=== PATIENT | male | born 1970 | race Caucasian/White ===

== ENCOUNTER 2017-01-11 10:04 | Inpatient (IN) | payer SELFPAY ==
[~2017-01-11] VITALS: Ht 170.2 cm; Wt 85.5 kg
[2017-01-11] MEDS ORDERED: ALBUTEROL 0.083% (NEB) 2.5 MG/3 ML AMP HHN STA (10:48)
[2017-01-11] MEDS ORDERED: ONDANSETRON 4 MG INJ IV STA (10:48)
[2017-01-11] MEDS ORDERED: KETOROLAC 15 MG INJ IV STA (10:48)
[2017-01-11] MEDS ORDERED: SOD CHLORIDE 0.9% 1,000 ML IV STA (10:48)
[2017-01-11] MEDS ORDERED: ASPIRIN 81 MG TAB PO ONE (11:00)
--- NOTE | 2017-01-11 11:01 | ERD ---
ER Documentation Chief Complaint Date/Time DATE: 01/11/17 TIME: 10:58 Chief Complaint Complains of chest pain and SOB since this am HPI 46-year-old man here for evaluation of shortness of breath 1 week. He states earlier he had chest discomfort although denies chest pain today or in the ED. He states many years ago in [facility] he was told he may have suffered a heart attack and was told he has hypertension although has not been using any medications and does not regularly take aspirin. He states the shortness of breath is worse when laying flat and on exertion. He denies cough, no calf or leg swelling, no vomiting or diarrhea, no headache or blurry vision. ROS All systems reviewed and are negative except as per history of present illness. Medications Home Meds No Active Prescriptions or Reported Meds Allergies Allergies: Coded Allergies: No Known Allergy (Unverified , 01/11/17) PMhx/Soc Hx Alcohol Use: No Hx Substance Use: No Hx Tobacco Use: No Smoking Status: Former smoker FmHx Family History: No diabetes Physical Exam Vitals Vital Signs Date Time Temp Pulse Resp B/P Pulse Ox O2 Delivery O2 Flow Rate FiO2 01/11/17 11:29 97.3 105 137/106 01/11/17 11:04 93 21 01/11/17 10:39 110 26 138/110 98 Room Air 01/11/17 10:16 97.5 105 20 126/94 99 Physical Exam GENERAL: Well-developed, well-nourished, appears dyspneic HEENT: Moist mucous membranes, pink conjunctiva, no cervical spine tenderness or step-off deformities, no goiter, no jaundice or icterus, extraocular movements intact without pain. No submandibular induration, and no pharyngeal erythema NEURO: Alert and oriented 3, cranial nerves II through XII intact bilaterally, pupils equal round reactive to light, no focal deficits or facial asymmetry, sensation intact distally Strength 5/5 in upper and lower extremities bilaterally CARDIAC: Tachycardic and regular, no murmurs rubs or gallops LUNGS: Poor breath sounds bilaterally, no crackles or stridor ABDOMEN: Soft nontender, no guarding, no rigidity, no rebound, no psoas sign no obturator sign. Normoactive bowel sounds SKIN: Warm and dry to touch, no abrasions, contusions, or hematomas, no lacerations, no ecchymosis, no target lesions, and without ulcers EXTREMITIES: No clubbing cyanosis or edema, calves are bilaterally symmetrical, no Homans sign, no popliteal cord sign. Distal pulses equal and bilateral PSYCH: Normal affect without agitation or irritability Result Diagram: 01/11/17 1030 01/11/17 1030 Results 24 hrs Laboratory Tests Test 01/11/17 10:30 White Blood Count 11.110^3/ul Red Blood Count 4.6910^6/ul Hemoglobin 14.0g/dl Hematocrit 40.5% Mean Corpuscular Volume 86.4fl Mean Corpuscular Hemoglobin 29.9pg Mean Corpuscular Hemoglobin Concent 34.6g/dl Red Cell Distribution Width 13.4% Platelet Count 55747^3/UL Mean Platelet Volume 11.1fl Neutrophils % 65.4% Lymphocytes % 25.8% Monocytes % 5.8% Eosinophils % 2.1% Basophils % 0.4% Nucleated Red Blood Cells % 0.0/100WBC Neutrophils # (Manual) 7.310^3/ul Lymphocytes # 2.910^3/ul Monocytes # 0.610^3/ul Eosinophils # 0.210^3/ul Basophils # 0.010^3/ul Nucleated Red Blood Cells # 0.010^3/ul Sodium Level 140mmol/L Potassium Level 4.6mmol/L Chloride Level 105mmol/L Carbon Dioxide Level 21mmol/L Anion Gap 19 Blood Urea Nitrogen 10mg/dl Creatinine 0.83mg/dl Glucose Level 111mg/dl Calcium Level 9.0mg/dl Total Bilirubin 1.5mg/dl Direct Bilirubin 0.00mg/dl Indirect Bilirubin 1.5mg/dl Aspartate Amino Transf (AST/SGOT) 86IU/L Alanine Aminotransferase (ALT/SGPT) 164IU/L Alkaline Phosphatase 74IU/L Troponin I 0.224ng/ml B-Type Natriuretic Peptide 1710PG/ML Total Protein 7.0g/dl Albumin 3.9g/dl Globulin 3.10g/dl Albumin/Globulin Ratio 1.25 Lipase 42U/L Current Medications Medications (Trade) Dose Ordered Sig/Afshan Route PRN Reason Start Time Stop Time Status Last Admin Dose Admin Sodium Chloride (NS) 1,000 ml @ 1,000 mls/hr Q1H STAT IV 01/11/17 10:48 01/11/17 11:47 DC 01/11/17 11:15 Ondansetron HCl (Zofran Inj) 4 mg ONCE STAT IV 01/11/17 10:48 01/11/17 10:50 DC 01/11/17 11:13 Ketorolac Tromethamine (Toradol) 15 mg ONCE STAT IV 01/11/17 10:48 01/11/17 10:50 DC 01/11/17 11:13 Albuterol (Proventil 0.083% (Neb)) 10 mg ONCE STAT HHN 01/11/17 10:48 01/11/17 10:50 DC 01/11/17 11:03 Aspirin (Aspirin) 324 mg ONCE ONCE PO 01/11/17 11:00 01/11/17 11:01 DC 01/11/17 11:15 Clopidogrel Bisulfate (plaVIX) 300 mg ONCE ONCE PO 01/11/17 13:30 01/11/17 13:31 DC 01/11/17 13:22 Furosemide (Lasix) 60 mg ONCE ONCE IV 01/11/17 13:30 01/11/17 13:31 DC 01/11/17 13:21 Procedures/MDM IV line was established patient was placed on security monitor rhythm strip revealed a sinus rhythm at about 70 bpm. Patient was afebrile. EKG performed, read by me revealed a sinus tachycardia at 116 bpm, normal axis, narrow QRS complex with no concerning ST elevations or depressions noted.. I administered 1 L normal saline intravenously, Toradol 15 mg IV, Zofran 4 mg IV , and albuterol 10 mg via nebulizer for complaints of shortness of breath. Patient was also given aspirin 324 mg p.o. for cardio protective measures. CBC was normal, electrolytes normal, liver function tests unremarkable, troponin positive at 0.2, BNP elevated at 1700 EKG #2 was performed about 2 hours later revealing a normal sinus rhythm at 95 bpm, normal axis, narrow QRS complex with repolarization abnormality in V3 through V5 including T-wave inversions, no elevations or depressions noted. One view chest x-ray performed, read by me he has bilateral interstitial edema consistent with decompensated heart failure, no acute infiltrates, no pneumothorax per It appears the patient has suffered an SD, I suspect a week ago and maximum symptom onset, after speaking to him again he states his symptoms have been ongoing 1 month but started getting worse a week ago. He has no history of CHF , although it is obvious now that he has decompensated heart failure secondary to recent SD. He will be admitted to telemetry setting for continued medical management cardiology consultation. Critical Care: Time: 37 minutes, this was time separate from other billable procedures. Treatments/Evaluations: Close monitoring and treatment of unstable vital signs, cardiorespiratory, and neurologic status, while maintaining tight balance of fluid, respiratory, and cardiac interventions. I also ordered clopidogrel 300 mg p.o. for cardio protective measures. Patient' s blood pressure is within normal limits and at this time is without complaints of chest pain. I am no indication for emergent PCI although this may be performed as an inpatient. Departure Diagnosis: Primary Impression: Non-STEMI (non-ST elevated myocardial infarction) Additional Impression: CHF (congestive heart failure) Congestive heart failure type: systolic Congestive heart failure chronicity: acute Qualified Code: I50.21 - Acute systolic congestive heart failure Condition: SUSHILA Chambers MD Jan 11, 2017 11:01
--- NOTE | 2017-01-11 11:06 | RADRPT ---
PROCEDURE: XR Chest. CLINICAL INDICATION: shortness of breath TECHNIQUE: Single portable view of the chest was obtained COMPARISON: None FINDINGS: The heart is normal in size. There is mild pulmonary vascular congestion. There are bilateral perihilar and lower lobe infiltrat es, right greater than left. There is no pleural effusion. There is no pneumothorax. The bones and soft tissues are unremarkable. RPTAT: AA IMPRESSION: Mild cardiomegaly with pulmonary vascular congestion. .Stefan Bran MD, Date Time Electronically viewed and signed by .Stefan Bran MD, on 01/11/2017 11:05 .S/
[2017-01-11 11:29] VITALS: TEMP 97.3
[2017-01-11 11:51] LABS: BASOPHILS % 0.4 % (0.0-2.0); EOSINOPHILS # 0.2 10^3/ul (0.0-0.5); EOSINOPHILS % 2.1 % (0.0-7.0); HEMATOCRIT 40.5 % (42.0-52.0); LYMPHOCYTES # 2.9 10^3/ul (0.8-2.9); LYMPHOCYTES % 25.8 % (15.0-51.0); MEAN CORPUSCULAR HEMOGLOBIN 29.9 pg (29.0-33.0); MEAN CORPUSCULAR HGB CONC 34.6 g/dl (32.0-37.0); MEAN CORPUSCULAR VOLUME 86.4 fl (82.0-101.0); MEAN PLATELET VOLUME 11.1 fl (7.4-10.4); MONOCYTE # 0.6 10^3/ul (0.3-0.9); MONOCYTES % 5.8 % (0.0-11.0); NEUTROPHILS % 65.4 % (39.0-77.0); PLATELET COUNT 185 10^3/UL (140-415); RED BLOOD COUNT 4.69 10^6/ul (4.70-6.10); RED CELL DISTRIBUTION WIDTH 13.4 % (11.5-14.5); WHITE BLOOD COUNT 11.1 10^3/ul (4.8-10.8)
[2017-01-11 12:47] LABS: ALBUMIN 3.9 g/dl (3.3-4.9); ALBUMIN/GLOBULIN RATIO 1.25; BILIRUBIN,INDIRECT 1.5 mg/dl (0-1.1); BILIRUBIN,TOTAL 1.5 mg/dl (0.2-1.3); CREATININE 0.83 mg/dl (0.61-1.24); POTASSIUM 4.6 mmol/L (3.5-5.1)
[2017-01-11 12:59] LABS: TROPONIN-I 0.224 ng/ml (0.00-0.12)
[2017-01-11] MEDS ORDERED: CLOPIDOGREL 75 MG TAB PO ONE (13:30)
[2017-01-11] MEDS ORDERED: FUROSEMIDE 40 MG INJ IV ONE (13:30)
[2017-01-11] MEDS ORDERED: HEPARIN 1000 UNITS/ML 10 ML INJ IV ONE (14:30)
[2017-01-11] MEDS ORDERED: MAGNESIUM HYDROXIDE 30ML CUP PO PRN (14:30)
[2017-01-11] MEDS ORDERED: ACETAMINOPHEN 650 MG SUPP PR PRN (14:30)
[2017-01-11] MEDS ORDERED: ACETAMINOPHEN 325 MG TAB PO PRN (14:30)
[2017-01-11] MEDS ORDERED: BISACODYL 10 MG SUPP PR PRN (14:30)
[2017-01-11] MEDS ORDERED: ONDANSETRON 4 MG INJ IV PRN ×2 (14:30→22:00)
[2017-01-11] MEDS ORDERED: NACL 0.9% 3 ML SYG IV SCH (14:30)
[2017-01-11] MEDS ORDERED: NITROGLYCERIN (SL) 0.4 MG TAB SL PRN ×2 (14:30→22:00)
[2017-01-11] MEDS ORDERED: HEPARIN 1000 UNITS/ML 10 ML INJ IV PRN (14:30)
[2017-01-11] MEDS ORDERED: HYDROCODONE/APAP (5/325) TAB PO PRN ×2 (14:30)
[2017-01-11] MEDS ORDERED: morphine 2 MG INJ IV PRN (14:30)
[2017-01-11] MEDS ORDERED: HEPARIN 25000 UNITS/250 ML 250 ML IV SCH (14:30)
[2017-01-11] MEDS ORDERED: DOCUSATE SODIUM 100 MG CAP PO PRN (14:30)
[2017-01-11 16:39] LABS: BASOPHIL # 0.1 10^3/ul (0.0-0.1); BASOPHILS % 0.5 % (0.0-2.0); EOSINOPHILS # 0.3 10^3/ul (0.0-0.5); EOSINOPHILS % 2.4 % (0.0-7.0); HEMATOCRIT 39.2 % (42.0-52.0); HEMOGLOBIN 13.7 g/dl (14.0-18.0); LYMPHOCYTES # 2.5 10^3/ul (0.8-2.9); LYMPHOCYTES % 22.9 % (15.0-51.0); MEAN CORPUSCULAR HEMOGLOBIN 30.3 pg (29.0-33.0); MEAN CORPUSCULAR HGB CONC 34.9 g/dl (32.0-37.0); MEAN CORPUSCULAR VOLUME 86.7 fl (82.0-101.0); MEAN PLATELET VOLUME 10.7 fl (7.4-10.4); MONOCYTE # 0.5 10^3/ul (0.3-0.9); MONOCYTES % 4.9 % (0.0-11.0); NEUTROPHILS % 68.9 % (39.0-77.0); PLATELET COUNT 169 10^3/UL (140-415); RED BLOOD COUNT 4.52 10^6/ul (4.70-6.10); RED CELL DISTRIBUTION WIDTH 13.3 % (11.5-14.5); WHITE BLOOD COUNT 10.8 10^3/ul (4.8-10.8)
[2017-01-11 16:56] LABS: PROTIME 13.2 Sec (12.2-14.2)
[2017-01-11 16:57] LABS: PARTIAL THROMBOPLASTIN TIME 45.1 Sec (25.0-35.0)
--- NOTE | 2017-01-11 17:21 | HP ---
Date/Time of Note Date/Time of Note DATE: 01/11/17 TIME: 17:16 Assessment/Plan VTE Prophylaxis VTE Prophylaxis Intervention: heparin Assessment/Plan Chief Complaint/Hosp Course Impression and plan 1. Chest pain. Suspect non-ST elevated myocardial infarction. Continue on heparin drip. Health Concierge consulted. Continue beta-eyal. As well as statin medication and antiplatelet. Of note patient also had elevated BNP. Follow-up on echocardiogram. 2. Essential hypertension. Will resume antihypertensives and adjust needed 3. Transaminitis. Likely secondary to patient's alcohol consumption. Cessation was advised. 4.Possible CHF. Patient was noted with cardiomegaly and pulmonary vascular congestion as well as elevated BNP per lab. Follow-up on echocardiogram. Diuretic as needed. Admission process times greater than 40 minutes Discussed plan of care with Dr. Newman Problems: HPI/ROS Admit Date/Time Admit Date/Time Hx of Present Illness This is a 46-year-old male with only reported past medical history of hypertension came to [facility] due to reports of intermittent chest pain for 30 days duration. Patient did report that his chest pain occurs spontaneously but he does notice at times that occurs after he eats food. He reports his chest pain is on the left side sharp-like in nature with associated shortness of breath. Reports that for the past 15 days he has been having increased shortness of breath with his chest pain not necessarily notable on exertion. He declined bypass pertaining hospital due to the aformentiond issues. He did have initial troponin drawn that did have elevation at 0.224. His BNP was also at 1710. He had some slight transaminitis as well but patient does report that he drinks occasionally alcohol specifically tequila. He was noted to be slightly tachycardic as well with heart rate as high as 110. He denies any history of drug use. He does also report cigarette smoking on occasion. We will evaluate him for the aformentiond issues. ROS 12 point review of systems obtained and entirely negative except that mentioned in the history of present illness PMH/Family/Social Past Medical History Medical/surgical history 1. Hypertension Family History Significant Family History: no pertinent family hx Social History Alcohol Use: occasionally Smoking Status: Light tobacco smoker Drug Use: none Exam/Review of Systems Vital Signs Vitals Vital Signs Date Time Temp Pulse Resp B/P Pulse Ox O2 Delivery O2 Flow Rate FiO2 01/11/17 13:45 106 18 141/104 96 Room Air 01/11/17 11:29 97.3 01/11/17 11:04 21 Exam Constitutional: alert Psych: nl mood/affect Head: normocephalic Eyes: nl conjunctiva Neck: supple Respiratory: normal air movement Cardiovascular: other (Regular rate to tachycardic) Gastrointestinal: non-tender, soft Musculoskeletal: nl extremities to inspection 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 II-XII intact, nl mental status, nl speech Labs Result Diagram: 01/11/17 1615 01/11/17 1030 Medications Medications Current Medications Ondansetron HCl (Zofran Inj) 4 mg Q6H PRN IV NAUSEA AND/OR VOMITING; Start at 14:30 Acetaminophen (Tylenol Tab) 650 mg Q6H PRN PO PAIN LEVEL 1-3 OR FEVER; Start at 14:30 Acetaminophen (Tylenol Supp) 650 mg Q6H PRN [place] PAIN LEVEL 1-3 OR FEVER; Start 01/11/17 at 14:30 Acetaminophen/ Hydrocodone Bitart ([place] (5/325)) 1 tab Q6H PRN PO MODERATE PAIN LEVEL 4-6; Start 01/11/17 at 14:30 Acetaminophen/ Hydrocodone Bitart ([place] (5/325)) 2 tab Q6H PRN PO SEVERE PAIN LEVEL 7-10; Start 01/11/17 at 14:30 Morphine Sulfate (morphine) 2 mg Q4H PRN IV SEVERE PAIN LEVEL 7-10; Start 01/11 at 14:30 Docusate Sodium (Colace) 100 mg Q12H PRN PO CONSTIPATION; Start 01/11/17 at 14: 30 Magnesium Hydroxide (Milk Of Mag) 30 ml DAILY PRN PO CONSTIPATION; Start at 14:30 Bisacodyl (Dulcolax Supp) 10 mg DAILY PRN [place] CONSTIPATION; Start 01/11/17 at 14 :30 Pantoprazole (Protonix Tab) 40 mg DAILY@06 PO ; Start 01/12/17 at 06:00 Aspirin (Aspirin) 81 mg DAILY PO ; Start 01/13/17 at 09:00 Metoprolol Tartrate (Lopressor) 12.5 mg BID PO ; Start 01/11/17 at 21:00 Nitroglycerin (Nitroglycerin (Sl Tab) 0.4 Mg) 1 tab Q5M PRN SL CHEST PAIN; Start 01/11/17 at 14:30 NYASIA BURNS Jan 11, 2017 17:21
[2017-01-11 17:25] LABS: CK-MB 1.88 ng/ml (0.0-2.4); TROPONIN-I 0.387 ng/ml (0.00-0.12)
[2017-01-11 21:00] VITALS: BP_SYST 129; BP_DIAS 74; BP_DIAS 94; PULSE 109; RESP 15; RESP 16; Ht 170.2 cm; Wt 85.5 kg
[2017-01-11] MEDS ORDERED: METOPROLOL 25 MG TAB PO SCH (21:00)
[2017-01-11 21:41] VITALS: PULSE 111
[2017-01-11] MEDS ORDERED: ENOXAPARIN 40 MG/0.4 ML SYG SC ONE (22:00)
[2017-01-11] MEDS ORDERED: morphine 4 MG/ML VIAL IV PRN (22:00)
[2017-01-11 22:14] LABS: CK-MB 1.29 ng/ml (0.0-2.4); TROPONIN-I 0.398 ng/ml (0.00-0.12)
--- NOTE | 2017-01-11 22:32 | RADRPT ---
Echocardiogram Report Patient Name: CHRIST WERNER Gender: Male Date: 1970 Study Date: 11-Jan-2017 Corset Fitter: Heather [facility] Location: [facility] Ref. Physician: NYASIA BURNS Quality: Technically Difficult Study Procedures: Transthoracic echocardiogram with complete 2D, M-Mode, and doppler examination. Indications: Chest Pain. 2D/M Mode Doppler Measurement Value Normal Ranges Measurement Value Normal Ranges LVIDd 2D 6.6 3.5 - 5.6 cm AV Peak Gray 1.1 m/sec LVIDs 2D 5.7 2.1 - 4.1 cm AV Peak PG 4.0 mmHg FS 2D 13.6 % LVOT Peak Gary 0.5 m/sec LVPWd 2D 1.5 0.6 - 1.1 cm LVOT Peak PG 1.0 mmHg IVSd 2D 1.5 0.6 - 1.1 cm MV E Peak Gray 1.0 m/sec IVS/LVPW 2D 1.0 MV A Peak Gray 0.8 m/sec AoR Diam 2D 3.0 2.0 - 3.7 cm MV E/A 1.2 LA/Ao 2D 1 0 - 1 MV Decel Time 120 msec EDV 2D 281.0 cm3 MV E/A 1.2 ESV 2D 181.0 cm3 MR Peak PG 69.0 mmHg LA Dimen 2D 3.1 2.3 - 4.0 cm MR Peak Gray 4.1 m/sec TR Peak Gray 2.8 m/sec TR Peak PG 32.0 mmHg RVSP 35.0 mmHg Findings Left Ventricle: Moderate concentric left ventricular hypertrophy. Moderate enlargement of left ventricle cavity. Severe global left ventricular systolic dysfunction. Ejection fraction is visually estimated at 20 %. Abnormal Diastolic Function. Right Ventricle: Normal right ventricular size. Normal right ventricular systolic function. Left Atrium: The left atrium is normal in size. Right Atrium: The right atrium is normal in size. Mitral Valve: Mild mitral leaflet calcification. Mild mitral annular calcification. Mild mitral valve regurgitation. Aortic Valve: Aortic sclerosis without stenosis. Trace aortic valve regurgitation. Tricuspid Valve: Normal appearance of the tricuspid valve. Estimated peak PA systolic pressure 35 mmHg. There is mild tricuspid regurgitation. Pulmonic Valve: Pulmonic valve not well visualized. There is trace pulmonic regurgitation. Pericardium: Normal pericardium with no significant pericardial effusion. Aorta: Normal aortic root. IVC: Normal size and normal respiratory collapse consistent with normal right atrial pressure. Conclusions 1.Moderate concentric left ventricular hypertrophy. Moderate enlargement of left ventricle cavity. Severe global left ventricular systolic dysfunction. Ejection fraction is visually estimated at 20 %. Abnormal Diastolic Function. 2.Mild mitral leaflet calcification. Mild mitral annular calcification. Mild mitral valve regurgitation. 3.Aortic sclerosis without stenosis. Trace aortic valve regurgitation. 4.Normal appearance of the tricuspid valve. Estimated peak PA systolic pressure 35 mmHg. There is mild tricuspid regurgitation. 5.Pulmonic valve not well visualized. There is trace pulmonic regurgitation. Electronically Signed By: Philip Devine 11-Jan-2017 22:31:58 -0700 Patient Name: CHRIST WERNER Study Date: 11-Jan-2017 [id number]
[2017-01-12] VITALS (11 sets, daily range): BP systolic 113–143; BP diastolic 70–92; PULSE 99–107; RESP 15–20
[2017-01-12 05:45] LABS: ALBUMIN 3.6 g/dl (3.3-4.9); ALBUMIN/GLOBULIN RATIO 1.2; BILIRUBIN,INDIRECT 1.5 mg/dl (0-1.1); BILIRUBIN,TOTAL 1.5 mg/dl (0.2-1.3); CALCIUM 8.3 mg/dl (8.4-10.2); CHOL/HDL RATIO 5.3 RATIO; CREATININE 0.81 mg/dl (0.61-1.24); MAGNESIUM 1.8 mg/dl (1.7-2.5); PHOSPHORUS 3.6 mg/dl (2.5-4.9); POTASSIUM 3.5 mmol/L (3.5-5.1); TOTAL PROTEIN 6.6 g/dl (6.1-8.1)
[2017-01-12] MEDS: PANTOPRAZOLE (EC) 40 MG TAB PO SCH (06:16)
--- NOTE | 2017-01-12 07:16 | CONS ---
DATE OF ADMISSION: 01/11/2017 DATE OF CONSULTATION: 01/11/2017 REASON FOR CONSULTATION: Positive troponin, concerning for non- ST-elevation myocardial infarction. REFERRING PHYSICIAN: Adeel Maxwell MD, hospitalist service, and Hardeep Addison NP from the hospitalist service. HISTORY OF PRESENT ILLNESS: Mr. Sanchez is a 46-year-old male with history of hypertension who presented with complaints of intermittent chest pain ongoing for approximately 3 weeks, worse with eating and on the day of admit he had 3 strong episodes. He has been having increasing shortness of breath and dyspnea on exertion. Upon arrival in the Emergency Department, temperature 97.5, blood pressure 126/94, pulse 105, respiratory rate 20, saturating at 99 percent. The patient's labs, white blood cell count 10.1, hemoglobin 14, platelet count 185; sodium 140, potassium 4.6, creatinine of 0.83, BUN 10, troponin 0.224, BNP of 1710, INR of 1.0. The patient underwent a chest x-ray revealing mild cardiomegaly and pulmonary vascular congestion. The patient's electrocardiogram revealed normal sinus tachycardia at a rate of 116, with normal axis, anteroseptal Qs, and lateral T- wave abnormalities. The patient was subsequently admitted to the floor, initiated on aspirin, heparin, and metoprolol. The patient at this time, states the chest pain has improved. The patient had his troponins trended going from 0.224 to 0.387. PAST MEDICAL HISTORY: As above in the HPI. HOSPITAL MEDICATIONS: 1. Lovenox 40 mg subcu daily. 2. Metoprolol 12.5 mg p.o. b.i.d. 3. Protonix 40 mg daily. 4. Zofran p.r.n. 5. Tylenol p.r.n. 6. Morphine p.r.n. 7. Milk of magnesia p.r.n. 8. Heparin IV drip. ALLERGIES: NO KNOWN DRUG ALLERGIES. SOCIAL HISTORY: Positive tobacco. Social EtOH. No illicit drug use. FAMILY HISTORY: No history of sudden cardiac or early CAD. REVIEW OF SYSTEMS: As above in HPI. CONSTITUTIONAL: No fevers or chills. RESPIRATORY: Shortness of breath. CARDIOVASCULAR: Chest pain. GASTROINTESTINAL: No vomiting. GENITOURINARY: No hematuria. MUSCULOSKELETAL: Degenerative joint disease. PSYCHIATRIC: The patient has depression. NEUROLOGIC: No documented history of CVA. PHYSICAL EXAMINATION: VITAL SIGNS: Temperature 97.3. Blood pressure most recently 126/68. Pulse 105. Saturating at 94 percent with a respiratory rate of 18. GENERAL: The patient is alert, awake, in no acute distress. NECK: JVP approximately 8 cm water. LUNGS: Fair air movement throughout. HEART: Tachycardic. Regular rhythm. Normal S1, S2 and 1/6 systolic murmur. Nondisplaced PMI. ABDOMEN: Positive bowel sounds. Soft. EXTREMITIES: No edema, 1-plus pulses bilaterally,posterior tibial. LABORATORY: As above in HPI. No further labs for review at this time. IMAGING STUDIES: As above in HPI. No further imaging studies for review at this time. ECG as above in HPI. IMPRESSION: 1. Positive troponin. Concerning for [id number] myocardial infarction . 2. Chest pain secondary to number 1. 3. Hypertension. 4. Dyslipidemia. 5. Abnormal electrocardiogram. RECOMMENDATIONS: 1. At this time, we will maintain the patient on heparin tonight and aspirin. We will discontinue the patient's Lovenox, as he is on heparin, discontinue the patient's beta eyal with further up titration to improve overall systolic blood pressure and heart rate control. 2. Check a 2D echo to further assess the patient's ejection fraction, wall motion, and any major abnormalities. 3. Check the Lasix given pulmonary vascular congestion by chest x-ray. Follow an increased BNP. Follow lung status closely. The patient will likely benefit from a cardiac stress test or a direct left heart catheterization to further assess for significance of minimally positive troponin. We will make the patient NPO after midnight, but, unfortunately, the laboratory has been completely booked and, therefore, it would 4. be difficult to find an available time for tomorrow, but we will prepare the patient as possible. Thank you for allowing me to take part in the care of this patient. Dictated By: Philip Devine MD /kamala/wiliam /Document#: [id number] CC: Adeel Maxwell MD; Hardeep Addison NP;*[facility]*
[2017-01-12 07:30] LABS: T3 UPTAKE 39.7 % (23.5-40.5)
[2017-01-12 07:43] LABS: THYROID STIMULATING HORMONE 1.93 MIU/L (0.465-4.680)
[2017-01-12] MEDS: FUROSEMIDE 20 MG INJ IV SCH (08:42)
[2017-01-12] MEDS ORDERED: ASPIRIN (EC) 81 MG TAB PO SCH (09:00)
[2017-01-12] MEDS ORDERED: METOPROLOL 25 MG TAB PO SCH (09:00)
[2017-01-12] MEDS ORDERED: ENOXAPARIN 40 MG/0.4 ML SYG SC SCH (09:00)
[2017-01-12] MEDS ORDERED: REGADENOSON 0.4 MG/5 ML SYG ONE (10:11)
[2017-01-12 11:13] LABS: CK-MB 0.78 ng/ml (0.0-2.4); TROPONIN-I 0.198 ng/ml (0.00-0.12)
--- NOTE | 2017-01-12 11:47 | CONS ---
Date/Time of Note Date/Time of Note DATE: 01/12/17 TIME: 11:41 Assessment/Plan Assessment/Plan Chief Complaint/Hosp Course IMPRESSION: 1. Positive troponin. Concerning for [id number] myocardial infarction- no sig uptrend on serial examination and now downtrending with no chest pain 2. Chest pain secondary to number 1. 3. Hypertension. 4. Dyslipidemia. 5. Abnormal electrocardiogram. 6. Cardiomyopathy with low EF by echo Recc: -Tele -serial ecg's -Continue daily alsix -[id number] BB -start acei afterload reduction -Lexiscan stress test today to assess significance of minimally positive troponin Problems: Consultation Date/Type/Reason Admit Date/Time Jan 11, 2017 at 13:30 Initial Consult Date 01/11/2017 Type of Consultation: cardiology Reason for Consultation positive troponin/cardiomyopathy Referring Provider: TARUN SETHI Exam/Review of Systems Vital Signs Vitals Vital Signs Date Time Temp Pulse Resp B/P Pulse Ox O2 Delivery O2 Flow Rate FiO2 01/12/17 08:08 106 01/12/17 07:36 98.3 20 142/92 98 01/11/17 21:00 Room Air 01/11/17 11:04 21 Intake and Output 01/11/17 01/11/17 01/12/17 15:00 23:00 07:00 Intake Total 1000 ml 425 ml Output Total 750 ml Balance 1000 ml -325 ml Exam Review of Systems: CONSTITUTIONAL: No fevers, chills. PULMONARY: No sob CARDIOVASCULAR: No chest pain/palpitations GASTROINTESTINAL: No nausea/vomiting. GENITOURINARY: No hematuria/dysuria. MUSCULOSKELETAL: No myagias/arthalgias. PSYCHIATRIC: The patient denies depression. NEUROLOGIC: No weakness Constitutional: alert Psych: no complaints ENMT: mucosa pink and moist Neck: jvd Respiratory: diminished breath sounds Cardiovascular: regular rate and rhythm Gastrointestinal: non-tender, soft Musculoskeletal: muscle tone (normal) Extremities: other Neurological: other (No focal deficits) Results Result Diagram: 01/11/17 1615 01/12/17 0439 Results 24 hrs Laboratory Tests Test 01/11/17 16:15 01/11/17 21:11 01/12/17 04:39 01/12/17 09:33 White Blood Count 10.8 Red Blood Count 4.52 L Hemoglobin 13.7 L Hematocrit 39.2 L Mean Corpuscular Volume 86.7 Mean Corpuscular Hemoglobin 30.3 Mean Corpuscular Hemoglobin Concent 34.9 Red Cell Distribution Width 13.3 Platelet Count 169 Mean Platelet Volume 10.7 H Neutrophils % 68.9 Lymphocytes % 22.9 Monocytes % 4.9 Eosinophils % 2.4 Basophils % 0.5 Nucleated Red Blood Cells % 0.0 Neutrophils # (Manual) 7.4 Lymphocytes # 2.5 Monocytes # 0.5 Eosinophils # 0.3 Basophils # 0.1 Nucleated Red Blood Cells # 0.0 Prothrombin Time 13.2 Prothrombin Time Ratio 1.0 INR International Normalized Ratio 1.00 Activated Partial Thromboplast Time 45.1 H 32.2 Creatine Kinase 98 73 58 Creatine Kinase Index 1.9 1.8 1.3 Creatinine Kinase MB (Mass) 1.88 1.29 0.78 Troponin I 0.387 *H 0.398 *H 0.198 *H Sodium Level 138 Potassium Level 3.5 Chloride Level 106 Carbon Dioxide Level 23 Anion Gap 13 Blood Urea Nitrogen 12 Creatinine 0.81 Glucose Level 121 Hemoglobin A1c 5.6 Calcium Level 8.3 L Phosphorus Level 3.6 Magnesium Level 1.8 Total Bilirubin 1.5 H Direct Bilirubin 0.00 Indirect Bilirubin 1.5 H Aspartate Amino Transf (AST/SGOT) 39 # Alanine Aminotransferase (ALT/SGPT) 118 H Alkaline Phosphatase 69 Total Protein 6.6 Albumin 3.6 Globulin 3.00 Albumin/Globulin Ratio 1.20 Triglycerides Level 193 H Cholesterol Level 171 LDL Cholesterol, Calculated 100 HDL Cholesterol 32 Cholesterol/HDL Ratio 5.3 Thyroid Stimulating Hormone (TSH) 1.930 Free Thyroxine Index 2.10 Thyroxine (T4) 5.3 L Triiodothyronine (T3) Uptake 39.7 Medications Medications Current Medications Ondansetron HCl (Zofran Inj) 4 mg Q6H PRN IV NAUSEA AND/OR VOMITING; Start at 14:30 Acetaminophen (Tylenol Tab) 650 mg Q6H PRN PO PAIN LEVEL 1-3 OR FEVER; Start at 14:30 Acetaminophen (Tylenol Supp) 650 mg Q6H PRN [place] PAIN LEVEL 1-3 OR FEVER; Start 01/11/17 at 14:30 Acetaminophen/ Hydrocodone Bitart ([place] (5/325)) 1 tab Q6H PRN PO MODERATE PAIN LEVEL 4-6; Start 01/11/17 at 14:30 Acetaminophen/ Hydrocodone Bitart ([place] (5/325)) 2 tab Q6H PRN PO SEVERE PAIN LEVEL 7-10; Start 01/11/17 at 14:30 Morphine Sulfate (morphine) 2 mg Q4H PRN IV SEVERE PAIN LEVEL 7-10; Start 01/11 at 14:30 Docusate Sodium (Colace) 100 mg Q12H PRN PO CONSTIPATION; Start 01/11/17 at 14: 30 Magnesium Hydroxide (Milk Of Mag) 30 ml DAILY PRN PO CONSTIPATION; Start at 14:30 Bisacodyl (Dulcolax Supp) 10 mg DAILY PRN [place] CONSTIPATION; Start 01/11/17 at 14 :30 Pantoprazole (Protonix Tab) 40 mg DAILY@06 PO Last administered on 01/12/17 06: 16; Admin Dose 40 MG; Start 01/12/17 at 06:00 Aspirin (Aspirin) 81 mg DAILY PO ; Start 01/13/17 at 09:00 Nitroglycerin (Nitroglycerin (Sl Tab) 0.4 Mg) 1 tab Q5M PRN SL CHEST PAIN; Start 01/11/17 at 14:30 Metoprolol Tartrate (Lopressor) 25 mg BID PO Last administered on 01/12/17 08: 42; Admin Dose 25 MG; Start 01/12/17 at 09:00 Furosemide (Lasix) 20 mg DAILY IV Last administered on 01/12/17 08:42; Admin Dose 20 MG; Start 01/12/17 at 09:00 AGUSTIN DONG Jan 12, 2017 11:47
--- NOTE | 2017-01-12 13:22 | CARRPT ---
DATE OF PROCEDURE: 01/12/2017 TYPE OF PROCEDURE: Lexiscan cardiac stress test, electrocardiogram portion. INDICATION: Chest pain, positive troponin, assess for ischemia. Baseline vital signs during EKG: Pulse 89, blood pressure 114/83. Baseline EKG revealed normal sinus rhythm at 89 with normal axis and diffuse T-wave inversions inferior, anterior and lateral. PROCEDURE: The patient underwent standard Lexiscan infusion protocol followed by uptake of radiotracer. Patient's test was stopped due to completion of protocol. Maximal achieved blood pressure during the test of 116/89. Maximal achieved heart rate during the test 101. ELECTROCARDIOGRAM FINDINGS: The patient did not develop any new Lexiscan-induced ST-T wave changes from baseline abnormalities. No documented PVCs. SYMPTOMS: The patient had no complaints of chest pain, mild shortness of breath, which resolved during recovery. IMPRESSION: 1. No Lexiscan-induced ST-T wave change from baseline abnormalities to diagnosis cardiac ischemia. 2. No complaints of chest pain during stress testing, but positive shortness of breath, which resolved during recovery. 3. No documented premature ventricular contractions during the test. 4. Reported nuclear images to follow. Dictated By: Philip Devine MD /[email or web address] /Document#: [id number] ; Dr. Maxwell
--- NOTE | 2017-01-12 14:14 | RADRPT ---
PROCEDURE: Nuclear medicine myocardial stress and rest scan. CLINICAL INDICATION: Chest pain. Elevated cardiac enzymes. TECHNIQUE: The patient was stressed with 0.4 mg IV Lexiscan. 10 mCi technetium 99m Tetrofosmin ( Myoview) was administered rest. 30 mCi technetium 99m Tetrofosmin (Myoview) was administered duri ng stress. Images were obtained and reconstructed in the short axis, horizontal long axis, and vert ical long axis. Gated images were obtained and ejection fraction was calculated. COMPARISON: No prior study is available for comparison. FINDINGS: The stress and rest images demonstrate a large fixed defect in the inferior wall extending from the base to the apex. There is no other fixed abnormality. There is no reversibility. There is no evid ence of transient ischemic dilatation. The left ventricle is dilated and there is diffuse hypokinesis. There is a akinesis of the inferior wall. Ejection fraction at stress is 18%. IMPRESSION: 1. No evidence of stress induced myocardial ischemia. 2. 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 No evidence of via ble myocardium at this site. 3. Dilated ventricle with diffuse hypokinesis. Akinesis of the inferior wall the site of infarct. 4. Ejection fraction at stress is 18%. RPTAT: QQ .Chaz Mcgraw MD, MD Date Time Electronically viewed and signed by .Chaz Mcgraw MD, on 01/12/2017 14:14 .R/
--- NOTE | 2017-01-12 15:36 | RADRPT ---
Vent Rate: 105 bpm RR Interval: 0 msec ME Interval: 158 msec QRS Duration: 100 msec QT Interval: 350 msec QTC Interval: 462 msec P-R-T [place]: 48 - 36 - 0 degrees Sinus tachycardia Possible Left atrial enlargement Nonspecific ST and T wave abnormality Abnormal ECG Electronically Signed By: Abhishek Galeana [id number]
--- NOTE | 2017-01-12 16:00 | DS ---
Date/Time of Note Date/Time of Note DATE: 01/12/17 TIME: 15:42 Discharge Summary Admission/Discharge Info Admit Date/Time Jan 11, 2017 at 13:30 Discharge Date/Time Discharge Diagnosis 1. Chest pain, stress test no ischemic, medical management, follow up with cardiology outpatient 2. Congestive heart failure, systolic, chronic, on coreg/benazepril/lasix, follow up with cardiology 3. Dilated cardiomyopathy, ischemic versus alcoholic, stop ETOH 4. Hypertension, controlled 5. Alcoholism, quit ETOH Patient Condition: Stable Procedures Echocardiogram Report Patient Name: CHRIST WERNER Gender: Male Date: 1970 Study Date: 11-Jan-2017 Core Piler: Heather [facility] Location: - Ref. Physician: NYASIA BURNS Quality: Technically Difficult Study Procedures: Transthoracic echocardiogram with complete 2D, M-Mode, and doppler examination. Indications: Chest Pain. 2D/M Mode Doppler Measurement Value Normal Ranges Measurement Value Normal Ranges LVIDd 2D 6.6 3.5 - 5.6 cm AV Peak Gray 1.1 m/sec LVIDs 2D 5.7 2.1 - 4.1 cm AV Peak PG 4.0 mmHg FS 2D 13.6 % LVOT Peak Gray 0.5 m/sec LVPWd 2D 1.5 0.6 - 1.1 cm LVOT Peak PG 1.0 mmHg IVSd 2D 1.5 0.6 - 1.1 cm MV E Peak Gray 1.0 m/sec IVS/LVPW 2D 1.0 MV A Peak Gray 0.8 m/sec AoR Diam 2D 3.0 2.0 - 3.7 cm MV E/A 1.2 LA/Ao 2D 1 0 - 1 MV Decel Time 120 msec EDV 2D 281.0 cm3 MV E/A 1.2 ESV 2D 181.0 cm3 MR Peak PG 69.0 mmHg LA Dimen 2D 3.1 2.3 - 4.0 cm MR Peak Gray 4.1 m/sec TR Peak Gray 2.8 m/sec TR Peak PG 32.0 mmHg RVSP 35.0 mmHg Findings Left Ventricle: Moderate concentric left ventricular hypertrophy. Moderate enlargement of left ventricle cavity. Severe global left ventricular systolic dysfunction. Ejection fraction is visually estimated at 20 %. Abnormal Diastolic Function. Right Ventricle: Normal right ventricular size. Normal right ventricular systolic function. Left Atrium: The left atrium is normal in size. Right Atrium: The right atrium is normal in size. Mitral Valve: Mild mitral leaflet calcification. Mild mitral annular calcification. Mild mitral valve regurgitation. Aortic Valve: Aortic sclerosis without stenosis. Trace aortic valve regurgitation. Tricuspid Valve: Normal appearance of the tricuspid valve. Estimated peak PA systolic pressure 35 mmHg. There is mild tricuspid regurgitation. Pulmonic Valve: Pulmonic valve not well visualized. There is trace pulmonic regurgitation. Pericardium: Normal pericardium with no significant pericardial effusion. Aorta: Normal aortic root. IVC: Normal size and normal respiratory collapse consistent with normal right atrial pressure. Conclusions 1. Moderate concentric left ventricular hypertrophy. Moderate enlargement of left ventricle cavity. Severe global left ventricular systolic dysfunction. Ejection fraction is visually estimated at 20 %. Abnormal Diastolic Function. 2. Mild mitral leaflet calcification. Mild mitral annular calcification. Mild mitral valve regurgitation. 3. Aortic sclerosis without stenosis. Trace aortic valve regurgitation. 4. Normal appearance of the tricuspid valve. Estimated peak PA systolic pressure 35 mmHg. There is mild tricuspid regurgitation. 5. Pulmonic valve not well visualized. There is trace pulmonic regurgitation. Electronically Signed By: Agustin Devine 11-Jan-2017 22:31:58 -07[address] [place] [id number] Radiology Main Line: [phone] DIAGNOSTIC IMAGING REPORT Patient: CHRIST WERNER : 1970 Age: 46 Sex: M MR #: [id number] DOS: 01/12/17 0000 Ordering MD: AGUSTIN DEVINE MD Location: [facility] PROCEDURE: Nuclear medicine myocardial stress and rest scan. CLINICAL INDICATION: Chest pain. Elevated cardiac enzymes. TECHNIQUE: The patient was stressed with 0.4 mg IV Lexiscan. 10 mCi technetium 99m Tetrofosmin (Myoview) was administered rest. 30 mCi technetium 99m Tetrofosmin (Myoview) was administered during stress. Images were obtained and reconstructed in the short axis, horizontal long axis, and vertical long axis. Gated images were obtained and ejection fraction was calculated. COMPARISON: No prior study is available for comparison. FINDINGS: The stress and rest images demonstrate a large fixed defect in the inferior wall extending from the base to the apex. There is no other fixed abnormality. There is no reversibility. There is no evidence of transient ischemic dilatation. The left ventricle is dilated and there is diffuse hypokinesis. There is a akinesis of the inferior wall. Ejection fraction at stress is 18%. IMPRESSION: 1. No evidence of stress induced myocardial ischemia. 2. 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 No evidence of viable myocardium at this site. 3. Dilated ventricle with diffuse hypokinesis. Akinesis of the inferior wall the site of infarct. 4. Ejection fraction at stress is 18%. RPTAT: QQ .Chaz Mcgraw MD, MD Date Time Electronically viewed and signed by .Chaz Mcgraw MD, on 01/12/2017 14:14 .R/ CC: AGUSTIN DEVINE Hx of Present Illness This is a 46-year-old male with only reported past medical history of hypertension came to [facility] due to reports of intermittent chest pain for 30 days duration. Patient did report that his chest pain occurs spontaneously but he does notice at times that occurs after he eats food. He reports his chest pain is on the left side sharp-like in nature with associated shortness of breath. Reports that for the past 15 days he has been having increased shortness of breath with his chest pain not necessarily notable on exertion. He declined bypass pertaining hospital due to the aformentiond issues. He did have initial troponin drawn that did have elevation at 0.224. His BNP was also at 1710. He had some slight transaminitis as well but patient does report that he drinks occasionally alcohol specifically tequila. He was noted to be slightly tachycardic as well with heart rate as high as 110. He denies any history of drug use. He does also report cigarette smoking on occasion. We will evaluate him for the aformentiond issues. Hospital Course Echocardiography with LVEF 20%. Stress thallium test with no ischemia but a fix defect in inferior wall. The dilated cardiomyopathy is probably ischemic but more likely alcoholic. Patient and his is instructed that he needs to stop ETOH. He is put on coreg, benazepril and lasix. He will follow up with cardiology outpatient. Home Meds No Active Prescriptions or Reported Meds Follow-up Plan PCP in one week cadiology in one week Primary Care Provider Pending Labs Laboratory Tests Test 01/11/17 16:15 01/11/17 21:11 01/12/17 04:39 01/12/17 09:33 White Blood Count 10.810^3/ul (4.8-10.8) Red Blood Count 4.5210^6/ul (4.70-6.10) Hemoglobin 13.7g/dl (14.0-18.0) Hematocrit 39.2% (42.0-52.0) Mean Corpuscular Volume 86.7fl (82.0-101.0) Mean Corpuscular Hemoglobin 30.3pg (29.0-33.0) Mean Corpuscular Hemoglobin Concent 34.9g/dl (32.0-37.0) Red Cell Distribution Width 13.3% (11.5-14.5) Platelet Count 51250^3/UL (140-415) Mean Platelet Volume 10.7fl (7.4-10.4) Neutrophils % 68.9% (39.0-77.0) Lymphocytes % 22.9% (15.0-51.0) Monocytes % 4.9% (0.0-11.0) Eosinophils % 2.4% (0.0-7.0) Basophils % 0.5% (0.0-2.0) Nucleated Red Blood Cells % 0.0/100WBC (0.0-0.0) Neutrophils # (Manual) 7.410^3/ul (1.7-7.5) Lymphocytes # 2.510^3/ul (0.8-2.9) Monocytes # 0.510^3/ul (0.3-0.9) Eosinophils # 0.310^3/ul (0.0-0.5) Basophils # 0.110^3/ul (0.0-0.1) Nucleated Red Blood Cells # 0.010^3/ul (0.0-0.0) Prothrombin Time 13.2Sec (12.2-14.2) Prothrombin Time Ratio 1.0 INR International Normalized Ratio 1.00 Activated Partial Thromboplast Time 45.1Sec (25.0-35.0) 32.2Sec (25.0-35.0) Creatine Kinase 98IU/L (23-200) 73IU/L (23-200) 58IU/L (23-200) Creatine Kinase Index 1.9 1.8 1.3 Creatinine Kinase MB (Mass) 1.88ng/ml (0.0-2.4) 1.29ng/ml (0.0-2.4) 0.78ng/ml (0.0-2.4) Troponin I 0.387ng/ml (0.00-0.12) 0.398ng/ml (0.00-0.12) 0.198ng/ml (0.00-0.12) Sodium Level 138mmol/L (135-144) Potassium Level 3.5mmol/L (3.5-5.1) Chloride Level 106mmol/L (97-110) Carbon Dioxide Level 23mmol/L (21-31) Anion Gap 13 (8-16) Blood Urea Nitrogen 12mg/dl (7-20) Creatinine 0.81mg/dl (0.61-1.24) Glucose Level 121mg/dl (70-220) Hemoglobin A1c 5.6% (0-5.9) Calcium Level 8.3mg/dl (8.4-10.2) Phosphorus Level 3.6mg/dl (2.5-4.9) Magnesium Level 1.8mg/dl (1.7-2.5) Total Bilirubin 1.5mg/dl (0.2-1.3) Direct Bilirubin 0.00mg/dl (0.00-0.20) Indirect Bilirubin 1.5mg/dl (0-1.1) Aspartate Amino Transf (AST/SGOT) 39IU/L (15-46) Alanine Aminotransferase (ALT/SGPT) 118IU/L (13-69) Alkaline Phosphatase 69IU/L (42-121) Total Protein 6.6g/dl (6.1-8.1) Albumin 3.6g/dl (3.3-4.9) Globulin 3.00g/dl (1.3-3.2) Albumin/Globulin Ratio 1.20 Triglycerides Level 193mg/dl (0-149) Cholesterol Level 171mg/dl (100-200) LDL Cholesterol, Calculated 100mg/dl HDL Cholesterol 32mg/dl (27-67) Cholesterol/HDL Ratio 5.3RATIO Thyroid Stimulating Hormone (TSH) 1.930MIU/L (0.465-4.680) Free Thyroxine Index 2.10ug/ml (0.65-3.89) Thyroxine (T4) 5.3ug/dl (5.5-11.0) Triiodothyronine (T3) Uptake 39.7% (23.5-40.5) Test 01/12/17 12:43 Activated Partial Thromboplast Time 29.6Sec (25.0-35.0) COCO COCHRAN MD Jan 12, 2017 15:53
[2017-01-12] MEDS ORDERED: Furosemide IV (16:02)
[2017-01-12] MEDS ORDERED: BENA10TA48 PO (16:02)
[2017-01-12] MEDS ORDERED: ASPI81TA3 PO (16:02)
[2017-01-12] MEDS ORDERED: ATOR10TA65 PO (16:02)
[2017-01-12] MEDS ORDERED: CARV3.1260 PO (16:02)
[2017-01-12] MEDS ORDERED: ATORVASTATIN 20 MG TAB PO SCH (21:00)
[2017-01-13] VITALS (13 sets, daily range): BP systolic 100–139; BP diastolic 71–86; PULSE 34–101; RESP 15–20
[2017-01-13] MEDS: PANTOPRAZOLE (EC) 40 MG TAB PO SCH (06:04)
[2017-01-13] MEDS: FUROSEMIDE 20 MG INJ IV SCH (08:42)
[2017-01-13] MEDS: BENAZEPRIL 10 MG TAB PO SCH (08:43)
[2017-01-13] MEDS: ASPIRIN 81 MG TAB PO SCH (08:43)
[2017-01-13] MEDS ORDERED: FURO20TA3 PO (12:19)
--- NOTE | 2017-01-13 12:23 | PDOCDIS ---
Discharge Instructions DIAGNOSIS Discharge Diagnosis 1. Chest pain, stress test no ischemic, medical management, follow up with cardiology outpatient 2. Congestive heart failure, systolic, chronic, on coreg/benazepril/lasix, follow up with cardiology 3. Dilated cardiomyopathy, ischemic versus alcoholic, stop ETOH 4. Hypertension, controlled 5. Alcoholism, quit ETOH CONDITION Patient Condition: Stable HOME CARE INSTRUCTIONS: Diet Instructions: Low Fat /CholesterolSpecial Diet: Low fat low cholesterol FOLLOW UP/APPOINTMENTS Follow-up Plan 1. Follow up with Dr. Philip Devine in one week NYASIA BURNS Jan 13, 2017 12:23
[2017-01-14] VITALS (11 sets, daily range): BP systolic 110–135; BP diastolic 67–85; PULSE 77–95; RESP 18–20
[2017-01-14] MEDS: PANTOPRAZOLE (EC) 40 MG TAB PO SCH (06:45)
[2017-01-14] MEDS: ASPIRIN 81 MG TAB PO SCH (08:38)
[2017-01-14] MEDS: BENAZEPRIL 10 MG TAB PO SCH (08:38)
[2017-01-14] MEDS: FUROSEMIDE 20 MG INJ IV SCH (08:38)
--- NOTE | 2017-01-14 14:09 | PN ---
Date/Time of Note Date/Time of Note LATE ENTRY DATE: 01/13/17 Assessment/Plan VTE Prophylaxis VTE Prophylaxis Intervention: SCD's Lines/Catheters IV Catheter Type (from Nrs): Saline Lock Urinary Cath still in place: No Assessment/Plan Chief Complaint/Hosp Course Assessment plan 1. Chest pain. Troponins demonstrated. Lexiscan stress test showed no ST induced changes from baseline. No baseline abnormalities to diagnose cardiac ischemia. Continue optimization of cardiovascular medications. The patient does have an EF of 20% seen on echocardiogram. 2. Essential hypertension. Continue antihypertensives and adjust needed 3. Transaminitis. Likely secondary to patient's upper consumption. Cessation was advised. 4. Cardiomyopathy. Continue on KYLIE inhibitor and beta-eyal as well as diuretic. Disposition plan: Appears improved at present. Await cardiology input. d/c when cleared by consultants Discussed plan of care with Dr. Newman Problems: Subjective 24 Hr Interval Summary Free Text/Dictation no chest pain, Comfortable at this time. Exam/Review of Systems Vital Signs Vitals Vital Signs Date Time Temp Pulse Resp B/P Pulse Ox O2 Delivery O2 Flow Rate FiO2 01/14/17 12:04 88 01/14/17 11:21 97.8 20 110/67 96 01/11/17 21:00 Room Air 01/11/17 11:04 21 Intake and Output 01/13/17 01/13/17 01/14/17 15:00 23:00 07:00 Intake Total 740 ml 650 ml Output Total 1200 ml 850 ml Balance -460 ml -200 ml Exam Constitutional: alert, oriented Psych: no complaints Eyes: nl conjunctiva Neck: supple, No jvd Respiratory: clear to auscultation, normal air movement Cardiovascular: regular rate and rhythm Gastrointestinal: non-tender, soft Musculoskeletal: nl extremities to inspection, nl gait and stance Extremities: normal pulses Neurological: RECORD LIBRARIAN II-XII intact, nl mental status, nl speech Results Result Diagram: 01/11/17 1615 01/12/17 0439 Results 24 hrs Laboratory Tests Test 01/14/17 12:00 Troponin I 0.091 Medications Medications Current Medications Ondansetron HCl (Zofran Inj) 4 mg Q6H PRN IV NAUSEA AND/OR VOMITING; Start at 14:30 Acetaminophen (Tylenol Tab) 650 mg Q6H PRN PO PAIN LEVEL 1-3 OR FEVER; Start at 14:30 Acetaminophen (Tylenol Supp) 650 mg Q6H PRN NC PAIN LEVEL 1-3 OR FEVER; Start 01/11/17 at 14:30 Acetaminophen/ Hydrocodone Bitart ([place] (5/325)) 1 tab Q6H PRN PO MODERATE PAIN LEVEL 4-6; Start 01/11/17 at 14:30 Acetaminophen/ Hydrocodone Bitart ([place] (5/325)) 2 tab Q6H PRN PO SEVERE PAIN LEVEL 7-10; Start 01/11/17 at 14:30 Morphine Sulfate (morphine) 2 mg Q4H PRN IV SEVERE PAIN LEVEL 7-10; Start 01/11 at 14:30 Docusate Sodium (Colace) 100 mg Q12H PRN PO CONSTIPATION; Start 01/11/17 at 14: 30 Magnesium Hydroxide (Milk Of Mag) 30 ml DAILY PRN PO CONSTIPATION; Start at 14:30 Bisacodyl (Dulcolax Supp) 10 mg DAILY PRN NC CONSTIPATION; Start 01/11/17 at 14 :30 Pantoprazole (Protonix Tab) 40 mg DAILY@06 PO Last administered on 01/14/17 06: 45; Admin Dose 40 MG; Start 01/12/17 at 06:00 Aspirin (Aspirin) 81 mg DAILY PO Last administered on 01/14/17 08:38; Admin Dose 81 MG; Start 01/13/17 at 09:00 Nitroglycerin (Nitroglycerin (Sl Tab) 0.4 Mg) 1 tab Q5M PRN SL CHEST PAIN; Start 01/11/17 at 14:30 Furosemide (Lasix) 20 mg DAILY IV Last administered on 01/14/17 08:38; Admin Dose 20 MG; Start 01/12/17 at 09:00 Carvedilol (Coreg) 3.125 mg BID PO Last administered on 01/14/17 08:38; Admin Dose 3.125 MG; Start 01/12/17 at 12:00 Benazepril HCl (Lotensin) 10 mg DAILY PO Last administered on 01/14/17 08:38; Admin Dose 10 MG; Start 01/13/17 at 09:00 NYASIA BURNS Jan 14, 2017 14:09
[2017-01-15] VITALS (12 sets, daily range): BP systolic 96–130; BP diastolic 55–84; PULSE 38–108; RESP 18–20
[2017-01-15] MEDS: PANTOPRAZOLE (EC) 40 MG TAB PO SCH (06:19)
[2017-01-15] MEDS: FUROSEMIDE 20 MG INJ IV SCH (09:34)
[2017-01-15] MEDS: BENAZEPRIL 10 MG TAB PO SCH (09:34)
[2017-01-15] MEDS: ASPIRIN 81 MG TAB PO SCH (09:35)
--- NOTE | 2017-01-15 15:55 | PN ---
Date/Time of Note Date/Time of Note DATE: 01/15/17 TIME: 15:53 Assessment/Plan VTE Prophylaxis VTE Prophylaxis Intervention: LMWH Lines/Catheters IV [facility] Saline Lock Urinary Cath still in place: No Assessment/Plan Chief Complaint/Hosp Course 1. Non-ST elevation myocardial infarction. Nuclear medicine cardiac stress test negative for any reversible ischemia. However, it showed old infarcts involving the inferior wall extending to the base to the apex with a dilated ventricle with diffuse hypokinesis and akinesis of the inferior wall of the site of infarct with an ejection fraction of stress of 18%. Continue aspirin. Cardiology following. 2. Ischemic cardiomyopathy. Ejection fraction of 20% as per 2D echocardiogram. Continue KYLIE inhibitors and beta blockers. No evidence of any acute decompensation. 3. Dyslipidemia. Elevated triglycerides and suboptimal LDL. Reinforce low- cholesterol diet. 4. Transaminitis. Improving. Avoid hepatotoxic medications. 5. Fluids, electrolytes, and nutrition. Low-cholesterol diet. 6. DVT prophylaxis. Subcutaneous Lovenox. 7. Gastrointestinal prophylaxis. Proton pump inhibitors. 8. Plan. Continue medical optimization. Await cardiology clearance before discharge. Case discussed with Dr. Paz. Problems: Subjective 24 Hr Interval Summary Free Text/Dictation Denies any chest pain. Denies any dyspnea. Complains of generalized malaise. Exam/Review of Systems Vital Signs Vitals Vital Signs Date Time Temp Pulse Resp B/P Pulse Ox O2 Delivery O2 Flow Rate FiO2 01/15/17 15:13 98.4 90 20 96/55 98 01/11/17 21:00 Room Air 01/11/17 11:04 21 Intake and Output 01/14/17 01/14/17 01/15/17 15:00 23:00 07:00 Intake Total 1200 ml Output Total 1800 ml Balance -600 ml Exam General: Adequately build 46 year-old male lying in bed in no apparent distress. HEENT: Normocephalic, atraumatic. Eyes: Anicteric sclerae, conjunctivae clear. ENT: Nasal septum midline, oral mucosa moist. Neck supple, no JVD noticed. Respiratory: Bilaterally clear breath sounds. No use of accessory muscles of respiration. No adventitious breath sounds. Cardiovascular: S1, S2 heard. No murmurs or gallops. Abdomen: Soft, nontender, and nondistended. Bowel sounds positive in all 4 quadrants. Genitourinary: Deferred. Extremities: No cyanosis, no clubbing, no edema. Peripheral pulses palpable. Neurologic: Cranial nerves II through XII grossly intact. The patient is awake, alert, and oriented. Skin: Normal skin turgor. No skin rashes. Results Result Diagram: 01/11/17 1615 01/12/17 0439 Medications Medications Current Medications Ondansetron HCl (Zofran Inj) 4 mg Q6H PRN IV NAUSEA AND/OR VOMITING; Start at 14:30 Acetaminophen (Tylenol Tab) 650 mg Q6H PRN PO PAIN LEVEL 1-3 OR FEVER; Start at 14:30 Acetaminophen (Tylenol Supp) 650 mg Q6H PRN OR PAIN LEVEL 1-3 OR FEVER; Start 01/11/17 at 14:30 Acetaminophen/ Hydrocodone Bitart ([place] (5/325)) 1 tab Q6H PRN PO MODERATE PAIN LEVEL 4-6; Start 01/11/17 at 14:30 Acetaminophen/ Hydrocodone Bitart ([place] (5/325)) 2 tab Q6H PRN PO SEVERE PAIN LEVEL 7-10; Start 01/11/17 at 14:30 Morphine Sulfate (morphine) 2 mg Q4H PRN IV SEVERE PAIN LEVEL 7-10; Start 01/11 at 14:30 Docusate Sodium (Colace) 100 mg Q12H PRN PO CONSTIPATION; Start 01/11/17 at 14: 30 Magnesium Hydroxide (Milk Of Mag) 30 ml DAILY PRN PO CONSTIPATION; Start at 14:30 Bisacodyl (Dulcolax Supp) 10 mg DAILY PRN OR CONSTIPATION; Start 01/11/17 at 14 :30 Pantoprazole (Protonix Tab) 40 mg DAILY@06 PO Last administered on 01/15/17 06: 19; Admin Dose 40 MG; Start 01/12/17 at 06:00 Aspirin (Aspirin) 81 mg DAILY PO Last administered on 01/15/17 09:35; Admin Dose 81 MG; Start 01/13/17 at 09:00 Nitroglycerin (Nitroglycerin (Sl Tab) 0.4 Mg) 1 tab Q5M PRN SL CHEST PAIN; Start 01/11/17 at 14:30 Furosemide (Lasix) 20 mg DAILY IV Last administered on 01/15/17 09:34; Admin Dose 20 MG; Start 01/12/17 at 09:00 Carvedilol (Coreg) 3.125 mg BID PO Last administered on 01/15/17 09:34; Admin Dose 3.125 MG; Start 01/12/17 at 12:00 Benazepril HCl (Lotensin) 10 mg DAILY PO Last administered on 01/15/17 09:34; Admin Dose 10 MG; Start 01/13/17 at 09:00 DAILY PRABHAKAR NP Jan 15, 2017 15:55
--- NOTE | 2017-01-16 07:28 | DS ---
DATE OF ADMISSION: 01/11/2017 DATE OF DISCHARGE: 01/15/2017 FINAL DIAGNOSES: 1. Non ST-elevation myocardial infarction. Nuclear medicine cardiac stress test negative for any reversible ischemia. 2. Cardiomyopathy with ejection fraction of 20 percent. Ischemic versus other etiology. 3. Essential hypertension. 4. Dyslipidemia. 5. Transaminitis. 6. Alcohol abuse. CONSULTANTS: Dr. Philip Devine, Cardiology. HOSPITAL COURSE: This is a 46-year-old male with past medical history of essential hypertension, who came to [facility] due to reports of intermittent chest pain for 30 days duration. The patient also verbalized shortness of breath. He had an elevated troponin in the emergency room. The patient had a BNP of 1710. He also had underlying transaminitis. Given the patient's history of present illness, his comorbidities, and the diagnostic findings, a clinical decision was made to admit the patient to inpatient setting to have him further evaluated. The patient was admitted to inpatient telemetry floor. The patient was started on aspirin. Cardiology consult was obtained. The patient underwent a 2D echocardiogram that showed ejection fraction of 20 percent. The patient underwent a nuclear medicine cardiac stress test that showed no evidence of stress induced myocardial ischemia. However, it showed old infarcts involving the inferior wall extending from the base to the apex with no evidence of viable myocardium at this site. The study also showed dilated ventricle with diffuse hypokinesis and akinesis of the inferior wall at the site of infarct. The ejection fraction was 18 percent. The etiology of the patient's cardiomyopathy could be from his underlying alcohol abuse versus ischemia. The patient was started on beta blockers and KYLIE inhibitors. The patient was also started on diuretics. The patient was maintained euvolemic. The patient has underlying dyslipidemia. He has underlying elevated triglycerides and suboptimal LDL. He was reinforced on a low cholesterol diet. The patient will be discharged home on low dose statins. The patient had underlying transaminitis that improved throughout the patient's hospital course. The patient had a stable hospital course. The patient was cleared by cardiology to be discharged home. DISCHARGE DISPOSITION AND PLAN: The patient will be discharged home today. The patient was instructed to take medications as per prescription. He was instructed to avoid using alcohol. The patient was instructed to follow up with outpatient cardiology in 2 weeks. 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 He was instructed to go to the nearest emergency room or call 911 if he develops any chest pain. The patient verbalized understanding of his discharge instructions. DISCHARGE CONDITION: Stable. DISCHARGE MEDICATIONS: 1. Aspirin 81 mg p.o. daily. 2. Atorvastatin 75 mg p.o. nightly. 3. Benazepril 10 mg p.o. daily. 4. Coreg 3.125 mg p.o. b.i.d. 5. Lasix 20 mg p.o. daily. PERTINENT LAB AND DIAGNOSTICS: 1. Two dimensional echocardiogram. Moderate concentric left ventricular hypertrophy. Moderate enlargement of the left ventricular cavity. Severe left global left ventricular systolic dysfunction. Ejection fraction is visually estimated at 20 percent. Abnormal diastolic function. Estimated peak PA systolic pressure of 35 mmHg. 2. Nuclear medicine cardiac stress test. No evidence of stress induced myocardial ischemia. Old infarct involving the inferior wall extending from the base to the apex. No evidence of viable myocardium at this site. Ejection fraction at stress is 18 percent. 3. Latest BMP, sodium 138, potassium 3.5, chloride 106, carbon dioxide 23, anion gap 13, BUN 12, creatinine 0.8, glucose 121. 4. Latest CBC, WBC 10.8, hemoglobin 13.7, hematocrit 39.2, platelet count 169. 5. Hemoglobin A1c 5.6. 6. Fasting lipid panel, triglycerides 193, total cholesterol 171, LDL 100, HDL 32. At this time, I would like to thank all the consultants for seeing the patient and providing clinical recommendations. The case and management of this patient was fully discussed with Dr. Paz. Approximately 40 minutes was spent on coordinating the discharge on this patient. Dictated By: Nasir Fox NP /kamala/la nena /Document#: [id number] ELIZABETH
[2017-01-16] MEDS ORDERED: ENOXAPARIN 40 MG/0.4 ML SYG SC SCH (09:00)
--- NOTE | 2017-01-16 16:42 | PN ---
Date/Time of Note Date/Time of Note LATE ENTRY DATE: 01/14/17 Assessment/Plan VTE Prophylaxis VTE Prophylaxis Intervention: LMWH Lines/Catheters IV [facility]from [facility] Saline Lock Urinary Cath still in place: No Assessment/Plan Chief Complaint/Hosp Course Assessment plan 1. Chest pain. Troponins elevated but downward trended. Lexiscan stress test showed no ST induced changes from baseline. No baseline abnormalities to diagnose cardiac ischemia. Continue optimization of cardiovascular medications. The patient does have an EF of 20% seen on echocardiogram. 2. Essential hypertension. Continue antihypertensives and adjust needed. stable 3. Transaminitis. Likely secondary to patient's alcohol consumption. Cessation was advised. 4. Cardiomyopathy. Continue on KYLIE inhibitor and beta-eyal as well as diuretic. Disposition plan: Appears improved at present. Discussed with asbestos coverer. Will await for cardiology evaluation prior to discharge. Discussed plan of care with Dr. Newman Problems: Subjective 24 Hr Interval Summary Free Text/Dictation no reports of chest pain at this time Exam/Review of Systems Vital Signs Vitals Vital Signs Date Time Temp Pulse Resp B/P Pulse Ox O2 Delivery O2 Flow Rate FiO2 01/15/17 16:10 96 01/15/17 15:13 98.4 20 96/55 98 Exam Constitutional: alert, oriented Psych: no complaints Eyes: nl conjunctiva Neck: supple, No jvd Respiratory: clear to auscultation, normal air movement Cardiovascular: regular rate and rhythm Gastrointestinal: non-tender, soft Musculoskeletal: nl extremities to inspection, nl gait and stance Extremities: normal pulses Neurological: SUPERVISOR DRYING AND SOFTENING II-XII intact, nl mental status, nl speech Results Result Diagram: 01/12/17 0439 NYASIA BURNS Jan 16, 2017 16:42
== END 2017-01-15 18:37 | disposition home or self-care (01) | DRG 281 ==
LOC: E/R 10:04 → TEL 13:30
PROVIDERS: ADMIT Internal Medicine; ATTEND Internal Medicine
DX: I21.4 Non-ST elevation (NSTEMI) myocardial infarction (principal); I50.22 Chronic systolic (congestive) heart failure; I11.0 Hypertensive heart disease with heart failure; I42.0 Dilated cardiomyopathy; F17.210 Nicotine dependence, cigarettes, uncomplicated; R74.0 Nonspecific elevation of levels of transaminase and lactic acid dehydrogenase [LDH]; E78.5 Hyperlipidemia, unspecified; Z79.82 Long term (current) use of aspirin
CPT/HCPCS: 36415; 71010; 78452; 80053; 80061; 82550; 82553; 83036; 83690; 83735; 83880; 84100; 84436; 84443; 84479; 84484; 85025; 85610; 85730; 93005; 93017; 93306; 94644; 96374; 96375; J1940; A9500; A9505; J1644; J1885; J2405; J2785; J7030

== ENCOUNTER 2018-03-16 23:35 | Inpatient (IN) | END 2018-03-19 11:55 | disposition home or self-care (01) | DRG 292 ==

== ENCOUNTER → 2018-06-13 | Outpatient (CLI) | payer OTHER ==
[~2018-06-13] MED LIST: ACET325T33 PO; ALDS PO; ASPI-831 PO; ATOR20TA65 PO; BENA10TA4 PO; BUSP10TA2 PO; CARV6.2579 PO; LAS20 PO; THIA100T10 PO
[2018-06-13] MEDS: METOPROLOL 100 MG TAB ONE ×2 (09:00→09:16)
[2018-06-13] MEDS: NITROGLYCERIN AEROSOL (4.9 GM) ONE (10:20)
[2018-06-13] MEDS: SOD CHLORIDE 0.9% 100 ML ONE (10:36)
[2018-06-13] MEDS: IOHEXOL 100 ML ONE (10:37)
--- NOTE | 2018-06-13 10:37 | NUR ---
Procedure Ordered: CT CARDIAC ANGIO Reason for Exam Today:CHEST PAIN Previous Exams: Allergies:NKDA Current Medications Taken: Glucophage ( ) Metformin ( ) Previous reaction to contrast media: Yes ( ) No (X ) : Yes ( ) No (X ) Asthma: Yes ( ) No (X ) Diabetes: Yes ( ) No (X) Myeloma: Yes ( ) No (X ) Heart Disease: Yes ( X) No ( ) Cardiac Disease: Yes ( X) No ( ) Kidney Disease: Yes ( ) No ( X) Vascular Disease: Yes ( ) No (X ) Patient Teaching done: Yes ( ) No ( ) Taxi Driver Used: Yes ( ) No ( ) Name of Taxi Driver: Language Used: As part of the test requested by your doctor, contrast media may be injected into your vein while the x-rays are being taken. Occasionally, reactions from IV contrast may occur. The physician and staff of this hospital are trained to treat these reactions. Select the type of Contrast that will be given to patient: Isovue 300 ( ) Isovue 370 ( ) Visipaque ( ) Cystografin ( ) OMNIPAQUE 350 (X) Gastrographin ( ) Redi-cat ( ) Volumen ( ) Amount of contrast to be given: 100CC IV (X ) PO ( ) Date given:06/13/18 Lab Values: BUN: 17 Creatinine:0.91 Reason why contrast cannot be given: Location of patient pre-procedure:OUTPATIENT WAITING ROOM Location of patient post procedure: HOME PT TOLERATED IV CONTRAST INJECTION WELL
--- NOTE | 2018-06-13 12:29 | NUR ---
CT CARDIAC Received pt with HR 84. Dr. Mcgraw informed of situation and asked for orders to manage hr. Per Dr Mcgraw to give Metoprolol 50mg po x 2 if HR in 30minutes is 70 bpm. Hr was manage as ordered per MD successfully. Test well tolerated no complications. CT Cardiac done pt was d/c home.
== END | disposition home or self-care (01) ==
LOC: C/S 08:08
PROVIDERS: ATTEND Internal Medicine
DX: R07.9 Chest pain, unspecified (principal)
CPT/HCPCS: 75571; 75574; Q9967; Z7610

== ENCOUNTER 2018-08-06 09:27 | Inpatient (IN) | payer OTHER ==
[~2018-08-06] VITALS: Ht 172.7 cm; Wt 72.7 kg
[2018-08-06 09:27] VITALS: Ht 172.7 cm; Wt 72.7 kg
[2018-08-06] MEDS ORDERED: SOD CHLORIDE 0.9% 100 ML ONE (09:46)
[2018-08-06] MEDS ORDERED: IODIXANOL LOCM 100 ML BTL ONE (09:46)
[2018-08-06] MEDS ORDERED: ASPIRIN 325 MG TAB PO ONE (10:00)
--- NOTE | 2018-08-06 10:49 | STROKE ---
Date/Time of Note Date/Time of Note DATE: 08/06/18 TIME: 13:29 Patient Information General Patient location: emergency Arrival Date Onset Date: Aug 05, 2018 Onset Time: 18:00 Onset Type Last known normal 18:00 08/05. Age 48 Gender male Weight 72.73 kg Clinical Presentation Right flaccid hemiplegia and anesthesia. POC Glucose Glucose Result Bedside Glucose - 72 Hours Test 08/06/18 10:06 Bedside Glucose 140 mg/dL (70-220) Vital Signs Vital Signs Vital Signs Date Temp Pulse Resp B/P (MAP) Pulse Ox O2 O2 Flow FiO2 Time Delivery Rate 08/06/18 82 14 168/108 98 Room Air 09:41 (128) 08/06/18 98.3 09:27 Patient History Current Medications Allergies: Coded Allergies: No Known Allergy (Unverified , 01/11/17) Labs Coagulation Labs: Coagulation Test 08/06/18 09:30 Activated Partial Thromboplast Time 34.6 Sec (23.0-35.0) NIH Stroke Scale NIH Stroke Scale [id number] Hemianopia [id number] Leg - Right: Helxl1p : Podgr1s al Score: Pnbsd9r te/Time Recorded DATE: 08/06/18 TIME: 13:29 Submitted By Julian Asencio t-PA Imaging Review Imaging Reviewed: Yes Date/Time Imaging Reviewed DATE: 08/06/18 TIME: 13:29 t-PA Administration Recommendation: No Weight 72.73 kg Recommedation submitted by Julian Asencio Reason t-PA not Recommended LKN > 4.5 hours ago Recommendations Recommendation CTA and CTP to look for LVO. If LVO, transfer to comprehensive center. If no LVO, admit locally for stroke workup. Needs hypercoagulable workup and probably a LINQ on discharge. Consultation with local inpatient neurologist. MRI Brain wo. TTE. Telemetry. Consider LINQ. PT/OT/SLT. Bedside swallow. Aspirin 325 now. Stroke Education. Smoking cessation counseling, if a smoker. JULIAN ASENCIO MD Aug 06, 2018 10:40
[2018-08-06] MEDS ORDERED: CARV6.2579 PO (11:34)
[2018-08-06] MEDS ORDERED: ATOR20TA38 PO (11:34)
[2018-08-06] MEDS ORDERED: SACU1TAB PO (11:34)
[2018-08-06] MEDS ORDERED: FURO20TA3 PO (11:35)
[2018-08-06] MEDS ORDERED: SPIR25TA PO (11:35)
[2018-08-06] MEDS ORDERED: THIA100T56 PO (11:35)
[2018-08-06] MEDS ORDERED: ONDANSETRON 4 MG INJ IV PRN ×2 (12:00→19:00)
[2018-08-06] MEDS ORDERED: ACETAMINOPHEN 325 MG TAB PO PRN (12:00)
--- NOTE | 2018-08-06 12:53 | ERD ---
ER Documentation Chief Complaint Chief Complaint rt sided weakness since 1800 yesterday; hx of stroke HPI Patient is a 48-year-old male with history of previous stroke, hypertension, and high cholesterol who presents with right-sided weakness. The patient was brought in by ambulance. His last known well time was 6 PM last night. He has right-sided arm and leg weakness which started last night per the paramedics. He has had no treatment as of yet. ROS All systems reviewed and are negative except as per history of present illness. Medications Home Meds Reported Medications Thiamine* (Vitamin B-1*) 100 Mg Tablet, 100 MG PO DAILY, TAB 08/06/18 Furosemide* (Furosemide*) 20 Mg Tablet, 20 MG PO BID, #30 TAB 08/06/18 Spironolactone* (Aldactone*) 25 Mg Tablet, 25 MG PO DAILY, #30 TAB 08/06/18 Carvedilol* (Carvedilol*) 6.25 Mg Tablet, 6.25 MG PO BID, #60 TAB 08/06/18 Atorvastatin Calcium* (Atorvastatin Calcium*) 20 Mg Tablet, 20 MG PO QHS, #30 TAB 08/06/18 Sacubitril/Valsartan (Entresto 24 mg-26 mg Tablet) 1 Each Tablet, 1 EACH PO BID, TAB 08/06/18 Discontinued Scripts Buspirone Hcl* (Buspirone Hcl*) 10 Mg Tab, 7.5 MG PO BID for 10 Days, #20 TAB Prov:RICHAR REIS MD 03/19/18 Thiamine* (Thiamine*) 100 Mg Tablet, 100 MG PO DAILY for 30 Days, #30 TAB 2 Refills Prov:RICHAR REIS MD 03/19/18 Furosemide (Lasix) 20 Mg Tab, 20 MG PO BID DIURETICS for 10 Days, #20 TAB Prov:RICHAR REIS MD 03/19/18 Acetaminophen* (Tylenol*) 325 Mg Tablet, 650 MG PO Q6H PRN for PAIN LEVEL 1-3 OR FEVER for 1 Day, TAB Prov:RICHAR REIS MD 03/19/18 Spironolactone* (Aldactone*) 5 Mg/Ml (COMPOUNDED) Susp, 12.5 MG PO DAILY for 14 Days, #14 1 Refill Prov:RICHAR REIS MD 03/19/18 Carvedilol* (Carvedilol*) 6.25 Mg Tablet, 6.25 MG PO BID for 30 Days, #30 TAB 1 Refill Prov:RICHAR REIS MD 03/19/18 Atorvastatin Calcium (Atorvastatin Calcium) 20 Mg Tablet, 20 MG PO QHS for 30 Days, #30 TAB Prov:RICHAR REIS MD 03/19/18 Aspirin (Aspirin) 81 Mg Chew, 81 MG PO DAILY for 30 Days, TAB Prov:COCO COCHRAN MD 01/12/17 Benazepril Hcl* (Benazepril Hcl*) 10 Mg Tablet, 10 MG PO DAILY for 30 Days, TAB Prov:COCO COCHRAN MD 01/12/17 Allergies Allergies: Coded Allergies: No Known Allergy (Unverified , 08/06/18) PMhx/Soc History of Surgery: Yes Anesthesia Reaction: No Hx Neurological Disorder: No Hx Respiratory Disorders: No Hx Cardiac Disorders: Yes (HTN) Hx Psychiatric Problems: No Hx Miscellaneous Medical Probl: No Hx Alcohol Use: Yes Hx Substance Use: No Hx Tobacco Use: Yes Smoking Status: Current some day smoker FmHx Family History: No diabetes Physical Exam Vitals Vital Signs Date Temp Pulse Resp B/P (MAP) Pulse Ox O2 O2 Flow FiO2 Time Delivery Rate 08/06/18 101 15 146/90 100 Room Air 12:13 (108) 08/06/18 82 14 168/108 98 Room Air 09:41 (128) 08/06/18 98.3 94 20 153/105 99 09:27 (121) Physical Exam Const: No acute distress Head: Atraumatic Eyes: Normal Conjunctiva ENT: Normal External Ears, Nose and Mouth. Neck: Full range of motion. No meningismus. Resp: Clear to auscultation bilaterally Cardio: Regular rate and rhythm, no murmurs Abd: Soft, non tender, non distended. Normal bowel sounds Skin: No petechiae or rashes Back: No midline or flank tenderness Ext: No cyanosis, or edema Neur: Awake and alert, no facial droop, right-sided arm weakness, right-sided leg weakness, mis specialist strength decreased on the right Result Diagram: 08/06/1892908/06/18929 Results 24 hrs Laboratory Tests Test 08/06/18 09:30 08/06/18 10:06 White Blood Count 12.3 10^3/ul Red Blood Count 5.51 10^6/ul Hemoglobin 15.8 g/dl Hematocrit 47.9 % Mean Corpuscular Volume 86.9 fl Mean Corpuscular Hemoglobin 28.7 pg Mean Corpuscular Hemoglobin Concent 33.0 g/dl Red Cell Distribution Width 13.9 % Platelet Count 242 10^3/UL Mean Platelet Volume 11.0 fl Immature Granulocytes % 0.400 % Neutrophils % 77.6 % Lymphocytes % 15.0 % Monocytes % 6.4 % Eosinophils % 0.4 % Basophils % 0.2 % Nucleated Red Blood Cells % 0.0 /100WBC Immature Granulocytes # 0.050 10^3/ul Neutrophils # 9.5 10^3/ul Lymphocytes # 1.8 10^3/ul Monocytes # 0.8 10^3/ul Eosinophils # 0.1 10^3/ul Basophils # 0.0 10^3/ul Nucleated Red Blood Cells # 0.0 10^3/ul Prothrombin Time 13.0 Sec Prothrombin Time Ratio 1.0 INR International Normalized Ratio 0.97 Activated Partial Thromboplast Time 34.6 Sec Sodium Level 149 mmol/L Potassium Level 4.3 mmol/L Chloride Level 108 mmol/L Carbon Dioxide Level 24 mmol/L Anion Gap 17 Blood Urea Nitrogen 41 mg/dl Creatinine 1.20 mg/dl Est Glomerular Filtrat Rate mL/min > 60 mL/min Glucose Level 163 mg/dl Hemoglobin A1c 6.5 % Calcium Level 9.9 mg/dl Creatine Kinase 257 IU/L Creatine Kinase Index 1.0 Creatinine Kinase MB (Mass) 2.47 ng/ml Troponin I 0.017 ng/ml Triglycerides Level 204 mg/dl Cholesterol Level 247 mg/dl LDL Cholesterol, Calculated 165 mg/dl HDL Cholesterol 41 mg/dl Cholesterol/HDL Ratio 6.0 RATIO Ethyl Alcohol Level < 10.0 mg/dl Bedside Glucose 140 mg/dL Current Medications Medications Dose Sig/Afshan Start Time Status Last (Trade) Ordered Route PRN Stop Time Admin Dose Reason Admin Aspirin 325 mg ONCE ONCE 08/06/18 DC 08/06/18 (Aspirin) PO 10:00 09:50 08/06/18 10:01 IV Flush 10 ml STK-MED 08/06/18 DC 08/06/18 (NS 10 ml) ONCE .ROUTE 09:46 09:49 08/06/18 09:47 Sodium 100 ml @ ud STK-MED 08/06/18 DC 08/06/18 Chloride ONCE .ROUTE 09:46 09:49 08/06/18 09:47 Iodixanol 100 ml STK-MED 08/06/18 DC 08/06/18 (Visipaque ONCE .ROUTE 09:46 09:49 Locm) 08/06/18 09:47 Ondansetron 4 mg ER BRIDGE 08/06/18 HCl (Zofran PRN IV 12:00 Inj) NAUSEA/VOMITI 08/07/18 11:59 NG 650 mg ER BRIDGE 08/06/18 Acetaminophen PRN PO 12:00 (Tylenol .MILD PAIN 08/07/18 11:59 Tab) 1-3 OR TEMP Procedures/MDM EKG, MONITORS, & DIAGNOSTIC IMAGING: EKG: I reviewed and interpreted a 12-lead EKG. Rhythm: Normal sinus rhythm Ectopy: None Arrhythmia: None Intervals: No abnormalities ST segments: No elevations or depressions T waves: No contiguous inversions Interpretation: No acute cardiac ischemia Chest x-ray read by radiology CT Brain: No bleed per radiology CTA Head and Neck: Clot in the A2 segment per radiology. LAB INTERPRETATION: Hemoglobin A1c was elevated MEDICAL DECISION MAKING: Patient is a 48-year-old male who presents with stroke. The patient was outside the window for IV TPA but was within the window for potential mechanical re trieval. The patient was seen by neurology who said that he would not be a candidate for mechanical retrieval given the occlusion and a 2 which is not a large vessel occlusion. The patient was given aspirin. The patient will be admitted for stroke workup and treatment. Aspirin was given after the patient passed a swallow evaluation. NIH stroke scale was performed by nursing. Stroke assessment and timing: Last Known Well Time (LKWT): 6 PM Arrival to ED: 9:27 AM Stroke code activation: 9:20 AM from the field Patient taken to CT scan: 9:28 AM Initial neurology discussion: 9:39 AM NIHSS: Done by nursing TPA decision-making: Outside the window for IV TPA as the patient's symptoms started last night at 6 PM Interventional decision-making: Patient is not a candidate for mechanical retri eval given the clot in the A2 segment per Dr. Asencio tele-neurologist Stroke neurologist on-call: Dr. Asencio Critical Care Note: Total time: 35 excluding all billable procedures. Indication/Organ System Threat: Acute neurologic deficit and stroke code activation that requires emergent evaluation and assessment to prevent neurologic compromising collapse. I spent the above amount of critical care time with the patient, not including billable procedures. This included chart review, consultations, repeat bedside evaluations, and titration of appropriate medications to prevent cardiopulmonary or respiratory collapse. I kept the patient and/or family informed of laboratory and diagnostic imaging results throughout the emergency room course. DISPOSITION PLAN: Admit to panel team CONSULTATION: Tele-neurology Departure Diagnosis: Primary Impression: Stroke CVA mechanism: unspecified Qualified Codes: I63.9 - Cerebral infarction, unspecified Condition: Serious MARCIA PALOMARES MD Aug 06, 2018 12:53
[2018-08-06] MEDS ORDERED: ACETAMINOPHEN 325 MG TAB PO ONE (13:30)
[2018-08-06] MEDS ORDERED: morphine 2 MG INJ IV PRN (19:00)
[2018-08-06] MEDS ORDERED: LORAZEPAM 2 MG INJ IV PRN (19:00)
[2018-08-06] MEDS ORDERED: ZOLPIDEM 5 MG TAB PO PRN (19:00)
[2018-08-06 19:10] VITALS: PULSE 93
[2018-08-06 19:21] VITALS: BP 137/90; PULSE 90; RESP 18
[2018-08-06] MEDS ORDERED: GLUCAGON 1 MG INJ IM PRN (19:30)
[2018-08-06] MEDS ORDERED: DEXTROSE 50% 50 ML SYRINGE IV PRN ×2 (19:30)
[2018-08-06] MEDS ORDERED: GLUCOSE GEL 15 GRAM TUBE PO PRN ×2 (19:30)
[2018-08-06] MEDS ORDERED: GLUCOSE GEL 15 GRAM TUBE BUCCAL PRN (19:30)
[2018-08-06] MEDS: DEXTROSE 5%-0.45% NACL 1,000 ML IV SCH (19:30)
[2018-08-06 20:00] VITALS: PULSE 96
--- NOTE | 2018-08-06 20:10 | HP ---
DATE OF ADMISSION: 08/06/2018 PRESENTING COMPLAINT: Right-sided hemiparesis and aphasia. HISTORY OF PRESENTING COMPLAINT: A 48-year-old male with a past medical history of severe cardiomyopathy with last known ejection fraction in this facility of 10% to 15% with a history of CHF, history of ST elevation myocardial infarction, hypertension, dyslipidemia and EtOH abuse remotely, who was at home with his and the had noticed that the patient was not moving as much as much as usual. She also noted that he was not speaking much and eventually at about 5:30 p.m. yesterday, she noticed that he has wet himself and was unable to get up to go to the bathroom. She stated that she did not really there was something wrong until later on in the middle of the night, at which time she eventually now called 911 to bring him into the emergency room. The patient is also someday smoker but has not drank alcohol in a while. In the emergency room, a code stroke was called and he was seen by tele-neurology and their assessment was that patient should undergo a CTA and CTP to look for LVO. If no LVO, then the patient is to be admitted to [facility] for stroke workup and possible hypercoagulable workup as well. He did undergo a CT of the brain and CTA of the neck and there was moderate to marked narrowing of the left ICA segments and the branches and per the emergency room doctor, this was reviewed in detail with the tele-neurologist, who determined that the patient did not need further transfer to higher level of care and recommended local admission and workup because it is not a large vessel occlusion. At this time, the patient is being admitted for further workup. PAST MEDICAL HISTORY: Summarized in the HPI. PAST SURGICAL HISTORY: Hernia repair. ALLERGIES: NO KNOWN DRUG ALLERGIES. SOCIAL HISTORY: Someday tobacco user. Previous alcoholic, now sober. Denies illicit drug use. FAMILY HISTORY: Negative for premature coronary artery disease or early stroke. R REVIEW OF SYSTEMS: A 12-point review of systems was done. Pertinent findings as noted. The patient denies fevers. Denies chest pain. Denies abdominal pain. Now with complete right-sided hemiparesis and mild dysesthesia. PHYSICAL EXAMINATION VITAL SIGNS: At the time of my review, temperature was 98.3, his pulse was 103, respirations 15, blood pressure was down to 146/90. Saturations were 100% on room air. GENERAL: The patient was quite anxious. He was distinctly unhappy. HEENT: Head is normocephalic without evidence of trauma. Pupils were equal, round and reactive. Mucous membranes are moist. The patient did have left- sided facial droop. NECK: Supple, nontender. CHEST: Clear to auscultation and mildly diminished in the bases, but without wheezing or crackles. No tenderness on palpation of the chest wall. ABDOMEN: Soft, nontender, nondistended. EXTREMITIES: Lower extremities are negative for edema. NEUROLOGIC: There was complete right-sided hemiparesis with mild dysphasia, but no other significant sensation deficit. SKIN: Devoid of rash or jaundice. LABORATORY VALUES: At this time, sodium is 149, slightly high. BUN is also slightly high. Creatine kinase is also slightly high. CK-MB is minimally high. Triglycerides are 204 and cholesterol is 247. On his hematology, he has a leukocytosis of 12,000, a low MCH and normal platelet count. Urinalysis was unremarkable. Using drug screen was positive for amphetamines. IMAGING STUDIES: CT and CTA findings have been summarized in my HPI. Brain CT: There are ischemic changes in the distribution of left anterior cerebellar artery with areas of hypoattenuation in the inferior left frontal lobe and findings of a subacute stroke and they recommend an MRI for further evaluation. Chest x-ray showed a dilated thoracic aorta and mild right lower lobe linear atelectatic changes. ASSESSMENT: This is a 48-year-old male who presented with right-sided hemiparesis and aphasia with evidence of left anterior cerebral artery subacute cerebrovascular accident being admitted and managed as follows: 1. Subacute left anterior cerebral artery stroke: The patient in the past underwent CTA and no evidence of large vessel occlusion. At this time, he was deemed not to be a candidate for any surgical intervention. Plan is to admit for further workup and rehabilitation. 2. Substance abuse with methamphetamines, which likely contributed to #1. 3. History of severe cardiomyopathy. 4. History of ST-elevation myocardial infarction. 5. Prediabetes with hemoglobin A1c of 6.5. 6. Mild rhabdomyolysis. 7. Rule out acute coronary syndrome. 8. Dyslipidemia with hypertriglyceridemia and hypercholesterolemia. 9. Mild hypernatremia and dehydration. 10. Reactive leukocytosis. PLAN: Admit the patient to telemetry floor. Continue his home medications for cardiomyopathy and CHF. Get neurology as well as cardiology consultation will follow the patient. Speech therapy, occupation therapy and physical therapy evaluation will be obtained. We will repeat echocardiogram at this time with bubble study. MRI of the brain will be ordered. The patient already underwent CTA of the neck. Further intervention will depend on his clinical course. He will be started on Lovenox for DVT prophylaxis. We will continue him on aspirin and high dose statin as well. His plan of care has been discussed with patient and his in detail. Questions have been answered. The patient will need to be counseled on the need to quit substance use. Dictated By: PARVEEN TY MD BA/NTS Conf#: [id number] DID#: [id number] CC: AGUSTIN DONG MD;*EndCC* MTDD
[2018-08-06] MEDS: DOCUSATE SODIUM 100 MG CAP PO SCH (20:55)
[2018-08-06] MEDS: FUROSEMIDE 20 MG TAB PO SCH (20:55)
[2018-08-06] MEDS: ATORVASTATIN 80 MG TAB PO SCH (20:55)
[2018-08-06] MEDS: SACUBITRIL/VALSARTAN (24mg-26mg) TABLET PO SCH (20:56)
[2018-08-06] MEDS: FAMOTIDINE 20 MG TAB PO SCH (20:56)
[2018-08-06] MEDS: INSULIN ASPART [NOVOLOG] 3 ML PEN SC SCH (20:56)
[2018-08-06 23:09] VITALS: BP 107/63; PULSE 91; RESP 18
[2018-08-07] VITALS (11 sets, daily range): BP systolic 105–131; BP diastolic 65–85; PULSE 60–87; RESP 18
[2018-08-07] MEDS: ACCU-CHEK XX SCH (02:00)
[2018-08-07] MEDS: FUROSEMIDE 20 MG TAB PO SCH ×2 (05:52→17:35)
[2018-08-07] MEDS: INSULIN ASPART [NOVOLOG] 3 ML PEN SC SCH ×4 (07:35→21:00)
[2018-08-07] MEDS: FAMOTIDINE 20 MG TAB PO SCH ×2 (08:53→20:52)
[2018-08-07] MEDS: DOCUSATE SODIUM 100 MG CAP PO SCH ×2 (08:53→20:53)
[2018-08-07] MEDS: SPIRONOLACTONE 25 MG TAB PO SCH (08:54)
[2018-08-07] MEDS: THIAMINE 100 MG TAB PO SCH (08:54)
[2018-08-07] MEDS ORDERED: ASPIRIN 81 MG TAB PO SCH (09:00)
[2018-08-07] MEDS ORDERED: ENOXAPARIN 40 MG/0.4 ML SYG SC SCH (09:00)
[2018-08-07] MEDS: DEXTROSE 5%-0.45% NACL 1,000 ML IV SCH ×2 (09:59→22:57)
[2018-08-07] MEDS: SACUBITRIL/VALSARTAN (24mg-26mg) TABLET PO SCH ×2 (10:45→20:52)
--- NOTE | 2018-08-07 11:39 | CONS ---
Assessment/Plan Assessment/Plan Hospital Course 48 M c/ reported Hx of severely depressed LVEF and other cerebrovascular risk factors, who presents for evaluation of progressive R sided weakness x 3 days..for which neurology is consulted.. MRI brain confirms a recent L frontal/cingulate ischemic infarct w/ ?petechial hemorrhage, for which neurology is consulted.. CTA head was notable for L PHILIPPE stenoses to correspond w/ the infarcted territory..but was without other stenoses.. CTA neck was negative for large vessel disease LDL 165 UDS + amphetamines P: Resume asa/lipitor daily for secondary stroke prevention Await echo read Add ESR, RPR Add hypercoagulable panel PT/OT as necessary Other management per primary Will follow clinically Consultation Date/Type/Reason Admit Date/Time Aug 06, 2018 at 11:34 Type of Consult Neurology Reason for Consultation stroke Requesting Provider: PARVEEN TY Date/Time of Note DATE: 08/07/18 TIME: 11:39 Hx of Present Illness 48 yo M with hx of severe cardiomyopathy with EF 10-15%, STEMI, HTN, HLD and other comorbidities who presented to the ED with R hemiparesis and dysphasia x 2 days. History was obtained from pt, , and chart review. The states that sx started on Sunday, which began with R sided weakness and some slurred speech. She said she noticed that yesterday, she went to check on him and noticed that he had urinated on himself. When she went to pick him up, she found that he couldn't move his R side, prompting her to call 911. It is additionally elsewhere noted: PRESENTING COMPLAINT: Right-sided hemiparesis and aphasia. HISTORY OF PRESENTING COMPLAINT: A 48-year-old male with a past medical history of severe cardiomyopathy with last known ejection fraction in this facility of 10% to 15% with a history of CHF, history of ST elevation myocardial infarction, hypertension, dyslipidemia and EtOH abuse remotely, who was at home with his and the had noticed that the patient was not moving as much as much as usual. She also noted that he was not speaking much and eventually at about 5:30 p.m. yesterday, she noticed that he has wet himself and was unable to get up to go to the bathroom. She stated that she did not really there was something wrong until later on in the middle of the night, at which time she altaf ntually now called 911 to bring him into the emergency room. The patient is also someday smoker but has not drank alcohol in a while. In the emergency room, a code stroke was called and he was seen by tele-neurology and their assessment was that patient should undergo a CTA and CTP to look for LVO. If no LVO, then the patient is to be admitted to [facility] for stroke workup and possible hypercoagulable workup as well. He did undergo a CT of the brain and CTA of the neck and there was moderate to marked narrowing of the left ___ segments and the branches and per the emergency room doctor, this was reviewed in detail with the tele-neurologist, who determined that the pat ient did not need further transfer to higher level of care and recommended local admission and workup because it is not a large vessel occlusion. At this time, the patient is being admitted for further workup. negative unless noted otherwise in HPI Exam/Review of Systems Exam Vitals Vital Signs Date Temp Pulse Resp B/P (MAP) Pulse Ox O2 O2 Flow FiO2 Time Delivery Rate 08/07/18 74 08:01 08/07/18 98.7 18 121/68 99 07:18 (85) 08/06/18 Room Air 18:51 Intake and Output 08/06/18 08/06/18 08/07/18 1515:00 23:00 07:00 IntakeIntake Total 700 ml OutputOutput Total 250 ml 600 ml BalanceBalance -250 ml 100 ml Exam PE: Gen Appearance: No Apparent Distress HEENT: Normocephalic Cardiovascular: Regular rate Lungs: Clear bilaterally Abdomen: Soft Extremities: Dry NE: The patient was alert and oriented. Language was slightly dysarthric. Fund of knowledge was normal. Pupils were equal and reactive to light. There was no afferent pupillary defect. Visual borja were normal. Funduscopic examination was limited. Extra-ocular movements were full. Ptosis was absent. There was no nystagmus. Facial sensation was normal. Face was symmetric with normal strength. Hearing was intact. Palate movements were normal. Neck strength was normal. There was normal tongue bulk and speed of movement. Tone was flaccid on the R. Muscle bulk was normal. I did not see fasciculations. Arms and legs were plegic on the R. Vibration sensation was normal. Temperature and pinprick sensation was normal. Rapid alternating movements were normal. There was no dysmetria. There was no intention tremor. Gait was deferred due to bedrest. Arm and leg reflexes were 2+ and symmetric. Mclean's sign was absent. Plantar responses were flexor. Results Result Diagram: 08/07/18 0625 08/07/18 0625 Results 24hrs Laboratory Tests Test 08/06/18 15:40 08/06/18 20:52 08/07/18 06:25 08/07/18 07:34 Urine Color YELLOW Urine Clarity CLEAR Urine pH 5.0 Urine Specific 1.060 H [place] Urine Ketones NEGATIVE Urine Nitrite NEGATIVE Urine Bilirubin NEGATIVE Urine Urobilinogen 2+ H Urine Leukocyte NEGATIVE Esterase Urine Hemoglobin NEGATIVE Urine Glucose NEGATIVE Urine Total Protein NEGATIVE Urine Opiates Screen NEGATIVE Urine Barbiturates NEGATIVE Urine Amphetamines POSITIVE Screen Urine NEGATIVE Benzodiazepines Screen Urine Cocaine Screen NEGATIVE Urine Cannabinoids NEGATIVE Bedside Glucose 119 137 White Blood Count 8.0 # Red Blood Count 5.25 Hemoglobin 15.1 Hematocrit 45.8 Mean Corpuscular 87.2 Volume Mean Corpuscular 28.8 L Hemoglobin Mean Corpuscular 33.0 Hemoglobin Concent Red Cell 14.2 Distribution Width Platelet Count 194 Mean Platelet Volume 11.2 H Immature 0.400 Granulocytes % Neutrophils % 65.7 Lymphocytes % 24.2 Monocytes % 8.0 Eosinophils % 1.3 Basophils % 0.4 Nucleated Red Blood 0.0 Cells % Immature 0.030 Granulocytes # Neutrophils # 5.2 Lymphocytes # 1.9 Monocytes # 0.6 Eosinophils # 0.1 Basophils # 0.0 Nucleated Red Blood 0.0 Cells # Sodium Level 146 H Potassium Level 3.9 Chloride Level 105 Carbon Dioxide Level 25 Anion Gap 16 H Blood Urea Nitrogen 42 H Creatinine 1.20 Est Glomerular > 60 Filtrat Rate mL/min Glucose Level 134 Calcium Level 9.0 Magnesium Level 2.8 H Triglycerides Level 203 H Cholesterol Level 216 H LDL Cholesterol, 141 Calculated HDL Cholesterol 34 Cholesterol/HDL 6.3 Ratio Thyroid Stimulating 0.705 Hormone (TSH) Test 08/07/18 10:59 Bedside Glucose 212 Medications Medication Current Medications Ondansetron HCl (Zofran Inj) 4 mg ER BRIDGE PRN IV NAUSEA/VOMITING; Start 08/06/18 at 12:00; Stop 08/07/18 at 11:59 Acetaminophen (Tylenol Tab) 650 mg ER BRIDGE PRN PO .MILD PAIN 1-3 OR TEMP; St art 08/06/18 at 12:00; Stop 08/07/18 at 11:59 Dextrose/Sodium Chloride 1,000 ml @ 75 mls/hr [id number] IV Last administered on 08/07/18 09:59; Admin Dose 75 MLS/HR; Start 08/06/18 at 19:30 Lorazepam (Ativan) 0.5 mg Q6H PRN IV .ANXIETY; Start 08/06/18 at 19:00 Ondansetron HCl (Zofran Inj) 4 mg Q6H PRN IV NAUSEA/VOMITING; Start 08/06/18 at 19:00 Morphine Sulfate (morphine) 2 mg Q4H PRN IV .PAIN 7-10; Start 08/06/18 at 19:00 Zolpidem Tartrate (Ambien) 5 mg QHS PRN PO .INSOMNIA; Start 08/06/18 at 19:00 Docusate Sodium (Colace) 100 mg Q12 PO Last administered on 08/07/18 08:53; Admin Dose 100 MG; Start 08/06/18 at 21:00 Famotidine (Pepcid) 20 mg Q12 PO Last administered on 08/07/18 08:53; Admin Dose 20 MG; Start 08/06/18 at 21:00 Atorvastatin Calcium (Lipitor) 80 mg HS PO Last administered on 08/06/18 20:55; Admin Dose 80 MG; Start 08/06/18 at 21:00 Carvedilol (Coreg) 6.25 mg BID PO Last administered on 08/07/18 08:54; Admin Dose 6.25 MG; Start 08/06/18 at 21:00 Furosemide (Lasix) 20 mg BID DIURETICS PO Last administered on 08/07/18 05:52; Admin Dose 20 MG; Start 08/06/18 at 21:00 Sacubitril/ Valsartan (Entresto 24 Mg-26 Mg) 1 tab BID PO Last administered on 08/07/18 10:45; Admin Dose 1 TAB; Start 08/06/18 at 21:00 Spironolactone (Aldactone) 25 mg DAILY PO Last administered on 08/07/18 08:54; Admin Dose 25 MG; Start 08/07/18 at 09:00 Thiamine HCl (Vitamin B1) 100 mg DAILY PO Last administered on 08/07/18at 08:54; Admin Dose 100 MG; Start 08/07/18 at 09:00 Diagnostic Test (Pha) (Accu-Chek) 1 ea 02 XX ; Start 08/07/18 at 02:00 Insulin Aspart (Novolog Insulin Pen) NOVOLOG *MILD* ALGORITHM WITH MEALS BEDTIME SC Last administered on 08/07/18at 11:04; Admin Dose 2 UNIT; Start 08/06/18 at 21:00 Miscellaneous Information 1 ea NOTE XX ; Start 08/06/18 at 19:30 Glucose (Glutose) 15 gm Q15M PRN PO DECREASED GLUCOSE; Start 08/06/18 at 19:30 Glucose (Glutose) 22.5 gm Q15M PRN PO DECREASED GLUCOSE; Start 08/06/18 at 19:30 Dextrose (D50w Syringe) 25 ml Q15M PRN IV DECREASED GLUCOSE; Start 08/06/18 at 19:30 Dextrose (D50w Syringe) 50 ml Q15M PRN IV DECREASED GLUCOSE; Start 08/06/18 at 19:30 Glucagon (Glucagen) 1 mg Q15M PRN IM DECREASED GLUCOSE; Start 08/06/18 at 19:30 Glucose (Glutose) 15 gm Q15M PRN BUCCAL DECREASED GLUCOSE; Start 08/06/18 at 19:30 Past Medical History reviewed Home Meds Reported Medications Thiamine* (Vitamin B-1*) 100 Mg Tablet, 100 MG PO DAILY, TAB 08/06/18 Furosemide* (Furosemide*) 20 Mg Tablet, 20 MG PO BID, #30 TAB 08/06/18 Spironolactone* (Aldactone*) 25 Mg Tablet, 25 MG PO DAILY, #30 TAB 08/06/18 Carvedilol* (Carvedilol*) 6.25 Mg Tablet, 6.25 MG PO BID, #60 TAB 08/06/18 Atorvastatin Calcium* (Atorvastatin Calcium*) 20 Mg Tablet, 20 MG PO QHS, #30 TAB 08/06/18 Sacubitril/Valsartan (Entresto 24 mg-26 mg Tablet) 1 Each Tablet, 1 EACH PO BID, TAB 08/06/18 Discontinued Scripts Buspirone Hcl* (Buspirone Hcl*) 10 Mg Tab, 7.5 MG PO BID for 10 Days, #20 TAB Prov:RICHAR REIS MD 03/19/18 Thiamine* (Thiamine*) 100 Mg Tablet, 100 MG PO DAILY for 30 Days, #30 TAB 2 Refills Prov:RICHAR REIS MD 03/19/18 Furosemide (Lasix) 20 Mg Tab, 20 MG PO BID DIURETICS for 10 Days, #20 TAB Prov:RICHAR REIS MD 03/19/18 Acetaminophen* (Tylenol*) 325 Mg Tablet, 650 MG PO Q6H PRN for PAIN LEVEL 1-3 OR FEVER for 1 Day, TAB Prov:RICHAR REIS MD 03/19/18 Spironolactone* (Aldactone*) 5 Mg/Ml (COMPOUNDED) Susp, 12.5 MG PO DAILY for 14 Days, #14 1 Refill Prov:RICHAR REIS MD 03/19/18 Carvedilol* (Carvedilol*) 6.25 Mg Tablet, 6.25 MG PO BID for 30 Days, #30 TAB 1 Refill Prov:RICHAR REIS MD 03/19/18 Atorvastatin Calcium (Atorvastatin Calcium) 20 Mg Tablet, 20 MG PO QHS for 30 Days, #30 TAB Prov:RICHAR REIS MD 03/19/18 Aspirin (Aspirin) 81 Mg Chew, 81 MG PO DAILY for 30 Days, TAB Prov:COCO COCHRAN MD 01/12/17 Benazepril Hcl* (Benazepril Hcl*) 10 Mg Tablet, 10 MG PO DAILY for 30 Days, TAB Prov:COCO COCHRAN MD 01/12/17 Medications Current Medications Ondansetron HCl (Zofran Inj) 4 mg ER BRIDGE PRN IV NAUSEA/VOMITING; Start 08/06/18 at 12:00; Stop 08/07/18 at 11:59 Acetaminophen (Tylenol Tab) 650 mg ER BRIDGE PRN PO .MILD PAIN 1-3 OR TEMP; Start 08/06/18 at 12:00; Stop 08/07/18 at 11:59 Dextrose/Sodium Chloride 1,000 ml @ 75 mls/hr [id number] IV Last administered on 08/07/18at 09:59; Admin Dose 75 MLS/HR; Start 08/06/18 at 19:30 Lorazepam (Ativan) 0.5 mg Q6H PRN IV .ANXIETY; Start 08/06/18 at 19:00 Ondansetron HCl (Zofran Inj) 4 mg Q6H PRN IV NAUSEA/VOMITING; Start 08/06/18 at 19:00 Morphine Sulfate (morphine) 2 mg Q4H PRN IV .PAIN 7-10; Start 08/06/18 at 19:00 Zolpidem Tartrate (Ambien) 5 mg QHS PRN PO .INSOMNIA; Start 08/06/18 at 19:00 Docusate Sodium (Colace) 100 mg Q12 PO Last administered on 08/07/18 08:53; Admin Dose 100 MG; Start 08/06/18 at 21:00 Famotidine (Pepcid) 20 mg Q12 PO Last administered on 08/07/18 08:53; Admin Dose 20 MG; Start 08/06/18 at 21:00 Atorvastatin Calcium (Lipitor) 80 mg HS PO Last administered on 08/06/18at 20:55; Admin Dose 80 MG; Start 08/06/18 at 21:00 Carvedilol (Coreg) 6.25 mg BID PO Last administered on 08/07/18 08:54; Admin D ose 6.25 MG; Start 08/06/18 at 21:00 Furosemide (Lasix) 20 mg BID DIURETICS PO Last administered on 08/07/18 05:52; Admin Dose 20 MG; Start 08/06/18 at 21:00 Sacubitril/ Valsartan (Entresto 24 Mg-26 Mg) 1 tab BID PO Last administered on 08/07/18 10:45; Admin Dose 1 TAB; Start 08/06/18 at 21:00 Spironolactone (Aldactone) 25 mg DAILY PO Last administered on 08/07/18 08:54; Admin Dose 25 MG; Start 08/07/18 at 09:00 Thiamine HCl (Vitamin B1) 100 mg DAILY PO Last administered on 08/07/18 08:54; Admin Dose 100 MG; Start 08/07/18 at 09:00 Diagnostic Test (Pha) (Accu-Chek) 1 ea 02 XX ; Start 08/07/18 at 02:00 Insulin Aspart (Novolog Insulin Pen) NOVOLOG *MILD* ALGORITHM WITH MEALS BEDTIME SC Last administered on 08/07/18at 11:04; Admin Dose 2 UNIT; Start 08/06/18 at 21:00 Miscellaneous Information 1 ea NOTE XX ; Start 08/06/18 at 19:30 Glucose (Glutose) 15 gm Q15M PRN PO DECREASED GLUCOSE; Start 08/06/18 at 19:30 Glucose (Glutose) 22.5 gm Q15M PRN PO DECREASED GLUCOSE; Start 08/06/18 at 19:30 Dextrose (D50w Syringe) 25 ml Q15M PRN IV DECREASED GLUCOSE; Start 08/06/18 at 19:30 Dextrose (D50w Syringe) 50 ml Q15M PRN IV DECREASED GLUCOSE; Start 08/06/18 at 19:30 Glucagon (Glucagen) 1 mg Q15M PRN IM DECREASED GLUCOSE; Start 08/06/18 at 19:30 Glucose (Glutose) 15 gm Q15M PRN BUCCAL DECREASED GLUCOSE; Start 08/06/18 at 19:30 Allergies: Coded Allergies: No Known Allergy (Unverified , 08/06/18) Past Surgical History reviewed Social History reviewed Smoking Status: Never smoker DARRELL GARAY NP Aug 07, 2018 11:39 JOSY MARIN Aug 07, 2018 14:16
--- NOTE | 2018-08-07 19:13 | RADRPT ---
Echocardiogram Report Patient Name: CHRIST WERNERPatient ID: [id number] : 1970 (48y 2m)Study Date: 08/07/2018 9:01:55 AM Gender: MAccession #: [id number] Tech: Rey Dial [facility] Location: 510-A Ref.Physician: PARVEEN TY Height(Cm): BSA: Weight(Kg): Quality: AdequateAccount #: Procedures: Echocardiographic Report: Transthoracic echocardiogram with complete 2D, M-Mode, and doppler examination. Indications: Cerebrovascular Accident. Measurements: 2D/M Mode Doppler Measurement Value Normal Range Measurement Value Normal Range LVIDd 2D 4.9 [ 4.2 - 5.8 ] cm AV Peak Gray 1.3 [ 100.0 - 170.0 ] cm/sec LVIDs 2D 4.3 [ 2.5 - 4.0 ] cm AV Peak PG 7.0 [ 2.0 - 9.0 ] mmHg LVPWd 2D 1.3 [ 0.6 - 1.0 ] cm LVOT Peak Gray 0.6 [ 70.0 - 110.0 ] cm/sec IVSd 2D 1.3 [ 0.6 - 1.0 ] cm LVOT Peak PG 1.0 [ 2.0 - 6.0 ] mmHg AoR Diam 2D 2.9 [ 2.6 - 3.4 ] cm MV E Peak Gray 0.5 [ 60.0 - 130.0 ] cm/sec EDV 2D 111.0 [ 62.0 - 150.0 ] ml MV A Peak Gray 0.7 [ 100.0 - 120.0 ] cm/sec ESV 2D 85.4 [ 21.0 - 61.0 ] ml MV E/A 0.8 [ 0.8 - 1.5 ] ratio EF 2D 23.1 [ 52.0 - 72.0 ] percent MV Decel Time 232 [ 104 - 258 ] msec LA Dimen 2D 3.6 [ 3.0 - 4.0 ] cm Lat E` Gray 0.1 [ 10.0 - 15.0 ] cm/sec Lateral E/E` 5.4 [ 1.0 - 2.0 ] ratio MV E/A 0.8 [ 0.8 - 1.5 ] ratio TR Peak Gray 2.6 [ 100.0 - 280.0 ] cm/sec TR Peak PG 28.0 mmHg RVSP 31.0 [ 10.0 - 36.0 ] mmHg Findings: Left Ventricle: Normal left ventricular cavity size. Mild concentric left ventricular hypertrophy. Severe global left ventricular systolic dysfunction. Ejection fraction is visually estimated at 20-25 %. Tissue Doppler/Mitral Doppler indices are consistent with pseudonormalization with mildly elevated left atrial pressure (Stage II diastolic dysfunction). Right Ventricle: Normal right ventricular size. Normal right ventricular systolic function. Left Atrium: The left atrium is normal in size. Right Atrium: The right atrium is normal in size. Atrial Septum: Bubble study was performed with and with out valsalva indicating no evidence of intra atrial shunt. Mitral Valve: Mild mitral leaflet calcification. Mild mitral annular calcification. Trace mitral regurgitation. Aortic Valve: No hemodynamically significant aortic stenosis by doppler. Aortic cusps appear mildly calcified. Tricuspid Valve: Normal appearance of the tricuspid valve. Estimated peak PA systolic pressure 31 mmHg. There is trace tricuspid regurgitation. Pericardium: Normal pericardium with no significant pericardial effusion. Aorta: Normal aortic root. IVC: Normal size and normal respiratory collapse consistent with normal right atrial pressure. Conclusions: Normal left ventricular cavity size. Mild concentric left ventricular hypertrophy. Severe global left ventricular systolic dysfunction. Ejection fraction is visually estimated at 20-25 %. Tissue Doppler/Mitral Doppler indices are consistent with pseudonormalization with mildly elevated left atrial pressure (Stage II diastolic dysfunction). Mild mitral leaflet calcification. Mild mitral annular calcification. Trace mitral regurgitation. Normal appearance of the tricuspid valve. Estimated peak PA systolic pressure 31 mmHg. There is trace tricuspid regurgitation. Electronically Signed By: Philip Devine 2018-08-07 19:12:57 PDT
[2018-08-07] MEDS: ATORVASTATIN 80 MG TAB PO SCH (20:52)
[2018-08-08] VITALS (12 sets, daily range): BP systolic 105–138; BP diastolic 59–79; PULSE 61–82; RESP 18–20
[2018-08-08] MEDS: ACCU-CHEK XX SCH (02:00)
--- NOTE | 2018-08-08 02:26 | CONS ---
DATE OF ADMISSION: 08/06/2018 DATE OF CONSULTATION: 08/07/2018 REASON FOR CONSULTATION: Cardiomyopathy with severe depressed left ventricular ejection fraction, co ngestive heart failure. REQUESTING PHYSICIAN: Dr. Ty from the hospitalist service. HISTORY OF PRESENT ILLNESS: Mr. Sanchez is a 48-year-old male with history of cardiomyopathy with severely depressed left ventricular ejection fraction, last known to be 25% to 30% by echo in 03/2018 ; congestive heart failure, systolic, recurrent bouts; history of ST segment elevation myocardial inf arction; hypertension; dyslipidemia; ETOH abuse; anemia; leukocytosis, who presented with acute onset right upper and lower extremity weakness, paralysis. Upon arrival in the emergency department, temp erature of 98.3, blood pressure 150/105, pulse 94, respiratory rate 20, sat 99%. The patient's labs revealed white count of 12.3, hemoglobin 15.8, platelet count of 242. Sodium 149, potassium 4.3, cre atinine 1.2, BUN of 41. Troponin negative. LDL 165, HDL 41. TSH of 0.705. Tox screen positive for amphetamines. The patient underwent a head CTA revealing moderate to marked narrowing of the left A 2 segment and its branches. A chest x-ray revealed a dilated thoracic aorta. A head CT that reveale d ischemic changes in addition to left anterior cerebral artery with additional focus of hypoattenuat ion in for a left frontal lobe and an MRI that subsequently revealed acute recent infarct along the p aramedian left frontal lobe as well as left diuresis in the left anterior cerebral artery distr ibution. There is associated hemosiderin or hemato transformation. The patient's electrocardiogram revealed normal sinus rhythm with nonspecific ST abnormalities. The patient has been admitted to [facility], consulted by neurology services. The patient remains flaccid in his right upper and lower extrem ities. The patient at this time denies chest pain, shortness of breath. PAST MEDICAL HISTORY: As above in HPI. MEDICATIONS CURRENTLY IN HOSPITAL: 1. Aspirin 81 mg daily. 2. Aldactone 25 daily. 3. Thiamine. 4. Colace. 5. Pepcid. 6. Lipitor 80 mg at bedtime. 7. Carvedilol 6.25 mg p.o. b.i.d. 8. Entresto 1 mg b.i.d. 9. Lasix 20 mg p.o. b.i.d. 10. P.r.n. Morphine. 11. P.r.n. Zofran. 12. P.r.n. Ambien. ALLERGIES: NO KNOWN DRUG ALLERGIES. SOCIAL HISTORY: No current tobacco. Positive ETOH abuse, positive illicit drug use with amphetamine s on the tox screen on this admit. FAMILY HISTORY: No history of sudden cardiac or early CAD. REVIEW OF SYSTEMS: As above in HPI. CONSTITUTIONAL: No fevers, chills. PULMONARY: No current shortness of breath. CARDIOVASCULAR: Cardiomyopathy with severe depressed left ventricular ejection fraction, congestive heart failure. GASTROINTESTINAL: No vomiting. GENITOURINARY: No hematuria. MUSCULOSKELETAL: Right upper and lower extremity paralysis, weakness. PSYCHIATRIC: No documented psych history. NEUROLOGIC: Acute CVA. PHYSICAL EXAMINATION: VITAL SIGNS: Temperature of 98.3, blood pressure 105/65, pulse 71, respiratory rate 18, sat 99%. GENERAL: The patient is alert, awake, in no acute distress. NECK: JVP approximately 8 to 9 cm of water. CHEST: Fair air movement throughout. HEART: Regular rate and rhythm. Normal S1, S2, I/ systolic murmur, nondisplaced PMI. ABDOMEN: Positive bowel sounds, soft. EXTREMITIES: No significant pitting edema. NEUROLOGIC: Right upper and right lower extremity weakness, paralysis. LABORATORIES: Most recent from today, sodium of 146, potassium of 3.9, creatinine 1.2, BUN of 42, LD L 141, HDL 34. TSH of 0.705. White blood cell count of 8.0, hemoglobin 15.1, platelet count of 194. IMAGING STUDIES: As above in HPI. No further imaging studies for my review at this time. ECG: No electrocardiograms for my review at this time. IMPRESSION: 1. Cardiomyopathy with 3+ left ventricular ejection fraction last known to be approximately 25% to 3 0% by echo 03/2018. 2. Congestive heart failure, systolic, acute on chronic. 3. Hypertension, under reasonable control. 4. Dyslipidemia. 5. History of myocardial infarction. 6. Acute cerebrovascular accident with right upper and lower extremity weakness, paralysis. RECOMMENDATIONS: 1. At this time, we would maintain the patient on telemetry monitoring to follow rhythm and rate con trol closely. 2. Complete the patient's rule out myocardial infarction to ensure the patient did not have any conc urrent acute myocardial infarction. 3. Continue the patient's current carvedilol and Entresto as well as Aldactone and Lasix for treatme nt of cardiomyopathy and its associated symptoms. Otherwise, continue the patient's statin at high d ose now in the setting of elevated LDL, acute stroke. 5. Continue the patient's aspirin for prophylaxis of further cardiovascular or cerebrovascular event s. 6. We will consider decrease the patient's IV fluid, so as not to cause volume overload, congestive heart failure but will continue given need for a dextrose. 7. Follow up the patient's 2D echo done to reassess ejection fraction, assess for any possible intra cardiac source of embolus. Thank you for allowing me to take part in the care of this patient. I will continue to follow him ve ry closely with you with further recommendations to be made as the [facility] Dictated By: AGUSTIN SMITH/NTS Conf#: [id number] DID#: [id number] CC: PARVEEN TY MD;*EndCC*
[2018-08-08] MEDS: FUROSEMIDE 20 MG TAB PO SCH ×2 (05:23→18:13)
[2018-08-08] MEDS: INSULIN ASPART [NOVOLOG] 3 ML PEN SC SCH ×4 (07:55→20:28)
[2018-08-08] MEDS: ASPIRIN 81 MG TAB PO SCH (09:00)
[2018-08-08] MEDS: SPIRONOLACTONE 25 MG TAB PO SCH (09:41)
[2018-08-08] MEDS: FAMOTIDINE 20 MG TAB PO SCH ×2 (09:41→20:27)
[2018-08-08] MEDS: THIAMINE 100 MG TAB PO SCH (09:42)
[2018-08-08] MEDS: DOCUSATE SODIUM 100 MG CAP PO SCH ×2 (09:42→21:00)
[2018-08-08] MEDS: SACUBITRIL/VALSARTAN (24mg-26mg) TABLET PO SCH ×2 (09:42→20:27)
[2018-08-08] MEDS: DEXTROSE 5%-0.45% NACL 1,000 ML IV SCH (15:37)
--- NOTE | 2018-08-08 16:57 | CONS ---
Assessment/Plan Assessment/Plan Hospital Course 48 M c/ reported Hx of severely depressed LVEF and other cerebrovascular risk factors, who presents for evaluation of progressive R sided weakness x 3 days..for which neurology is consulted.. MRI brain confirms a recent L frontal/cingulate ischemic infarct w/ ?petechial hemorrhage, for which neurology is consulted.. CTA head was notable for L PHILIPPE stenoses to correspond w/ the infarcted territory..but was without other stenoses.. CTA neck was negative for large vessel disease LDL 165, ESR 21 UDS + amphetamines Echo is notable for EF 20-25% P: Resume asa/lipitor daily for secondary stroke prevention Await RPR, hypercoagulable panel PT/OT as necessary Other management per primary Will follow clinically Consultation Date/Type/Reason Admit Date/Time Aug 06, 2018 at 11:34 Type of Consult Neurology Requesting Provider: PARVEEN TY Date/Time of Note DATE: 08/08/18 TIME: 16:54 24 HR Interval Summary Free Text/Dictation Continues acute care. Exam Vital Signs Vitals Vital Signs Date Temp Pulse Resp B/P (MAP) Pulse Ox O2 O2 Flow FiO2 Time Delivery Rate 08/08/18 78 16:12 08/08/18 98.9 20 105/59 96 Room Air 15:04 (74) Exam PE: Gen Appearance: No Apparent Distress HEENT: Normocephalic Cardiovascular: Regular rate Lungs: Clear bilaterally Abdomen: Soft Extremities: Dry NE: The patient was alert and oriented. Language was normal. Fund of knowledge was normal. Pupils were equal and reactive to light. There was no afferent pupillary defect. Visual borja were normal. Funduscopic examination was limited. Extra-ocular movements were full. Ptosis was absent. There was no nystagmus. Facial sensation was normal. Face was symmetric with normal strength. Hearing was intact. Palate movements were normal. Neck strength was normal. There was normal tongue bulk and speed of movement. Tone was normal. Muscle bulk was normal. I did not see fasciculations. L arm/leg was strong; The pt was able to move his R hand; was severely weak in the R leg. Vibration sensation was normal. Temperature and pinprick sensation was normal. Rapid alternating movements were normal. There was no dysmetria. There was no intention tremor. Gait was deferred due to bedrest. Arm and leg reflexes were 2+ and symmetric. Mclean's sign was absent. Plantar responses were flexor. DARRELL GARAY NP Aug 08, 2018 16:57
--- NOTE | 2018-08-08 18:57 | RADRPT ---
Vent Rate: 65 bpm RR Interval: 0 msec SD Interval: 172 msec QRS Duration: 130 msec QT Interval: 482 msec QTC Interval: 501 msec P-R-T Blain: 36 - 10 - 0 degrees Normal sinus rhythm Nonspecific intraventricular block Marked T wave abnormality, consider inferior ischemia Marked T wave abnormality, consider anterolateral ischemia Abnormal ECG Electronically Signed By: Devan Gonzales
[2018-08-08] MEDS: ATORVASTATIN 80 MG TAB PO SCH (20:28)
[2018-08-09] VITALS (13 sets, daily range): BP systolic 95–184; BP diastolic 57–76; PULSE 60–81; RESP 18–20
[2018-08-09] MEDS: ACCU-CHEK XX SCH (02:00)
[2018-08-09] MEDS: FUROSEMIDE 20 MG TAB PO SCH ×2 (06:59→17:58)
[2018-08-09] MEDS: DEXTROSE 5%-0.45% NACL 1,000 ML IV SCH (08:17)
[2018-08-09] MEDS: INSULIN ASPART [NOVOLOG] 3 ML PEN SC SCH ×4 (08:27→21:22)
[2018-08-09] MEDS: ASPIRIN 81 MG TAB PO SCH (09:08)
[2018-08-09] MEDS: DOCUSATE SODIUM 100 MG CAP PO SCH ×2 (09:08→21:00)
[2018-08-09] MEDS: THIAMINE 100 MG TAB PO SCH (09:08)
[2018-08-09] MEDS: FAMOTIDINE 20 MG TAB PO SCH ×2 (09:08→21:05)
[2018-08-09] MEDS: SPIRONOLACTONE 25 MG TAB PO SCH (09:08)
[2018-08-09] MEDS: SACUBITRIL/VALSARTAN (24mg-26mg) TABLET PO SCH ×2 (09:09→21:05)
--- NOTE | 2018-08-09 11:22 | PN ---
DATE: 08/08/2018 SUBJECTIVE: The patient is not able to move his right upper extremity as well as his left lower extremity much from [id number]. 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 He has been working with physical therapy. He was able to stand limited. The patient's is contesting the positive methamphetamine in his urine toxicology screen and I had requested a repeat, which had come back negative for amphetamines. She is stating that the patient's urine was most likely mixed up with that of another patient in the emergency room. We will be looking into this. PHYSICAL EXAMINATION: VITAL SIGNS: Temperature 98.9, pulse 70, respirations 20, blood pressure 105/59, saturations 96% on room air. GENERAL: The patient seems more communicative and alert today. HEENT: Head is normocephalic. Pupils equal and reactive. Continues to have a facial droop on the left. NECK: Supple. CHEST: Clear. CARDIOVASCULAR: S1 and S2, no murmurs. ABDOMEN: Soft: EXTREMITIES: No lower extremity edema. Right hemiplegia, now improved with hemiparesis. DIAGNOSTIC DATA: Echocardiogram did show ejection fraction has improved to 20% to 25% with stage II diastolic dysfunction, trace tricuspid regurgitation. It is unclear if bubble study was done on this test at this time. IMPRESSION: A 48-year-old male who had presented with right-sided hemiparesis, who is being managed as follows: 1. 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 2. History of severe cardiomyopathy, improved to 20% to 25%. 3. Stage II diastolic dysfunction. 4. History of ST elevation myocardial infarction. 5. Prediabetes with A1c of 6.5. 6. Dyslipidemia with hypertriglyceridemia and hypercholesterolemia. 7. Concern for possible methamphetamine use which patient adamantly denies and which could have been an error. DISPOSITION: Continue in-house rehabilitation. Again, the patient is a prime candidate for acute rehabilitation unit. We have been trying to reach the insurance for authorization. At this time, physical therapy and occupational therapy would agree that patient will benefit from inpatient rehabilitation. Again, will try to reach the vice president medical affairs of the health plan to see about authorizing this. Either way, patient is going to require some kind of rehabilitation and so we will see what they say. In the interim, continue blood pressure control. Continue blood sugar control. Diabetic education will be obtained. Consider starting a low dose metformin. In view of this patient with high risk factors for repeat stroke, continue daily aspirin, continue high dose statin. Cardiology also following the patient, appreciate input. Continue all other supportive care. Plan of care discussed extensively with the . I will also discuss with the lab regarding methamphetamine in the urine. Dictated By: PARVEEN TY MD BA/NTS Conf#: [id number] DID#: [id number] MTDD
--- NOTE | 2018-08-09 12:02 | CONS ---
Assessment/Plan Assessment/Plan Hospital Course 48 M c/ reported Hx of severely depressed LVEF and other cerebrovascular risk factors, who presents for evaluation of progressive R sided weakness x 3 days..for which neurology is consulted.. MRI brain confirms a recent L frontal/cingulate ischemic infarct w/ ?petechial hemorrhage, for which neurology is consulted.. CTA head was notable for L PHILIPPE stenoses to correspond w/ the infarcted territory..but was without other stenoses.. CTA neck was negative for large vessel disease LDL 165, ESR 21, RPR neg UDS + amphetamines Echo is notable for EF 20-25% P: Resume asa/lipitor daily for secondary stroke prevention Await hypercoagulable panel PT/OT as necessary Other management per primary Will follow clinically Consultation Date/Type/Reason Admit Date/Time Aug 06, 2018 at 11:34 Type of Consult Neurology Requesting Provider: PARVEEN TY Date/Time of Note DATE: 08/09/18 TIME: 12:02 24 HR Interval Summary Free Text/Dictation Continues acute care. Working with physical therapy. Exam Vital Signs Vitals Vital Signs Date Temp Pulse Resp B/P (MAP) Pulse Ox O2 O2 Flow FiO2 Time Delivery Rate 08/09/18 98.5 78 20 106/64 94 Room Air 11:08 (78) Intake and Output 08/08/18 08/08/18 08/09/18 1515:00 23:00 07:00 IntakeIntake Total 800 ml 600 ml OutputOutput Total 750 ml 700 ml BalanceBalance 50 ml -100 ml Exam PE: Gen Appearance: No Apparent Distress HEENT: Normocephalic Cardiovascular: Regular rate Lungs: Clear bilaterally Abdomen: Soft Extremities: Dry NE: The patient was alert and oriented. Language was normal. Fund of knowledge was normal. Pupils were equal and reactive to light. There was no afferent pupillary defect. Visual borja were normal. Funduscopic examination was limited. Extra-ocular movements were full. Ptosis was absent. There was no nystagmus. Facial sensation was normal. Face was symmetric with normal strength. Hearing was intact. Palate movements were normal. Neck strength was normal. There was normal tongue bulk a nd speed of movement. Tone was normal. Muscle bulk was normal. I did not see fasciculations. L arm/leg was strong; The pt was able to move his R hand; was severely weak in the R leg. Vibration sensation was normal. Temperature and pinprick sensation was normal. Rapid alternating movements were normal. There was no dysmetria. There was no intention tremor. Gait was deferred due to bedrest. Arm and leg reflexes were 2+ and symmetric. Mclean's sign was absent. Plantar responses were flexor. DARRELL GARAY NP Aug 09, 2018 12:02
--- NOTE | 2018-08-09 13:28 | PN ---
DATE: 08/07/2018 SUBJECTIVE: The patient is feeling overall better. He is still completely paretic on the right side. PHYSICAL EXAMINATION VITAL SIGNS: Temperature 98.7, pulse 74, respirations 18, blood pressure 121/60, saturations 99% on room air. GENERAL: The patient remains alert, oriented, able to communicate with some aphasia. HEENT: Head is normocephalic with no evidence of trauma. Pupils are equal and reactive. NECK: Supple. CHEST: Clear. CARDIOVASCULAR: S1 and S2. No murmurs. ABDOMEN: Soft, nontender. EXTREMITIES: No lower extremity edema. NEUROLOGIC: Complete right-sided hemiparesis with mild dysphagia. SKIN: No rash or jaundice. IMAGING STUDIES: MRI of the brain showed acute recent infarct along the paramedian/medial left frontal lobe as well as left cingulate gyrus in the left anterior cerebral artery distribution with hemorrhagic transformation and local mass effect and effacement and sulcal effacement. ASSESSMENT: A 48-year-old male who presented with right-sided hemiparesis and aphasia with the followin. Subacute left anterior cerebral artery stroke. 2. Substance abuse with methamphetamines. 3. History of severe cardiomyopathy with last known ejection fraction of 50%. 4. History of ST elevation myocardial infarction. 5. Prediabetes with hemoglobin A1c of 6.5. 6. Mild rhabdomyolysis. 7. Dyslipidemia with hypertriglyceridemia and hypercholesterolemia DISPOSITION: Neurology recs noted, I appreciate input. The patient continues on aspirin and Lipitor. Follow up echo with bubble study. Neurology also recommended hypercoagulable panel. Await PT evaluation. Acute rehabilitation as well. The patient is a prime acute rehabilitation candidate. Hopefully, this will be approved by insurance. Plan of care has been discussed with patient. Continue with all other supportive care. Dictated By: PARVEEN TY MD BA/NTS Conf#: [id number] DID#: [id number] CC: AGUSTIN DONG MD;*EndCC* MTDD
[2018-08-09] MEDS: ATORVASTATIN 80 MG TAB PO SCH (21:06)
[2018-08-10] VITALS (12 sets, daily range): BP systolic 115–127; BP diastolic 61–78; PULSE 58–76; RESP 16–20
[2018-08-10] MEDS: ACCU-CHEK XX SCH (02:00)
[2018-08-10] MEDS: FUROSEMIDE 20 MG TAB PO SCH ×2 (05:30→17:06)
--- NOTE | 2018-08-10 07:02 | EN ---
Date/Time of Note Date/Time of Note DATE: 08/10/18 TIME: 06:53 Event Note Medicine Medicine Event Note Progress note: Date of evaluation: 08/09/18 s: continues to work with PT, no new issues o: Vital Signs Date Temp Pulse Resp B/P (MAP) Pulse Ox O2 O2 Flow FiO2 Time Delivery Rate 08/09/18 98.5 78 20 106/64 94 Room Air 11:08 (78) Intake and Output 08/08/18 08/08/18 08/09/18 1515:00 23:00 07:00 IntakeIntake Total 800 ml 600 ml OutputOutput Total 750 ml 700 ml BalanceBalance 50 ml -100 ml GENERAL: No distress HEENT: Head is normocephalic. Pupils equal and reactive. Continues to have a facial droop on the left. NECK: Supple. CHEST: Clear. CARDIOVASCULAR: S1 and S2, no murmurs. ABDOMEN: Soft, NT, +BS EXTREMITIES: No lower extremity edema. Right hemiplegia, now improved with able to summer nanny and move r ue, still can't do much with lower extremity .A 48-year-old male who presented with right-sided hemiparesis and aphasia with the followin. Subacute left anterior cerebral artery stroke. 2. Substance abuse with methamphetamines. - is questioning this 3. History of severe cardiomyopathy with last known ejection fraction of 50%. 4. History of ST elevation myocardial infarction. 5. Prediabetes with hemoglobin A1c of 6.5. 6. Mild rhabdomyolysis. 7. Dyslipidemia with hypertriglyceridemia and hypercholesterolemia DISPOSITION: this patient is highly appropriate for acute rehab and is pending peer to peer with the medical scheduler of his health plan. I have called him at least 5 times since [phone]. I have left at least 3 messages. patient has been accepted at [facility], only awaiting insurance apporoval. may downgrade to tele if ok with cards while we wait on decision. PARVEEN TY Aug 10, 2018 07:02
[2018-08-10] MEDS: INSULIN ASPART [NOVOLOG] 3 ML PEN SC SCH ×4 (07:55→20:28)
[2018-08-10] MEDS: ASPIRIN 81 MG TAB PO SCH (08:12)
[2018-08-10] MEDS: SPIRONOLACTONE 25 MG TAB PO SCH (08:12)
[2018-08-10] MEDS: FAMOTIDINE 20 MG TAB PO SCH ×2 (08:12→20:24)
[2018-08-10] MEDS: SACUBITRIL/VALSARTAN (24mg-26mg) TABLET PO SCH ×2 (08:12→20:24)
[2018-08-10] MEDS: THIAMINE 100 MG TAB PO SCH (08:12)
[2018-08-10] MEDS: DOCUSATE SODIUM 100 MG CAP PO SCH ×2 (08:12→20:24)
--- NOTE | 2018-08-10 08:38 | CONS ---
Assessment/Plan Assessment/Plan Hospital Course 48 M c/ reported Hx of severely depressed LVEF and other cerebrovascular risk factors, who presents for evaluation of progressive R sided weakness x 3 days..for which neurology is consulted.. MRI brain confirms a recent L frontal/cingulate ischemic infarct w/ ?petechial hemorrhage, for which neurology is consulted.. CTA head was notable for L PHILIPPE stenoses to correspond w/ the infarcted territory..but was without other stenoses.. CTA neck was negative for large vessel disease LDL 165, ESR 21, RPR neg UDS + amphetamines Echo is notable for EF 20-25% P: Resume asa/lipitor daily for secondary stroke prevention Await hypercoagulable panel PT/OT as necessary Other management per primary Will follow clinically Consultation Date/Type/Reason Admit Date/Time Aug 06, 2018 at 11:34 Type of Consult Neurology Requesting Provider: PARVEEN TY Date/Time of Note DATE: 08/10/18 TIME: 08:38 24 HR Interval Summary Free Text/Dictation Continues acute care. Pt reportedly has more spontaneous movement on his R. Exam Vital Signs Vitals Vital Signs Date Temp Pulse Resp B/P (MAP) Pulse Ox O2 O2 Flow FiO2 Time Delivery Rate 08/10/18 95.0 70 18 116/78 99 Room Air 07:34 (91) Intake and Output 08/09/18 08/09/18 08/10/18 1515:00 23:00 07:00 IntakeIntake Total 960 ml 700 ml OutputOutput Total 1800 ml 1200 ml BalanceBalance -840 ml -500 ml Exam PE: Gen Appearance: No Apparent Distress HEENT: Normocephalic Cardiovascular: Regular rate Lungs: Clear bilaterally Abdomen: Soft Extremities: Dry NE: The patient was alert and oriented. Language was normal. Fund of knowledge was normal. Pupils were equal and reactive to light. There was no afferent pupillary defect. Visual borja were normal. Funduscopic examination was limited. Extra-ocular movements were full. Ptosis was absent. There was no nystagmus. Facial sensation was normal. Face was symmetric with normal strength. Hearing was intact. Palate movements were normal. Neck strength was normal. There was normal tongue bulk and speed of movement. Tone was normal. Muscle bulk was normal. I did not see fasciculations. L arm/ leg was strong; The pt was able to move his R hand/forearm; was severely weak in the R leg. Vibration sensation was normal. Temperature and pinprick sensation was normal. Rapid alternating movements were normal. There was no dysmetria. There was no intention tremor. Gait was deferred due to bedrest. Arm and leg reflexes were 2+ and symmetric. Mclean's sign was absent. Plantar r esponses were flexor. DARRELL GARAY NP Aug 10, 2018 08:38
--- NOTE | 2018-08-10 10:52 | PN ---
Date/Time of Note Date/Time of Note DATE: 08/10/18 TIME: 10:45 Assessment/Plan VTE Prophylaxis Risk score (from [facility])>0 risk: 4 SCD applied (from [facility]): Yes Pharmacological prophylaxis: NA/contraindicated Pharm contraindication: hemorrhagic infarct (Cerebral) Lines/Catheters IV Catheter Type (from [place]): Saline [facility] Urinary Cath still in place: No Assessment/Plan Problems: (1) Cerebrovascular accident (CVA) due to stenosis of left anterior cerebral artery Onset Date: ~ 08/05/2018 Status: Acute Comment: At this time he is stable and there is been no evidence of new or advancing stroke symptoms. In addition there is been no evidence of intracranial hemorrhage or bleeding or midline shift. He is ready to go to rehabilitation. Felicitymagnolia krishna is at the medical records specialist for his insurance company has not made themselves available for [id number] discussion. Today being the weekend if they are also unavailable despite my attempting to call. Continue trying to find appropriate placement for this gentleman (2) Systolic CHF with reduced left ventricular function, NYHA class 3 Status: Chronic Comment: Continue with medications including furosemide, Spironolactone, Entresto, beta-blockade (3) Grade II diastolic dysfunction Status: Chronic Comment: Controlled with control blood pressure (4) Essential hypertension Status: Chronic Comment: Adequate control at this time (5) Hyperlipidemia Status: Chronic Comment: Aggressive risk factor modification Qualifiers: Hyperlipidemia type: pure hypercholesterolemia Qualified Codes: E78.00 - Pure hypercholesterolemia, unspecified (6) Alcohol abuse, in remission Status: Chronic Comment: Noted. Denies recent usage, on thiamine (7) Methamphetamine abuse Status: Chronic Comment: Tox screen is positive for this with the patient denies any involvement with this (8) Tobacco abuse Status: Chronic Comment: Stringently counseled and his Result Diagram: 08/07/18 0625 08/07/18 0625 Results 24hrs Laboratory Tests Test 08/09/18 12:12 08/09/18 17:37 08/09/18 21:11 08/10/18 02:28 Bedside Glucose 138 115 188 131 Test 08/10/18 08:04 Bedside Glucose 138 Subjective 24 Hr Interval Summary Free Text/Dictation Patient reports that he is doing the same without any changes. Constitutional: no complaints (No fevers chills or sweats) Respiratory: no complaints Cardiovascular: no complaints Gastrointestinal: no complaints Genitourinary: no complaints Neurologic: other (Right-sided hemiparesis) Exam/Review of Systems Exam Vitals Vital Signs Date Temp Pulse Resp B/P (MAP) Pulse Ox O2 O2 Flow FiO2 Time Delivery Rate 08/10/18 58 09:05 08/10/18 95.0 18 116/78 99 Room Air 07:34 (91) Intake and Output 08/09/18 08/09/18 08/10/18 1515:00 23:00 07:00 IntakeIntake Total 960 ml 700 ml OutputOutput Total 1800 ml 1200 ml BalanceBalance -840 ml -500 ml Constitutional: alert, oriented Neck: supple, non-tender Respiratory: clear to auscultation, normal air movement Cardiovascular: regular rate and rhythm, nl pulses, other (No S3) Gastrointestinal: soft, nl liver, spleen, non-tender Neurological: other (Right-sided hemiparesis) Results Results 24hrs Laboratory Tests Test 08/09/18 12:12 08/09/18 17:37 08/09/18 21:11 08/10/18 02:28 Bedside Glucose 138 115 188 131 Test 08/10/18 08:04 Bedside Glucose 138 Medications Medication Current Medications Lorazepam (Ativan) 0.5 mg Q6H PRN IV .ANXIETY; Start 08/06/18 at 19:00 Ondansetron HCl (Zofran Inj) 4 mg Q6H PRN IV NAUSEA/VOMITING; Start 08/06/18 at 19:00 Morphine Sulfate (morphine) 2 mg Q4H PRN IV .PAIN 7-10; Start 08/06/18 at 19:00 Zolpidem Tartrate (Ambien) 5 mg QHS PRN PO .INSOMNIA; Start 08/06/18 at 19:00 Docusate Sodium (Colace) 100 mg Q12 PO Last administered on 08/10/18at 08:12; Admin Dose 100 MG; Start 08/06/18 at 21:00 Famotidine (Pepcid) 20 mg Q12 PO Last administered on 08/10/18at 08:12; Admin Dose 20 MG; Start 08/06/18 at 21:00 Atorvastatin Calcium (Lipitor) 80 mg HS PO Last administered on 08/09/18at 21:06; Admin Dose 80 MG; Start 08/06/18 at 21:00 Carvedilol (Coreg) 6.25 mg BID PO Last administered on 08/10/18 08:12; Admin Dose 6.25 MG; Start 08/06/18 at 21:00 Furosemide (Lasix) 20 mg BID DIURETICS PO Last administered on 08/10/18 05:30; Admin Dose 20 MG; Start 08/06/18 at 21:00 Sacubitril/ Valsartan (Entresto 24 Mg-26 Mg) 1 tab BID PO Last administered on 08/10/18 08:12; Admin Dose 1 TAB; Start 08/06/18 at 21:00 Spironolactone (Aldactone) 25 mg DAILY PO Last administered on 08/10/18 08:12; Admin Dose 25 MG; Start 08/07/18 at 09:00 Thiamine HCl (Vitamin B1) 100 mg DAILY PO Last administered on 08/10/18 08:12; Admin Dose 100 MG; Start 08/07/18 at 09:00 Diagnostic Test (Pha) (Accu-Chek) 1 ea 02 XX ; Start 08/07/18 at 02:00 Insulin Aspart (Novolog Insulin Pen) NOVOLOG *MILD* ALGORITHM WITH MEALS BEDTIME SC Last administered on 08/09/18 21:22; Admin Dose 1 UNIT; Start 08/06/18 at 21:00 Miscellaneous Information 1 ea NOTE XX ; Start 08/06/18 at 19:30 Glucose (Glutose) 15 gm Q15M PRN PO DECREASED GLUCOSE; Start 08/06/18 at 19:30 Glucose (Glutose) 22.5 gm Q15M PRN PO DECREASED GLUCOSE; Start 08/06/18 at 19:30 Dextrose (D50w Syringe) 25 ml Q15M PRN IV DECREASED GLUCOSE; Start 08/06/18 at 19:30 Dextrose (D50w Syringe) 50 ml Q15M PRN IV DECREASED GLUCOSE; Start 08/06/18 at 19:30 Glucagon (Glucagen) 1 mg Q15M PRN IM DECREASED GLUCOSE; Start 08/06/18 at 19:30 Glucose (Glutose) 15 gm Q15M PRN BUCCAL DECREASED GLUCOSE; Start 08/06/18 at 19:30 Aspirin (Aspirin) 81 mg DAILY PO Last administered on 08/10/18 08:12; Admin Dose 81 MG; Start 3/28/19 at 09:00 SHANITA COLON MD Aug 10, 2018 10:52
[2018-08-10] MEDS: ATORVASTATIN 80 MG TAB PO SCH (20:24)
[2018-08-11] VITALS (11 sets, daily range): BP systolic 98–129; BP diastolic 57–76; PULSE 54–78; RESP 17–20
[2018-08-11] MEDS: ACCU-CHEK XX SCH (02:50)
[2018-08-11] MEDS: FUROSEMIDE 20 MG TAB PO SCH ×2 (05:22→17:07)
[2018-08-11] MEDS: INSULIN ASPART [NOVOLOG] 3 ML PEN SC SCH ×4 (07:53→21:00)
[2018-08-11] MEDS: SACUBITRIL/VALSARTAN (24mg-26mg) TABLET PO SCH ×2 (09:06→20:26)
[2018-08-11] MEDS: FAMOTIDINE 20 MG TAB PO SCH ×2 (09:06→20:26)
[2018-08-11] MEDS: SPIRONOLACTONE 25 MG TAB PO SCH (09:06)
[2018-08-11] MEDS: THIAMINE 100 MG TAB PO SCH (09:06)
[2018-08-11] MEDS: ASPIRIN 81 MG TAB PO SCH (09:06)
[2018-08-11] MEDS: DOCUSATE SODIUM 100 MG CAP PO SCH ×2 (09:06→20:26)
--- NOTE | 2018-08-11 09:46 | CONS ---
Assessment/Plan Assessment/Plan Hospital Course 48 M c/ reported Hx of severely depressed LVEF and other cerebrovascular risk factors, who presents for evaluation of progressive R sided weakness x 3 days..for which neurology is consulted.. MRI brain confirms a recent L frontal/cingulate ischemic infarct w/ ?petechial hemorrhage, for which neurology is consulted.. CTA head was notable for L PHILIPPE stenoses to correspond w/ the infarcted territory..but was without other stenoses.. CTA neck was negative for large vessel disease LDL 165, ESR 21, RPR neg; B2GP Ab wnl; cardiolipid Ab wnl; HCY wnl UDS + amphetamines Echo is notable for EF 20-25% P: Resume asa/lipitor daily for secondary stroke prevention Await other studies from hypercoagulable panel PT/OT as necessary Other management per primary Will follow clinically Consultation Date/Type/Reason Admit Date/Time Aug 06, 2018 at 11:34 Type of Consult Neurology Requesting Provider: PARVEEN TY Date/Time of Note DATE: 08/11/18 TIME: 09:44 24 HR Interval Summary Free Text/Dictation Continues acute care. Exam Vital Signs Vitals Vital Signs Date Temp Pulse Resp B/P (MAP) Pulse Ox O2 O2 Flow FiO2 Time Delivery Rate 08/11/18 67 08:00 08/11/18 98.3 20 117/76 96 Room Air 07:49 (90) Intake and Output 08/10/18 08/10/18 08/11/18 1515:00 23:00 07:00 IntakeIntake Total 2280 ml 120 ml OutputOutput Total 1800 ml 1350 ml BalanceBalance 480 ml -1230 ml Exam PE: Gen Appearance: No Apparent Distress HEENT: Normocephalic Cardiovascular: Regular rate Lungs: Clear bilaterally Abdomen: Soft Extremities: Dry NE: The patient was alert and oriented. Language was normal. Fund of knowledge was normal. Pupils were equal and reactive to light. There was no afferent pupillary defect. Visual borja were normal. Funduscopic examination was limited. Extra-ocular movements were full. Ptosis was absent. There was no nystagmus. Facial sensation was normal. Face was symmetric with normal strength. Hearing was intact. Palate movements were normal. Neck strength was normal. There was normal tongue bulk and speed of movement. Tone was normal. Muscle bulk was normal. I did not see fasciculations. L arm/leg was strong; The pt was able to move his R hand/forearm; was able to wiggle his toes on the R Vibration sensation was normal. Temperature and pinprick sensation was normal. Rapid alternating movements were normal. There was no dysmetria. There was no intention tremor. Gait was deferred due to bedrest. Arm and leg reflexes were 2+ and symmetric. Mclean's sign was absent. Plantar responses were flexor. DARRELL GARAY NP Aug 11, 2018 09:46
--- NOTE | 2018-08-11 11:38 | PN ---
Date/Time of Note Date/Time of Note DATE: 08/11/18 TIME: 11:36 Assessment/Plan VTE Prophylaxis Risk score (from Ns)>0 risk: 2 [place] [facility] [place] Pharmacological prophylaxis: heparin Lines/Catheters IV [facility] Saline Lock Urinary Cath still in place: No Assessment/Plan Problems: (1) Cerebrovascular accident (CVA) due to stenosis of left anterior cerebral artery Onset Date: ~ 08/05/2018 Status: Acute Comment: No further extension of stroke. Into rehabilitation center which is been dependent upon his insurance making available for discussion (2) Systolic CHF with reduced left ventricular function, NYHA class 3 Status: Chronic Comment: Stable on medications to compensate (3) Grade II diastolic dysfunction Status: Chronic Comment: Able on medications to compensate (4) Essential hypertension Status: Chronic Comment: Well-controlled (5) Hyperlipidemia Status: Chronic Comment: On full dose statin therapy Qualifiers: Hyperlipidemia type: pure hypercholesterolemia Qualified Codes: E78.00 - Pure hypercholesterolemia, unspecified Result Diagram: 08/07/1825 08/07/1825 Results 24hrs Laboratory Tests Test 08/10/18 11:55 08/10/18 16:55 08/10/18 20:20 08/11/18 02:45 Bedside Glucose 169 188 198 135 Test 08/11/18 07:48 Bedside Glucose 159 Subjective 24 Hr Interval Summary Free Text/Dictation Patient reports he is doing relatively his family is trying very hard. He is looking forward to having PT and OT and trying to get to a rehabilitation center Constitutional: no complaints Respiratory: no complaints Cardiovascular: no complaints Gastrointestinal: no complaints Genitourinary: no complaints Neurologic: other (Right leg much more affected than right upper extremity) Exam/Review of Systems Exam Vitals Vital Signs Date Temp Pulse Resp B/P (MAP) Pulse Ox O2 O2 Flow FiO2 Time Delivery Rate 08/11/18 67 08:00 08/11/18 98.3 20 117/76 96 Room Air 07:49 (90) Intake and Output 08/10/18 08/10/18 08/11/18 1515:00 23:00 07:00 IntakeIntake Total 2280 ml 120 ml OutputOutput Total 1800 ml 1350 ml BalanceBalance 480 ml -1230 ml Constitutional: alert, oriented Head: normocephalic, atraumatic Respiratory: clear to auscultation, normal air movement Cardiovascular: regular rate and rhythm, nl pulses Neurological: other (Right lower extremity with very minimal movement. 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 but is not moving through the shoulder girdle) Results Results 24hrs Laboratory Tests Test 08/10/18 11:55 08/10/18 16:55 08/10/18 20:20 08/11/18 02:45 Bedside Glucose 169 188 198 135 Test 08/11/18 07:48 Bedside Glucose 159 Medications Medication Current Medications Lorazepam (Ativan) 0.5 mg Q6H PRN IV .ANXIETY; Start 08/06/18 at 19:00 Ondansetron HCl (Zofran Inj) 4 mg Q6H PRN IV NAUSEA/VOMITING; Start 08/06/18 at 19:00 Morphine Sulfate (morphine) 2 mg Q4H PRN IV .PAIN 7-10; Start 08/06/18 at 19:00 Zolpidem Tartrate (Ambien) 5 mg QHS PRN PO .INSOMNIA; Start 08/06/18 at 19:00 Docusate Sodium (Colace) 100 mg Q12 PO Last administered on 08/11/18 09:06; Admin Dose 100 MG; Start 08/06/18 at 21:00 Famotidine (Pepcid) 20 mg Q12 PO Last administered on 08/11/18 09:06; Admin Dose 20 MG; Start 08/06/18 at 21:00 Atorvastatin Calcium (Lipitor) 80 mg HS PO Last administered on 08/10/18at 20:24; Admin Dose 80 MG; Start 08/06/18 at 21:00 Carvedilol (Coreg) 6.25 mg BID PO Last administered on 08/11/18 09:07; Admin Dose 6.25 MG; Start 08/06/18 at 21:00 Furosemide (Lasix) 20 mg BID DIURETICS PO Last administered on 08/11/18 05:22; Admin Dose 20 MG; Start 08/06/18 at 21:00 Sacubitril/ Valsartan (Entresto 24 Mg-26 Mg) 1 tab BID PO Last administered on 08/11/18 09:06; Admin Dose 1 TAB; Start 08/06/18 at 21:00 Spironolactone (Aldactone) 25 mg DAILY PO Last administered on 08/11/18 09:06; Admin Dose 25 MG; Start 08/07/18 at 09:00 Thiamine HCl (Vitamin B1) 100 mg DAILY PO Last administered on 08/11/18at 09:06; Admin Dose 100 MG; Start 08/07/18 at 09:00 Diagnostic Test (Pha) (Accu-Chek) 1 ea 02 XX Last administered on 08/11/18at 02:50; Admin Dose 1 EA; Start 08/07/18 at 02:00 Insulin Aspart (Novolog Insulin Pen) NOVOLOG *MILD* ALGORITHM WITH MEALS BEDTIME SC Last administered on 08/11/18at 07:53; Admin Dose 1 UNIT; Start 08/06/18 at 21:00 Miscellaneous Information 1 ea NOTE XX ; Start 08/06/18 at 19:30 Glucose (Glutose) 15 gm Q15M PRN PO DECREASED GLUCOSE; Start 08/06/18 at 19:30 Glucose (Glutose) 22.5 gm Q15M PRN PO DECREASED GLUCOSE; Start 08/06/18 at 19:30 Dextrose (D50w Syringe) 25 ml Q15M PRN IV DECREASED GLUCOSE; Start 08/06/18 at 19:30 Dextrose (D50w Syringe) 50 ml Q15M PRN IV DECREASED GLUCOSE; Start 08/06/18 at 19:30 Glucagon (Glucagen) 1 mg Q15M PRN IM DECREASED GLUCOSE; Start 08/06/18 at 19:30 Glucose (Glutose) 15 gm Q15M PRN BUCCAL DECREASED GLUCOSE; Start 08/06/18 at 19:30 Aspirin (Aspirin) 81 mg DAILY PO Last administered on 08/11/18at 09:06; Admin Dose 81 MG; Start 08/08/18 at 09:00 Metformin HCl (Glucophage) 500 mg WITH DINNER PO ; Start 08/11/18 at 17:55; Status SHANITA WATTS MD Aug 11, 2018 11:38
[2018-08-11] MEDS: metFORMIN 500 MG TAB PO SCH (17:07)
[2018-08-11] MEDS: ATORVASTATIN 80 MG TAB PO SCH (20:26)
[2018-08-12] VITALS (11 sets, daily range): BP systolic 105–121; BP diastolic 57–73; PULSE 62–82; RESP 18
[2018-08-12] MEDS: ACCU-CHEK XX SCH (02:00)
[2018-08-12] MEDS: FUROSEMIDE 20 MG TAB PO SCH ×2 (06:20→18:35)
[2018-08-12] MEDS: INSULIN ASPART [NOVOLOG] 3 ML PEN SC SCH ×4 (07:55→20:20)
[2018-08-12] MEDS: DOCUSATE SODIUM 100 MG CAP PO SCH ×2 (09:54→20:17)
[2018-08-12] MEDS: SACUBITRIL/VALSARTAN (24mg-26mg) TABLET PO SCH ×2 (09:54→20:17)
[2018-08-12] MEDS: SPIRONOLACTONE 25 MG TAB PO SCH (09:54)
[2018-08-12] MEDS: THIAMINE 100 MG TAB PO SCH (09:54)
[2018-08-12] MEDS: FAMOTIDINE 20 MG TAB PO SCH ×2 (09:55→20:17)
[2018-08-12] MEDS: ASPIRIN 81 MG TAB PO SCH (09:55)
--- NOTE | 2018-08-12 14:21 | PN ---
Date/Time of Note Date/Time of Note DATE: 08/12/18 TIME: 14:09 Assessment/Plan VTE Prophylaxis Risk score (from Ns)>0 risk: 4 SCD applied (from Ns): Yes Pharmacological prophylaxis: LMWH Lines/Catheters IV [facility] Type (from [facility] Saline Lock Urinary Cath still in place: No Assessment/Plan Assessment/Plan 1. Acute paramedian/medial left frontal lobe as well as left cingulate gyrus infarcts, on aspirin, lipitor and PT/OT 2. CHF, systolicwith LVEF 20-25%, chronic, on coreg, aldactone, lasix, add lisinopril, follow up with cardiology outpatient 3. HTN, controlled 4. Dyslipidemia, on lipitor 5. DM, on metformin and ISS 6. DVT prophylaxis: lovenox Result Diagram: 08/12/18 0700 08/12/18 0700 Results 24hrs Laboratory Tests Test 08/11/18 17:05 08/11/18 20:53 08/12/18 07:00 08/12/18 08:18 Bedside Glucose 131 126 125 White Blood Count 8.7 Red Blood Count 4.85 Hemoglobin 14.0 Hematocrit 41.3 L Mean Corpuscular 85.2 Volume Mean Corpuscular 28.9 L Hemoglobin Mean Corpuscular 33.9 Hemoglobin Concen t Red Cell 13.1 Distribution Width Platelet Count 197 Mean Platelet 11.2 H Volume Immature 0.600 H Granulocytes % Neutrophils % 58.2 Lymphocytes % 29.8 Monocytes % 7.7 Eosinophils % 3.2 Basophils % 0.5 Nucleated Red 0.0 Blood Cells % Immature 0.050 H Granulocytes # Neutrophils # 5.1 Lymphocytes # 2.6 Monocytes # 0.7 Eosinophils # 0.3 Basophils # 0.0 Nucleated Red 0.0 Blood Cells # Sodium Level 136 Potassium Level 4.1 Chloride Level 99 Carbon Dioxide 26 Level Anion Gap 11 Blood Urea 21 H Nitrogen Creatinine 0.91 Est Glomerular > 60 Filtrat Rate mL/min Glucose Level 126 Calcium Level 9.3 Total Bilirubin 1.1 Direct Bilirubin 0.00 Indirect 1.1 Bilirubin Aspartate Amino 32 Transf (AST/SGOT) Alanine 41 Aminotransferase (ALT/SGPT) Alkaline 66 Phosphatase Total Protein 7.6 Albumin 4.2 Globulin 3.40 H Albumin/Globulin 1.23 Ratio Test 08/12/18 11:09 08/12/18 11:43 08/12/18 11:46 Lab Scanned REFERENCE LAB REFERENCE LAB Report Bedside Glucose 135 Subjective 24 Hr Interval Summary Free Text/Dictation right side weakness Exam/Review of Systems Exam Vitals Vital Signs Date Temp Pulse Resp B/P (MAP) Pulse Ox O2 O2 Flow FiO2 Time Delivery Rate 08/12/18 98.6 82 18 112/65 95 12:04 (81) 08/11/18 Room Air 20:00 Intake and Output 08/11/18 08/11/18 08/12/18 1515:00 23:00 07:00 IntakeIntake Total 800 ml 800 ml OutputOutput Total 800 ml 550 ml BalanceBalance 0 ml 250 ml Constitutional: alert, oriented, well developed Head: normocephalic, atraumatic Eyes: nl conjunctiva, EOMI, PERRL ENMT: nl external ears & nose, nl lips & teeth, nl nasal mucosa & septum Neck: supple, non-tender Respiratory: clear to auscultation, normal air movement; No congested cough, No crackles/rales, No diminished breath sounds, No interc ostal retraction, No labored breathing, No respirations, No tactile fremitus, No wheezing, No other Cardiovascular: regular rate and rhythm, nl pulses Gastrointestinal: soft, nl liver, spleen Musculoskeletal: nl extremities to inspection Extremities: normal pulses; No calf tenderness, No cyanosis, No clubbing, No edema, No pitting pedal edema, No palpable cord, No tenderness, No other Neurological: other (right facial dropping, RUE 3/5, RLE 2/5) Results Results 24hrs Laboratory Tests Test 08/11/18 17:05 08/11/18 20:53 08/12/18 07:00 08/12/18 08:18 Bedside Glucose 131 126 125 White Blood Count 8.7 Red Blood Count 4.85 Hemoglobin 14.0 Hematocrit 41.3 L Mean Corpuscular 85.2 Volume Mean Corpuscular 28.9 L Hemoglobin Mean Corpuscular 33.9 Hemoglobin Concen t Red Cell 13.1 Distribution Width Platelet Count 197 Mean Platelet 11.2 H Volume Immature 0.600 H Granulocytes % Neutrophils % 58.2 Lymphocytes % 29.8 Monocytes % 7.7 Eosinophils % 3.2 Basophils % 0.5 Nucleated Red 0.0 Blood Cells % Immature 0.050 H Granulocytes # Neutrophils # 5.1 Lymphocytes # 2.6 Monocytes # 0.7 Eosinophils # 0.3 Basophils # 0.0 Nucleated Red 0.0 Blood Cells # Sodium Level 136 Potassium Level 4.1 Chloride Level 99 Carbon Dioxide 26 Level Anion Gap 11 Blood Urea 21 H Nitrogen Creatinine 0.91 Est Glomerular > 60 Filtrat Rate mL/min Glucose Level 126 Calcium Level 9.3 Total Bilirubin 1.1 Direct Bilirubin 0.00 Indirect 1.1 Bilirubin Aspartate Amino 32 Transf (AST/SGOT) Alanine 41 Aminotransferase (ALT/SGPT) Alkaline 66 Phosphatase Total Protein 7.6 Albumin 4.2 Globulin 3.40 H Albumin/Globulin 1.23 Ratio Test 08/12/18 11:09 08/12/18 11:43 08/12/18 11:46 Lab Scanned REFERENCE LAB REFERENCE LAB Report Bedside Glucose 135 Medications Medication Current Medications Lorazepam (Ativan) 0.5 mg Q6H PRN IV .ANXIETY; Start 08/06/18 at 19:00 Ondansetron HCl (Zofran Inj) 4 mg Q6H PRN IV NAUSEA/VOMITING; Start 08/06/18 at 19:00 Morphine Sulfate (morphine) 2 mg Q4H PRN IV .PAIN 7-10; Start 08/06/18 at 19:00 Zolpidem Tartrate (Ambien) 5 mg QHS PRN PO .INSOMNIA; Start 08/06/18 at 19:00 Docusate Sodium (Colace) 100 mg Q12 PO Last administered on 08/12/18at 09:54; Admin Dose 100 MG; Start 08/06/18 at 21:00 Famotidine (Pepcid) 20 mg Q12 PO Last administered on 08/12/18 09:55; Admin Dose 20 MG; Start 08/06/18 at 21:00 Atorvastatin Calcium (Lipitor) 80 mg HS PO Last administered on 08/11/18 20:26; Admin Dose 80 MG; Start 08/06/18 at 21:00 Carvedilol (Coreg) 6.25 mg BID PO Last administered on 08/12/18 09:55; Admin Dose 6.25 MG; Start 08/06/18 at 21:00 Furosemide (Lasix) 20 mg BID DIURETICS PO Last administered on 08/12/18 06:20; Admin Dose 20 MG; Start 08/06/18 at 21:00 Sacubitril/ Valsartan (Entresto 24 Mg-26 Mg) 1 tab BID PO Last administered on 08/12/18 09:54; Admin Dose 1 TAB; Start 08/06/18 at 21:00 Spironolactone (Aldactone) 25 mg DAILY PO Last administered on 08/12/18 09:54; Admin Dose 25 MG; Start 08/07/18 at 09:00 Thiamine HCl (Vitamin B1) 100 mg DAILY PO Last administered on 08/12/18 09:54; Admin Dose 100 MG; Start 08/07/18 at 09:00 Diagnostic Test (Pha) (Accu-Chek) 1 ea 02 XX Last administered on 08/11/18 02:50; Admin Dose 1 EA; Start 08/07/18 at 02:00 Insulin Aspart (Novolog Insulin Pen) NOVOLOG *MILD* ALGORITHM WITH MEALS BEDTIME SC Last administered on 08/11/18 12:21; Admin Dose 1 UNIT; Start 08/06/18 at 21:00 Miscellaneous Information 1 ea NOTE XX ; Start 08/06/18 at 19:30 Glucose (Glutose) 15 gm Q15M PRN PO DECREASED GLUCOSE; Start 08/06/18 at 19:30 Glucose (Glutose) 22.5 gm Q15M PRN PO DECREASED GLUCOSE; Start 08/06/18 at 19:30 Dextrose (D50w Syringe) 25 ml Q15M PRN IV DECREASED GLUCOSE; Start 08/06/18 at 19:30 Dextrose (D50w Syringe) 50 ml Q15M PRN IV DECREASED GLUCOSE; Start 08/06/18 at 19:30 Glucagon (Glucagen) 1 mg Q15M PRN IM DECREASED GLUCOSE; Start 08/06/18 at 19:30 Glucose (Glutose) 15 gm Q15M PRN BUCCAL DECREASED GLUCOSE; Start 08/06/18 at 19:30 Aspirin (Aspirin) 81 mg DAILY PO Last administered on 08/12/18 09:55; Admin Dose 81 MG; Start 08/08/18 at 09:00 Metformin HCl (Glucophage) 500 mg WITH DINNER PO Last administered on 08/11/18 17:07; Admin Dose 500 MG; Start 08/11/18 at 17:55 COCO COCHRAN MD Aug 12, 2018 14:21
--- NOTE | 2018-08-12 16:05 | CONS ---
Assessment/Plan Assessment/Plan Hospital Course 48 M c/ reported Hx of severely depressed LVEF and other cerebrovascular risk factors, who presents for evaluation of progressive R sided weakness x 3 days..for which neurology is consulted.. MRI brain confirms a recent L frontal/cingulate ischemic infarct w/ ?petechial hemorrhage, for which neurology is consulted.. CTA head was notable for L PHILIPPE stenoses to correspond w/ the infarcted territory..but was without other stenoses.. CTA neck was negative for large vessel disease LDL 165, ESR 21, RPR neg UDS + amphetamines..though confirmatory testing is negative. Echo is notable for EF 20-25% Hypercoag panel is negative P: Continue asa/lipitor daily for secondary stroke prevention PT/OT as necessary Other management per primary Will follow clinically Consultation Date/Type/Reason Admit Date/Time Aug 06, 2018 at 11:34 Type of Consult Neurology Reason for Consultation stroke Requesting Provider: PARVEEN TY Date/Time of Note DATE: 08/12/18 TIME: 16:05 24 HR Interval Summary Free Text/Dictation Continues acute care. Awaiting placement into an acute rehab unit Exam Vital Signs Vitals Vital Signs Date Temp Pulse Resp B/P (MAP) Pulse Ox O2 O2 Flow FiO2 Time Delivery Rate 08/12/18 98.6 82 18 112/65 95 12:04 (81) 08/11/18 Room Air 20:00 Intake and Output 08/11/18 08/11/18 08/12/18 1515:00 23:00 07:00 IntakeIntake Total 800 ml 800 ml OutputOutput Total 800 ml 550 ml BalanceBalance 0 ml 250 ml Exam PE: Gen Appearance: No Apparent Distress HEENT: Normocephalic Cardiovascular: Regular rate Lungs: Clear bilaterally Abdomen: Soft Extremities: Dry NE: The patient was alert and oriented. Language was normal. Fund of knowledge was normal. Pupils were equal and reactive to light. There was no afferent pupillary defect. Visual borja were normal. Funduscopic examination was limited. Extra-ocular movements were full. Ptosis was absent. There was no nystagmus. Facial sensation was normal. Face was symmetric with normal strength. Hearing was intact. Palate movements were normal. Neck strength was normal. There was normal tongue bulk a nd speed of movement. Tone was normal. Muscle bulk was normal. I did not see fasciculations. L arm/leg was strong; The pt was able to move his R hand/forearm; was able to wiggle his toes on the R Vibration sensation was normal. Temperature and pinprick sensation was normal. Rapid alternating movements were normal. There was no dysmetria. There was no intention tremor. Gait was deferred due to bedrest. Arm and leg reflexes were 2+ and symmetric. Mclean's sign was absent. Plantar responses were flexor. DARRELL GARAY NP Aug 12, 2018 16:05 JOSY MARIN Aug 12, 2018 16:19
[2018-08-12] MEDS: metFORMIN 500 MG TAB PO SCH (17:05)
[2018-08-12] MEDS: LISINOPRIL 5 MG TAB GTB SCH (17:08)
[2018-08-12] MEDS: ENOXAPARIN 40 MG/0.4 ML SYG SC SCH (17:12)
[2018-08-12] MEDS: ATORVASTATIN 80 MG TAB PO SCH (20:17)
[2018-08-13] VITALS (10 sets, daily range): BP systolic 96–114; BP diastolic 63–70; PULSE 67–86; RESP 18–20
[2018-08-13] MEDS: ACCU-CHEK XX SCH (01:49)
[2018-08-13] MEDS: FUROSEMIDE 20 MG TAB PO SCH ×2 (05:13→17:25)
[2018-08-13] MEDS: INSULIN ASPART [NOVOLOG] 3 ML PEN SC SCH ×3 (07:55→17:35)
[2018-08-13] MEDS: FAMOTIDINE 20 MG TAB PO SCH (08:37)
[2018-08-13] MEDS: ASPIRIN 81 MG TAB PO SCH (08:37)
[2018-08-13] MEDS: LISINOPRIL 5 MG TAB GTB SCH (08:37)
[2018-08-13] MEDS: SPIRONOLACTONE 25 MG TAB PO SCH (08:37)
[2018-08-13] MEDS: SACUBITRIL/VALSARTAN (24mg-26mg) TABLET PO SCH (08:37)
[2018-08-13] MEDS: DOCUSATE SODIUM 100 MG CAP PO SCH (08:37)
[2018-08-13] MEDS: THIAMINE 100 MG TAB PO SCH (08:39)
[2018-08-13] MEDS: ENOXAPARIN 40 MG/0.4 ML SYG SC SCH (08:42)
[2018-08-13] MEDS ORDERED: NOVO3I SC (14:57)
[2018-08-13] MEDS ORDERED: ASPI-831 PO (14:57)
[2018-08-13] MEDS ORDERED: ENOX40DI2 SC (14:57)
[2018-08-13] MEDS ORDERED: METF-849 PO (14:57)
--- NOTE | 2018-08-13 15:09 | DS ---
Date/Time of Note Date/Time of Note DATE: 08/13/18 TIME: 15:01 Discharge Summary Admission/Discharge Info Admit Date/Time Aug 06, 2018 at 11:34 Discharge Date/Time Discharge Diagnosis 1. Acute paramedian/medial left frontal lobe as well as left cingulate gyrus i nfarcts, on aspirin, lipitor and PT/OT 2. CHF, systolic with LVEF 20-25%, chronic, on coreg, aldactone, lasix, and entresto, follow up with cardiology outpatient 3. HTN, controlled 4. Dyslipidemia, on lipitor 5. DM, on metformin and ISS 6. DVT prophylaxis: lovenox Patient Condition: Stable Hospital Course A 48-year-old male with a past medical history of severe cardiomyopathy with last known ejection fraction in this facility of 10% to 15% with a history of CHF, history of ST elevation myocardial infarction, hypertension, dyslipidemia and EtOH abuse remotely, who was at home with his and the had noticed that the patient was not moving as much as much as usual. She also noted that he was not speaking much and eventually at about 5:30 p.m. yesterday, she noticed that he has wet himself and was unable to get up to go to the bathroom. She stated that she did not really there was something wrong until later on in the middle of the night, at which time she eventually now called 911 to bring him into the emergency room. The patient is also someday smoker but has not drank alcohol in a while. In the emergency room, a code stroke was called and he was seen by tele-neurology and their assessment was that patient should undergo a CTA and CTP to look for LVO. If no LVO, then the patient is to be admitted to [facility] for stroke workup and possible hypercoagulable workup as well. He did undergo a CT of the brain and CTA of the neck and there was moderate to marked narrowing of the left ICA segments and the branches and per the emergency room doctor, this was reviewed in detail with the tele-neurologist, who determined that the patient did not need further transfer to higher level of care and recommended local admission and workup because it is not a large vessel occlusion. MRI revealed Acute/recent infarct along the paramedian/medial left frontal lobe as well as left cingulate gyrus in the left anterior cerebral artery distribution. There is associated hemosiderin/hemorrhagic transformation with local mass effect with sulcal effacement. Patient is treated with aspirin, lipitor, PT and OT, clinically stable. Patient is transferred to SNF for rehab. Home Meds Active Scripts Insulin Aspart* (Novolog Insulin Pen*) 100 Unit/Ml Soln, 0 UNIT SC WITH MEALS BEDTIME for 30 Days Prov:COCO COCHRAN MD 08/13/18 Metformin* (Glucophage*) 500 Mg Tab, 500 MG PO WITH DINNER for 30 Days, TAB Prov:COCO COCHRAN MD 08/13/18 Aspirin (Aspirin) 81 Mg Chew, 81 MG PO DAILY for 30 Days, TAB Prov:COCO COCHRAN MD 08/13/18 Enoxaparin Sodium* (Enoxaparin Sodium*) 40 Mg/0.4 Ml Syringe, 40 MG SC DAILY for 10 Days Prov:COCO COCHRAN MD 08/13/18 Reported Medications Thiamine* (Vitamin B-1*) 100 Mg Tablet, 100 MG PO DAILY, TAB 08/06/18 Furosemide* (Furosemide*) 20 Mg Tablet, 20 MG PO BID, #30 TAB 08/06/18 Spironolactone* (Aldactone*) 25 Mg Tablet, 25 MG PO DAILY, #30 TAB 08/06/18 Carvedilol* (Carvedilol*) 6.25 Mg Tablet, 6.25 MG PO BID, #60 TAB 08/06/18 Atorvastatin Calcium* (Atorvastatin Calcium*) 20 Mg Tablet, 20 MG PO QHS, #30 TAB 08/06/18 Sacubitril/Valsartan (Entresto 24 mg-26 mg Tablet) 1 Each Tablet, 1 EACH PO BID, TAB 08/06/18 Discontinued Scripts Buspirone Hcl* (Buspirone Hcl*) 10 Mg Tab, 7.5 MG PO BID for 10 Days, #20 TAB Prov:RICHAR REIS MD 03/19/18 Thiamine* (Thiamine*) 100 Mg Tablet, 100 MG PO DAILY for 30 Days, #30 TAB 2 Refills Prov:RICHAR REIS MD 03/19/18 Furosemide (Lasix) 20 Mg Tab, 20 MG PO BID DIURETICS for 10 Days, #20 TAB Prov:RICHAR REIS MD 03/19/18 Acetaminophen* (Tylenol*) 325 Mg Tablet, 650 MG PO Q6H PRN for PAIN LEVEL 1-3 OR FEVER for 1 Day, TAB Prov:RICHAR REIS MD 03/19/18 Spironolactone* (Aldactone*) 5 Mg/Ml (COMPOUNDED) Susp, 12.5 MG PO DAILY for 14 Days, #14 1 Refill Prov:RICHAR REIS MD 03/19/18 Carvedilol* (Carvedilol*) 6.25 Mg Tablet, 6.25 MG PO BID for 30 Days, #30 TAB 1 Refill Prov:RICHAR REIS MD 03/19/18 Atorvastatin Calcium (Atorvastatin Calcium) 20 Mg Tablet, 20 MG PO QHS for 30 Days, #30 TAB Prov:RICHAR REIS MD 03/19/18 Aspirin (Aspirin) 81 Mg Chew, 81 MG PO DAILY for 30 Days, TAB Prov:COCO COCHRAN MD 01/12/17 Benazepril Hcl* (Benazepril Hcl*) 10 Mg Tablet, 10 MG PO DAILY for 30 Days, TAB Prov:COCO COCHRAN MD 01/12/17 Follow-up Plan PCP, cardiology and neurology in one week Primary Care Provider Yovany Medina MD Pending Labs Laboratory Tests Test 08/12/18 16:43 08/12/18 20:20 08/13/18 08:04 08/13/18 12:15 Bedside 152 109 144 136 Glucose mg/dL (70-220) mg/dL (70-220) mg/dL (70-220) mg/dL (70-220) COCO COCHRAN MD Aug 13, 2018 15:09
--- NOTE | 2018-08-13 15:50 | CONS ---
Assessment/Plan Assessment/Plan Hospital Course 48 M c/ reported Hx of severely depressed LVEF and other cerebrovascular risk factors, who presents for evaluation of progressive R sided weakness x 3 days..for which neurology is consulted.. MRI brain confirms a recent L frontal/cingulate ischemic infarct w/ ?petechial hemorrhage.. CTA head was notable for L PHILIPPE stenoses to correspond w/ the infarcted territory..but was without other stenoses.. CTA neck was negative for large vessel disease LDL 165, ESR 21, RPR neg UDS + amphetamines..though confirmatory testing is negative. Echo is notable for EF 20-25% Hypercoag panel is negative P: Continue asa/lipitor daily for secondary stroke prevention PT/OT as necessary Other management per primary Will follow clinically Consultation Date/Type/Reason Admit Date/Time Aug 06, 2018 at 11:34 Type of Consult Neurology Reason for Consultation stroke Requesting Provider: PARVEEN TY Date/Time of Note DATE: 08/13/18 TIME: 15:49 24 HR Interval Summary Free Text/Dictation Continues acute care. Awaiting transfer to SNF today. Exam Vital Signs Vitals Vital Signs Date Temp Pulse Resp B/P (MAP) Pulse Ox O2 O2 Flow FiO2 Time Delivery Rate 08/13/18 98.4 79 18 100/63 96 Room Air 15:24 (75) Intake and Output 08/12/18 08/12/18 08/13/18 1515:00 23:00 07:00 IntakeIntake Total 800 ml 500 ml OutputOutput Total 450 ml BalanceBalance 800 ml 50 ml Exam PE: Gen Appearance: No Apparent Distress HEENT: Normocephalic Cardiovascular: Regular rate Lungs: Clear bilaterally Abdomen: Soft Extremities: Dry NE: The patient was alert and oriented. Language was normal. Fund of knowledge was normal. Pupils were equal and reactive to light. There was no afferent pupillary defect. Visual borja were normal. Funduscopic examination was limited. Extra-ocular movements were full. Ptosis was absent. There was no nystagmus. Facial sensation was normal. Face was symmetric with normal strength. Hearing was intact. Palate movements were normal. Neck strength was normal. There was normal tongue bulk and speed of movement. Tone was normal. Muscle bulk was normal. I did not see fasciculations. L arm/leg was strong; The pt was able to move his R hand/forearm and R foot. Vibration sensation was normal. Temperature and pinprick sensation was normal. Rapid alternating movements were normal. There was no dysmetria. There was no i ntention tremor. Gait was deferred due to bedrest. Arm and leg reflexes were 2+ and symmetric. Mclean's sign was absent. Plantar responses were flexor. DARRELL GARAY NP Aug 13, 2018 15:50 JOSY MARIN Aug 13, 2018 21:04
[2018-08-13] MEDS: metFORMIN 500 MG TAB PO SCH (17:25)
== END 2018-08-13 18:30 | DRG 64 ==
LOC: E/R 09:27 → TEL 11:34
PROVIDERS: ADMIT Family Medicine; ATTEND Internal Medicine
DX: I63.522 Cerebral infarction due to unspecified occlusion or stenosis of left anterior cerebral artery (principal); I50.23 Acute on chronic systolic (congestive) heart failure; I42.9 Cardiomyopathy, unspecified; M62.82 Rhabdomyolysis; E87.0 Hyperosmolality and hypernatremia; G81.01 Flaccid hemiplegia affecting right dominant side; F15.10 Other stimulant abuse, uncomplicated; I25.2 Old myocardial infarction; R73.03 Prediabetes; E78.5 Hyperlipidemia, unspecified; E86.0 Dehydration; I11.0 Hypertensive heart disease with heart failure; Z86.73 Personal history of transient ischemic attack (TIA), and cerebral infarction without residual deficits; Z72.0 Tobacco use; D72.829 Elevated white blood cell count, unspecified; R13.10 Dysphagia, unspecified; F15.99 Other stimulant use, unspecified with unspecified stimulant-induced disorder
CPT/HCPCS: 36415; 70450; 70496; 70498; 70551; 71045; 80048; 80053; 80061; 80307; 81003; 81240; 82550; 82553; 82962; 83036; 83090; 83735; 83890; 84443; 84484; 85025; 85300; 85302; 85305; 85610; 85613; 85651; 85730; 86146; 86147; 86592; 92610; 93005; 93306; 97110; 97116; 97163; 97167; 97530; 97535; J1650; J1815; J2270; J7042; Q9967

== ENCOUNTER 2018-08-13 18:49 | Inpatient (IN) | payer OTHER ==
[~2018-08-13] VITALS: Ht 147.3 cm; Wt 84.0 kg
[~2018-08-13 18:49] MED LIST changes: -ACET325T33 PO; -ALDS PO; +ATOR20TA38 PO; -ATOR20TA65 PO; -BENA10TA4 PO; -BUSP10TA2 PO; +ENOX40DI2 SC; +FURO20TA3 PO; -LAS20 PO; +METF-849 PO; +NOVO3I SC; +SACU1TAB PO; +SPIR25TA PO; -THIA100T10 PO; +THIA100T56 PO
[2018-08-13 20:00] VITALS: BP 108/65; PULSE 78; RESP 18
[2018-08-13] MEDS ORDERED: ATORVASTATIN 80 MG TAB PO SCH (21:47)
[2018-08-13] MEDS ORDERED: SACUBITRIL/VALSARTAN (24mg-26mg) TABLET PO SCH (21:47)
[2018-08-13 22:00] VITALS: Ht 147.3 cm; Wt 84.0 kg
[2018-08-13] MEDS: ATORVASTATIN 80 MG TAB PO SCH (22:35)
[2018-08-13] MEDS: SACUBITRIL/VALSARTAN (24mg-26mg) TABLET PO SCH (22:35)
[2018-08-13] MEDS ORDERED: DEXTROSE 50% 50 ML SYRINGE IV PRN ×2 (23:00)
[2018-08-13] MEDS ORDERED: GLUCOSE GEL 15 GRAM TUBE PO PRN ×2 (23:00)
[2018-08-13] MEDS ORDERED: GLUCAGON 1 MG INJ IM PRN (23:00)
[2018-08-13] MEDS ORDERED: GLUCOSE GEL 15 GRAM TUBE BUCCAL PRN (23:00)
[2018-08-14] VITALS (10 sets, daily range): BP systolic 99–141; BP diastolic 54–77; PULSE 69–92; RESP 18–20
[2018-08-14] MEDS ORDERED: BISACODYL 10 MG SUPP PR PRN (01:00)
[2018-08-14] MEDS ORDERED: MAGNESIUM HYDROXIDE 30ML CUP PO PRN (01:00)
[2018-08-14] MEDS ORDERED: ACETAMINOPHEN 325 MG TAB PO PRN (01:00)
[2018-08-14] MEDS ORDERED: LACTULOSE 30ML CUP PO PRN ×2 (01:00→02:00)
[2018-08-14] MEDS: ACCU-CHEK XX SCH (02:00)
[2018-08-14] MEDS: FUROSEMIDE 20 MG TAB PO SCH ×2 (06:49→18:49)
[2018-08-14] MEDS: INSULIN ASPART [NOVOLOG] 3 ML PEN SC SCH ×4 (07:35→21:00)
[2018-08-14] MEDS: DOCUSATE SODIUM 100 MG CAP PO SCH ×2 (09:03→21:37)
[2018-08-14] MEDS: ASPIRIN 81 MG TAB PO SCH (09:04)
[2018-08-14] MEDS: SACUBITRIL/VALSARTAN (24mg-26mg) TABLET PO SCH ×2 (09:04→21:38)
[2018-08-14] MEDS: THIAMINE 100 MG TAB PO SCH (09:04)
[2018-08-14] MEDS: SPIRONOLACTONE 25 MG TAB PO SCH (09:04)
[2018-08-14] MEDS: ENOXAPARIN 40 MG/0.4 ML SYG SC SCH (09:05)
[2018-08-14] MEDS ORDERED: NITROGLYCERIN (SL) 0.4 MG TAB SL PRN (14:30)
--- NOTE | 2018-08-14 14:37 | HP ---
Date/Time of Note Date/Time of Note DATE: 08/14/18 TIME: 14:36 Assessment/Plan VTE Prophylaxis Risk score (from Nsg)>0 risk: 2 SCD applied (from Nsg): Yes Pharmacological prophylaxis: LMWH Lines/Catheters IV Catheter Type (from Nrsg): Saline Lock Urinary Cath still in place: No Assessment/Plan Hospital Course SUBJECTIVE: Doing in bed, having left-sided chest pain ,sob and feeling weak. OBJECTIVE: Vital signs-see below PHYSICAL EXAM: Constitutional: Well-developed, adequately built, lying in bed comfortably. Psych: nl mood/affect, no complaints Head: atraumatic, normocephalic Eyes: nl conjunctiva, nl sclera ENMT: mucosa pink and moist, nl external ears & nose Neck: non-tender, supple Respiratory: clear to auscultation, normal air movement Cardiovascular: nl pulses, regular rate and rhythm Gastrointestinal: non-tender, soft, bowel sounds active in all 4 quadrants. Musculoskeletal/extremities: nl extremities to inspection, motor strength equal bilaterally, no focal deficit. Normal pulses,no cyanosis, no edema. Neurological: Alert oriented 3,nl speech, nl strength Skin: nl turgor ASSESSMENT/PLAN: 1. Chest pain, rule out ACS. -Serial troponin, twelve-lead EKG stat. -PRN nitroglycerin, morphine, oxygen as needed -Aspirin prophylaxis. -Cardiology consult 2.Acute CVA -Continue aspirin/statin. -Keep normotensive blood pressure goals. 3. CHF, systolic with LVEF 20-25% -on coreg, aldactone, lasix, and entresto 4. Cardiomyopathy -Treatment as outlined in #3. 5. HTN, controlled -Continue antihypertensive 4. Dyslipidemia - on lipitor 5. DMII - on metformin and ISS 6. Alcohol use/possible substance abuse. -SW AASISTANCE 7. DVT prophylaxis: lovenox Approximately 60 minutes was spent on this history and physical. Patient was seen in collaboration with . Result Diagram: 08/14/18 0608/14/18 0603 Results 24hrs Laboratory Tests Test 08/13/18 21:55 08/13/18 22:33 08/14/18 06:03 08/14/18 08:19 Urine Color YELLOW Urine Clarity CLEAR Urine pH 5.0 Urine Specific [place] 1.012 Urine Ketones NEGATIVE Urine Nitrite NEGATIVE Urine Bilirubin NEGATIVE Urine Urobilinogen NEGATIVE Urine Leukocyte Esterase NEGATIVE Urine Hemoglobin NEGATIVE Urine Glucose NEGATIVE Urine Total Protein NEGATIVE Bedside Glucose 89 120 White Blood Count 7.9 Red Blood Count 4.70 Hemoglobin 13.7 L Hematocrit 40.5 L Mean Corpuscular Volume 86.2 Mean Corpuscular 29.1 Hemoglobin Mean Corpuscular 33.8 Hemoglobin Concent Red Cell Distribution 12.8 Width Platelet Count 199 Mean Platelet Volume 11.1 H Immature Granulocytes % 0.500 H Neutrophils % 61.1 Lymphocytes % 26.3 Monocytes % 8.1 Eosinophils % 3.4 Basophils % 0.6 Nucleated Red Blood 0.0 Cells % Immature Granulocytes # 0.040 H Neutrophils # 4.8 Lymphocytes # 2.1 Monocytes # 0.6 Eosinophils # 0.3 Basophils # 0.1 Nucleated Red Blood 0.0 Cells # Sodium Level 140 Potassium Level 4.2 Chloride Level 101 Carbon Dioxide Level 29 Anion Gap 10 Blood Urea Nitrogen 24 H Creatinine 0.92 Est Glomerular Filtrat > 60 Rate mL/min Glucose Level 123 Calcium Level 9.5 Total Bilirubin 1.0 Direct Bilirubin 0.00 Indirect Bilirubin 1.0 Aspartate Amino 40 Transf (AST/SGOT) Alanine 44 Aminotransferase (ALT/SG PT) Alkaline Phosphatase 68 Total Protein 7.7 Albumin 4.3 Globulin 3.40 H Albumin/Globulin Ratio 1.26 HPI/ROS Admit Date/Time Admit Date/Time Aug 13, 2018 at 18:49 Hx of Present Illness 48-year-old male with a history of meth abuse, cardiomyopathy with last known ejection fraction 20-25%,Congestive heart failure, STEMI,Hypertension, dyslipidemia, EtOH abuse, [facility] weakness/ slurred speech , found to have acute CVA.Patient was also noted for moderate to marked narrowing of the left ICA segment and branches.There was no large vessel occlusion, as such he did not require any transferring to higher level of care. Patient was managed medically with antiplatelets, cardiac medication for underlying heart failure. Patient was also treated for diabetes with insulin and metformin regimen. He was then evaluated by physical therapy and was transferred to acute rehabilitation for further rehabilitation. At my encounter with the patient, he is complaining of chest pain, feeling cold/clammy. He is also having mild shortness of breath.Patient denied palpitation, nausea, vomiting, abdominal pain, loss of consciousness, dizziness, numbness, tingling, speech difficulties, vision changes or others. ROS 12 point review of system was assessed and is negative other than what is mentioned in the HPI. PMH/Family/Social Past Medical History See HPI Medications Current Medications Furosemide (Lasix) 20 mg BID DIURETICS PO Last administered on 08/14/18 06:49; Admin Dose 20 MG; Start 08/13/18 at 21:47 Spironolactone (Aldactone) 25 mg DAILY PO Last administered on 08/14/18 09:04; Admin Dose 25 MG; Start 08/13/18 at 21:47 Thiamine HCl (Vitamin B1) 100 mg DAILY PO Last administered on 08/14/18 09:04; Admin Dose 100 MG; Start 08/13/18 at 21:47 Diagnostic Test (Pha) (Accu-Chek) 1 ea 02 XX ; Start 08/13/18 at 21:47 Insulin Aspart (Novolog Insulin Pen) NOVOLOG *MILD* ALGORITHM WITH MEALS BEDTIME SC Last administered on 08/14/18 12:14; Admin Dose 2 UNIT; Start 08/13/18 at 21:47 Miscellaneous Information 1 ea NOTE XX ; Start 08/13/18 at 21:47 Aspirin (Aspirin) 81 mg DAILY PO Last administered on 08/14/18 09:04; Admin D ose 81 MG; Start 08/13/18 at 21:47 Metformin HCl (Glucophage) 500 mg WITH DINNER PO ; Start 08/13/18 at 21:47 Enoxaparin Sodium (Lovenox) 40 mg DAILY SC Last administered on 08/14/18 09:05; Admin Dose 40 MG; Start 08/13/18 at 21:47 Atorvastatin Calcium (Lipitor) 80 mg HS PO Last administered on 08/13/18 22:35; Admin Dose 80 MG; Start 08/13/18 at 22:02 Carvedilol (Coreg) 6.25 mg BID PO Last administered on 08/14/18 09:04; Admin Dose 6.25 MG; Start 08/13/18 at 22:11 Sacubitril/ Valsartan (Entresto 24 Mg-26 Mg) 1 tab BID PO Last administered on 08/14/18 09:04; Admin Dose 1 TAB; Start 08/13/18 at 22:11 Miscellaneous Information 1 ea NOTE XX ; Start 08/13/18 at 23:00 Glucose (Glutose) 15 gm Q15M PRN PO DECREASED GLUCOSE; Start 08/13/18 at 23:00 Glucose (Glutose) 22.5 gm Q15M PRN PO DECREASED GLUCOSE; Start 08/13/18 at 23:00 Dextrose (D50w Syringe) 25 ml Q15M PRN IV DECREASED GLUCOSE; Start 08/13/18 at 23:00 Dextrose (D50w Syringe) 50 ml Q15M PRN IV DECREASED GLUCOSE; Start 08/13/18 at 23:00 Glucagon (Glucagen) 1 mg Q15M PRN IM DECREASED GLUCOSE; Start 08/13/18 at 23:00 Glucose (Glutose) 15 gm Q15M PRN BUCCAL DECREASED GLUCOSE; Start 08/13/18 at 23:00 Docusate Sodium (Colace) 100 mg BID PO Last administered on 08/14/18at 09:03; Admin Dose 100 MG; Start 08/14/18 at 09:00 Senna (Senokot) 1 tab HS PO ; Start 08/14/18 at 21:00 Acetaminophen (Tylenol Tab) 650 mg Q4H PRN PO MILD PAIN(1-3)OR ELEVATED TEMP; Start 08/14/18 at 01:00 Bisacodyl (Dulcolax Supp) 10 mg DAILY PRN [place] CONSTIPATION; Start 08/14/18 at 01:00 Magnesium Hydroxide (Milk Of Mag) 30 ml BID PRN PO CONSTIPATION; Start 08/14/18 at 01:00 Lactulose (Enulose) 20 gm DAILY PRN PO CONSTIPATION; Start 08/14/18 at 02:00 Coded Allergies: No Known Allergy (Unverified , 08/06/18) Past Surgical History Noncontributory Family History Significant Family History: no pertinent family hx Social History Alcohol use. Smoking Status: Never smoker Exam/Review of Systems Vital Signs Vitals Vital Signs Date Temp Pulse Resp B/P (MAP) Pulse Ox O2 O2 Flow FiO2 Time Delivery Rate 08/14/18 98.7 78 18 131/77 100 Room Air 14:10 (95) Intake and Output 08/13/18 08/13/18 08/14/18 1515:00 23:00 07:00 OutputOutput Total 400 ml BalanceBalance -400 ml AMANDA MENDEZ V. WAGE ANALYST Aug 14, 2018 14:37
--- NOTE | 2018-08-14 15:15 | RADRPT ---
Vent Rate: 89 bpm RR Interval: 0 msec MA Interval: 170 msec QRS Duration: 112 msec QT Interval: 394 msec QTC Interval: 479 msec P-R-T [place]: 35 - -11 - 0 degrees Normal sinus rhythm Incomplete right bundle branch block ST & T wave abnormality, consider inferior ischemia ST & T wave abnormality, consider anterolateral ischemia Prolonged QT Abnormal ECG Electronically Signed By: Adam Roca
--- NOTE | 2018-08-14 16:33 | CONS ---
DATE OF ADMISSION: 08/13/2018 DATE OF CONSULTATION: 08/14/2018 TYPE OF CONSULTATION: Rehabilitation post-admission physician evaluation. DATE OF ADMISSION TO THE REHABILITATION UNIT: 08/13/2018 DATE OF CONSULTATION: 08/14/2018 REHABILITATION IMPAIRMENT CATEGORY: Left PHILIPPE infarct CVA with right-sided weakness and aphasia. ACTIVE COMORBIDITIES: 1. Cardiomyopathy. 2. Hyperlipidemia. 3. Hypertension. 4. Prediabetes. 5. Impairments in self-care, mobility and cognition. HISTORY OF PRESENT ILLNESS: The patient is a pleasant 48-year-old gentleman who was in his usual state of health until he was noted to have right-sided weakness. An MRI did demonstrate left frontal lobe as well as left cingulate gyrus and left anterior cerebral artery distribution infarct. The patient noted to have significant impairments in self-care, mobility, and communication as compared to baseline, and has been cleared to transfer to the rehabilitation unit for comprehensive interdisciplinary rehab care. FUNCTIONAL HISTORY: Prior to recent events, he was independent in self-care tasks and mobility. Currently, requires moderate assist for self-care and mobility tasks. I have reviewed the preadmission screen, and the patient's current functional status is consistent with the preadmission screen. FAMILY AND SOCIAL HISTORY: The patient lives at home and reportedly with good support and hopes to return home upon discharge. PAST MEDICAL HISTORY: 1. Hypertension. 2. Hyperlipidemia. 3. Prediabetes. 4. Cardiomyopathy. CURRENT MEDICATIONS: 1. Aspirin 81 mg p.o. daily. 2. Lipitor 80 mg p.o. at bedtime. 3. Coreg 6.25 mg p.o. b.i.d. 4. Insulin sliding scale. 5. Lovenox 40 mg subQ daily. 6. Lasix 20 mg p.o. b.i.d. 7. Glucophage 1000 mg at bedtime. 8. Entresto 1 tab p.o. b.i.d. 9. Vitamin B 100 mg p.o. daily. 10. Aldactone 25 mg p.o. daily. ALLERGIES: THE PATIENT WITH NO KNOWN DRUG ALLERGIES. PHYSICAL EXAMINATION: VITAL SIGNS: He is currently afebrile with stable vital signs. HEENT: Extraocular motion intact. Oropharynx clear. Decreased nasolabial fold. LUNGS: Clear anteriorly. CARDIAC: S1, S2. ABDOMEN: Soft, nontender, positive bowel sounds. NEUROLOGIC: He is awake and alert. He will follow simple 1-step commands. He demonstrates good strength in the left upper and lower extremity. He has 2+ strength in the right upper extremity. He has got 1/5 strength in the right lower extremity. PLAN: The patient has been admitted for comprehensive interdisciplinary acute rehab and is anticipated to tolerate 3 hours of daily therapy in divided doses for at least 5/7 days a week. The treatment plan will include: 1. Physical therapy to focus on bed mobility, transfers, wheelchair mobility and pre-gait activities as tolerated, with the goal of having the patient reach standby assist level at the wheelchair level. 2. Occupational therapy to focus on hygiene, grooming, dressing, bathing, and toileting activities, with the goal of having the patient reach standby assist at the wheelchair level. 3. Speech therapy for full cognitive assessment and retraining in addition to communication retraining, with the goal of having the patient return to baseline cognition and be able to express basic needs. 4. Rehabilitation nursing for carryover of therapeutic interventions, with the goal of continent of bowel and bladder, and the goal of patient and family education with regards to the aforementioned issues. ESTIMATED LENGTH OF STAY: 14 days. DISPOSITION GOAL: Home with family. REHABILITATION BARRIER: Aphasia Intervention for Barrier: Speech Therapy I acknowledge that I performed a full physical examination on this patient within 24 hours of admission to the rehabilitation unit, and I believe the patient is a good candidate for comprehensive interdisciplinary rehab care and is anticipated to make reasonable goals in a reasonable period of time as outlined above. Dictated By: NICOLE BILLINGS MD LY/NTS Conf#: [id number] DID#: [id number] CC: NICOLE BILLINGS MD;*EndCC* MTDD
--- NOTE | 2018-08-14 17:14 | CONS ---
Assessment/Plan Assessment/Plan Hospital Course (Demo Recall) IMPRESSION: 1. Cardiomyopathy with 3+ left ventricular ejection fraction last known to be approximately 25% to 30% by echo 03/2018. 2. Congestive heart failure, systolic, acute on chronic. 3. Hypertension, under reasonable control. 4. Dyslipidemia. 5. History of myocardial infarction. 6. Acute cerebrovascular accident with right upper and lower extremity weakness, paralysis. 7. Chest pain-acute onset today with inprovement after nitro 8. Abnl ECG-with deep TWI across precordium in setting of acute CVA likely cerebral T waves. Had cardiac CTA 06/13/18 with no sig epicardial CAD and calcium score of 0. A strong independent marker of low liklihood of CV events over next 1-2 years. ? vasospasm Recc; -Continue coreg/entresto -Continue lasix and aldactone and follow volume status closely -Continue statin -Complete qi and check serial ecg's -start low dose oral nitrates as tolerated -PT/OT Consultation Date/Type/Reason Admit Date/Time Aug 13, 2018 at 18:49 Initial Consult Date 08/13/18 Type of Consult Cardiology Reason for Consultation cardiomyopathy/chest pain Requesting Provider: AMANDA MENDEZ NP Date/Time of Note DATE: 08/14/18 TIME: 17:08 Exam/Review of Systems Vital Signs Vitals Vital Signs Date Temp Pulse Resp B/P (MAP) Pulse Ox O2 O2 Flow FiO2 Time Delivery Rate 08/14/18 111/71 15:30 (84) 08/14/18 78 15:00 08/14/18 18 99 1.0 14:38 08/14/18 98.7 Room Air 14:10 Intake and Output 08/13/18 08/13/18 08/14/18 1515:00 23:00 07:00 OutputOutput Total 400 ml BalanceBalance -400 ml Exam Exam Review of Systems: CONSTITUTIONAL: No fevers, chills. PULMONARY: No sob CARDIOVASCULAR: No chest pain/palpitations GASTROINTESTINAL: No nausea/vomiting. GENITOURINARY: No hematuria/dysuria. MUSCULOSKELETAL: No myagias/arthalgias. PSYCHIATRIC: The patient denies depression. NEUROLOGIC: No weakness Constitutional: alert Psych: no complaints Head: normocephalic ENMT: mucosa pink and moist Neck: supple, jvd (9 cm water) Respiratory: diminished breath sounds Cardiovascular: regular rate and rhythm Gastrointestinal: soft, non-tender Musculoskeletal: muscle weakness (focal L sided) Extremities: edema (none) Neurological: focal weakness (L sided) Labs Result Diagram: 08/14/18 0603 08/14/18 0603 Results 24hrs Laboratory Tests Test 08/13/18 21:55 08/13/18 22:33 08/14/18 06:03 08/14/18 08:19 Urine Color YELLOW Urine Clarity CLEAR Urine pH 5.0 Urine Specific [place] 1.012 Urine Ketones NEGATIVE Urine Nitrite NEGATIVE Urine Bilirubin NEGATIVE Urine Urobilinogen NEGATIVE Urine Leukocyte Esterase NEGATIVE Urine Hemoglobin NEGATIVE Urine Glucose NEGATIVE Urine Total Protein NEGATIVE Bedside Glucose 89 120 White Blood Count 7.9 Red Blood Count 4.70 Hemoglobin 13.7 L Hematocrit 40.5 L Mean Corpuscular Volume 86.2 Mean Corpuscular 29.1 Hemoglobin Mean Corpuscular 33.8 Hemoglobin Concent Red Cell Distribution 12.8 Width Platelet Count 199 Mean Platelet Volume 11.1 H Immature Granulocytes % 0.500 H Neutrophils % 61.1 Lymphocytes % 26.3 Monocytes % 8.1 Eosinophils % 3.4 Basophils % 0.6 Nucleated Red Blood 0.0 Cells % Immature Granulocytes # 0.040 H Neutrophils # 4.8 Lymphocytes # 2.1 Monocytes # 0.6 Eosinophils # 0.3 Basophils # 0.1 Nucleated Red Blood 0.0 Cells # Sodium Level 140 Potassium Level 4.2 Chloride Level 101 Carbon Dioxide Level 29 Anion Gap 10 Blood Urea Nitrogen 24 H Creatinine 0.92 Est Glomerular Filtrat > 60 Rate mL/min Glucose Level 123 Calcium Level 9.5 Total Bilirubin 1.0 Direct Bilirubin 0.00 Indirect Bilirubin 1.0 Aspartate Amino 40 Transf (AST/SGOT) Alanine 44 Aminotransferase (ALT/SG PT) Alkaline Phosphatase 68 Total Protein 7.7 Albumin 4.3 Globulin 3.40 H Albumin/Globulin Ratio 1.26 Test 08/14/18 12:12 08/14/18 15:10 Bedside Glucose 184 Creatine Kinase 414 H Creatine Kinase Index 0.4 Creatinine Kinase MB 1.52 (Mass) Troponin I < 0.012 B-Type Natriuretic 31 Peptide Medications Medications Current Medications Furosemide (Lasix) 20 mg BID DIURETICS PO Last administered on 08/14/18at 06:49; Admin Dose 20 MG; Start 08/13/18 at 21:47 Spironolactone (Aldactone) 25 mg DAILY PO Last administered on 08/14/18 09:04; Admin Dose 25 MG; Start 08/13/18 at 21:47 Thiamine HCl (Vitamin B1) 100 mg DAILY PO Last administered on 08/14/18 09:04; Admin Dose 100 MG; Start 08/13/18 at 21:47 Diagnostic Test (Pha) (Accu-Chek) 1 ea 02 XX ; Start 08/13/18 at 21:47 Insulin Aspart (Novolog Insulin Pen) NOVOLOG *MILD* ALGORITHM WITH MEALS BEDTIME SC Last administered on 08/14/18 12:14; Admin Dose 2 UNIT; Start 08/13/18 at 21:47 Miscellaneous Information 1 ea NOTE XX ; Start 08/13/18 at 21:47 Aspirin (Aspirin) 81 mg DAILY PO Last administered on 08/14/18 09:04; Admin Dose 81 MG; Start 08/13/18 at 21:47 Metformin HCl (Glucophage) 500 mg WITH DINNER PO ; Start 08/13/18 at 21:47 Enoxaparin Sodium (Lovenox) 40 mg DAILY SC Last administered on 08/14/18 09:05; Admin Dose 40 MG; Start 08/13/18 at 21:47 Atorvastatin Calcium (Lipitor) 80 mg HS PO Last administered on 08/13/18 22:35; Admin Dose 80 MG; Start 08/13/18 at 22:02 Carvedilol (Coreg) 6.25 mg BID PO Last administered on 08/14/18 09:04; Admin Dose 6.25 MG; Start 08/13/18 at 22:11 Sacubitril/ Valsartan (Entresto 24 Mg-26 Mg) 1 tab BID PO Last administered on 08/14/18 09:04; Admin Dose 1 TAB; Start 08/13/18 at 22:11 Miscellaneous Information 1 ea NOTE XX ; Start 08/13/18 at 23:00 Glucose (Glutose) 15 gm Q15M PRN PO DECREASED GLUCOSE; Start 08/13/18 at 23:00 Glucose (Glutose) 22.5 gm Q15M PRN PO DECREASED GLUCOSE; Start 08/13/18 at 23:00 Dextrose (D50w Syringe) 25 ml Q15M PRN IV DECREASED GLUCOSE; Start 08/13/18 at 23:00 Dextrose (D50w Syringe) 50 ml Q15M PRN IV DECREASED GLUCOSE; Start 08/13/18 at 23:00 Glucagon (Glucagen) 1 mg Q15M PRN IM DECREASED GLUCOSE; Start 08/13/18 at 23:00 Glucose (Glutose) 15 gm Q15M PRN BUCCAL DECREASED GLUCOSE; Start 08/13/18 at 23:00 Docusate Sodium (Colace) 100 mg BID PO Last administered on 08/14/18at 09:03; Admin Dose 100 MG; Start 08/14/18 at 09:00 Senna (Senokot) 1 tab HS PO ; Start 08/14/18 at 21:00 Acetaminophen (Tylenol Tab) 650 mg Q4H PRN PO MILD PAIN(1-3)OR ELEVATED TEMP; Start 08/14/18 at 01:00 Bisacodyl (Dulcolax Supp) 10 mg DAILY PRN [place] CONSTIPATION; Start 08/14/18 at 01:00 Magnesium Hydroxide (Milk Of Mag) 30 ml BID PRN PO CONSTIPATION; Start 08/14/18 at 01:00 Lactulose (Enulose) 20 gm DAILY PRN PO CONSTIPATION; Start 08/14/18 at 02:00 Nitroglycerin (Nitroglycerin (Sl Tab) 0.4 Mg) 1 tab Q5M PRN SL ANGINA Last administered on 08/14/18at 14:33; Admin Dose 1 TAB; Start 08/14/18 at 14:30 AGUSTIN DONG Aug 14, 2018 17:14
[2018-08-14] MEDS: metFORMIN 500 MG TAB PO SCH (17:48)
[2018-08-14] MEDS: ATORVASTATIN 80 MG TAB PO SCH (21:37)
[2018-08-14] MEDS: SENNA TAB PO SCH (21:37)
[2018-08-14] MEDS: ISOSORBIDE DINITRATE 10 MG TAB PO SCH (21:38)
[2018-08-15 02:00] VITALS: BP 118/69; PULSE 73; RESP 18
[2018-08-15] MEDS: ACCU-CHEK XX SCH (02:00)
[2018-08-15] MEDS: FUROSEMIDE 20 MG TAB PO SCH ×2 (06:34→17:38)
[2018-08-15 07:00] VITALS: BP 107/65; PULSE 75; RESP 18
[2018-08-15] MEDS: INSULIN ASPART [NOVOLOG] 3 ML PEN SC SCH ×4 (07:35→21:00)
[2018-08-15] MEDS: SACUBITRIL/VALSARTAN (24mg-26mg) TABLET PO SCH ×2 (08:59→21:06)
[2018-08-15] MEDS: ASPIRIN 81 MG TAB PO SCH (08:59)
[2018-08-15] MEDS: DOCUSATE SODIUM 100 MG CAP PO SCH ×2 (08:59→21:06)
[2018-08-15] MEDS: SPIRONOLACTONE 25 MG TAB PO SCH (09:00)
[2018-08-15] MEDS: ISOSORBIDE DINITRATE 10 MG TAB PO SCH ×3 (09:00→21:06)
[2018-08-15] MEDS: THIAMINE 100 MG TAB PO SCH (09:00)
[2018-08-15] MEDS: ENOXAPARIN 40 MG/0.4 ML SYG SC SCH (09:01)
[2018-08-15 09:36] VITALS: BP 100/63
--- NOTE | 2018-08-15 12:26 | PN ---
Date/Time of Note Date/Time of Note DATE: 08/15/18 TIME: 12:23 Assessment/Plan VTE Prophylaxis Risk score (from Nsg)>0 risk: 3 SCD applied (from Nsg): Yes Pharmacological prophylaxis: LMWH Lines/Catheters IV Catheter Type (from Nrsg): Saline Lock Urinary Cath still in place: No Assessment/Plan Hospital Course SUBJECTIVE: doing well. good participation w/PT.No further chest pain/discom fort. OBJECTIVE: Vital signs-see below PHYSICAL EXAM: Constitutional: Well-developed, adequately built, lying in bed comfortably. Psych: nl mood/affect, no complaints Head: atraumatic, normocephalic Eyes: nl conjunctiva, nl sclera ENMT: mucosa pink and moist, nl external ears & nose Neck: non-tender, supple Respiratory: clear to auscultation, normal air movement Cardiovascular: nl pulses, regular rate and rhythm Gastrointestinal: non-tender, soft, bowel sounds active in all 4 quadrants. Musculoskeletal/extremities: nl extremities to inspection, motor strength equal bilaterally, no focal deficit. Normal pulses,no cyanosis, no edema. Neurological: Alert oriented 3,nl speech, nl strength Skin: nl turgor ASSESSMENT/PLAN: 1. Chest pain, likely musculoskeletal -Resolved -ACS ruled out. 2.Acute CVA -Continue aspirin/statin. -Keep normotensive blood pressure goals. 3. CHF, systolic with LVEF 20-25% -on coreg, aldactone, lasix, and entresto 4. Cardiomyopathy -Treatment as outlined in #3.Imdur added yesterday. 5. HTN, controlled -Continue antihypertensive -1 episode of drop in bp w/ PT. Closely monitor as nitrate was added 4. Dyslipidemia - on lipitor 5. DMII - on metformin and ISS 6. Alcohol use/possible substance abuse. - assistance 7. DVT prophylaxis: lovenox Patient was seen in collaboration with . Result Diagram: 08/14/18 0603 08/14/18 0603 Results 24hrs Laboratory Tests Test 08/14/18 15:10 08/14/18 17:47 08/14/18 20:14 08/14/18 21:36 Creatine Kinase 414 H 384 H Creatine Kinase Index 0.4 0.3 Creatinine Kinase MB 1.52 1.27 (Mass) Troponin I < 0.012 < 0.012 B-Type Natriuretic 31 Peptide Bedside Glucose 103 144 Test 08/15/18 02:30 08/15/18 02:33 08/15/18 07:47 08/15/18 09:32 Urine Opiates Screen Negative Urine Barbiturates Negative Urine Amphetamines Negative Screen Urine Benzodiazepines Negative Screen Urine Cocaine Screen Negative Urine Cannabinoids Negative Creatine Kinase 334 H Creatine Kinase Index 0.3 Creatinine Kinase MB 1.14 (Mass) Troponin I < 0.012 Bedside Glucose 132 158 Test 08/15/18 11:45 Bedside Glucose 169 Exam/Review of Systems Exam Vitals Vital Signs Date Temp Pulse Resp B/P (MAP) Pulse Ox O2 O2 Flow FiO2 Time Delivery Rate 08/15/18 100/63 09:36 (75) 08/15/18 97.6 75 18 98 Room Air 07:00 08/14/18 1.0 14:38 Intake and Output 08/14/18 08/14/18 08/15/18 1515:00 23:00 07:00 IntakeIntake Total 970 ml 900 ml BalanceBalance 970 ml 900 ml Results Results 24hrs Laboratory Tests Test 08/14/18 15:10 08/14/18 17:47 08/14/18 20:14 08/14/18 21:36 Creatine Kinase 414 H 384 H Creatine Kinase Index 0.4 0.3 Creatinine Kinase MB 1.52 1.27 (Mass) Troponin I < 0.012 < 0.012 B-Type Natriuretic 31 Peptide Bedside Glucose 103 144 Test 08/15/18 02:30 08/15/18 02:33 08/15/18 07:47 08/15/18 09:32 Urine Opiates Screen Negative Urine Barbiturates Negative Urine Amphetamines Negative Screen Urine Benzodiazepines Negative Screen Urine Cocaine Screen Negative Urine Cannabinoids Negative Creatine Kinase 334 H Creatine Kinase Index 0.3 Creatinine Kinase MB 1.14 (Mass) Troponin I < 0.012 Bedside Glucose 132 158 Test 08/15/18 11:45 Bedside Glucose 169 Medications Medication Current Medications Furosemide (Lasix) 20 mg BID DIURETICS PO Last administered on 08/15/18at 06:34; Admin Dose 20 MG; Start 08/13/18 at 21:47 Spironolactone (Aldactone) 25 mg DAILY PO Last administered on 08/15/18at 09:00; Admin Dose 25 MG; Start 08/13/18 at 21:47 Thiamine HCl (Vitamin B1) 100 mg DAILY PO Last administered on 08/15/18 09:00; Admin Dose 100 MG; Start 08/13/18 at 21:47 Diagnostic Test (Pha) (Accu-Chek) 1 ea 02 XX ; Start 08/13/18 at 21:47 Insulin Aspart (Novolog Insulin Pen) NOVOLOG *MILD* ALGORITHM WITH MEALS BEDTIME SC Last administered on 08/15/18 11:48; Admin Dose 1 UNIT; Start 08/13/18 at 21:47 Miscellaneous Information 1 ea NOTE XX ; Start 08/13/18 at 21:47 Aspirin (Aspirin) 81 mg DAILY PO Last administered on 08/15/18 08:59; Admin Dose 81 MG; Start 08/13/18 at 21:47 Metformin HCl (Glucophage) 500 mg WITH DINNER PO Last administered on 08/14/18 17:48; Admin Dose 500 MG; Start 08/13/18 at 21:47 Enoxaparin Sodium (Lovenox) 40 mg DAILY SC Last administered on 08/15/18 09:01; Admin Dose 40 MG; Start 08/13/18 at 21:47 Atorvastatin Calcium (Lipitor) 80 mg HS PO Last administered on 08/14/18 21:37; Admin Dose 80 MG; Start 08/13/18 at 22:02 Carvedilol (Coreg) 6.25 mg BID PO Last administered on 08/15/18 09:00; Admin Dose 6.25 MG; Start 08/13/18 at 22:11 Sacubitril/ Valsartan (Entresto 24 Mg-26 Mg) 1 tab BID PO Last administered on 08/15/18 08:59; Admin Dose 1 TAB; Start 08/13/18 at 22:11 Miscellaneous Information 1 ea NOTE XX ; Start 08/13/18 at 23:00 Glucose (Glutose) 15 gm Q15M PRN PO DECREASED GLUCOSE; Start 08/13/18 at 23:00 Glucose (Glutose) 22.5 gm Q15M PRN PO DECREASED GLUCOSE; Start 08/13/18 at 23:00 Dextrose (D50w Syringe) 25 ml Q15M PRN IV DECREASED GLUCOSE; Start 08/13/18 at 23:00 Dextrose (D50w Syringe) 50 ml Q15M PRN IV DECREASED GLUCOSE; Start 08/13/18 at 23:00 Glucagon (Glucagen) 1 mg Q15M PRN IM DECREASED GLUCOSE; Start 08/13/18 at 23:00 Glucose (Glutose) 15 gm Q15M PRN BUCCAL DECREASED GLUCOSE; Start 08/13/18 at 23:00 Docusate Sodium (Colace) 100 mg BID PO Last administered on 08/15/18at 08:59; Admin Dose 100 MG; Start 08/14/18 at 09:00 Senna (Senokot) 1 tab HS PO Last administered on 08/14/18at 21:37; Admin Dose 1 TAB; Start 08/14/18 at 21:00 Acetaminophen (Tylenol Tab) 650 mg Q4H PRN PO MILD PAIN(1-3)OR ELEVATED TEMP; Start 08/14/18 at 01:00 Bisacodyl (Dulcolax Supp) 10 mg DAILY PRN [place] CONSTIPATION; Start 08/14/18 at 01:00 Magnesium Hydroxide (Milk Of Mag) 30 ml BID PRN PO CONSTIPATION; Start 08/14/18 at 01:00 Lactulose (Enulose) 20 gm DAILY PRN PO CONSTIPATION; Start 08/14/18 at 02:00 Nitroglycerin (Nitroglycerin (Sl Tab) 0.4 Mg) 1 tab Q5M PRN SL ANGINA Last administered on 08/14/18at 14:33; Admin Dose 1 TAB; Start 08/14/18 at 14:30 Isosorbide Dinitrate (Isordil) 10 mg TID PO Last administered on 08/15/18at 09:00; Admin Dose 10 MG; Start 08/14/18 at 21:00 AMANDA MENDEZ NP Aug 15, 2018 12:26
[2018-08-15 13:39] VITALS: BP 109/65
[2018-08-15 14:00] VITALS: BP 99/63; PULSE 59; RESP 18
--- NOTE | 2018-08-15 14:09 | PN ---
Date/Time of Note Date/Time of Note DATE: 08/15/18 TIME: 14:05 Objective Vital Signs Date Temp Pulse Resp B/P (MAP) Pulse Ox O2 O2 Flow FiO2 Time Delivery Rate 08/15/18 109/65 13:39 (80) 08/15/18 97.6 75 18 98 Room Air 07:00 08/14/18 1.0 14:38 Intake and Output 08/14/18 08/14/18 08/15/18 1414:59 22:59 06:59 IntakeIntake Total 970 ml 900 ml BalanceBalance 970 ml 900 ml Exam INTERDISCIPLINARY TEAM CONFERENCE Physical Exam: Pulm- cta Abd- soft BOWEL- Cont BLADDER-Cont /incont SKIN- intact OT- DRESSING-mod/max BATHING-mod/max TOILETING-mod/max PT- BED MOBILITY- max TRANSFERS-max x 2 WHEELCHAIR- MAX SPEECH- COGNITION- min Dysphagia- soft diet with thin liquids A/P- Interdisciplinary team conference held today. Please see interdisciplinary sheet. Working toward d.c. home with post discharge follow up of physical therapy, occupational therapy and Speech. Will reeval in 1 week Results/Medications Result Diagram: 08/14/18 0603 08/14/18 0603 Results 24 hrs Laboratory Tests Test 08/14/18 15:10 08/14/18 17:47 08/14/18 20:14 08/14/18 21:36 Creatine Kinase 414 H 384 H Creatine Kinase Index 0.4 0.3 Creatinine Kinase MB 1.52 1.27 (Mass) Troponin I < 0.012 < 0.012 B-Type Natriuretic 31 Peptide Bedside Glucose 103 144 Test 08/15/18 02:30 08/15/18 02:33 08/15/18 07:47 08/15/18 09:32 Urine Opiates Screen Negative Urine Barbiturates Negative Urine Amphetamines Negative Screen Urine Benzodiazepines Negative Screen Urine Cocaine Screen Negative Urine Cannabinoids Negative Creatine Kinase 334 H Creatine Kinase Index 0.3 Creatinine Kinase MB 1.14 (Mass) Troponin I < 0.012 Bedside Glucose 132 158 Test 08/15/18 11:45 Bedside Glucose 169 Medications Current Medications Furosemide (Lasix) 20 mg BID DIURETICS PO Last administered on 08/15/18at 06:34; Admin Dose 20 MG; Start 08/13/18 at 21:47 Spironolactone (Aldactone) 25 mg DAILY PO Last administered on 08/15/18 09:00; Admin Dose 25 MG; Start 08/13/18 at 21:47 Thiamine HCl (Vitamin B1) 100 mg DAILY PO Last administered on 08/15/18 09:00; Admin Dose 100 MG; Start 08/13/18 at 21:47 Diagnostic Test (Pha) (Accu-Chek) 1 ea 02 XX ; Start 08/13/18 at 21:47 Insulin Aspart (Novolog Insulin Pen) NOVOLOG *MILD* ALGORITHM WITH MEALS BEDTIME SC Last administered on 08/15/18 11:48; Admin Dose 1 UNIT; Start 08/13/18 at 21:47 Miscellaneous Information 1 ea NOTE XX ; Start 08/13/18 at 21:47 Aspirin (Aspirin) 81 mg DAILY PO Last administered on 08/15/18 08:59; Admin Dose 81 MG; Start 08/13/18 at 21:47 Metformin HCl (Glucophage) 500 mg WITH DINNER PO Last administered on 08/14/18 17:48; Admin Dose 500 MG; Start 08/13/18 at 21:47 Enoxaparin Sodium (Lovenox) 40 mg DAILY SC Last administered on 08/15/18 09:01; Admin Dose 40 MG; Start 08/13/18 at 21:47 Atorvastatin Calcium (Lipitor) 80 mg HS PO Last administered on 08/14/18 21:37; Admin Dose 80 MG; Start 08/13/18 at 22:02 Carvedilol (Coreg) 6.25 mg BID PO Last administered on 08/15/18 09:00; Admin Dose 6.25 MG; Start 08/13/18 at 22:11 Sacubitril/ Valsartan (Entresto 24 Mg-26 Mg) 1 tab BID PO Last administered on 08/15/18 08:59; Admin Dose 1 TAB; Start 08/13/18 at 22:11 Miscellaneous Information 1 ea NOTE XX ; Start 08/13/18 at 23:00 Glucose (Glutose) 15 gm Q15M PRN PO DECREASED GLUCOSE; Start 08/13/18 at 23:00 Glucose (Glutose) 22.5 gm Q15M PRN PO DECREASED GLUCOSE; Start 08/13/18 at 23:00 Dextrose (D50w Syringe) 25 ml Q15M PRN IV DECREASED GLUCOSE; Start 08/13/18 at 23:00 Dextrose (D50w Syringe) 50 ml Q15M PRN IV DECREASED GLUCOSE; Start 08/13/18 at 23:00 Glucagon (Glucagen) 1 mg Q15M PRN IM DECREASED GLUCOSE; Start 08/13/18 at 23:00 Glucose (Glutose) 15 gm Q15M PRN BUCCAL DECREASED GLUCOSE; Start 08/13/18 at 23:00 Docusate Sodium (Colace) 100 mg BID PO Last administered on 08/15/18at 08:59; Admin Dose 100 MG; Start 08/14/18 at 09:00 Senna (Senokot) 1 tab HS PO Last administered on 08/14/18at 21:37; Admin Dose 1 TAB; Start 08/14/18 at 21:00 Acetaminophen (Tylenol Tab) 650 mg Q4H PRN PO MILD PAIN(1-3)OR ELEVATED TEMP; Start 08/14/18 at 01:00 Bisacodyl (Dulcolax Supp) 10 mg DAILY PRN [place] CONSTIPATION; Start 08/14/18 at 01:00 Magnesium Hydroxide (Milk Of Mag) 30 ml BID PRN PO CONSTIPATION; Start 08/14/18 at 01:00 Lactulose (Enulose) 20 gm DAILY PRN PO CONSTIPATION; Start 08/14/18 at 02:00 Nitroglycerin (Nitroglycerin (Sl Tab) 0.4 Mg) 1 tab Q5M PRN SL ANGINA Last administered on 08/14/18at 14:33; Admin Dose 1 TAB; Start 08/14/18 at 14:30 Isosorbide Dinitrate (Isordil) 10 mg TID PO Last administered on 08/15/18at 09:00; Admin Dose 10 MG; Start 08/14/18 at 21:00 NICOLE BILLINGS MD Aug 15, 2018 14:09
[2018-08-15] MEDS: metFORMIN 500 MG TAB PO SCH (17:38)
--- NOTE | 2018-08-15 19:56 | CONS ---
Assessment/Plan Assessment/Plan Hospital Course (Demo Recall) IMPRESSION: 1. Cardiomyopathy approximately 20% to 25% by echo 07/30. 2. Congestive heart failure, systolic, acute on chronic. 3. Hypertension, under reasonable control. 4. Dyslipidemia. 5. History of myocardial infarction. 6. Acute cerebrovascular accident with right upper and lower extremity weakness, paralysis. 7. Chest pain-acute onset today with inprovement after nitro. Neg trop x 3 since chest pain epissode 8. Abnl ECG-with deep TWI across precordium in setting of acute CVA likely cerebral T waves. Had cardiac CTA 06/13/18 with no sig epicardial CAD and calcium score of 0. A strong independent marker of low liklihood of CV events over next 1-2 years. ? vasospasm Recc; -Continue coreg/entresto -Continue lasix and aldactone and follow volume status closely -Continue statin -start low dose oral nitrates as tolerated and given marginal BP will thus decrease to 5 mg,. If unable to tolerate and having recurrent chest pain will consider ranexa in lieu -PT/OT Consultation Date/Type/Reason Admit Date/Time Aug 13, 2018 at 18:49 Initial Consult Date 08/13/18 Type of Consult Cardiology Reason for Consultation chest pain Requesting Provider: AMANDA MENDEZ NP Date/Time of Note DATE: 08/15/18 TIME: 19:52 Exam/Review of Systems Vital Signs Vitals Vital Signs Date Temp Pulse Resp B/P (MAP) Pulse Ox O2 O2 Flow FiO2 Time Delivery Rate 08/15/18 98.5 59 18 99/63 (75) 96 Room Air 14:00 08/14/18 1.0 14:38 Intake and Output 08/14/18 08/14/18 08/15/18 1515:00 23:00 07:00 IntakeIntake Total 970 ml 900 ml BalanceBalance 970 ml 900 ml Exam Exam Review of Systems: CONSTITUTIONAL: No fevers, chills. PULMONARY: No sob CARDIOVASCULAR: No chest pain/palpitations GASTROINTESTINAL: No nausea/vomiting. GENITOURINARY: No hematuria/dysuria. MUSCULOSKELETAL: No myagias/arthalgias. PSYCHIATRIC: The patient denies depression. NEUROLOGIC: focal weakness Constitutional: other (sleeping, arousable) Psych: no complaints Head: normocephalic ENMT: mucosa pink and moist Neck: supple, jvd (9 cm water) Respiratory: clear to auscultation Cardiovascular: regular rate and rhythm Gastrointestinal: soft, non-tender Musculoskeletal: muscle weakness (focal) Extremities: edema (none) Neurological: focal weakness (R sided UE/LE) Labs Result Diagram: 08/14/18 0603 08/14/18 0603 Results 24hrs Laboratory Tests Test 08/14/18 20:14 08/14/18 21:36 08/15/18 02:30 08/15/18 02:33 Creatine Kinase 384 H 334 H Creatine Kinase Index 0.3 0.3 Creatinine Kinase MB 1.27 1.14 (Mass) Troponin I < 0.012 < 0.012 Bedside Glucose 144 Urine Opiates Screen Negative Urine Barbiturates Negative Urine Amphetamines Negative Screen Urine Benzodiazepines Negative Screen Urine Cocaine Screen Negative Urine Cannabinoids Negative Test 08/15/18 07:47 08/15/18 09:32 08/15/18 11:45 08/15/18 17:30 Bedside Glucose 132 158 169 123 Medications Medications Current Medications Furosemide (Lasix) 20 mg BID DIURETICS PO Last administered on 08/15/18 17:38; Admin Dose 20 MG; Start 08/13/18 at 21:47 Spironolactone (Aldactone) 25 mg DAILY PO Last administered on 08/15/18 09:00; Admin Dose 25 MG; Start 08/13/18 at 21:47 Thiamine HCl (Vitamin B1) 100 mg DAILY PO Last administered on 08/15/18 09:00; Admin Dose 100 MG; Start 08/13/18 at 21:47 Diagnostic Test (Pha) (Accu-Chek) 1 ea 02 XX ; Start 08/13/18 at 21:47 Insulin Aspart (Novolog Insulin Pen) NOVOLOG *MILD* ALGORITHM WITH MEALS BEDTIME SC Last administered on 08/15/18 11:48; Admin Dose 1 UNIT; Start 08/13/18 at 21:47 Miscellaneous Information 1 ea NOTE XX ; Start 08/13/18 at 21:47 Aspirin (Aspirin) 81 mg DAILY PO Last administered on 08/15/18 08:59; Admin Dose 81 MG; Start 08/13/18 at 21:47 Metformin HCl (Glucophage) 500 mg WITH DINNER PO Last administered on 08/15/18 17:38; Admin Dose 500 MG; Start 08/13/18 at 21:47 Enoxaparin Sodium (Lovenox) 40 mg DAILY SC Last administered on 08/15/18 09:01; Admin Dose 40 MG; Start 08/13/18 at 21:47 Atorvastatin Calcium (Lipitor) 80 mg HS PO Last administered on 08/14/18 21:37; Admin Dose 80 MG; Start 08/13/18 at 22:02 Carvedilol (Coreg) 6.25 mg BID PO Last administered on 08/15/18 09:00; Admin Dose 6.25 MG; Start 08/13/18 at 22:11 Sacubitril/ Valsartan (Entresto 24 Mg-26 Mg) 1 tab BID PO Last administered on 08/15/18 08:59; Admin Dose 1 TAB; Start 08/13/18 at 22:11 Miscellaneous Information 1 ea NOTE XX ; Start 08/13/18 at 23:00 Glucose (Glutose) 15 gm Q15M PRN PO DECREASED GLUCOSE; Start 08/13/18 at 23:00 Glucose (Glutose) 22.5 gm Q15M PRN PO DECREASED GLUCOSE; Start 08/13/18 at 23:00 Dextrose (D50w Syringe) 25 ml Q15M PRN IV DECREASED GLUCOSE; Start 08/13/18 at 23:00 Dextrose (D50w Syringe) 50 ml Q15M PRN IV DECREASED GLUCOSE; Start 08/13/18 at 23:00 Glucagon (Glucagen) 1 mg Q15M PRN IM DECREASED GLUCOSE; Start 08/13/18 at 23:00 Glucose (Glutose) 15 gm Q15M PRN BUCCAL DECREASED GLUCOSE; Start 08/13/18 at 23:00 Docusate Sodium (Colace) 100 mg BID PO Last administered on 08/15/18 08:59; Admin Dose 100 MG; Start 08/14/18 at 09:00 Senna (Senokot) 1 tab HS PO Last administered on 08/14/18 21:37; Admin Dose 1 TAB; Start 08/14/18 at 21:00 Acetaminophen (Tylenol Tab) 650 mg Q4H PRN PO MILD PAIN(1-3)OR ELEVATED TEMP; Start 08/14/18 at 01:00 Bisacodyl (Dulcolax Supp) 10 mg DAILY PRN [place] CONSTIPATION; Start 08/14/18 at 01:00 Magnesium Hydroxide (Milk Of Mag) 30 ml BID PRN PO CONSTIPATION; Start 08/14/18 at 01:00 Lactulose (Enulose) 20 gm DAILY PRN PO CONSTIPATION; Start 08/14/18 at 02:00 Nitroglycerin (Nitroglycerin (Sl Tab) 0.4 Mg) 1 tab Q5M PRN SL ANGINA Last administered on 08/14/18at 14:33; Admin Dose 1 TAB; Start 08/14/18 at 14:30 Isosorbide Dinitrate (Isordil) 10 mg TID PO Last administered on 08/15/18at 09:00; Admin Dose 10 MG; Start 08/14/18 at 21:00 AGUSTIN DONG Aug 15, 2018 19:56
[2018-08-15 20:00] VITALS: BP 120/74; PULSE 85; RESP 18
[2018-08-15] MEDS: ATORVASTATIN 80 MG TAB PO SCH (21:06)
[2018-08-15] MEDS: SENNA TAB PO SCH (21:06)
[2018-08-16 02:00] VITALS: BP 112/67; PULSE 77; RESP 18
[2018-08-16] MEDS: ACCU-CHEK XX SCH (02:00)
[2018-08-16] MEDS: FUROSEMIDE 20 MG TAB PO SCH ×2 (06:25→17:01)
[2018-08-16 07:30] VITALS: BP 105/65; PULSE 75; RESP 18
[2018-08-16] MEDS: INSULIN ASPART [NOVOLOG] 3 ML PEN SC SCH ×4 (07:35→21:00)
[2018-08-16] MEDS: SPIRONOLACTONE 25 MG TAB PO SCH (08:36)
[2018-08-16] MEDS: SACUBITRIL/VALSARTAN (24mg-26mg) TABLET PO SCH ×2 (08:36→21:14)
[2018-08-16] MEDS: ASPIRIN 81 MG TAB PO SCH (08:37)
[2018-08-16] MEDS: ENOXAPARIN 40 MG/0.4 ML SYG SC SCH (08:37)
[2018-08-16] MEDS: DOCUSATE SODIUM 100 MG CAP PO SCH ×2 (08:37→21:14)
[2018-08-16] MEDS: THIAMINE 100 MG TAB PO SCH (08:37)
[2018-08-16] MEDS: ISOSORBIDE DINITRATE 10 MG TAB PO SCH ×3 (11:57→21:18)
--- NOTE | 2018-08-16 12:32 | PN ---
Date/Time of Note Date/Time of Note DATE: 08/16/18 TIME: 12:31 Subjective Improving verbal output Objective Vital Signs Date Temp Pulse Resp B/P (MAP) Pulse Ox O2 O2 Flow FiO2 Time Delivery Rate 08/16/18 98.5 75 18 105/65 96 Room Air 07:30 (78) 08/14/18 1.0 14:38 Intake and Output 08/15/18 08/15/18 08/16/18 1515:00 23:00 07:00 IntakeIntake Total 1200 ml 700 ml OutputOutput Total 600 ml BalanceBalance 600 ml 700 ml Exam pulm-cta abd-soft max/mod assist Results/Medications Result Diagram: 08/14/18 0603 08/14/18 0603 Results 24 hrs Laboratory Tests Test 08/15/18 17:30 08/15/18 21:04 08/16/18 07:44 08/16/18 11:32 Bedside Glucose 123 120 110 148 Medications Current Medications Furosemide (Lasix) 20 mg BID DIURETICS PO Last administered on 08/16/18 06:25; Admin Dose 20 MG; Start 08/13/18 at 21:47 Spironolactone (Aldactone) 25 mg DAILY PO Last administered on 08/16/18 08:36; Admin Dose 25 MG; Start 08/13/18 at 21:47 Thiamine HCl (Vitamin B1) 100 mg DAILY PO Last administered on 08/16/18 08:37; Admin Dose 100 MG; Start 08/13/18 at 21:47 Diagnostic Test (Pha) (Accu-Chek) 1 ea 02 XX ; Start 08/13/18 at 21:47 Insulin Aspart (Novolog Insulin Pen) NOVOLOG *MILD* ALGORITHM WITH MEALS BEDTIME SC Last administered on 08/16/18 11:57; Admin Dose 1 UNIT; Start 08/13/18 at 21:47 Miscellaneous Information 1 ea NOTE XX ; Start 08/13/18 at 21:47 Aspirin (Aspirin) 81 mg DAILY PO Last administered on 08/16/18 08:37; Admin Dose 81 MG; Start 08/13/18 at 21:47 Metformin HCl (Glucophage) 500 mg WITH DINNER PO Last administered on 08/15/18 17:38; Admin Dose 500 MG; Start 08/13/18 at 21:47 Enoxaparin Sodium (Lovenox) 40 mg DAILY SC Last administered on 08/16/18 08:37; Admin Dose 40 MG; Start 08/13/18 at 21:47 Atorvastatin Calcium (Lipitor) 80 mg HS PO Last administered on 08/15/18 21:06; Admin Dose 80 MG; Start 08/13/18 at 22:02 Carvedilol (Coreg) 6.25 mg BID PO Last administered on 08/16/18 08:37; Admin Dose 6.25 MG; Start 08/13/18 at 22:11 Sacubitril/ Valsartan (Entresto 24 Mg-26 Mg) 1 tab BID PO Last administered on 08/16/18 08:36; Admin Dose 1 TAB; Start 08/13/18 at 22:11 Miscellaneous Information 1 ea NOTE XX ; Start 08/13/18 at 23:00 Glucose (Glutose) 15 gm Q15M PRN PO DECREASED GLUCOSE; Start 08/13/18 at 23:00 Glucose (Glutose) 22.5 gm Q15M PRN PO DECREASED GLUCOSE; Start 08/13/18 at 23:00 Dextrose (D50w Syringe) 25 ml Q15M PRN IV DECREASED GLUCOSE; Start 08/13/18 at 23:00 Dextrose (D50w Syringe) 50 ml Q15M PRN IV DECREASED GLUCOSE; Start 08/13/18 at 23:00 Glucagon (Glucagen) 1 mg Q15M PRN IM DECREASED GLUCOSE; Start 08/13/18 at 23:00 Glucose (Glutose) 15 gm Q15M PRN BUCCAL DECREASED GLUCOSE; Start 08/13/18 at 2 3:00 Docusate Sodium (Colace) 100 mg BID PO Last administered on 08/16/18 08:37; Admin Dose 100 MG; Start 08/14/18 at 09:00 Senna (Senokot) 1 tab HS PO Last administered on 08/15/18 21:06; Admin Dose 1 TAB; Start 08/14/18 at 21:00 Acetaminophen (Tylenol Tab) 650 mg Q4H PRN PO MILD PAIN(1-3)OR ELEVATED TEMP Last administered on 08/15/18at 22:32; Admin Dose 650 MG; Start 08/14/18 at 01:00 Bisacodyl (Dulcolax Supp) 10 mg DAILY PRN [place] CONSTIPATION; Start 08/14/18 at 01:00 Magnesium Hydroxide (Milk Of Mag) 30 ml BID PRN PO CONSTIPATION; Start 08/14/18 at 01:00 Lactulose (Enulose) 20 gm DAILY PRN PO CONSTIPATION; Start 08/14/18 at 02:00 Nitroglycerin (Nitroglycerin (Sl Tab) 0.4 Mg) 1 tab Q5M PRN SL ANGINA Last administered on 08/14/18at 14:33; Admin Dose 1 TAB; Start 08/14/18 at 14:30 Isosorbide Dinitrate (Isordil) 10 mg TID PO Last administered on 08/16/18at 11:57; Admin Dose 10 MG; Start 08/14/18 at 21:00 Assessment/Plan Additional Assessment/Plan Rehab- Left PHILIPPE infarct CVA with right-sided weakness and aphasia. Continue interdisciplinary rehab program Cardiomyopathy. Hyperlipidemia. Hypertension. Prediabetes. NICOLE BILLINGS MD Aug 16, 2018 12:32
[2018-08-16 13:24] VITALS: BP 85/55
[2018-08-16 14:00] VITALS: BP 87/55; PULSE 62; RESP 18
--- NOTE | 2018-08-16 14:58 | PN ---
Date/Time of Note Date/Time of Note DATE: 08/16/18 TIME: 14:56 Assessment/Plan VTE Prophylaxis Risk score (from Nsg)>0 risk: 2 SCD applied (from Nsg): Yes Pharmacological prophylaxis: LMWH Lines/Catheters IV Catheter Type (from Nrsg): Saline Lock Urinary Cath still in place: No Assessment/Plan Hospital Course SUBJECTIVE: doing well. good participation w/PT.No further chest pain/discom fort. OBJECTIVE: Vital signs-see below PHYSICAL EXAM: Constitutional: Well-developed, adequately built, lying in bed comfortably. Psych: nl mood/affect, no complaints Head: atraumatic, normocephalic Eyes: nl conjunctiva, nl sclera ENMT: mucosa pink and moist, nl external ears & nose Neck: non-tender, supple Respiratory: clear to auscultation, normal air movement Cardiovascular: nl pulses, regular rate and rhythm Gastrointestinal: non-tender, soft, bowel sounds active in all 4 quadrants. Musculoskeletal/extremities: nl extremities to inspection, motor strength equal bilaterally, no focal deficit. Normal pulses,no cyanosis, no edema. Neurological: Alert oriented 3,nl speech, nl strength Skin: nl turgor ASSESSMENT/PLAN: 1. Chest pain, likely musculoskeletal -Resolved -ACS ruled out. 2.Acute CVA -Continue aspirin/statin. -Keep normotensive blood pressure goals. 3. CHF, systolic with LVEF 20-25% -on coreg, aldactone, lasix,Nitrate, and entresto 4. Cardiomyopathy -Treatment as outlined in #3.Imdur added yesterday. 5. HTN, controlled -Continue antihypertensive 6. Dyslipidemia - on lipitor 7. DMII - on metformin and ISS 8. Alcohol use/possible substance abuse. - assistance . DVT prophylaxis: lovenox Patient was seen in collaboration with . Result Diagram: 08/14/18 0603 08/14/18 0603 Results 24hrs Laboratory Tests Test 08/15/18 17:30 08/15/18 21:04 08/16/18 07:44 08/16/18 11:32 Bedside Glucose 123 120 110 148 Exam/Review of Systems Exam Vitals Vital Signs Date Temp Pulse Resp B/P (MAP) Pulse Ox O2 O2 Flow FiO2 Time Delivery Rate 08/16/18 85/55 (65) 13:24 08/16/18 98.5 75 18 96 Room Air 07:30 08/14/18 1.0 14:38 Intake and Output 08/15/18 08/15/18 08/16/18 1515:00 23:00 07:00 IntakeIntake Total 1200 ml 700 ml OutputOutput Total 600 ml BalanceBalance 600 ml 700 ml Results Results 24hrs Laboratory Tests Test 08/15/18 17:30 08/15/18 21:04 08/16/18 07:44 08/16/18 11:32 Bedside Glucose 123 120 110 148 Medications Medication Current Medications Furosemide (Lasix) 20 mg BID DIURETICS PO Last administered on 08/16/18 06:25; Admin Dose 20 MG; Start 08/13/18 at 21:47 Spironolactone (Aldactone) 25 mg DAILY PO Last administered on 08/16/18 08:36; Admin Dose 25 MG; Start 08/13/18 at 21:47 Thiamine HCl (Vitamin B1) 100 mg DAILY PO Last administered on 08/16/18 08:37; Admin Dose 100 MG; Start 08/13/18 at 21:47 Diagnostic Test (Pha) (Accu-Chek) 1 ea 02 XX ; Start 08/13/18 at 21:47 Insulin Aspart (Novolog Insulin Pen) NOVOLOG *MILD* ALGORITHM WITH MEALS BEDTIM E SC Last administered on 08/16/18 11:57; Admin Dose 1 UNIT; Start 08/13/18 at 21:47 Miscellaneous Information 1 ea NOTE XX ; Start 08/13/18 at 21:47 Aspirin (Aspirin) 81 mg DAILY PO Last administered on 08/16/18 08:37; Admin Dose 81 MG; Start 08/13/18 at 21:47 Metformin HCl (Glucophage) 500 mg WITH DINNER PO Last administered on 08/15/18 17:38; Admin Dose 500 MG; Start 08/13/18 at 21:47 Enoxaparin Sodium (Lovenox) 40 mg DAILY SC Last administered on 08/16/18 08:37; Admin Dose 40 MG; Start 08/13/18 at 21:47 Atorvastatin Calcium (Lipitor) 80 mg HS PO Last administered on 08/15/18 21:06; Admin Dose 80 MG; Start 08/13/18 at 22:02 Carvedilol (Coreg) 6.25 mg BID PO Last administered on 08/16/18 08:37; Admin Dose 6.25 MG; Start 08/13/18 at 22:11 Sacubitril/ Valsartan (Entresto 24 Mg-26 Mg) 1 tab BID PO Last administered on 08/16/18 08:36; Admin Dose 1 TAB; Start 08/13/18 at 22:11 Miscellaneous Information 1 ea NOTE XX ; Start 08/13/18 at 23:00 Glucose (Glutose) 15 gm Q15M PRN PO DECREASED GLUCOSE; Start 08/13/18 at 23:00 Glucose (Glutose) 22.5 gm Q15M PRN PO DECREASED GLUCOSE; Start 08/13/18 at 23:00 Dextrose (D50w Syringe) 25 ml Q15M PRN IV DECREASED GLUCOSE; Start 08/13/18 at 23:00 Dextrose (D50w Syringe) 50 ml Q15M PRN IV DECREASED GLUCOSE; Start 08/13/18 at 23:00 Glucagon (Glucagen) 1 mg Q15M PRN IM DECREASED GLUCOSE; Start 08/13/18 at 23:00 Glucose (Glutose) 15 gm Q15M PRN BUCCAL DECREASED GLUCOSE; Start 08/13/18 at 23:00 Docusate Sodium (Colace) 100 mg BID PO Last administered on 08/16/18 08:37; Admin Dose 100 MG; Start 08/14/18 at 09:00 Senna (Senokot) 1 tab HS PO Last administered on 08/15/18 21:06; Admin Dose 1 TAB; Start 08/14/18 at 21:00 Acetaminophen (Tylenol Tab) 650 mg Q4H PRN PO MILD PAIN(1-3)OR ELEVATED TEMP Last administered on 08/15/18 22:32; Admin Dose 650 MG; Start 08/14/18 at 01:00 Bisacodyl (Dulcolax Supp) 10 mg DAILY PRN [place] CONSTIPATION; Start 08/14/18 at 01:00 Magnesium Hydroxide (Milk Of Mag) 30 ml BID PRN PO CONSTIPATION; Start 08/14/18 at 01:00 Lactulose (Enulose) 20 gm DAILY PRN PO CONSTIPATION; Start 08/14/18 at 02:00 Nitroglycerin (Nitroglycerin (Sl Tab) 0.4 Mg) 1 tab Q5M PRN SL ANGINA Last administered on 4/3/19at 14:33; Admin Dose 1 TAB; Start 08/14/18 at 14:30 Isosorbide Dinitrate (Isordil) 10 mg TID PO Last administered on 08/16/18at 11:57; Admin Dose 10 MG; Start 08/14/18 at 21:00 AMANDA MENDEZ NP Aug 16, 2018 14:58
--- NOTE | 2018-08-16 15:49 | CONS ---
Assessment/Plan Assessment/Plan Hospital Course (Demo Recall) IMPRESSION: 1. Cardiomyopathy approximately 20% to 25% by echo 07/30. 2. Congestive heart failure, systolic, acute on chronic. 3. Hypertension, under reasonable control. 4. Dyslipidemia. 5. History of myocardial infarction. 6. Acute cerebrovascular accident with right upper and lower extremity weakness, paralysis. 7. Chest pain-acute onset today with inprovement after nitro. Neg trop x 3 since chest pain epissode 8. Abnl ECG-with deep TWI across precordium in setting of acute CVA likely cerebral T waves. Had cardiac CTA 06/13/18 with no sig epicardial CAD and calcium score of 0. A strong independent marker of low liklihood of CV events over next 1-2 years. ? vasospasm Recc; -Continue coreg/entresto but consider slight decrease in dose given borderline hotn today -Continue lasix and aldactone and follow volume status closely -Continue statin -isordil being held due to low BP and thus will start ranexa and follow for recurrent chest pain -PT/OT Consultation Date/Type/Reason Admit Date/Time Aug 13, 2018 at 18:49 Initial Consult Date 08/13/18 Type of Consult Cardiology Reason for Consultation Cardiomyopathy Requesting Provider: AMANDA MENDEZ NP Date/Time of Note DATE: 08/16/18 TIME: 15:47 Exam/Review of Systems Vital Signs Vitals Vital Signs Date Temp Pulse Resp B/P (MAP) Pulse Ox O2 O2 Flow FiO2 Time Delivery Rate 08/16/18 85/55 (65) 13:24 08/16/18 98.5 75 18 96 Room Air 07:30 08/14/18 1.0 14:38 Intake and Output 08/15/18 08/15/18 08/16/18 1515:00 23:00 07:00 IntakeIntake Total 1200 ml 700 ml OutputOutput Total 600 ml BalanceBalance 600 ml 700 ml Exam Exam Review of Systems: CONSTITUTIONAL: No fevers, chills. PULMONARY: No sob CARDIOVASCULAR: No chest pain/palpitations GASTROINTESTINAL: No nausea/vomiting. GENITOURINARY: No hematuria/dysuria. MUSCULOSKELETAL: No myagias/arthalgias. PSYCHIATRIC: The patient denies depression. NEUROLOGIC: focal weakness Constitutional: alert Psych: no complaints Head: normocephalic ENMT: mucosa pink and moist Neck: supple, jvd (9 cm water) Respiratory: clear to auscultation Cardiovascular: regular rate and rhythm Gastrointestinal: soft, non-tender Musculoskeletal: muscle tone (normal) Extremities: edema (none) Neurological: focal weakness (R UE/LE) Labs Result Diagram: 08/14/1803 08/14/18602 Results 24hrs Laboratory Tests Test 08/15/18 17:30 08/15/18 21:04 08/16/18 07:44 08/16/18 11:32 Bedside Glucose 123 120 110 148 Medications Medications Current Medications Furosemide (Lasix) 20 mg BID DIURETICS PO Last administered on 08/16/18 06:25; Admin Dose 20 MG; Start 08/13/18 at 21:47 Spironolactone (Aldactone) 25 mg DAILY PO Last administered on 08/16/18 08:36; Admin Dose 25 MG; Start 08/13/18 at 21:47 Thiamine HCl (Vitamin B1) 100 mg DAILY PO Last administered on 08/16/18 08:37; Admin Dose 100 MG; Start 08/13/18 at 21:47 Diagnostic Test (Pha) (Accu-Chek) 1 ea 02 XX ; Start 08/13/18 at 21:47 Insulin Aspart (Novolog Insulin Pen) NOVOLOG *MILD* ALGORITHM WITH MEALS BEDTIME SC Last administered on 08/16/18 11:57; Admin Dose 1 UNIT; Start 08/13/18 at 21:47 Miscellaneous Information 1 ea NOTE XX ; Start 08/13/18 at 21:47 Aspirin (Aspirin) 81 mg DAILY PO Last administered on 08/16/18 08:37; Admin Dose 81 MG; Start 08/13/18 at 21:47 Metformin HCl (Glucophage) 500 mg WITH DINNER PO Last administered on 08/15/18 17:38; Admin Dose 500 MG; Start 08/13/18 at 21:47 Enoxaparin Sodium (Lovenox) 40 mg DAILY SC Last administered on 08/16/18 08:37; Admin Dose 40 MG; Start 08/13/18 at 21:47 Atorvastatin Calcium (Lipitor) 80 mg HS PO Last administered on 08/15/18 21:06; Admin Dose 80 MG; Start 08/13/18 at 22:02 Carvedilol (Coreg) 6.25 mg BID PO Last administered on 08/16/18 08:37; Admin Dose 6.25 MG; Start 08/13/18 at 22:11 Sacubitril/ Valsartan (Entresto 24 Mg-26 Mg) 1 tab BID PO Last administered on 08/16/18 08:36; Admin Dose 1 TAB; Start 08/13/18 at 22:11 Miscellaneous Information 1 ea NOTE XX ; Start 08/13/18 at 23:00 Glucose (Glutose) 15 gm Q15M PRN PO DECREASED GLUCOSE; Start 08/13/18 at 23:00 Glucose (Glutose) 22.5 gm Q15M PRN PO DECREASED GLUCOSE; Start 08/13/18 at 23:00 Dextrose (D50w Syringe) 25 ml Q15M PRN IV DECREASED GLUCOSE; Start 08/13/18 at 23:00 Dextrose (D50w Syringe) 50 ml Q15M PRN IV DECREASED GLUCOSE; Start 08/13/18 at 23:00 Glucagon (Glucagen) 1 mg Q15M PRN IM DECREASED GLUCOSE; Start 08/13/18 at 23:00 Glucose (Glutose) 15 gm Q15M PRN BUCCAL DECREASED GLUCOSE; Start 08/13/18 at 23:00 Docusate Sodium (Colace) 100 mg BID PO Last administered on 08/16/18 08:37; Admin Dose 100 MG; Start 08/14/18 at 09:00 Senna (Senokot) 1 tab HS PO Last administered on 08/15/18at 21:06; Admin Dose 1 TAB; Start 08/14/18 at 21:00 Acetaminophen (Tylenol Tab) 650 mg Q4H PRN PO MILD PAIN(1-3)OR ELEVATED TEMP Last administered on 08/15/18at 22:32; Admin Dose 650 MG; Start 08/14/18 at 01:00 Bisacodyl (Dulcolax Supp) 10 mg DAILY PRN [place] CONSTIPATION; Start 08/14/18 at 01:00 Magnesium Hydroxide (Milk Of Mag) 30 ml BID PRN PO CONSTIPATION; Start 08/14/18 at 01:00 Lactulose (Enulose) 20 gm DAILY PRN PO CONSTIPATION; Start 08/14/18 at 02:00 Nitroglycerin (Nitroglycerin (Sl Tab) 0.4 Mg) 1 tab Q5M PRN SL ANGINA Last administered on 08/14/18at 14:33; Admin Dose 1 TAB; Start 08/14/18 at 14:30 Isosorbide Dinitrate (Isordil) 10 mg TID PO Last administered on 08/16/18at 11:57; Admin Dose 10 MG; Start 08/14/18 at 21:00 AGUSTIN DONG Aug 16, 2018 15:49
[2018-08-16] MEDS: metFORMIN 500 MG TAB PO SCH (16:55)
[2018-08-16 19:42] VITALS: BP 107/68; PULSE 74; RESP 18
[2018-08-16] MEDS: SENNA TAB PO SCH (21:14)
[2018-08-16] MEDS: ATORVASTATIN 80 MG TAB PO SCH (21:20)
[2018-08-16] MEDS: RANOLAZINE (SR) 500 MG TAB PO SCH (21:21)
[2018-08-17] VITALS (8 sets, daily range): BP systolic 88–115; BP diastolic 54–96; PULSE 78–97; RESP 16–19
[2018-08-17] MEDS: ACCU-CHEK XX SCH (02:00)
[2018-08-17] MEDS: FUROSEMIDE 20 MG TAB PO SCH ×2 (06:25→18:19)
[2018-08-17] MEDS: INSULIN ASPART [NOVOLOG] 3 ML PEN SC SCH ×4 (07:35→20:52)
[2018-08-17] MEDS: THIAMINE 100 MG TAB PO SCH (08:44)
[2018-08-17] MEDS: DOCUSATE SODIUM 100 MG CAP PO SCH ×2 (08:44→20:48)
[2018-08-17] MEDS: ASPIRIN 81 MG TAB PO SCH (09:04)
[2018-08-17] MEDS: ENOXAPARIN 40 MG/0.4 ML SYG SC SCH (09:10)
[2018-08-17] MEDS: RANOLAZINE (SR) 500 MG TAB PO SCH ×2 (09:10→20:49)
[2018-08-17] MEDS: ISOSORBIDE DINITRATE 10 MG TAB PO SCH ×2 (09:15→13:00)
[2018-08-17] MEDS: SPIRONOLACTONE 25 MG TAB PO SCH (09:15)
[2018-08-17] MEDS: SACUBITRIL/VALSARTAN (24mg-26mg) TABLET PO SCH ×2 (09:15→20:49)
--- NOTE | 2018-08-17 09:38 | PN ---
Date/Time of Note Date/Time of Note DATE: 08/17/18 TIME: 09:37 Subjective AWAKE ALERT ATTENTIVE Objective Vital Signs Date Temp Pulse Resp B/P (MAP) Pulse Ox O2 O2 Flow FiO2 Time Delivery Rate 08/17/18 97.9 80 18 114/62 96 Room Air 02:00 (79) 08/14/18 1.0 14:38 Intake and Output 08/16/18 08/16/18 08/17/18 1515:00 23:00 07:00 IntakeIntake Total 1580 ml 1050 ml OutputOutput Total 620 ml 400 ml BalanceBalance 960 ml 650 ml Exam LUNGS CTA COR RRR BALANACE FAIR CLOF XT AND GAIT MOD/MAX A Results/Medications Result Diagram: 08/14/1803 08/14/18 0603 Results 24 hrs Laboratory Tests Test 08/16/18 11:32 08/16/18 16:53 08/16/18 20:51 08/17/18 08:08 Bedside Glucose 148 101 93 132 Medications Current Medications Furosemide (Lasix) 20 mg BID DIURETICS PO Last administered on 08/17/18 06:25; Admin Dose 20 MG; Start 08/13/18 at 21:47 Spironolactone (Aldactone) 25 mg DAILY PO Last administered on 08/17/18 09:15; Admin Dose 25 MG; Start 08/13/18 at 21:47 Thiamine HCl (Vitamin B1) 100 mg DAILY PO Last administered on 08/17/18 08:44; Admin Dose 100 MG; Start 08/13/18 at 21:47 Diagnostic Test (Pha) (Accu-Chek) 1 ea 02 XX ; Start 08/13/18 at 21:47 Insulin Aspart (Novolog Insulin Pen) NOVOLOG *MILD* ALGORITHM WITH MEALS BEDTIME SC Last administered on 08/16/18 11:57; Admin Dose 1 UNIT; Start 08/13/18 at 21:47 Miscellaneous Information 1 ea NOTE XX ; Start 08/13/18 at 21:47 Aspirin (Aspirin) 81 mg DAILY PO Last administered on 08/17/18 09:04; Admin Dose 81 MG; Start 08/13/18 at 21:47 Metformin HCl (Glucophage) 500 mg WITH DINNER PO Last administered on 08/16/18 16:55; Admin Dose 500 MG; Start 08/13/18 at 21:47 Enoxaparin Sodium (Lovenox) 40 mg DAILY SC Last administered on 08/17/18 09:10; Admin Dose 40 MG; Start 08/13/18 at 21:47 Atorvastatin Calcium (Lipitor) 80 mg HS PO Last administered on 08/16/18at 21:20; Admin Dose 80 MG; Start 08/13/18 at 22:02 Sacubitril/ Valsartan (Entresto 24 Mg-26 Mg) 1 tab BID PO Last administered on 08/17/18 09:15; Admin Dose 1 TAB; Start 08/13/18 at 22:11 Miscellaneous Information 1 ea NOTE XX ; Start 08/13/18 at 23:00 Glucose (Glutose) 15 gm Q15M PRN PO DECREASED GLUCOSE; Start 08/13/18 at 23:00 Glucose (Glutose) 22.5 gm Q15M PRN PO DECREASED GLUCOSE; Start 08/13/18 at 23:00 Dextrose (D50w Syringe) 25 ml Q15M PRN IV DECREASED GLUCOSE; Start 08/13/18 at 23:00 Dextrose (D50w Syringe) 50 ml Q15M PRN IV DECREASED GLUCOSE; Start 08/13/18 at 23:00 Glucagon (Glucagen) 1 mg Q15M PRN IM DECREASED GLUCOSE; Start 08/13/18 at 23:00 Glucose (Glutose) 15 gm Q15M PRN BUCCAL DECREASED GLUCOSE; Start 08/13/18 at 23:00 Docusate Sodium (Colace) 100 mg BID PO Last administered on 08/17/18 08:44; Ad min Dose 100 MG; Start 08/14/18 at 09:00 Senna (Senokot) 1 tab HS PO Last administered on 08/16/18at 21:14; Admin Dose 1 TAB; Start 08/14/18 at 21:00 Acetaminophen (Tylenol Tab) 650 mg Q4H PRN PO MILD PAIN(1-3)OR ELEVATED TEMP Last administered on 08/15/18at 22:32; Admin Dose 650 MG; Start 08/14/18 at 01:00 Bisacodyl (Dulcolax Supp) 10 mg DAILY PRN [place] CONSTIPATION; Start 08/14/18 at 01:00 Magnesium Hydroxide (Milk Of Mag) 30 ml BID PRN PO CONSTIPATION; Start 08/14/18 at 01:00 Lactulose (Enulose) 20 gm DAILY PRN PO CONSTIPATION; Start 08/14/18 at 02:00 Nitroglycerin (Nitroglycerin (Sl Tab) 0.4 Mg) 1 tab Q5M PRN SL ANGINA Last administered on 08/14/18 14:33; Admin Dose 1 TAB; Start 08/14/18 at 14:30 Carvedilol (Coreg) 3.125 mg BID PO Last administered on 08/17/18 08:44; Admin Dose 3.125 MG; Start 08/16/18 at 21:00 Isosorbide Dinitrate (Isordil) 5 mg TID PO Last administered on 08/17/18 09:15; Admin Dose 5 MG; Start 08/16/18 at 21:00 Ranolazine (Ranexa) 500 mg Q12 PO Last administered on 08/17/18 09:10; Admin Dose 500 MG; Start 08/16/18 at 21:00 Assessment/Plan Additional Assessment/Plan Rehab- Left PHILIPPE infarct CVA with right-sided weakness and aphasia. Continue interdisciplinary rehab program Cardiomyopathy.CARDIAC PRECAUTIONS , PACING ENERGY CONSERVATION TECHNIQUES Hyperlipidemia. Hypertension.BPS ON LOW SIDE MEDS ADJUST LIKE TO KEEP SBP >130 POST CVA Prediabetes. LUCITA BILLINGS MD Aug 17, 2018 09:38
--- NOTE | 2018-08-17 10:10 | PN ---
Date/Time of Note Date/Time of Note DATE: 08/17/18 TIME: 10:07 Assessment/Plan VTE Prophylaxis Risk score (from [facility] [place] risk: 3 SCD applied (from [facility] [place] Yes Pharmacological prophylaxis: heparin Lines/Catheters IV C[facility] (from [facility] Saline Lock Urinary Cath still in place: No Assessment/Plan Problems: (1) Cerebrovascular accident (CVA) due to stenosis of left anterior cerebral artery Onset Date: ~ 08/05/2018 Status: Acute Comment: Recuperating with a physical therapy and program from the acute rehabilitation unit. (2) Systolic CHF with reduced left ventricular function, NYHA class 3 Status: Chronic Comment: Occasions adjusted to allow for more Entresto. Cardiology is managing (3) Grade II diastolic dysfunction Status: Chronic Comment: Good blood pressure control (4) Essential hypertension Status: Chronic Comment: Good control (5) Hyperlipidemia Status: Chronic Comment: On full dose statin therapy Qualifiers: Hyperlipidemia type: pure hypercholesterolemia Qualified Codes: E78.00 - P ure hypercholesterolemia, unspecified (6) Impaired glucose tolerance Status: Chronic Comment: Stable on treatment Result Diagram: 08/14/18 0603 08/14/18 0603 Results 24hrs Laboratory Tests Test 08/16/18 11:32 08/16/18 16:53 08/16/18 20:51 08/17/18 08:08 Bedside Glucose 148 101 93 132 Subjective 24 Hr Interval Summary Free Text/Dictation That his right upper extremity is a little bit stronger but he does not have a lot with the right lower extremity Respiratory: no complaints Cardiovascular: no complaints Gastrointestinal: no complaints Genitourinary: no complaints Exam/Review of Systems Exam Vitals Vital Signs Date Temp Pulse Resp B/P (MAP) Pulse Ox O2 O2 Flow FiO2 Time Delivery Rate 08/17/18 98.0 81 16 106/62 96 Room Air 07:00 (77) 08/14/18 1.0 14:38 Intake and Output 08/16/18 08/16/18 08/17/18 1414:59 22:59 06:59 IntakeIntake Total 1580 ml 1050 ml OutputOutput Total 620 ml 400 ml BalanceBalance 960 ml 650 ml Constitutional: alert, oriented Neck: supple, non-tender Respiratory: clear to auscultation, normal air movement Cardiovascular: regular rate and rhythm, nl pulses, other (No S3) Neurological: other (Limited strength at the right shoulder girdle, approximately 4- out of 5 right lower extremity 3 out of 5) Results Results 24hrs Laboratory Tests Test 08/16/18 11:32 08/16/18 16:53 08/16/18 20:51 08/17/18 08:08 Bedside Glucose 148 101 93 132 Medications Medication Current Medications Furosemide (Lasix) 20 mg BID DIURETICS PO Last administered on 08/17/18 06:25; Admin Dose 20 MG; Start 08/13/18 at 21:47 Spironolactone (Aldactone) 25 mg DAILY PO Last administered on 08/17/18 09:15; Admin Dose 25 MG; Start 08/13/18 at 21:47 Thiamine HCl (Vitamin B1) 100 mg DAILY PO Last administered on 08/17/18 08:44; Admin Dose 100 MG; Start 08/13/18 at 21:47 Diagnostic Test (Pha) (Accu-Chek) 1 ea 02 XX ; Start 08/13/18 at 21:47 Insulin Aspart (Novolog Insulin Pen) NOVOLOG *MILD* ALGORITHM WITH MEALS B EDTIME SC Last administered on 08/16/18 11:57; Admin Dose 1 UNIT; Start 08/13/18 at 21:47 Miscellaneous Information 1 ea NOTE XX ; Start 08/13/18 at 21:47 Aspirin (Aspirin) 81 mg DAILY PO Last administered on 08/17/18 09:04; Admin Dose 81 MG; Start 08/13/18 at 21:47 Metformin HCl (Glucophage) 500 mg WITH DINNER PO Last administered on 08/16/18 16:55; Admin Dose 500 MG; Start 08/13/18 at 21:47 Enoxaparin Sodium (Lovenox) 40 mg DAILY SC Last administered on 08/17/18 09:10; Admin Dose 40 MG; Start 08/13/18 at 21:47 Atorvastatin Calcium (Lipitor) 80 mg HS PO Last administered on 08/16/18 21:20; Admin Dose 80 MG; Start 08/13/18 at 22:02 Sacubitril/ Valsartan (Entresto 24 Mg-26 Mg) 1 tab BID PO Last administered on 08/17/18 09:15; Admin Dose 1 TAB; Start 08/13/18 at 22:11 Miscellaneous Information 1 ea NOTE XX ; Start 08/13/18 at 23:00 Glucose (Glutose) 15 gm Q15M PRN PO DECREASED GLUCOSE; Start 08/13/18 at 23:00 Glucose (Glutose) 22.5 gm Q15M PRN PO DECREASED GLUCOSE; Start 08/13/18 at 23:00 Dextrose (D50w Syringe) 25 ml Q15M PRN IV DECREASED GLUCOSE; Start 08/13/18 at 23:00 Dextrose (D50w Syringe) 50 ml Q15M PRN IV DECREASED GLUCOSE; Start 08/13/18 at 23:00 Glucagon (Glucagen) 1 mg Q15M PRN IM DECREASED GLUCOSE; Start 08/13/18 at 23:00 Glucose (Glutose) 15 gm Q15M PRN BUCCAL DECREASED GLUCOSE; Start 08/13/18 at 23:00 Docusate Sodium (Colace) 100 mg BID PO Last administered on 08/17/18 08:44; Admin Dose 100 MG; Start 08/14/18 at 09:00 Senna (Senokot) 1 tab HS PO Last administered on 08/16/18 21:14; Admin Dose 1 TAB; Start 08/14/18 at 21:00 Acetaminophen (Tylenol Tab) 650 mg Q4H PRN PO MILD PAIN(1-3)OR ELEVATED TEMP Last administered on 08/15/18 22:32; Admin Dose 650 MG; Start 08/14/18 at 01:00 Bisacodyl (Dulcolax Supp) 10 mg DAILY PRN [place] CONSTIPATION; Start 08/14/18 at 01:00 Magnesium Hydroxide (Milk Of Mag) 30 ml BID PRN PO CONSTIPATION; Start 08/14/18 at 01:00 Lactulose (Enulose) 20 gm DAILY PRN PO CONSTIPATION; Start 08/14/18 at 02:00 Nitroglycerin (Nitroglycerin (Sl Tab) 0.4 Mg) 1 tab Q5M PRN SL ANGINA Last administered on 08/14/18 14:33; Admin Dose 1 TAB; Start 08/14/18 at 14:30 Carvedilol (Coreg) 3.125 mg BID PO Last administered on 08/17/18 08:44; Admin Dose 3.125 MG; Start 08/16/18 at 21:00 Isosorbide Dinitrate (Isordil) 5 mg TID PO Last administered on 4/6/19at 09:15; Admin Dose 5 MG; Start 08/16/18 at 21:00 Ranolazine (Ranexa) 500 mg Q12 PO Last administered on 08/17/18at 09:10; Admin Dose 500 MG; Start 08/16/18 at 21:00 SHANITA COLON MD Aug 17, 2018 10:09
--- NOTE | 2018-08-17 18:12 | CONS ---
Assessment/Plan Assessment/Plan Hospital Course (Demo Recall) IMPRESSION: 1. Cardiomyopathy approximately 20% to 25% by echo 07/30. 2. Congestive heart failure, systolic, acute on chronic. 3. Hypertension, under reasonable control. 4. Dyslipidemia. 5. History of myocardial infarction. 6. Acute cerebrovascular accident with right upper and lower extremity weakness, paralysis. 7. Chest pain-acute onset today with inprovement after nitro. Neg trop x 3 since chest pain epissode 8. Abnl ECG-with deep TWI across precordium in setting of acute CVA likely cerebral T waves. Had cardiac CTA 06/13/18 with no sig epicardial CAD and calcium score of 0. A strong independent marker of low liklihood of CV events over next 1-2 years. ? vasospasm Recc; -Continue coreg/entresto as tolerated and consider giving after physical therapy session and -Continue lasix and aldactone and follow volume status closely -continue ranexa and will d/c isordil and follow BP clsoely -Continue statin -PT/OT Consultation Date/Type/Reason Admit Date/Time Aug 13, 2018 at 18:49 Initial Consult Date 08/13/18 Type of Consult Cardiology Reason for Consultation cardiomyopathy/chest pain Requesting Provider: AMANDA MENDEZ NP Date/Time of Note DATE: 08/17/18 TIME: 18:09 Exam/Review of Systems Vital Signs Vitals Vital Signs Date Temp Pulse Resp B/P (MAP) Pulse Ox O2 O2 Flow FiO2 Time Delivery Rate 08/17/18 98.0 80 16 113/74 99 Room Air 14:00 (87) 08/14/18 1.0 14:38 Intake and Output 08/16/18 08/16/18 08/17/18 1515:00 23:00 07:00 IntakeIntake Total 1580 ml 1050 ml OutputOutput Total 620 ml 400 ml BalanceBalance 960 ml 650 ml Exam Exam Review of Systems: CONSTITUTIONAL: No fevers, chills. PULMONARY: No sob CARDIOVASCULAR: No chest pain/palpitations GASTROINTESTINAL: No nausea/vomiting. GENITOURINARY: No hematuria/dysuria. MUSCULOSKELETAL: No myagias/arthalgias. PSYCHIATRIC: The patient denies depression. NEUROLOGIC: focal weakness Constitutional: alert Psych: no complaints Head: normocephalic ENMT: mucosa pink and moist Neck: supple, jvd (9 cm water) Respiratory: diminished breath sounds Cardiovascular: regular rate and rhythm Gastrointestinal: soft, non-tender Musculoskeletal: muscle tone (normal) Extremities: edema (no focal deficit) Neurological: other (No focal deficits) Labs Result Diagram: 08/14/1860208/14/18602 Results 24hrs Laboratory Tests Test 08/16/18 20:51 08/17/18 08:08 08/17/18 12:04 08/17/18 17:42 Bedside Glucose 93 132 135 96 Medications Medications Current Medications Furosemide (Lasix) 20 mg BID DIURETICS PO Last administered on 08/17/18 06:25; Admin Dose 20 MG; Start 08/13/18 at 21:47 Spironolactone (Aldactone) 25 mg DAILY PO Last administered on 08/17/18 09:15; Admin Dose 25 MG; Start 08/13/18 at 21:47 Thiamine HCl (Vitamin B1) 100 mg DAILY PO Last administered on 08/17/18 08:44; Admin Dose 100 MG; Start 08/13/18 at 21:47 Diagnostic Test (Pha) (Accu-Chek) 1 ea 02 XX ; Start 08/13/18 at 21:47 Insulin Aspart (Novolog Insulin Pen) NOVOLOG *MILD* ALGORITHM WITH MEALS BEDTIME SC Last administered on 08/16/18 11:57; Admin Dose 1 UNIT; Start 08/13/18 at 21:47 Miscellaneous Information 1 ea NOTE XX ; Start 08/13/18 at 21:47 Aspirin (Aspirin) 81 mg DAILY PO Last administered on 08/17/18 09:04; Admin Dose 81 MG; Start 08/13/18 at 21:47 Metformin HCl (Glucophage) 500 mg WITH DINNER PO Last administered on 08/16/18 16:55; Admin Dose 500 MG; Start 08/13/18 at 21:47 Enoxaparin Sodium (Lovenox) 40 mg DAILY SC Last administered on 08/17/18 09:10; Admin Dose 40 MG; Start 08/13/18 at 21:47 Atorvastatin Calcium (Lipitor) 80 mg HS PO Last administered on 08/16/18 21:20; Admin Dose 80 MG; Start 08/13/18 at 22:02 Sacubitril/ Valsartan (Entresto 24 Mg-26 Mg) 1 tab BID PO Last administered on 08/17/18 09:15; Admin Dose 1 TAB; Start 08/13/18 at 22:11 Miscellaneous Information 1 ea NOTE XX ; Start 08/13/18 at 23:00 Glucose (Glutose) 15 gm Q15M PRN PO DECREASED GLUCOSE; Start 08/13/18 at 23:00 Glucose (Glutose) 22.5 gm Q15M PRN PO DECREASED GLUCOSE; Start 08/13/18 at 23:00 Dextrose (D50w Syringe) 25 ml Q15M PRN IV DECREASED GLUCOSE; Start 08/13/18 at 23:00 Dextrose (D50w Syringe) 50 ml Q15M PRN IV DECREASED GLUCOSE; Start 08/13/18 at 23:00 Glucagon (Glucagen) 1 mg Q15M PRN IM DECREASED GLUCOSE; Start 08/13/18 at 23:00 Glucose (Glutose) 15 gm Q15M PRN BUCCAL DECREASED GLUCOSE; Start 08/13/18 at 23:00 Docusate Sodium (Colace) 100 mg BID PO Last administered on 08/17/18at 08:44; A dmin Dose 100 MG; Start 08/14/18 at 09:00 Senna (Senokot) 1 tab HS PO Last administered on 08/16/18 21:14; Admin Dose 1 TAB; Start 08/14/18 at 21:00 Acetaminophen (Tylenol Tab) 650 mg Q4H PRN PO MILD PAIN(1-3)OR ELEVATED TEMP Last administered on 08/15/18at 22:32; Admin Dose 650 MG; Start 08/14/18 at 01:00 Bisacodyl (Dulcolax Supp) 10 mg DAILY PRN [place] CONSTIPATION; Start 08/14/18 at 01:00 Magnesium Hydroxide (Milk Of Mag) 30 ml BID PRN PO CONSTIPATION; Start 08/14/18 at 01:00 Lactulose (Enulose) 20 gm DAILY PRN PO CONSTIPATION; Start 08/14/18 at 02:00 Nitroglycerin (Nitroglycerin (Sl Tab) 0.4 Mg) 1 tab Q5M PRN SL ANGINA Last administered on 08/14/18at 14:33; Admin Dose 1 TAB; Start 08/14/18 at 14:30 Carvedilol (Coreg) 3.125 mg BID PO Last administered on 08/17/18 08:44; Admin Dose 3.125 MG; Start 08/16/18 at 21:00 Isosorbide Dinitrate (Isordil) 5 mg TID PO Last administered on 08/17/18 09:15; Admin Dose 5 MG; Start 08/16/18 at 21:00 Ranolazine (Ranexa) 500 mg Q12 PO Last administered on 08/17/18 09:10; Admin Dose 500 MG; Start 08/16/18 at 21:00 AGUSTIN DONG Aug 17, 2018 18:12
[2018-08-17] MEDS: metFORMIN 500 MG TAB PO SCH (18:18)
[2018-08-17] MEDS: SENNA TAB PO SCH (20:49)
[2018-08-17] MEDS: ATORVASTATIN 80 MG TAB PO SCH (20:49)
[2018-08-18] MEDS: ACCU-CHEK XX SCH ×2 (01:36→23:47)
[2018-08-18 02:52] VITALS: BP 109/61; PULSE 80; RESP 18
[2018-08-18] MEDS: FUROSEMIDE 20 MG TAB PO SCH ×2 (06:06→18:50)
[2018-08-18 07:00] VITALS: BP 114/66; PULSE 62; RESP 18
[2018-08-18] MEDS: INSULIN ASPART [NOVOLOG] 3 ML PEN SC SCH ×4 (07:35→21:00)
--- NOTE | 2018-08-18 07:57 | PN ---
Date/Time of Note Date/Time of Note DATE: 08/18/18 TIME: 07:56 Subjective AWAKE ALERT ATTENTIVE NO C/O Objective Vital Signs Date Temp Pulse Resp B/P (MAP) Pulse Ox O2 O2 Flow FiO2 Time Delivery Rate 08/18/18 98.2 80 18 109/61 97 Room Air 02:52 (77) 08/14/18 1.0 14:38 Intake and Output 08/17/18 08/17/18 08/18/18 1515:00 23:00 07:00 IntakeIntake Total 1100 ml OutputOutput Total 680 ml 800 ml BalanceBalance 420 ml -800 ml Exam LUNGS CTA COR RRR R MOE RUE 4-/5 CAN OPPOSE 1-5, RLE 2/5 CLOF MOD/MAX XT AND GAIT Results/Medications Result Diagram: 08/14/18 0603 08/14/18 0603 Results 24 hrs Laboratory Tests Test 08/17/18 08:08 08/17/18 12:04 08/17/18 17:42 08/17/18 20:51 Bedside Glucose 132 135 96 153 Test 08/18/18 07:36 Bedside Glucose 119 Medications Current Medications Furosemide (Lasix) 20 mg BID DIURETICS PO Last administered on 08/18/18at 06:06; Admin Dose 20 MG; Start 08/13/18 at 21:47 Spironolactone (Aldactone) 25 mg DAILY PO Last administered on 08/17/18at 09:15; Admin Dose 25 MG; Start 08/13/18 at 21:47 Thiamine HCl (Vitamin B1) 100 mg DAILY PO Last administered on 08/17/18at 08:44; Admin Dose 100 MG; Start 08/13/18 at 21:47 Diagnostic Test (Pha) (Accu-Chek) 1 ea 02 XX ; Start 08/13/18 at 21:47 Insulin Aspart (Novolog Insulin Pen) NOVOLOG *MILD* ALGORITHM WITH MEALS BEDTIME SC Last administered on 08/16/18at 11:57; Admin Dose 1 UNIT; Start 08/13/18 at 21:47 Miscellaneous Information 1 ea NOTE XX ; Start 08/13/18 at 21:47 Aspirin (Aspirin) 81 mg DAILY PO Last administered on 08/17/18at 09:04; Admin Dos e 81 MG; Start 08/13/18 at 21:47 Metformin HCl (Glucophage) 500 mg WITH DINNER PO Last administered on 08/17/18 18:18; Admin Dose 500 MG; Start 08/13/18 at 21:47 Enoxaparin Sodium (Lovenox) 40 mg DAILY SC Last administered on 08/17/18 09:10; Admin Dose 40 MG; Start 08/13/18 at 21:47 Atorvastatin Calcium (Lipitor) 80 mg HS PO Last administered on 08/17/18 20:49; Admin Dose 80 MG; Start 08/13/18 at 22:02 Sacubitril/ Valsartan (Entresto 24 Mg-26 Mg) 1 tab BID PO Last administered on 08/17/18 20:49; Admin Dose 1 TAB; Start 08/13/18 at 22:11 Miscellaneous Information 1 ea NOTE XX ; Start 08/13/18 at 23:00 Glucose (Glutose) 15 gm Q15M PRN PO DECREASED GLUCOSE; Start 08/13/18 at 23:00 Glucose (Glutose) 22.5 gm Q15M PRN PO DECREASED GLUCOSE; Start 08/13/18 at 23:00 Dextrose (D50w Syringe) 25 ml Q15M PRN IV DECREASED GLUCOSE; Start 08/13/18 at 23:00 Dextrose (D50w Syringe) 50 ml Q15M PRN IV DECREASED GLUCOSE; Start 08/13/18 at 23:00 Glucagon (Glucagen) 1 mg Q15M PRN IM DECREASED GLUCOSE; Start 08/13/18 at 23:00 Glucose (Glutose) 15 gm Q15M PRN BUCCAL DECREASED GLUCOSE; Start 08/13/18 at 23:00 Docusate Sodium (Colace) 100 mg BID PO Last administered on 08/17/18 08:44; Admin Dose 100 MG; Start 08/14/18 at 09:00 Senna (Senokot) 1 tab HS PO Last administered on 08/17/18 20:49; Admin Dose 1 TAB; Start 08/14/18 at 21:00 Acetaminophen (Tylenol Tab) 650 mg Q4H PRN PO MILD PAIN(1-3)OR ELEVATED TEMP Last administered on 08/15/18 22:32; Admin Dose 650 MG; Start 08/14/18 at 01:00 Bisacodyl (Dulcolax Supp) 10 mg DAILY PRN [place] CONSTIPATION; Start 08/14/18 at 01:00 Magnesium Hydroxide (Milk Of Mag) 30 ml BID PRN PO CONSTIPATION; Start 08/14/18 at 01:00 Lactulose (Enulose) 20 gm DAILY PRN PO CONSTIPATION; Start 08/14/18 at 02:00 Nitroglycerin (Nitroglycerin (Sl Tab) 0.4 Mg) 1 tab Q5M PRN SL ANGINA Last administered on 08/14/18at 14:33; Admin Dose 1 TAB; Start 08/14/18 at 14:30 Carvedilol (Coreg) 3.125 mg BID PO Last administered on 08/17/18at 08:44; Admin Dose 3.125 MG; Start 08/16/18 at 21:00 Ranolazine (Ranexa) 500 mg Q12 PO Last administered on 08/17/18at 20:49; Admin Dose 500 MG; Start 08/16/18 at 21:00 Assessment/Plan Additional Assessment/Plan Rehab- Left PHILIPPE infarct CVA with right-sided weakness and aphasia. Continue interdisciplinary rehab program, MAKING GAINS PRIMARY BARRIERS WEAKNESS AND BALANCE Cardiomyopathy.CARDIAC PRECAUTIONS , PACING ENERGY CONSERVATION TECHNIQUES Hyperlipidemia. Hypertension.BPS ON LOW SIDE MEDS ADJUST LIKE TO KEEP SBP >130 POST CVA Prediabetes. LUCITA BILLINGS MD Aug 18, 2018 07:57
[2018-08-18] MEDS: SPIRONOLACTONE 25 MG TAB PO SCH (08:19)
[2018-08-18] MEDS: THIAMINE 100 MG TAB PO SCH (08:20)
[2018-08-18] MEDS: DOCUSATE SODIUM 100 MG CAP PO SCH ×2 (08:20→20:29)
[2018-08-18] MEDS: ASPIRIN 81 MG TAB PO SCH (08:20)
[2018-08-18] MEDS: RANOLAZINE (SR) 500 MG TAB PO SCH ×2 (08:20→20:28)
[2018-08-18] MEDS: SACUBITRIL/VALSARTAN (24mg-26mg) TABLET PO SCH ×2 (08:20→20:28)
[2018-08-18] MEDS: ENOXAPARIN 40 MG/0.4 ML SYG SC SCH (08:22)
--- NOTE | 2018-08-18 12:24 | PN ---
Date/Time of Note Date/Time of Note DATE: 08/18/18 TIME: 12:22 Assessment/Plan VTE Prophylaxis Risk score (from Ns)>0 risk: 3 SCD applied (from [facility] [place] SCD contraindicated: low risk/ambulating Pharmacological prophylaxis: heparin Lines/Catheters IV Catheter Type (from [facility]): Saline Lock Urinary Cath still in place: No Assessment/Plan Problems: (1) Cerebrovascular accident (CVA) due to stenosis of left anterior cerebral artery Onset Date: ~ 08/05/2018 Status: Acute Comment: Regressing with acute rehabilitation protocol the regrettably not a lot of progress with the lower extremity. Continue current therapeutics (2) Essential hypertension Status: Chronic Comment: He has had borderline blood pressure however with discontinuation of the nitrates he is doing better. (3) Grade II diastolic dysfunction Status: Chronic Comment: Blood pressure control (4) Systolic CHF with reduced left ventricular function, NYHA class 3 Status: Chronic Comment: On a rather eloquent regimen and doing well with guidance from cardiology (5) Hyperlipidemia Status: Chronic Comment: On full dose statin therapeutics Qualifiers: Hyperlipidemia type: pure hypercholesterolemia Qualified Codes: E78.00 - Pure hypercholesterolemia, unspecified (6) Impaired glucose tolerance Status: Chronic Comment: Well compensated Result Diagram: 08/14/18 0603 08/14/18 0603 Results 24hrs Laboratory Tests Test 08/17/18 17:42 08/17/18 20:51 08/18/18 07:36 08/18/18 11:52 Bedside Glucose 96 153 119 102 Subjective 24 Hr Interval Summary Free Text/Dictation She is eating lunch. He reports that he is getting better with his right upper extremity but has not had great success with the right lower extremity Constitutional: no complaints Respiratory: no complaints Cardiovascular: no complaints Gastrointestinal: no complaints Exam/Review of Systems Exam Vitals Vital Signs Date Temp Pulse Resp B/P (MAP) Pulse Ox O2 O2 Flow FiO2 Time Delivery Rate 08/18/18 98.4 62 18 114/66 96 Room Air 07:00 (82) 08/14/18 1.0 14:38 Intake and Output 08/17/18 08/17/18 08/18/18 1414:59 22:59 06:59 IntakeIntake Total 1100 ml OutputOutput Total 680 ml 800 ml BalanceBalance 420 ml -800 ml Constitutional: alert, oriented Neck: supple, non-tender Respiratory: clear to auscultation, normal air movement Cardiovascular: regular rate and rhythm, nl pulses Results Results 24hrs Laboratory Tests Test 08/17/18 17:42 08/17/18 20:51 08/18/18 07:36 08/18/18 11:52 Bedside Glucose 96 153 119 102 Medications Medication Current Medications Furosemide (Lasix) 20 mg BID DIURETICS PO Last administered on 08/18/18 06:06; Admin Dose 20 MG; Start 08/13/18 at 21:47 Spironolactone (Aldactone) 25 mg DAILY PO Last administered on 08/18/18 08:19; Admin Dose 25 MG; Start 08/13/18 at 21:47 Thiamine HCl (Vitamin B1) 100 mg DAILY PO Last administered on 08/18/18 08:20; Admin Dose 100 MG; Start 08/13/18 at 21:47 Diagnostic Test (Pha) (Accu-Chek) 1 ea 02 XX ; Start 08/13/18 at 21:47 Insulin Aspart (Novolog Insulin Pen) NOVOLOG *MILD* ALGORITHM WITH MEALS BEDTIME SC Last administered on 08/16/18 11:57; Admin Dose 1 UNIT; Start 08/13/18 at 21:47 Miscellaneous Information 1 ea NOTE XX ; Start 08/13/18 at 21:47 Aspirin (Aspirin) 81 mg DAILY PO Last administered on 08/18/18 08:20; Admin Dose 81 MG; Start 08/13/18 at 21:47 Metformin HCl (Glucophage) 500 mg WITH DINNER PO Last administered on 08/17/18 18:18; Admin Dose 500 MG; Start 08/13/18 at 21:47 Enoxaparin Sodium (Lovenox) 40 mg DAILY SC Last administered on 08/18/18 08:22; Admin Dose 40 MG; Start 08/13/18 at 21:47 Atorvastatin Calcium (Lipitor) 80 mg HS PO Last administered on 08/17/18 20:49; Admin Dose 80 MG; Start 08/13/18 at 22:02 Sacubitril/ Valsartan (Entresto 24 Mg-26 Mg) 1 tab BID PO Last administered on 08/18/18 08:20; Admin Dose 1 TAB; Start 08/13/18 at 22:11 Miscellaneous Information 1 ea NOTE XX ; Start 08/13/18 at 23:00 Glucose (Glutose) 15 gm Q15M PRN PO DECREASED GLUCOSE; Start 08/13/18 at 23:00 Glucose (Glutose) 22.5 gm Q15M PRN PO DECREASED GLUCOSE; Start 08/13/18 at 23:00 Dextrose (D50w Syringe) 25 ml Q15M PRN IV DECREASED GLUCOSE; Start 08/13/18 at 23:00 Dextrose (D50w Syringe) 50 ml Q15M PRN IV DECREASED GLUCOSE; Start 08/13/18 at 23:00 Glucagon (Glucagen) 1 mg Q15M PRN IM DECREASED GLUCOSE; Start 08/13/18 at 23:00 Glucose (Glutose) 15 gm Q15M PRN BUCCAL DECREASED GLUCOSE; Start 08/13/18 at 23:00 Docusate Sodium (Colace) 100 mg BID PO Last administered on 08/18/18 08:20; Admin Dose 100 MG; Start 08/14/18 at 09:00 Senna (Senokot) 1 tab HS PO Last administered on 08/17/18 20:49; Admin Dose 1 TAB; Start 08/14/18 at 21:00 Acetaminophen (Tylenol Tab) 650 mg Q4H PRN PO MILD PAIN(1-3)OR ELEVATED TEMP Last administered on 08/15/18 22:32; Admin Dose 650 MG; Start 08/14/18 at 01:00 Bisacodyl (Dulcolax Supp) [address] CONSTIPATION; Start 08/14/18 at 01:00 Magnesium Hydroxide (Milk Of Mag) 30 ml BID PRN PO CONSTIPATION; Start 08/14/18 at 01:00 Lactulose (Enulose) 20 gm DAILY PRN PO CONSTIPATION; Start 08/14/18 at 02:00 Nitroglycerin (Nitroglycerin (Sl Tab) 0.4 Mg) 1 tab Q5M PRN SL ANGINA Last administered on 08/14/18 14:33; Admin Dose 1 TAB; Start 08/14/18 at 14:30 Carvedilol (Coreg) 3.125 mg BID PO Last administered on 08/18/18 08:20; Admin Dose 3.125 MG; Start 08/16/18 at 21:00 Ranolazine (Ranexa) 500 mg Q12 PO Last administered on 4/7/19at 08:20; Admin Dose 500 MG; Start 08/16/18 at 21:00 SHANITA COLON MD Aug 18, 2018 12:24
[2018-08-18 14:00] VITALS: BP 110/68; PULSE 72; RESP 18
--- NOTE | 2018-08-18 14:48 | CONS ---
Assessment/Plan Assessment/Plan Hospital Course (Demo Recall) IMPRESSION: 1. Cardiomyopathy approximately 20% to 25% by echo 07/30. 2. Congestive heart failure, systolic, acute on chronic. 3. Hypertension, under reasonable control. 4. Dyslipidemia. 5. History of myocardial infarction. 6. Acute cerebrovascular accident with right upper and lower extremity weakness, paralysis. 7. Chest pain-acute onset today with inprovement after nitro. Neg trop x 3 since chest pain epissode 8. Abnl ECG-with deep TWI across precordium in setting of acute CVA likely cerebral T waves. Had cardiac CTA 06/13/18 with no sig epicardial CAD and calcium score of 0. A strong independent marker of low liklihood of CV events over next 1-2 years. ? vasospasm Recc; -Continue coreg/entresto as tolerated and consider giving after physical therapy session as necessary with BP overall improved with d/c isoridl -Continue lasix and aldactone and follow volume status closely -continue ranexa -Continue statin -PT/OT Consultation Date/Type/Reason Admit Date/Time Aug 13, 2018 at 18:49 Initial Consult Date 08/13/18 Type of Consult Cardiology Reason for Consultation cardiomyopathy Requesting Provider: AMANDA MENDEZ NP Date/Time of Note DATE: 08/18/18 TIME: 14:46 Exam/Review of Systems Vital Signs Vitals Vital Signs Date Temp Pulse Resp B/P (MAP) Pulse Ox O2 O2 Flow FiO2 Time Delivery Rate 08/18/18 98.0 72 18 110/68 97 Room Air 14:00 (82) 08/14/18 1.0 14:38 Intake and Output 08/17/18 08/17/18 08/18/18 1515:00 23:00 07:00 IntakeIntake Total 1100 ml OutputOutput Total 680 ml 800 ml BalanceBalance 420 ml -800 ml Exam Exam Review of Systems: CONSTITUTIONAL: No fevers, chills. PULMONARY: No sob CARDIOVASCULAR: No chest pain/palpitations GASTROINTESTINAL: No nausea/vomiting. GENITOURINARY: No hematuria/dysuria. MUSCULOSKELETAL: No myagias/arthalgias. PSYCHIATRIC: The patient denies depression. NEUROLOGIC: focal weakness Constitutional: alert Psych: no complaints Head: normocephalic ENMT: mucosa pink and moist Neck: supple, jvd (9 cm water) Respiratory: clear to auscultation Cardiovascular: regular rate and rhythm Gastrointestinal: soft, non-tender Musculoskeletal: muscle weakness (focal but improving) Extremities: edema (none) Neurological: focal weakness Labs Result Diagram: 08/14/1860208/14/18602 Results 24hrs Laboratory Tests Test 08/17/18 17:42 08/17/18 20:51 08/18/18 07:36 08/18/18 11:52 Bedside Glucose 96 153 119 102 Medications Medications Current Medications Furosemide (Lasix) 20 mg BID DIURETICS PO Last administered on 08/18/18 06:06; Admin Dose 20 MG; Start 08/13/18 at 21:47 Spironolactone (Aldactone) 25 mg DAILY PO Last administered on 08/18/18 08:19; Admin Dose 25 MG; Start 08/13/18 at 21:47 Thiamine HCl (Vitamin B1) 100 mg DAILY PO Last administered on 08/18/18 08:20; Admin Dose 100 MG; Start 08/13/18 at 21:47 Diagnostic Test (Pha) (Accu-Chek) 1 ea 02 XX ; Start 08/13/18 at 21:47 Insulin Aspart (Novolog Insulin Pen) NOVOLOG *MILD* ALGORITHM WITH MEALS BEDTIME SC Last administered on 08/16/18 11:57; Admin Dose 1 UNIT; Start 08/13/18 at 21:47 Miscellaneous Information 1 ea NOTE XX ; Start 08/13/18 at 21:47 Aspirin (Aspirin) 81 mg DAILY PO Last administered on 08/18/18 08:20; Admin Dose 81 MG; Start 08/13/18 at 21:47 Metformin HCl (Glucophage) 500 mg WITH DINNER PO Last administered on 08/17/18 18:18; Admin Dose 500 MG; Start 08/13/18 at 21:47 Enoxaparin Sodium (Lovenox) 40 mg DAILY SC Last administered on 08/18/18 08:22; Admin Dose 40 MG; Start 08/13/18 at 21:47 Atorvastatin Calcium (Lipitor) 80 mg HS PO Last administered on 08/17/18 20:49; Admin Dose 80 MG; Start 08/13/18 at 22:02 Sacubitril/ Valsartan (Entresto 24 Mg-26 Mg) 1 tab BID PO Last administered on 08/18/18 08:20; Admin Dose 1 TAB; Start 08/13/18 at 22:11 Miscellaneous Information 1 ea NOTE XX ; Start 08/13/18 at 23:00 Glucose (Glutose) 15 gm Q15M PRN PO DECREASED GLUCOSE; Start 08/13/18 at 23:00 Glucose (Glutose) 22.5 gm Q15M PRN PO DECREASED GLUCOSE; Start 08/13/18 at 23:00 Dextrose (D50w Syringe) 25 ml Q15M PRN IV DECREASED GLUCOSE; Start 08/13/18 at 23:00 Dextrose (D50w Syringe) 50 ml Q15M PRN IV DECREASED GLUCOSE; Start 08/13/18 at 23:00 Glucagon (Glucagen) 1 mg Q15M PRN IM DECREASED GLUCOSE; Start 08/13/18 at 23:00 Glucose (Glutose) 15 gm Q15M PRN BUCCAL DECREASED GLUCOSE; Start 08/13/18 at 23:00 Docusate Sodium (Colace) 100 mg BID PO Last administered on 08/18/18 08:20; Admin Dose 100 MG; Start 08/14/18 at 09:00 Senna (Senokot) 1 tab HS PO Last administered on 08/17/18 20:49; Admin Dose 1 TAB; Start 08/14/18 at 21:00 Acetaminophen (Tylenol Tab) 650 mg Q4H PRN PO MILD PAIN(1-3)OR ELEVATED TEMP Last administered on 08/15/18 22:32; Admin Dose 650 MG; Start 08/14/18 at 01:00 Bisacodyl (Dulcolax Supp) 10 mg DAILY PRN [place] CONSTIPATION; Start 08/14/18 at 01:00 Magnesium Hydroxide (Milk Of Mag) 30 ml BID PRN PO CONSTIPATION; Start 08/14/18 at 01:00 Lactulose (Enulose) 20 gm DAILY PRN PO CONSTIPATION; Start 08/14/18 at 02:00 Nitroglycerin (Nitroglycerin (Sl Tab) 0.4 Mg) 1 tab Q5M PRN SL ANGINA Last administered on 08/14/18 14:33; Admin Dose 1 TAB; Start 08/14/18 at 14:30 Carvedilol (Coreg) 3.125 mg BID PO Last administered on 08/18/18 08:20; Admin Dose 3.125 MG; Start 08/16/18 at 21:00 Ranolazine (Ranexa) 500 mg Q12 PO Last administered on 08/18/18at 08:20; Admin Dose 500 MG; Start 08/16/18 at 21:00 AGUSTIN DONG Aug 18, 2018 14:48
[2018-08-18] MEDS: metFORMIN 500 MG TAB PO SCH (17:32)
[2018-08-18 20:00] VITALS: BP 116/65; PULSE 83; RESP 18
[2018-08-18] MEDS: SENNA TAB PO SCH (20:28)
[2018-08-18] MEDS: ATORVASTATIN 80 MG TAB PO SCH (20:28)
[2018-08-19 02:00] VITALS: BP 110/66; PULSE 68; RESP 18
[2018-08-19] MEDS: FUROSEMIDE 20 MG TAB PO SCH ×2 (06:46→17:38)
[2018-08-19 07:00] VITALS: BP 114/70; PULSE 62; RESP 18
[2018-08-19] MEDS: INSULIN ASPART [NOVOLOG] 3 ML PEN SC SCH ×4 (07:35→21:00)
[2018-08-19] MEDS: ENOXAPARIN 40 MG/0.4 ML SYG SC SCH (08:34)
[2018-08-19] MEDS: RANOLAZINE (SR) 500 MG TAB PO SCH ×2 (08:35→21:21)
[2018-08-19] MEDS: SPIRONOLACTONE 25 MG TAB PO SCH (08:35)
[2018-08-19] MEDS: SACUBITRIL/VALSARTAN (24mg-26mg) TABLET PO SCH ×2 (08:35→21:22)
[2018-08-19] MEDS: THIAMINE 100 MG TAB PO SCH (08:36)
[2018-08-19] MEDS: ASPIRIN 81 MG TAB PO SCH (08:36)
[2018-08-19] MEDS: DOCUSATE SODIUM 100 MG CAP PO SCH ×2 (08:36→21:21)
[2018-08-19 14:00] VITALS: BP 116/74; PULSE 80; RESP 18
--- NOTE | 2018-08-19 14:38 | PN ---
Date/Time of Note Date/Time of Note DATE: 08/19/18 TIME: 14:37 Assessment/Plan VTE Prophylaxis Risk score (from Ns)>0 risk: 2 SCD applied (from Ns): No SCD contraindicated: other Pharmacological prophylaxis: LMWH Lines/Catheters IV [facility] Type [facility]from [facility] Saline Lock Urinary Cath still in place: No Assessment/Plan Hospital Course SUBJECTIVE: doing well. good participation w/PT. OBJECTIVE: Vital signs-see below PHYSICAL EXAM: Constitutional: Well-developed, adequately built, lying in bed comfortably. Psych: nl mood/affect, no complaints Head: atraumatic, normocephalic Eyes: nl conjunctiva, nl sclera ENMT: mucosa pink and moist, nl external ears & nose Neck: non-tender, supple Respiratory: clear to auscultation, normal air movement Cardiovascular: nl pulses, regular rate and rhythm Gastrointestinal: non-tender, soft, bowel sounds active in all 4 quadrants. Musculoskeletal/extremities: nl extremities to inspection, motor strength equal bilaterally, no focal deficit. Normal pulses,no cyanosis, no edema. Neurological: Alert oriented 3,nl speech, nl strength Skin: nl turgor ASSESSMENT/PLAN: 1.Acute CVA -Continue aspirin/statin. -Keep normotensive blood pressure goals. 2. CHF, systolic with LVEF 20-25% -on coreg, aldactone, lasix,Nitrate, and entresto 3. Cardiomyopathy -Treatment as outlined in #3.Imdur added yesterday. 4. HTN, controlled -Continue antihypertensive 5. Dyslipidemia - on lipitor 6. DMII - on metformin and ISS 7. Alcohol use/possible substance abuse. - assistance . DVT prophylaxis: lovenox Patient was seen in collaboration with . Results 24hrs Laboratory Tests Test 08/18/18 17:30 08/18/18 20:27 08/19/18 08:22 08/19/18 12:16 Bedside Glucose 138 133 110 99 Exam/Review of Systems Exam Vitals Vital Signs Date Temp Pulse Resp B/P (MAP) Pulse Ox O2 O2 Flow FiO2 Time Delivery Rate 08/19/18 97.8 62 18 114/70 96 Room Air 07:00 (85) Intake and Output 08/18/18 08/18/18 08/19/18 1414:59 22:59 06:59 IntakeIntake Total 800 ml 240 ml OutputOutput Total 850 ml 450 ml BalanceBalance -50 ml -210 ml Results Results 24hrs Laboratory Tests Test 08/18/18 17:30 08/18/18 20:27 08/19/18 08:22 08/19/18 12:16 Bedside Glucose 138 133 110 99 Medications Medication Current Medications Furosemide (Lasix) 20 mg BID DIURETICS PO Last administered on 08/19/18 06:46; Admin Dose 20 MG; Start 08/13/18 at 21:47 Spironolactone (Aldactone) 25 mg DAILY PO Last administered on 08/19/18 08:35; Admin Dose 25 MG; Start 08/13/18 at 21:47 Thiamine HCl (Vitamin B1) 100 mg DAILY PO Last administered on 08/19/18 08:36; Admin Dose 100 MG; Start 08/13/18 at 21:47 Diagnostic Test (Pha) (Accu-Chek) 1 ea 02 XX ; Start 08/13/18 at 21:47 Insulin Aspart (Novolog Insulin Pen) NOVOLOG *MILD* ALGORITHM WITH MEALS BEDTIME SC Last administered on 08/16/18 11:57; Admin Dose 1 UNIT; Start 08/13/18 at 21:47 Miscellaneous Information 1 ea NOTE XX ; Start 08/13/18 at 21:47 Aspirin (Aspirin) 81 mg DAILY PO Last administered on 08/19/18 08:36; Admin Dose 81 MG; Start 08/13/18 at 21:47 Metformin HCl (Glucophage) 500 mg WITH DINNER PO Last administered on 08/18/18 17:32; Admin Dose 500 MG; Start 08/13/18 at 21:47 Enoxaparin Sodium (Lovenox) 40 mg DAILY SC Last administered on 08/19/18 08:34; Admin Dose 40 MG; Start 08/13/18 at 21:47 Atorvastatin Calcium (Lipitor) 80 mg HS PO Last administered on 08/18/18 20:28; Admin Dose 80 MG; Start 08/13/18 at 22:02 Sacubitril/ Valsartan (Entresto 24 Mg-26 Mg) 1 tab BID PO Last administered on 08/19/18 08:35; Admin Dose 1 TAB; Start 08/13/18 at 22:11 Miscellaneous Information 1 ea NOTE XX ; Start 08/13/18 at 23:00 Glucose (Glutose) 15 gm Q15M PRN PO DECREASED GLUCOSE; Start 08/13/18 at 23:00 Glucose (Glutose) 22.5 gm Q15M PRN PO DECREASED GLUCOSE; Start 08/13/18 at 23:00 Dextrose (D50w Syringe) 25 ml Q15M PRN IV DECREASED GLUCOSE; Start 08/13/18 at 23:00 Dextrose (D50w Syringe) 50 ml Q15M PRN IV DECREASED GLUCOSE; Start 08/13/18 at 23:00 Glucagon (Glucagen) 1 mg Q15M PRN IM DECREASED GLUCOSE; Start 08/13/18 at 23:00 Glucose (Glutose) 15 gm Q15M PRN BUCCAL DECREASED GLUCOSE; Start 08/13/18 at 23:00 Docusate Sodium (Colace) 100 mg BID PO Last administered on 08/19/18 08:36; Admin Dose 100 MG; Start 08/14/18 at 09:00 Senna (Senokot) 1 tab HS PO Last administered on 08/18/18 20:28; Admin Dose 1 TAB; Start 08/14/18 at 21:00 Acetaminophen (Tylenol Tab) 650 mg Q4H PRN PO MILD PAIN(1-3)OR ELEVATED TEMP Last administered on 08/15/18 22:32; Admin Dose 650 MG; Start 08/14/18 at 01:00 Bisacodyl (Dulcolax Supp) 10 mg DAILY PRN [place] CONSTIPATION; Start 08/14/18 at 01:00 Magnesium Hydroxide (Milk Of Mag) 30 ml BID PRN PO CONSTIPATION; Start 08/14/18 at 01:00 Lactulose (Enulose) 20 gm DAILY PRN PO CONSTIPATION; Start 08/14/18 at 02:00 Nitroglycerin (Nitroglycerin (Sl Tab) 0.4 Mg) 1 tab Q5M PRN SL ANGINA Last administered on 08/14/18 14:33; Admin Dose 1 TAB; Start 08/14/18 at 14:30 Carvedilol (Coreg) 3.125 mg BID PO Last administered on 08/19/18 08:37; Admin Dose 3.125 MG; Start 08/16/18 at 21:00 Ranolazine (Ranexa) 500 mg Q12 PO Last administered on 08/19/18 08:35; Admin Dose 500 MG; Start 08/16/18 at 21:00 AMANDA MENDEZ NP Aug 19, 2018 14:38
[2018-08-19] MEDS: metFORMIN 500 MG TAB PO SCH (17:23)
--- NOTE | 2018-08-19 18:11 | CONS ---
Assessment/Plan Assessment/Plan Hospital Course (Demo Recall) IMPRESSION: 1. Cardiomyopathy approximately 20% to 25% by echo 07/30. 2. Congestive heart failure, systolic, acute on chronic. 3. Hypertension, under reasonable control.- no sig hypotension with d/c of isordil 4. Dyslipidemia. 5. History of myocardial infarction. 6. Acute cerebrovascular accident with right upper and lower extremity weakness, paralysis.-significant improvement in RUE 7. Chest pain-acute onset today with inprovement after nitro. Neg trop x 3 since chest pain episode. NO recurrence in ranexa 8. Abnl ECG-with deep TWI across precordium in setting of acute CVA likely cerebral T waves. Had cardiac CTA 06/13/18 with no sig epicardial CAD and calcium score of 0. A strong independent marker of low liklihood of CV events over next 1-2 years. ? vasospasm Recc; -Continue coreg/entresto as tolerated and consider giving after physical therapy session as necessary with BP overall improved with d/c isoridl -Continue lasix and aldactone and follow volume status closely -continue ranexa -Continue statin -PT/OT Consultation Date/Type/Reason Admit Date/Time Aug 13, 2018 at 18:49 Initial Consult Date 08/13/18 Type of Consult Cardiology Reason for Consultation chest pain Requesting Provider: AMANDA MENDEZ NP Date/Time of Note DATE: 08/19/18 TIME: 18:09 Exam/Review of Systems Vital Signs Vitals Vital Signs Date Temp Pulse Resp B/P (MAP) Pulse Ox O2 O2 Flow FiO2 Time Delivery Rate 08/19/18 97.9 80 18 116/74 97 Room Air 14:00 (88) Intake and Output 08/18/18 08/18/18 08/19/18 1515:00 23:00 07:00 IntakeIntake Total 800 ml 240 ml OutputOutput Total 850 ml 450 ml BalanceBalance -50 ml -210 ml Exam Exam Review of Systems: CONSTITUTIONAL: No fevers, chills. PULMONARY: No sob CARDIOVASCULAR: No chest pain/palpitations GASTROINTESTINAL: No nausea/vomiting. GENITOURINARY: No hematuria/dysuria. MUSCULOSKELETAL: No myagias/arthalgias. PSYCHIATRIC: The patient denies depression. NEUROLOGIC: No weakness Constitutional: alert, oriented Psych: no complaints Head: normocephalic ENMT: mucosa pink and moist Neck: supple, jvd (9 cm water) Respiratory: diminished breath sounds (at bases/B) Cardiovascular: regular rate and rhythm Gastrointestinal: soft, non-tender Musculoskeletal: muscle weakness (LLE) Extremities: edema (none) Labs Results 24hrs Laboratory Tests Test 08/18/18 20:27 08/19/18 08:22 08/19/18 12:16 08/19/18 17:18 Bedside Glucose 133 110 99 94 Medications Medications Current Medications Furosemide (Lasix) 20 mg BID DIURETICS PO Last administered on 08/19/18 17:38; Admin Dose 20 MG; Start 08/13/18 at 21:47 Spironolactone (Aldactone) 25 mg DAILY PO Last administered on 08/19/18 08:35; Admin Dose 25 MG; Start 08/13/18 at 21:47 Thiamine HCl (Vitamin B1) 100 mg DAILY PO Last administered on 08/19/18 08:36; Admin Dose 100 MG; Start 08/13/18 at 21:47 Diagnostic Test (Pha) (Accu-Chek) 1 ea 02 XX ; Start 08/13/18 at 21:47 Insulin Aspart (Novolog Insulin Pen) NOVOLOG *MILD* ALGORITHM WITH MEALS BEDTIME SC Last administered on 08/16/18 11:57; Admin Dose 1 UNIT; Start 08/13/18 at 21:47 Miscellaneous Information 1 ea NOTE XX ; Start 08/13/18 at 21:47 Aspirin (Aspirin) 81 mg DAILY PO Last administered on 08/19/18 08:36; Admin Dose 81 MG; Start 08/13/18 at 21:47 Metformin HCl (Glucophage) 500 mg WITH DINNER PO Last administered on 08/19/18 17:23; Admin Dose 500 MG; Start 08/13/18 at 21:47 Enoxaparin Sodium (Lovenox) 40 mg DAILY SC Last administered on 08/19/18 08:34; Admin Dose 40 MG; Start 08/13/18 at 21:47 Atorvastatin Calcium (Lipitor) 80 mg HS PO Last administered on 08/18/18 20:28; Admin Dose 80 MG; Start 08/13/18 at 22:02 Sacubitril/ Valsartan (Entresto 24 Mg-26 Mg) 1 tab BID PO Last administered on 08/19/18 08:35; Admin Dose 1 TAB; Start 08/13/18 at 22:11 Miscellaneous Information 1 ea NOTE XX ; Start 08/13/18 at 23:00 Glucose (Glutose) 15 gm Q15M PRN PO DECREASED GLUCOSE; Start 08/13/18 at 23:00 Glucose (Glutose) 22.5 gm Q15M PRN PO DECREASED GLUCOSE; Start 08/13/18 at 23:00 Dextrose (D50w Syringe) 25 ml Q15M PRN IV DECREASED GLUCOSE; Start 08/13/18 at 23:00 Dextrose (D50w Syringe) 50 ml Q15M PRN IV DECREASED GLUCOSE; Start 08/13/18 at 23:00 Glucagon (Glucagen) 1 mg Q15M PRN IM DECREASED GLUCOSE; Start 08/13/18 at 23:00 Glucose (Glutose) 15 gm Q15M PRN BUCCAL DECREASED GLUCOSE; Start 08/13/18 at 23:00 Docusate Sodium (Colace) 100 mg BID PO Last administered on 08/19/18 08:36; Admin Dose 100 MG; Start 08/14/18 at 09:00 Senna (Senokot) 1 tab HS PO Last administered on 08/18/18 20:28; Admin Dose 1 TAB; Start 08/14/18 at 21:00 Acetaminophen (Tylenol Tab) 650 mg Q4H PRN PO MILD PAIN(1-3)OR ELEVATED TEMP Last administered on 08/15/18 22:32; Admin Dose 650 MG; Start 08/14/18 at 01:00 Bisacodyl (Dulcolax Supp) 10 mg DAILY PRN [place] CONSTIPATION; Start 08/14/18 at 01:00 Magnesium Hydroxide (Milk Of Mag) 30 ml BID PRN PO CONSTIPATION; Start 08/14/18 at 01:00 Lactulose (Enulose) 20 gm DAILY PRN PO CONSTIPATION; Start 08/14/18 at 02:00 Nitroglycerin (Nitroglycerin (Sl Tab) 0.4 Mg) 1 tab Q5M PRN SL ANGINA Last administered on 08/14/18 14:33; Admin Dose 1 TAB; Start 08/14/18 at 14:30 Carvedilol (Coreg) 3.125 mg BID PO Last administered on 08/19/18 08:37; Admin Dose 3.125 MG; Start 08/16/18 at 21:00 Ranolazine (Ranexa) 500 mg Q12 PO Last administered on 08/19/18at 08:35; Admin Dose 500 MG; Start 08/16/18 at 21:00 AGUSTIN DONG Aug 19, 2018 18:11
[2018-08-19 20:27] VITALS: BP 127/71; PULSE 88; RESP 18
[2018-08-19] MEDS: SENNA TAB PO SCH (21:21)
[2018-08-19] MEDS: ATORVASTATIN 80 MG TAB PO SCH (21:21)
[2018-08-20] MEDS: ACCU-CHEK XX SCH (02:00)
[2018-08-20 02:25] VITALS: BP 110/68; PULSE 68; RESP 18
[2018-08-20] MEDS: FUROSEMIDE 20 MG TAB PO SCH ×2 (06:28→17:28)
[2018-08-20 06:30] VITALS: BP 116/72; PULSE 65
[2018-08-20 07:30] VITALS: BP 116/73; PULSE 64; RESP 18
[2018-08-20] MEDS: INSULIN ASPART [NOVOLOG] 3 ML PEN SC SCH ×4 (07:35→21:00)
[2018-08-20] MEDS: SPIRONOLACTONE 25 MG TAB PO SCH (09:06)
[2018-08-20] MEDS: ENOXAPARIN 40 MG/0.4 ML SYG SC SCH (09:06)
[2018-08-20] MEDS: THIAMINE 100 MG TAB PO SCH (09:06)
[2018-08-20] MEDS: RANOLAZINE (SR) 500 MG TAB PO SCH ×2 (09:06→20:42)
[2018-08-20] MEDS: SACUBITRIL/VALSARTAN (24mg-26mg) TABLET PO SCH ×2 (09:06→20:42)
[2018-08-20] MEDS: DOCUSATE SODIUM 100 MG CAP PO SCH ×2 (09:06→20:46)
[2018-08-20] MEDS: ASPIRIN 81 MG TAB PO SCH (09:06)
--- NOTE | 2018-08-20 10:42 | CONS ---
Consult Date/Type/Reason Admit Date/Time Aug 13, 2018 at 18:49 Initial Consult Date Requesting Provider: AMANDA MENDEZ NP Date/Time of Note DATE: 08/20/18 TIME: 10:40 Subjective NO acute events - pt comfortbale - BP well Rx - con't rehab - CP noted, doubt ischemia. ROS: No fever, no chills, no nausea, no vomiting, no diarrhea/constipation No recent weight changes Occ chest pain, no PND, no orthopnea No dizziness, blurred vision - chronic No thirst, no heat or cold intolerance Objective Vitals Vital Signs Date Temp Pulse Resp B/P (MAP) Pulse Ox O2 O2 Flow FiO2 Time Delivery Rate 08/20/18 98.0 64 18 116/73 95 Room Air 07:30 (87) Intake and Output 08/19/18 08/19/18 08/20/18 1515:00 23:00 07:00 IntakeIntake Total 1680 ml 500 ml OutputOutput Total 1100 ml 1350 ml BalanceBalance 580 ml -850 ml Exam General: WN/WD/NAD, AOx 3 [place] HEENT: Unicetric/atraumatic/EOMI ( follow commands) NECK: JVD elevated, no thyromegaly Lymph: no lymphadenopathy HEART: regular with no S3, II/ systolic murmur at apex, PMI L LUNGS: Coarse sounds ABD: soft, NT, ND, +BS : Intact Neuro: CVA SKIN: chronic changes EXT: trace edema Results/Medications Results 24 hrs Laboratory Tests Test 08/19/18 12:16 08/19/18 17:18 08/19/18 21:01 08/20/18 07:58 Bedside Glucose 99 94 120 112 Home Meds Active Scripts Insulin Aspart* (Novolog Insulin Pen*) 100 Unit/Ml Soln, 0 UNIT SC WITH MEALS BEDTIME for 30 Days Prov:COCO COCHRAN MD 08/13/18 Metformin* (Glucophage*) 500 Mg Tab, 500 MG PO WITH DINNER for 30 Days, TAB Prov:COCO COCHRAN MD 08/13/18 Aspirin (Aspirin) 81 Mg Chew, 81 MG PO DAILY for 30 Days, TAB Prov:COCO COCHRAN MD 08/13/18 Enoxaparin Sodium* (Enoxaparin Sodium*) 40 Mg/0.4 Ml Syringe, 40 MG SC DAILY for 10 Days Prov:COCO COCHRAN MD 08/13/18 Reported Medications Thiamine* (Vitamin B-1*) 100 Mg Tablet, 100 MG PO DAILY, TAB 08/06/18 Furosemide* (Furosemide*) 20 Mg Tablet, 20 MG PO BID, #30 TAB 08/06/18 Spironolactone* (Aldactone*) 25 Mg Tablet, 25 MG PO DAILY, #30 TAB 08/06/18 Carvedilol* (Carvedilol*) 6.25 Mg Tablet, 6.25 MG PO BID, #60 TAB 08/06/18 Atorvastatin Calcium* (Atorvastatin Calcium*) 20 Mg Tablet, 20 MG PO QHS, #30 TAB 08/06/18 Sacubitril/Valsartan (Entresto 24 mg-26 mg Tablet) 1 Each Tablet, 1 EACH PO BID, TAB 08/06/18 Medications Current Medications Furosemide (Lasix) 20 mg BID DIURETICS PO Last administered on 08/20/18 06:28; Admin Dose 20 MG; Start 08/13/18 at 21:47 Spironolactone (Aldactone) 25 mg DAILY PO Last administered on 08/20/18 09:06; Admin Dose 25 MG; Start 08/13/18 at 21:47 Thiamine HCl (Vitamin B1) 100 mg DAILY PO Last administered on 08/20/18 09:06; Admin Dose 100 MG; Start 08/13/18 at 21:47 Diagnostic Test (Pha) (Accu-Chek) 1 ea 02 XX ; Start 08/13/18 at 21:47 Insulin Aspart (Novolog Insulin Pen) NOVOLOG *MILD* ALGORITHM WITH MEALS BEDTIME SC Last administered on 08/16/18at 11:57; Admin Dose 1 UNIT; Start 08/13/18 at 21:47 Miscellaneous Information 1 ea NOTE XX ; Start 08/13/18 at 21:47 Aspirin (Aspirin) 81 mg DAILY PO Last administered on 08/20/18 09:06; Admin Dose 81 MG; Start 08/13/18 at 21:47 Metformin HCl (Glucophage) 500 mg WITH DINNER PO Last administered on 08/19/18at 17:23; Admin Dose 500 MG; Start 08/13/18 at 21:47 Enoxaparin Sodium (Lovenox) 40 mg DAILY SC Last administered on 08/20/18 09:06; Admin Dose 40 MG; Start 08/13/18 at 21:47 Atorvastatin Calcium (Lipitor) 80 mg HS PO Last administered on 08/19/18 21:21; Admin Dose 80 MG; Start 08/13/18 at 22:02 Sacubitril/ Valsartan (Entresto 24 Mg-26 Mg) 1 tab BID PO Last administered on 08/20/18 09:06; Admin Dose 1 TAB; Start 08/13/18 at 22:11 Miscellaneous Information 1 ea NOTE XX ; Start 08/13/18 at 23:00 Glucose (Glutose) 15 gm Q15M PRN PO DECREASED GLUCOSE; Start 08/13/18 at 23:00 Glucose (Glutose) 22.5 gm Q15M PRN PO DECREASED GLUCOSE; Start 08/13/18 at 23:00 Dextrose (D50w Syringe) 25 ml Q15M PRN IV DECREASED GLUCOSE; Start 08/13/18 at 23:00 Dextrose (D50w Syringe) 50 ml Q15M PRN IV DECREASED GLUCOSE; Start 08/13/18 at 23:00 Glucagon (Glucagen) 1 mg Q15M PRN IM DECREASED GLUCOSE; Start 08/13/18 at 23:00 Glucose (Glutose) 15 gm Q15M PRN BUCCAL DECREASED GLUCOSE; Start 08/13/18 at 23:00 Docusate Sodium (Colace) 100 mg BID PO Last administered on 08/20/18 09:06; Admin Dose 100 MG; Start 08/14/18 at 09:00 Senna (Senokot) 1 tab HS PO Last administered on 08/19/18 21:21; Admin Dose 1 TAB; Start 08/14/18 at 21:00 Acetaminophen (Tylenol Tab) 650 mg Q4H PRN PO MILD PAIN(1-3)OR ELEVATED TEMP Last administered on 08/15/18 22:32; Admin Dose 650 MG; Start 08/14/18 at 01:00 Bisacodyl (Dulcolax Supp) 10 mg DAILY PRN [place] CONSTIPATION; Start 08/14/18 at 01:00 Magnesium Hydroxide (Milk Of Mag) 30 ml BID PRN PO CONSTIPATION; Start 08/14/18 at 01:00 Lactulose (Enulose) 20 gm DAILY PRN PO CONSTIPATION; Start 08/14/18 at 02:00 Nitroglycerin (Nitroglycerin (Sl Tab) 0.4 Mg) 1 tab Q5M PRN SL ANGINA Last administered on 08/14/18at 14:33; Admin Dose 1 TAB; Start 08/14/18 at 14:30 Carvedilol (Coreg) 3.125 mg BID PO Last administered on 08/20/18at 09:06; Admin Dose 3.125 MG; Start 08/16/18 at 21:00 Ranolazine (Ranexa) 500 mg Q12 PO Last administered on 08/20/18at 09:06; Admin Dose 500 MG; Start 08/16/18 at 21:00 Assessment/Plan Hospital Course (Demo Recall) 1. Cardiomyopathy approximately 20% to 25% by echo 07/30 - in good range - outpt ICD eval. 2. Congestive heart failure, systolic, acute on chronic - wll re-evaluat as outpt. 3. Hypertension, under reasonable control.- no sig hypotension with d/c of isordil 4. Dyslipidemia. 5. History of myocardial infarction - on meds now. 6. Acute cerebrovascular accident with right upper and lower extremity weakness, paralysis.-significant improvement in RUE 7. Chest pain-acute onset today with inprovement after nitro. Neg trop x 3 since chest pain episode. Now recurrence on ranexa - will follow. 8. Abnl ECG-with deep TWI across precordium in setting of acute CVA likely cerebral T waves. Had cardiac CTA 06/13/18 with no sig epicardial CAD and calcium score of 0. A strong independent marker of low liklihood of CV events over next 1-2 years. ? vasospasm - neuro to follow. MIKEL THOMAS MD Aug 20, 2018 10:42
--- NOTE | 2018-08-20 13:41 | PN ---
Date/Time of Note Date/Time of Note DATE: 08/20/18 TIME: 13:40 Objective Vital Signs Date Temp Pulse Resp B/P (MAP) Pulse Ox O2 O2 Flow FiO2 Time Delivery Rate 08/20/18 98.0 64 18 116/73 95 Room Air 07:30 (87) Intake and Output 08/19/18 08/19/18 08/20/18 1515:00 23:00 07:00 IntakeIntake Total 1680 ml 500 ml OutputOutput Total 1100 ml 1350 ml BalanceBalance 580 ml -850 ml Exam INTERDISCIPLINARY TEAM CONFERENCE Physical Exam: Pulm-cta Abd-soft BOWEL- Cont BLADDER-Cont SKIN- intact OT- DRESSING- mod BATHING-mod TOILETING-mod PT- BED MOBILITY-min TRANSFERS- mod AMBULATION- mod 6 feet Wheelchair mobility- mod SPEECH- COGNITION-mod Dysphagia A/P- Interdisciplinary team conference held today. Please see interdisciplinary sheet. Working toward d.c. on 08/27 with post discharge follow up of physical therapy, occupational therapy. Results/Medications Results 24 hrs Laboratory Tests Test 08/19/18 17:18 08/19/18 21:01 08/20/18 07:58 08/20/18 11:55 Bedside Glucose 94 120 112 114 Medications Current Medications Furosemide (Lasix) 20 mg BID DIURETICS PO Last administered on 08/20/18 06:28; Admin Dose 20 MG; Start 08/13/18 at 21:47 Spironolactone (Aldactone) 25 mg DAILY PO Last administered on 08/20/18 09:06; Admin Dose 25 MG; Start 08/13/18 at 21:47 Thiamine HCl (Vitamin B1) 100 mg DAILY PO Last administered on 08/20/18 09:06; Admin Dose 100 MG; Start 08/13/18 at 21:47 Diagnostic Test (Pha) (Accu-Chek) 1 ea 02 XX ; Start 08/13/18 at 21:47 Insulin Aspart (Novolog Insulin Pen) NOVOLOG *MILD* ALGORITHM WITH MEALS BEDTIME SC Last administered on 08/16/18at 11:57; Admin Dose 1 UNIT; Start 08/13/18 at 21:47 Miscellaneous Information 1 ea NOTE XX ; Start 08/13/18 at 21:47 Aspirin (Aspirin) 81 mg DAILY PO Last administered on 08/20/18 09:06; Admin Dose 81 MG; Start 08/13/18 at 21:47 Metformin HCl (Glucophage) 500 mg WITH DINNER PO Last administered on 08/19/18 17:23; Admin Dose 500 MG; Start 08/13/18 at 21:47 Enoxaparin Sodium (Lovenox) 40 mg DAILY SC Last administered on 08/20/18 09:06; Admin Dose 40 MG; Start 08/13/18 at 21:47 Atorvastatin Calcium (Lipitor) 80 mg HS PO Last administered on 08/19/18 21:21; Admin Dose 80 MG; Start 08/13/18 at 22:02 Sacubitril/ Valsartan (Entresto 24 Mg-26 Mg) 1 tab BID PO Last administered on 08/20/18 09:06; Admin Dose 1 TAB; Start 08/13/18 at 22:11 Miscellaneous Information 1 ea NOTE XX ; Start 08/13/18 at 23:00 Glucose (Glutose) 15 gm Q15M PRN PO DECREASED GLUCOSE; Start 08/13/18 at 23:00 Glucose (Glutose) 22.5 gm Q15M PRN PO DECREASED GLUCOSE; Start 08/13/18 at 23:00 Dextrose (D50w Syringe) 25 ml Q15M PRN IV DECREASED GLUCOSE; Start 08/13/18 at 23:00 Dextrose (D50w Syringe) 50 ml Q15M PRN IV DECREASED GLUCOSE; Start 08/13/18 at 23:00 Glucagon (Glucagen) 1 mg Q15M PRN IM DECREASED GLUCOSE; Start 08/13/18 at 23:00 Glucose (Glutose) 15 gm Q15M PRN BUCCAL DECREASED GLUCOSE; Start 08/13/18 at 23:00 Docusate Sodium (Colace) 100 mg BID PO Last administered on 08/20/18 09:06; Admin Dose 100 MG; Start 08/14/18 at 09:00 Senna (Senokot) 1 tab HS PO Last administered on 08/19/18 21:21; Admin Dose 1 TAB; Start 08/14/18 at 21:00 Acetaminophen (Tylenol Tab) 650 mg Q4H PRN PO MILD PAIN(1-3)OR ELEVATED TEMP Last administered on 08/15/18 22:32; Admin Dose 650 MG; Start 08/14/18 at 01:00 Bisacodyl (Dulcolax Supp) 10 mg DAILY PRN [place] CONSTIPATION; Start 08/14/18 at 01:00 Magnesium Hydroxide (Milk Of Mag) 30 ml BID PRN PO CONSTIPATION; Start 08/14/18 at 01:00 Lactulose (Enulose) 20 gm DAILY PRN PO CONSTIPATION; Start 08/14/18 at 02:00 Nitroglycerin (Nitroglycerin (Sl Tab) 0.4 Mg) 1 tab Q5M PRN SL ANGINA Last administered on 08/14/18at 14:33; Admin Dose 1 TAB; Start 08/14/18 at 14:30 Carvedilol (Coreg) 3.125 mg BID PO Last administered on 08/20/18 09:06; Admin Dose 3.125 MG; Start 08/16/18 at 21:00 Ranolazine (Ranexa) 500 mg Q12 PO Last administered on 08/20/18 09:06; Admin Do se 500 MG; Start 08/16/18 at 21:00 NICOLE BILLINGS MD Aug 20, 2018 13:41
[2018-08-20 14:00] VITALS: BP 105/67; PULSE 71; RESP 18
--- NOTE | 2018-08-20 14:09 | PN ---
Date/Time of Note Date/Time of Note DATE: 08/20/18 TIME: 14:07 Assessment/Plan VTE Prophylaxis Risk score (from Nsg)>0 risk: 2 SCD applied (from Ns): Yes Pharmacological prophylaxis: LMWH Lines/Catheters IV Catheter Type (from Nrs): Saline Lock Urinary Cath still in place: No Assessment/Plan Hospital Course SUBJECTIVE: doing well. good participation w/PT. OBJECTIVE: Vital signs-see below PHYSICAL EXAM: Constitutional: Well-developed, adequately built, lying in bed comfortably. Psych: nl mood/affect, no complaints Head: atraumatic, normocephalic Eyes: nl conjunctiva, nl sclera ENMT: mucosa pink and moist, nl external ears & nose Neck: non-tender, supple Respiratory: clear to auscultation, normal air movement Cardiovascular: nl pulses, regular rate and rhythm Gastrointestinal: non-tender, soft, bowel sounds active in all 4 quadrants. Musculoskeletal/extremities: nl extremities to inspection, motor strength equal bilaterally, no focal deficit. Normal pulses,no cyanosis, no edema. Neurological: Alert oriented 3,nl speech, nl strength Skin: nl turgor ASSESSMENT/PLAN: 1.Acute CVA -Continue aspirin/statin. -Keep normotensive blood pressure goals. 2. CHF, systolic with LVEF 20-25% -on coreg, aldactone, lasix,Nitrate, and entresto 3. Cardiomyopathy -Treatment as outlined in #3.Imdur added yesterday. 4. HTN, controlled -Continue antihypertensive 5. Dyslipidemia - on lipitor 6. DMII - on metformin and ISS 7. Alcohol use/possible substance abuse. - assistance . DVT prophylaxis: lovenox Patient was seen in collaboration with . Results 24hrs Laboratory Tests Test 08/19/18 17:18 08/19/18 21:01 08/20/18 07:58 08/20/18 11:55 Bedside Glucose 94 120 112 114 Exam/Review of Systems Exam Vitals Vital Signs Date Temp Pulse Resp B/P (MAP) Pulse Ox O2 O2 Flow FiO2 Time Delivery Rate 08/20/18 98.0 64 18 116/73 95 Room Air 07:30 (87) Intake and Output 08/19/18 08/19/18 08/20/18 1515:00 23:00 07:00 IntakeIntake Total 1680 ml 500 ml OutputOutput Total 1100 ml 1350 ml BalanceBalance 580 ml -850 ml Results Results 24hrs Laboratory Tests Test 08/19/18 17:18 08/19/18 21:01 08/20/18 07:58 08/20/18 11:55 Bedside Glucose 94 120 112 114 Medications Medication Current Medications Furosemide (Lasix) 20 mg BID DIURETICS PO Last administered on 08/20/18 06:28; Admin Dose 20 MG; Start 08/13/18 at 21:47 Spironolactone (Aldactone) 25 mg DAILY PO Last administered on 08/20/18 09:06; Admin Dose 25 MG; Start 08/13/18 at 21:47 Thiamine HCl (Vitamin B1) 100 mg DAILY PO Last administered on 08/20/18 09:06; Admin Dose 100 MG; Start 08/13/18 at 21:47 Diagnostic Test (Pha) (Accu-Chek) 1 ea 02 XX ; Start 08/13/18 at 21:47 Insulin Aspart (Novolog Insulin Pen) NOVOLOG *MILD* ALGORITHM WITH MEALS BEDTIME SC Last administered on 08/16/18 11:57; Admin Dose 1 UNIT; Start 08/13/18 at 21:47 Miscellaneous Information 1 ea NOTE XX ; Start 08/13/18 at 21:47 Aspirin (Aspirin) 81 mg DAILY PO Last administered on 08/20/18 09:06; Admin Dose 81 MG; Start 08/13/18 at 21:47 Metformin HCl (Glucophage) 500 mg WITH DINNER PO Last administered on 08/19/18 17:23; Admin Dose 500 MG; Start 08/13/18 at 21:47 Enoxaparin Sodium (Lovenox) 40 mg DAILY SC Last administered on 08/20/18 09:06; Admin Dose 40 MG; Start 08/13/18 at 21:47 Atorvastatin Calcium (Lipitor) 80 mg HS PO Last administered on 08/19/18 21:21; Admin Dose 80 MG; Start 08/13/18 at 22:02 Sacubitril/ Valsartan (Entresto 24 Mg-26 Mg) 1 tab BID PO Last administered on 08/20/18 09:06; Admin Dose 1 TAB; Start 08/13/18 at 22:11 Miscellaneous Information 1 ea NOTE XX ; Start 08/13/18 at 23:00 Glucose (Glutose) 15 gm Q15M PRN PO DECREASED GLUCOSE; Start 08/13/18 at 23:00 Glucose (Glutose) 22.5 gm Q15M PRN PO DECREASED GLUCOSE; Start 08/13/18 at 23:00 Dextrose (D50w Syringe) 25 ml Q15M PRN IV DECREASED GLUCOSE; Start 08/13/18 at 23:00 Dextrose (D50w Syringe) 50 ml Q15M PRN IV DECREASED GLUCOSE; Start 08/13/18 at 23:00 Glucagon (Glucagen) 1 mg Q15M PRN IM DECREASED GLUCOSE; Start 08/13/18 at 23:00 Glucose (Glutose) 15 gm Q15M PRN BUCCAL DECREASED GLUCOSE; Start 08/13/18 at 23:00 Docusate Sodium (Colace) 100 mg BID PO Last administered on 08/20/18 09:06; Admin Dose 100 MG; Start 08/14/18 at 09:00 Senna (Senokot) 1 tab HS PO Last administered on 08/19/18 21:21; Admin Dose 1 TAB; Start 08/14/18 at 21:00 Acetaminophen (Tylenol Tab) 650 mg Q4H PRN PO MILD PAIN(1-3)OR ELEVATED TEMP Last administered on 08/15/18 22:32; Admin Dose 650 MG; Start 08/14/18 at 01:00 Bisacodyl (Dulcolax Supp) 10 mg DAILY PRN [place] CONSTIPATION; Start 08/14/18 at 01:00 Magnesium Hydroxide (Milk Of Mag) 30 ml BID PRN PO CONSTIPATION; Start 08/14/18 at 01:00 Lactulose (Enulose) 20 gm DAILY PRN PO CONSTIPATION; Start 08/14/18 at 02:00 Nitroglycerin (Nitroglycerin (Sl Tab) 0.4 Mg) 1 tab Q5M PRN SL ANGINA Last administered on 08/14/18at 14:33; Admin Dose 1 TAB; Start 08/14/18 at 14:30 Carvedilol (Coreg) 3.125 mg BID PO Last administered on 08/20/18 09:06; Admin Dose 3.125 MG; Start 08/16/18 at 21:00 Ranolazine (Ranexa) 500 mg Q12 PO Last administered on 08/20/18 09:06; Admin Dose 500 MG; Start 08/16/18 at 21:00 AMANDA MENDEZ NP Aug 20, 2018 14:09
[2018-08-20] MEDS: metFORMIN 500 MG TAB PO SCH (17:25)
[2018-08-20 20:00] VITALS: BP 115/71; PULSE 79
[2018-08-20] MEDS: ATORVASTATIN 80 MG TAB PO SCH (20:42)
[2018-08-20] MEDS: SENNA TAB PO SCH (20:46)
[2018-08-21 02:00] VITALS: BP 125/60; PULSE 70
[2018-08-21] MEDS: ACCU-CHEK XX SCH (02:00)
[2018-08-21] MEDS: FUROSEMIDE 20 MG TAB PO SCH ×2 (06:41→17:00)
[2018-08-21 06:42] VITALS: BP 109/66; PULSE 62
[2018-08-21 07:30] VITALS: BP 111/67; PULSE 71; RESP 20
[2018-08-21] MEDS: INSULIN ASPART [NOVOLOG] 3 ML PEN SC SCH ×4 (07:35→20:27)
[2018-08-21] MEDS: SACUBITRIL/VALSARTAN (24mg-26mg) TABLET PO SCH ×2 (08:13→20:27)
[2018-08-21] MEDS: RANOLAZINE (SR) 500 MG TAB PO SCH ×2 (08:13→20:27)
[2018-08-21] MEDS: THIAMINE 100 MG TAB PO SCH (08:13)
[2018-08-21] MEDS: SPIRONOLACTONE 25 MG TAB PO SCH (08:13)
[2018-08-21] MEDS: ASPIRIN 81 MG TAB PO SCH (08:13)
[2018-08-21] MEDS: DOCUSATE SODIUM 100 MG CAP PO SCH ×2 (08:13→20:27)
[2018-08-21] MEDS: ENOXAPARIN 40 MG/0.4 ML SYG SC SCH (08:14)
--- NOTE | 2018-08-21 12:36 | PN ---
Date/Time of Note Date/Time of Note DATE: 08/21/18 TIME: 12:35 Assessment/Plan VTE Prophylaxis Risk score (from Nsg)>0 risk: 2 SCD applied (from Ns): Yes Pharmacological prophylaxis: LMWH Lines/Catheters IV Catheter Type (from Nrs): Saline Lock Urinary Cath still in place: No Assessment/Plan Hospital Course SUBJECTIVE: doing well. good participation w/PT. OBJECTIVE: Vital signs-see below PHYSICAL EXAM: Constitutional: Well-developed, adequately built, lying in bed comfortably. Psych: nl mood/affect, no complaints Head: atraumatic, normocephalic Eyes: nl conjunctiva, nl sclera ENMT: mucosa pink and moist, nl external ears & nose Neck: non-tender, supple Respiratory: clear to auscultation, normal air movement Cardiovascular: nl pulses, regular rate and rhythm Gastrointestinal: non-tender, soft, bowel sounds active in all 4 quadrants. Musculoskeletal/extremities: nl extremities to inspection, motor strength equal bilaterally, no focal deficit. Normal pulses,no cyanosis, no edema. Neurological: Alert oriented 3,nl speech, nl strength Skin: nl turgor ASSESSMENT/PLAN: 1.Acute CVA -Continue aspirin/statin. -Keep normotensive blood pressure goals. 2. CHF, systolic with LVEF 20-25% -on coreg, aldactone, lasix,Nitrate, and entresto 3. Cardiomyopathy -Treatment as outlined in #3.Imdur added yesterday. 4. HTN, controlled -Continue antihypertensive 5. Dyslipidemia - on lipitor 6. DMII - on metformin and ISS 7. Alcohol use/possible substance abuse. - assistance . DVT prophylaxis: lovenox Patient was seen in collaboration with . Results 24hrs Laboratory Tests Test 08/20/18 17:24 08/20/18 20:45 08/21/18 07:54 08/21/18 11:59 Bedside Glucose 96 122 108 88 Exam/Review of Systems Exam Vitals Vital Signs Date Temp Pulse Resp B/P (MAP) Pulse Ox O2 O2 Flow FiO2 Time Delivery Rate 08/21/18 97.9 71 20 111/67 96 Room Air 07:30 (82) Intake and Output 08/20/18 08/20/18 08/21/18 1414:59 22:59 06:59 IntakeIntake Total 1500 ml 250 ml OutputOutput Total 1110 ml 600 ml BalanceBalance 390 ml -350 ml Results Results 24hrs Laboratory Tests Test 08/20/18 17:24 08/20/18 20:45 08/21/18 07:54 08/21/18 11:59 Bedside Glucose 96 122 108 88 Medications Medication Current Medications Furosemide (Lasix) 20 mg BID DIURETICS PO Last administered on 08/21/18 06:41; Admin Dose 20 MG; Start 08/13/18 at 21:47 Spironolactone (Aldactone) 25 mg DAILY PO Last administered on 08/21/18 08:13; Admin Dose 25 MG; Start 08/13/18 at 21:47 Thiamine HCl (Vitamin B1) 100 mg DAILY PO Last administered on 08/21/18 08:13; Admin Dose 100 MG; Start 08/13/18 at 21:47 Diagnostic Test (Pha) (Accu-Chek) 1 ea 02 XX ; Start 08/13/18 at 21:47 Insulin Aspart (Novolog Insulin Pen) NOVOLOG *MILD* ALGORITHM WITH MEALS BEDTIME SC Last administered on 08/16/18 11:57; Admin Dose 1 UNIT; Start 08/13/18 at 21:47 Miscellaneous Information 1 ea NOTE XX ; Start 08/13/18 at 21:47 Aspirin (Aspirin) 81 mg DAILY PO Last administered on 08/21/18 08:13; Admin Dose 81 MG; Start 08/13/18 at 21:47 Metformin HCl (Glucophage) 500 mg WITH DINNER PO Last administered on 08/20/18 17:25; Admin Dose 500 MG; Start 08/13/18 at 21:47 Enoxaparin Sodium (Lovenox) 40 mg DAILY SC Last administered on 08/21/18 08:14; Admin Dose 40 MG; Start 08/13/18 at 21:47 Atorvastatin Calcium (Lipitor) 80 mg HS PO Last administered on 08/20/18 20:42; Admin Dose 80 MG; Start 08/13/18 at 22:02 Sacubitril/ Valsartan (Entresto 24 Mg-26 Mg) 1 tab BID PO Last administered on 08/21/18 08:13; Admin Dose 1 TAB; Start 08/13/18 at 22:11 Miscellaneous Information 1 ea NOTE XX ; Start 08/13/18 at 23:00 Glucose (Glutose) 15 gm Q15M PRN PO DECREASED GLUCOSE; Start 08/13/18 at 23:00 Glucose (Glutose) 22.5 gm Q15M PRN PO DECREASED GLUCOSE; Start 08/13/18 at 23:00 Dextrose (D50w Syringe) 25 ml Q15M PRN IV DECREASED GLUCOSE; Start 08/13/18 at 23:00 Dextrose (D50w Syringe) 50 ml Q15M PRN IV DECREASED GLUCOSE; Start 08/13/18 at 23:00 Glucagon (Glucagen) 1 mg Q15M PRN IM DECREASED GLUCOSE; Start 08/13/18 at 23:00 Glucose (Glutose) 15 gm Q15M PRN BUCCAL DECREASED GLUCOSE; Start 08/13/18 at 23:00 Docusate Sodium (Colace) 100 mg BID PO Last administered on 08/21/18 08:13; Admin Dose 100 MG; Start 08/14/18 at 09:00 Senna (Senokot) 1 tab HS PO Last administered on 08/20/18at 20:46; Admin Dose 1 TAB; Start 08/14/18 at 21:00 Acetaminophen (Tylenol Tab) 650 mg Q4H PRN PO MILD PAIN(1-3)OR ELEVATED TEMP Last administered on 08/15/18 22:32; Admin Dose 650 MG; Start 08/14/18 at 01:00 Bisacodyl (Dulcolax Supp) 10 mg DAILY PRN [place] CONSTIPATION; Start 08/14/18 at 01:00 Magnesium Hydroxide (Milk Of Mag) 30 ml BID PRN PO CONSTIPATION; Start 08/14/18 at 01:00 Lactulose (Enulose) 20 gm DAILY PRN PO CONSTIPATION; Start 08/14/18 at 02:00 Nitroglycerin (Nitroglycerin (Sl Tab) 0.4 Mg) 1 tab Q5M PRN SL ANGINA Last administered on 08/14/18at 14:33; Admin Dose 1 TAB; Start 08/14/18 at 14:30 Carvedilol (Coreg) 3.125 mg BID PO Last administered on 08/21/18 08:13; Admin Dose 3.125 MG; Start 08/16/18 at 21:00 Ranolazine (Ranexa) 500 mg Q12 PO Last administered on 08/21/18 08:13; Admin Dose 500 MG; Start 08/16/18 at 21:00 AMANDA MENDEZ NP Aug 21, 2018 12:36
--- NOTE | 2018-08-21 13:50 | PN ---
Date/Time of Note Date/Time of Note DATE: 08/21/18 TIME: 13:50 Subjective Improving verbal output Objective Vital Signs Date Temp Pulse Resp B/P (MAP) Pulse Ox O2 O2 Flow FiO2 Time Delivery Rate 08/21/18 97.9 71 20 111/67 96 Room Air 07:30 (82) Intake and Output 08/20/18 08/20/18 08/21/18 1515:00 23:00 07:00 IntakeIntake Total 1500 ml 250 ml OutputOutput Total 1110 ml 600 ml BalanceBalance 390 ml -350 ml Exam pulm-cta mod 6 feet Results/Medications Results 24 hrs Laboratory Tests Test 08/20/18 17:24 08/20/18 20:45 08/21/18 07:54 08/21/18 11:59 Bedside Glucose 96 122 108 88 Medications Current Medications Furosemide (Lasix) 20 mg BID DIURETICS PO Last administered on 08/21/18 06:41; Admin Dose 20 MG; Start 08/13/18 at 21:47 Spironolactone (Aldactone) 25 mg DAILY PO Last administered on 08/21/18 08:13; Admin Dose 25 MG; Start 08/13/18 at 21:47 Thiamine HCl (Vitamin B1) 100 mg DAILY PO Last administered on 08/21/18 08:13; Admin Dose 100 MG; Start 08/13/18 at 21:47 Diagnostic Test (Pha) (Accu-Chek) 1 ea 02 XX ; Start 08/13/18 at 21:47 Insulin Aspart (Novolog Insulin Pen) NOVOLOG *MILD* ALGORITHM WITH MEALS BEDTIME SC Last administered on 08/16/18 11:57; Admin Dose 1 UNIT; Start 08/13/18 at 21:47 Miscellaneous Information 1 ea NOTE XX ; Start 08/13/18 at 21:47 Aspirin (Aspirin) 81 mg DAILY PO Last administered on 08/21/18 08:13; Admin Dose 81 MG; Start 08/13/18 at 21:47 Metformin HCl (Glucophage) 500 mg WITH DINNER PO Last administered on 08/20/18 17:25; Admin Dose 500 MG; Start 08/13/18 at 21:47 Enoxaparin Sodium (Lovenox) 40 mg DAILY SC Last administered on 08/21/18 08:14; Admin Dose 40 MG; Start 08/13/18 at 21:47 Atorvastatin Calcium (Lipitor) 80 mg HS PO Last administered on 08/20/18at 20:42; Admin Dose 80 MG; Start 08/13/18 at 22:02 Sacubitril/ Valsartan (Entresto 24 Mg-26 Mg) 1 tab BID PO Last administered on 08/21/18at 08:13; Admin Dose 1 TAB; Start 08/13/18 at 22:11 Miscellaneous Information 1 ea NOTE XX ; Start 08/13/18 at 23:00 Glucose (Glutose) 15 gm Q15M PRN PO DECREASED GLUCOSE; Start 08/13/18 at 23:00 Glucose (Glutose) 22.5 gm Q15M PRN PO DECREASED GLUCOSE; Start 08/13/18 at 23:00 Dextrose (D50w Syringe) 25 ml Q15M PRN IV DECREASED GLUCOSE; Start 08/13/18 at 23:00 Dextrose (D50w Syringe) 50 ml Q15M PRN IV DECREASED GLUCOSE; Start 08/13/18 at 23:00 Glucagon (Glucagen) 1 mg Q15M PRN IM DECREASED GLUCOSE; Start 08/13/18 at 23:00 Glucose (Glutose) 15 gm Q15M PRN BUCCAL DECREASED GLUCOSE; Start 08/13/18 at 23:00 Docusate Sodium (Colace) 100 mg BID PO Last administered on 08/21/18at 08:13; Admin Dose 100 MG; Start 08/14/18 at 09:00 Senna (Senokot) 1 tab HS PO Last administered on 08/20/18at 20:46; Admin Dose 1 TAB; Start 08/14/18 at 21:00 Acetaminophen (Tylenol Tab) 650 mg Q4H PRN PO MILD PAIN(1-3)OR ELEVATED TEMP Last administered on 08/15/18at 22:32; Admin Dose 650 MG; Start 08/14/18 at 01:00 Bisacodyl (Dulcolax Supp) 10 mg DAILY PRN [place] CONSTIPATION; Start 08/14/18 at 01:00 Magnesium Hydroxide (Milk Of Mag) 30 ml BID PRN PO CONSTIPATION; Start 08/14/18 at 01:00 Lactulose (Enulose) 20 gm DAILY PRN PO CONSTIPATION; Start 08/14/18 at 02:00 Nitroglycerin (Nitroglycerin (Sl Tab) 0.4 Mg) 1 tab Q5M PRN SL ANGINA Last administered on 08/14/18at 14:33; Admin Dose 1 TAB; Start 08/14/18 at 14:30 Carvedilol (Coreg) 3.125 mg BID PO Last administered on 08/21/18at 08:13; Admin Dose 3.125 MG; Start 08/16/18 at 21:00 Ranolazine (Ranexa) 500 mg Q12 PO Last administered on 08/21/18at 08:13; Admin Dose 500 MG; Start 08/16/18 at 21:00 Assessment/Plan Additional Assessment/Plan Rehab- Left PHILIPPE infarct CVA with right-sided weakness and aphasia. Steady progress, continue interdisciplinary rehab program Cardiomyopathy. Hyperlipidemia. Hypertension. Prediabetes. NICOLE BILLINGS MD Aug 21, 2018 13:50
[2018-08-21 14:00] VITALS: BP 109/77; PULSE 76; RESP 20
[2018-08-21] MEDS: metFORMIN 500 MG TAB PO SCH (16:59)
[2018-08-21 19:47] VITALS: BP 115/73; PULSE 77; RESP 18
[2018-08-21] MEDS: SENNA TAB PO SCH (20:26)
[2018-08-21] MEDS: ATORVASTATIN 80 MG TAB PO SCH (20:27)
--- NOTE | 2018-08-21 21:17 | CONS ---
Assessment/Plan Assessment/Plan Hospital Course (Demo Recall) IMPRESSION: 1. Cardiomyopathy approximately 20% to 25% by echo 07/30. 2. Congestive heart failure, systolic, acute on chronic. 3. Hypertension, under reasonable control.- no sig hypotension with d/c of isordil 4. Dyslipidemia. 5. History of myocardial infarction. 6. Acute cerebrovascular accident with right upper and lower extremity weakness, paralysis.-significant improvement in RUE 7. Chest pain-acute onset today with inprovement after nitro. Neg trop x 3 since chest pain episode. NO recurrence on ranexa 8. Abnl ECG-with deep TWI across precordium in setting of acute CVA likely cerebral T waves. Had cardiac CTA 06/13/18 with no sig epicardial CAD and calcium score of 0. A strong independent marker of low liklihood of CV events over next 1-2 years. Recc; -Continue coreg/entresto as tolerated -Continue lasix and aldactone and follow volume status closely -continue ranexa with resolved chest pain -Continue statin -PT/OT Consultation Date/Type/Reason Admit Date/Time Aug 13, 2018 at 18:49 Initial Consult Date 08/13/18 Type of Consult Cardiology Reason for Consultation Chest pain/Cardiomyopathy Requesting Provider: AMANDA MENDEZ NP Date/Time of Note DATE: 08/21/18 TIME: 21:15 Exam/Review of Systems Vital Signs Vitals Vital Signs Date Temp Pulse Resp B/P (MAP) Pulse Ox O2 O2 Flow FiO2 Time Delivery Rate 08/21/18 98.3 77 18 115/73 98 Room Air 19:47 (87) Intake and Output 08/20/18 08/20/18 08/21/18 1515:00 23:00 07:00 IntakeIntake Total 1500 ml 250 ml OutputOutput Total 1110 ml 600 ml BalanceBalance 390 ml -350 ml Exam Exam Review of Systems: CONSTITUTIONAL: No fevers, chills. PULMONARY: No sob CARDIOVASCULAR: No chest pain/palpitations GASTROINTESTINAL: No nausea/vomiting. GENITOURINARY: No hematuria/dysuria. MUSCULOSKELETAL: No myagias/arthalgias. PSYCHIATRIC: The patient denies depression. NEUROLOGIC: focal weakness of LE Constitutional: alert Psych: no complaints Head: normocephalic ENMT: mucosa pink and moist Neck: supple, jvd (9 cm water) Respiratory: clear to auscultation Cardiovascular: regular rate and rhythm Gastrointestinal: soft, non-tender Musculoskeletal: muscle tone (normal) Extremities: edema (none) Neurological: focal weakness (RLE) Labs Results 24hrs Laboratory Tests Test 08/21/18 07:54 08/21/18 11:59 08/21/18 16:59 08/21/18 20:25 Bedside Glucose 108 88 81 163 Medications Medications Current Medications Furosemide (Lasix) 20 mg BID DIURETICS PO Last administered on 08/21/18 17:00; Admin Dose 20 MG; Start 08/13/18 at 21:47 Spironolactone (Aldactone) 25 mg DAILY PO Last administered on 08/21/18 08:13; Admin Dose 25 MG; Start 08/13/18 at 21:47 Thiamine HCl (Vitamin B1) 100 mg DAILY PO Last administered on 08/21/18 08:13; Admin Dose 100 MG; Start 08/13/18 at 21:47 Diagnostic Test (Pha) (Accu-Chek) 1 ea 02 XX ; Start 08/13/18 at 21:47 Insulin Aspart (Novolog Insulin Pen) NOVOLOG *MILD* ALGORITHM WITH MEALS BEDTIME SC Last administered on 08/16/18 11:57; Admin Dose 1 UNIT; Start 08/13/18 at 21:47 Miscellaneous Information 1 ea NOTE XX ; Start 08/13/18 at 21:47 Aspirin (Aspirin) 81 mg DAILY PO Last administered on 08/21/18 08:13; Admin Dose 81 MG; Start 08/13/18 at 21:47 Metformin HCl (Glucophage) 500 mg WITH DINNER PO Last administered on 16:59; Admin Dose 500 MG; Start 08/13/18 at 21:47 Enoxaparin Sodium (Lovenox) 40 mg DAILY SC Last administered on 08/21/18 08:14; Admin Dose 40 MG; Start 08/13/18 at 21:47 Atorvastatin Calcium (Lipitor) 80 mg HS PO Last administered on 08/21/18 2 0:27; Admin Dose 80 MG; Start 08/13/18 at 22:02 Sacubitril/ Valsartan (Entresto 24 Mg-26 Mg) 1 tab BID PO Last administered on 08/21/18 20:27; Admin Dose 1 TAB; Start 08/13/18 at 22:11 Miscellaneous Information 1 ea NOTE XX ; Start 08/13/18 at 23:00 Glucose (Glutose) 15 gm Q15M PRN PO DECREASED GLUCOSE; Start 08/13/18 at 23:00 Glucose (Glutose) 22.5 gm Q15M PRN PO DECREASED GLUCOSE; Start 08/13/18 at 23:00 Dextrose (D50w Syringe) 25 ml Q15M PRN IV DECREASED GLUCOSE; Start 08/13/18 at 23:00 Dextrose (D50w Syringe) 50 ml Q15M PRN IV DECREASED GLUCOSE; Start 08/13/18 at 23:00 Glucagon (Glucagen) 1 mg Q15M PRN IM DECREASED GLUCOSE; Start 08/13/18 at 23:00 Glucose (Glutose) 15 gm Q15M PRN BUCCAL DECREASED GLUCOSE; Start 08/13/18 at 23:00 Docusate Sodium (Colace) 100 mg BID PO Last administered on 08/21/18 20:27; Admin Dose 100 MG; Start 08/14/18 at 09:00 Senna (Senokot) 1 tab HS PO Last administered on 08/21/18 20:26; Admin Dose 1 TAB; Start 08/14/18 at 21:00 Acetaminophen (Tylenol Tab) 650 mg Q4H PRN PO MILD PAIN(1-3)OR ELEVATED TEMP Last administered on 08/15/18 22:32; Admin Dose 650 MG; Start 08/14/18 at 01:00 Bisacodyl (Dulcolax Supp) 10 mg DAILY PRN [place] CONSTIPATION; Start 08/14/18 at 01:00 Magnesium Hydroxide (Milk Of Mag) 30 ml BID PRN PO CONSTIPATION; Start 08/14/18 at 01:00 Lactulose (Enulose) 20 gm DAILY PRN PO CONSTIPATION; Start 08/14/18 at 02:00 Nitroglycerin (Nitroglycerin (Sl Tab) 0.4 Mg) 1 tab Q5M PRN SL ANGINA Last administered on 08/14/18at 14:33; Admin Dose 1 TAB; Start 08/14/18 at 14:30 Carvedilol (Coreg) 3.125 mg BID PO Last administered on 08/21/18 20:27; Admin Dose 3.125 MG; Start 08/16/18 at 21:00 Ranolazine (Ranexa) 500 mg Q12 PO Last administered on 08/21/18at 20:27; Admin Dose 500 MG; Start 08/16/18 at 21:00 AGUSTIN DONG Aug 21, 2018 21:17
[2018-08-22 02:00] VITALS: BP 120/65; PULSE 68; RESP 18
[2018-08-22] MEDS: ACCU-CHEK XX SCH (02:00)
[2018-08-22] MEDS: FUROSEMIDE 20 MG TAB PO SCH ×2 (06:22→17:49)
[2018-08-22 07:00] VITALS: BP 113/71; PULSE 67; RESP 18
[2018-08-22] MEDS: INSULIN ASPART [NOVOLOG] 3 ML PEN SC SCH ×4 (07:35→20:41)
[2018-08-22] MEDS: SACUBITRIL/VALSARTAN (24mg-26mg) TABLET PO SCH ×2 (08:29→20:22)
[2018-08-22] MEDS: RANOLAZINE (SR) 500 MG TAB PO SCH ×2 (08:29→20:23)
[2018-08-22] MEDS: THIAMINE 100 MG TAB PO SCH (08:29)
[2018-08-22] MEDS: DOCUSATE SODIUM 100 MG CAP PO SCH ×2 (08:29→20:22)
[2018-08-22] MEDS: SPIRONOLACTONE 25 MG TAB PO SCH (08:29)
[2018-08-22] MEDS: ASPIRIN 81 MG TAB PO SCH (08:30)
[2018-08-22] MEDS: ENOXAPARIN 40 MG/0.4 ML SYG SC SCH (08:35)
--- NOTE | 2018-08-22 11:00 | PN ---
Date/Time of Note Date/Time of Note DATE: 08/22/18 TIME: 11:00 Objective Vital Signs Date Temp Pulse Resp B/P (MAP) Pulse Ox O2 O2 Flow FiO2 Time Delivery Rate 08/22/18 98.3 67 18 113/71 96 Room Air 07:00 (85) Intake and Output 08/21/18 08/21/18 08/22/18 1515:00 23:00 07:00 IntakeIntake Total 1940 ml 400 ml OutputOutput Total 1160 ml 400 ml BalanceBalance 780 ml 0 ml Exam mod ambulation 6 feet Results/Medications Results 24 hrs Laboratory Tests Test 08/21/18 11:59 08/21/18 16:59 08/21/18 20:25 08/22/18 07:38 Bedside Glucose 88 81 163 122 Medications Current Medications Furosemide (Lasix) 20 mg BID DIURETICS PO Last administered on 08/22/18 06:22; Admin Dose 20 MG; Start 08/13/18 at 21:47 Spironolactone (Aldactone) 25 mg DAILY PO Last administered on 08/22/18 08:29; Admin Dose 25 MG; Start 08/13/18 at 21:47 Thiamine HCl (Vitamin B1) 100 mg DAILY PO Last administered on 08/22/18 08:29; Admin Dose 100 MG; Start 08/13/18 at 21:47 Diagnostic Test (Pha) (Accu-Chek) 1 ea 02 XX ; Start 08/13/18 at 21:47 Insulin Aspart (Novolog Insulin Pen) NOVOLOG *MILD* ALGORITHM WITH MEALS BEDTIME SC Last administered on 08/16/18 11:57; Admin Dose 1 UNIT; Start 08/13/18 at 21:47 Miscellaneous Information 1 ea NOTE XX ; Start 08/13/18 at 21:47 Aspirin (Aspirin) 81 mg DAILY PO Last administered on 08/22/18 08:30; Admin Dose 81 MG; Start 08/13/18 at 21:47 Metformin HCl (Glucophage) 500 mg WITH DINNER PO Last administered on 08/21/18 16:59; Admin Dose 500 MG; Start 08/13/18 at 21:47 Enoxaparin Sodium (Lovenox) 40 mg DAILY SC Last administered on 08/22/18 08:35; Admin Dose 40 MG; Start 08/13/18 at 21:47 Atorvastatin Calcium (Lipitor) 80 mg HS PO Last administered on 08/21/18at 20:27; Admin Dose 80 MG; Start 08/13/18 at 22:02 Sacubitril/ Valsartan (Entresto 24 Mg-26 Mg) 1 tab BID PO Last administered on 08/22/18at 08:29; Admin Dose 1 TAB; Start 08/13/18 at 22:11 Miscellaneous Information 1 ea NOTE XX ; Start 08/13/18 at 23:00 Glucose (Glutose) 15 gm Q15M PRN PO DECREASED GLUCOSE; Start 08/13/18 at 23:00 Glucose (Glutose) 22.5 gm Q15M PRN PO DECREASED GLUCOSE; Start 08/13/18 at 23:00 Dextrose (D50w Syringe) 25 ml Q15M PRN IV DECREASED GLUCOSE; Start 08/13/18 at 23:00 Dextrose (D50w Syringe) 50 ml Q15M PRN IV DECREASED GLUCOSE; Start 08/13/18 at 23:00 Glucagon (Glucagen) 1 mg Q15M PRN IM DECREASED GLUCOSE; Start 08/13/18 at 23:00 Glucose (Glutose) 15 gm Q15M PRN BUCCAL DECREASED GLUCOSE; Start 08/13/18 at 23:00 Docusate Sodium (Colace) 100 mg BID PO Last administered on 08/22/18at 08:29; Admin Dose 100 MG; Start 08/14/18 at 09:00 Senna (Senokot) 1 tab HS PO Last administered on 08/21/18 20:26; Admin Dose 1 TAB; Start 08/14/18 at 21:00 Acetaminophen (Tylenol Tab) 650 mg Q4H PRN PO MILD PAIN(1-3)OR ELEVATED TEMP Last administered on 08/15/18 22:32; Admin Dose 650 MG; Start 08/14/18 at 01:00 Bisacodyl (Dulcolax Supp) 10 mg DAILY PRN [place] CONSTIPATION; Start 08/14/18 at 01:00 Magnesium Hydroxide (Milk Of Mag) 30 ml BID PRN PO CONSTIPATION; Start 08/14/18 at 01:00 Lactulose (Enulose) 20 gm DAILY PRN PO CONSTIPATION; Start 08/14/18 at 02:00 Nitroglycerin (Nitroglycerin (Sl Tab) 0.4 Mg) 1 tab Q5M PRN SL ANGINA Last administered on 08/14/18at 14:33; Admin Dose 1 TAB; Start 08/14/18 at 14:30 Carvedilol (Coreg) 3.125 mg BID PO Last administered on 08/22/18at 08:30; Admin Dose 3.125 MG; Start 08/16/18 at 21:00 Ranolazine (Ranexa) 500 mg Q12 PO Last administered on 08/22/18at 08:29; Admin Dose 500 MG; Start 08/16/18 at 21:00 Assessment/Plan Additional Assessment/Plan Rehab- Left PHILIPPE infarct CVA with right-sided weakness and aphasia. Continue rehab therapies Cardiomyopathy. Hyperlipidemia. Hypertension. Prediabetes. NICOLE BILLINGS MD Aug 22, 2018 11:00
--- NOTE | 2018-08-22 13:01 | PN ---
Date/Time of Note Date/Time of Note DATE: 08/22/18 TIME: 13:01 Assessment/Plan VTE Prophylaxis Risk score (from Ns)>0 risk: 3 SCD applied (from Ns): No SCD contraindicated: other Pharmacological prophylaxis: LMWH Lines/C[facility]ters [facility] Saline Lock Urinary Cath still in place: No Assessment/Plan Hospital Course SUBJECTIVE: doing well. good participation w/PT. OBJECTIVE: Vital signs-see below PHYSICAL EXAM: Constitutional: Well-developed, adequately built, lying in bed comfortably. Psych: nl mood/affect, no complaints Head: atraumatic, normocephalic Eyes: nl conjunctiva, nl sclera ENMT: mucosa pink and moist, nl external ears & nose Neck: non-tender, supple Respiratory: clear to auscultation, normal air movement Cardiovascular: nl pulses, regular rate and rhythm Gastrointestinal: non-tender, soft, bowel sounds active in all 4 quadrants. Musculoskeletal/extremities: nl extremities to inspection, motor strength equal bilaterally, no focal deficit. Normal pulses,no cyanosis, no edema. Neurological: Alert oriented 3,nl speech, nl strength Skin: nl turgor ASSESSMENT/PLAN: 1.Acute CVA -Continue aspirin/statin. -Keep normotensive blood pressure goals. 2. CHF, systolic with LVEF 20-25% -on coreg, aldactone, lasix,Nitrate, and entresto 3. Cardiomyopathy -Treatment as outlined in #3.Imdur added yesterday. 4. HTN, controlled -Continue antihypertensive 5. Dyslipidemia - on lipitor 6. DMII - on metformin and ISS 7. Alcohol use/possible substance abuse. - assistance . DVT prophylaxis: lovenox Patient was seen in collaboration with . Results 24hrs Laboratory Tests Test 08/21/18 16:59 08/21/18 20:25 08/22/18 07:38 08/22/18 11:41 Bedside Glucose 81 163 122 93 Exam/Review of Systems Exam Vitals Vital Signs Date Temp Pulse Resp B/P (MAP) Pulse Ox O2 O2 Flow FiO2 Time Delivery Rate 08/22/18 98.3 67 18 113/71 96 Room Air 07:00 (85) Intake and Output 08/21/18 08/21/18 08/22/18 1515:00 23:00 07:00 IntakeIntake Total 1940 ml 400 ml OutputOutput Total 1160 ml 400 ml BalanceBalance 780 ml 0 ml Results Results 24hrs Laboratory Tests Test 08/21/18 16:59 08/21/18 20:25 08/22/18 07:38 08/22/18 11:41 Bedside Glucose 81 163 122 93 Medications Medication Current Medications Furosemide (Lasix) 20 mg BID DIURETICS PO Last administered on 08/22/18 06:22; Admin Dose 20 MG; Start 08/13/18 at 21:47 Spironolactone (Aldactone) 25 mg DAILY PO Last administered on 08/22/18 08:29; Admin Dose 25 MG; Start 08/13/18 at 21:47 Thiamine HCl (Vitamin B1) 100 mg DAILY PO Last administered on 08/22/18 08:29; Admin Dose 100 MG; Start 08/13/18 at 21:47 Diagnostic Test (Pha) (Accu-Chek) 1 ea 02 XX ; Start 08/13/18 at 21:47 Insulin Aspart (Novolog Insulin Pen) NOVOLOG *MILD* ALGORITHM WITH MEALS BEDTIME SC Last administered on 08/16/18 11:57; Admin Dose 1 UNIT; Start 08/13/18 at 21:47 Miscellaneous Information 1 ea NOTE XX ; Start 08/13/18 at 21:47 Aspirin (Aspirin) 81 mg DAILY PO Last administered on 08/22/18 08:30; Admin Dose 81 MG; Start 08/13/18 at 21:47 Metformin HCl (Glucophage) 500 mg WITH DINNER PO Last administered on 08/21/18 16:59; Admin Dose 500 MG; Start 08/13/18 at 21:47 Enoxaparin Sodium (Lovenox) 40 mg DAILY SC Last administered on 08/22/18 08:35; Admin Dose 40 MG; Start 08/13/18 at 21:47 Atorvastatin Calcium (Lipitor) 80 mg HS PO Last administered on 08/21/18 20:27; Admin Dose 80 MG; Start 08/13/18 at 22:02 Sacubitril/ Valsartan (Entresto 24 Mg-26 Mg) 1 tab BID PO Last administered on 08/22/18 08:29; Admin Dose 1 TAB; Start 08/13/18 at 22:11 Miscellaneous Information 1 ea NOTE XX ; Start 08/13/18 at 23:00 Glucose (Glutose) 15 gm Q15M PRN PO DECREASED GLUCOSE; Start 08/13/18 at 23:00 Glucose (Glutose) 22.5 gm Q15M PRN PO DECREASED GLUCOSE; Start 08/13/18 at 23:00 Dextrose (D50w Syringe) 25 ml Q15M PRN IV DECREASED GLUCOSE; Start 08/13/18 at 23:00 Dextrose (D50w Syringe) 50 ml Q15M PRN IV DECREASED GLUCOSE; Start 08/13/18 at 23:00 Glucagon (Glucagen) 1 mg Q15M PRN IM DECREASED GLUCOSE; Start 08/13/18 at 23:00 Glucose (Glutose) 15 gm Q15M PRN BUCCAL DECREASED GLUCOSE; Start 08/13/18 at 23:00 Docusate Sodium (Colace) 100 mg BID PO Last administered on 08/22/18 08:29; Admin Dose 100 MG; Start 08/14/18 at 09:00 Senna (Senokot) 1 tab HS PO Last administered on 08/21/18 20:26; Admin Dose 1 TAB; Start 08/14/18 at 21:00 Acetaminophen (Tylenol Tab) 650 mg Q4H PRN PO MILD PAIN(1-3)OR ELEVATED TEMP Last administered on 08/15/18 22:32; Admin Dose 650 MG; Start 08/14/18 at 01:00 Bisacodyl (Dulcolax Supp) 10 mg DAILY PRN [place] CONSTIPATION; Start 08/14/18 at 01:00 Magnesium Hydroxide (Milk Of Mag) 30 ml BID PRN PO CONSTIPATION; Start 08/14/18 at 01:00 Lactulose (Enulose) 20 gm DAILY PRN PO CONSTIPATION; Start 08/14/18 at 02:00 Nitroglycerin (Nitroglycerin (Sl Tab) 0.4 Mg) 1 tab Q5M PRN SL ANGINA Last administered on 08/14/18 14:33; Admin Dose 1 TAB; Start 08/14/18 at 14:30 Carvedilol (Coreg) 3.125 mg BID PO Last administered on 08/22/18 08:30; Admin Dose 3.125 MG; Start 08/16/18 at 21:00 Ranolazine (Ranexa) 500 mg Q12 PO Last administered on 08/22/18 08:29; Admin Dose 500 MG; Start 08/16/18 at 21:00 AMANDA MENDEZ NP Aug 22, 2018 13:01
--- NOTE | 2018-08-22 13:26 | RADRPT ---
Vent Rate: 64 bpm RR Interval: 0 msec MI Interval: 182 msec QRS Duration: 122 msec QT Interval: 428 msec QTC Interval: 441 msec P-R-T [place]: 40 - -12 - 0 degrees Normal sinus rhythm Nonspecific intraventricular conduction delay ST & Marked T wave abnormality, consider anterolateral ischemia Abnormal ECG Electronically Signed By: Adam Roca
[2018-08-22 14:00] VITALS: BP 117/80; PULSE 76; RESP 18
[2018-08-22] MEDS: metFORMIN 500 MG TAB PO SCH (17:49)
[2018-08-22 20:03] VITALS: BP 102/64; PULSE 92; RESP 18
[2018-08-22] MEDS: SENNA TAB PO SCH (20:22)
[2018-08-22] MEDS: ATORVASTATIN 80 MG TAB PO SCH (20:22)
--- NOTE | 2018-08-22 20:33 | CONS ---
Assessment/Plan Assessment/Plan Hospital Course (Demo Recall) IMPRESSION: 1. Cardiomyopathy approximately 20% to 25% by echo 07/30. 2. Congestive heart failure, systolic, acute on chronic. 3. Hypertension, under reasonable control.- no sig hypotension with d/c of isordil 4. Dyslipidemia. 5. History of myocardial infarction. 6. Acute cerebrovascular accident with right upper and lower extremity weakness, paralysis.-significant improvement in RUE 7. Chest pain-acute onset today with inprovement after nitro. Neg trop x 3 since chest pain episode. NO recurrence on ranexa 8. Abnl ECG-with deep TWI across precordium in setting of acute CVA likely cerebral T waves. Had cardiac CTA 06/13/18 with no sig epicardial CAD and calcium score of 0. A strong independent marker of low liklihood of CV events over next 1-2 years. Recc; -Continue coreg/entresto which have been well tolerated since d/c of isordil -Continue lasix and aldactone and follow volume status closely -continue ranexa with resolved chest pain -Continue statin -PT/OT Consultation Date/Type/Reason Admit Date/Time Aug 13, 2018 at 18:49 Initial Consult Date 08/13/18 Type of Consult Cardiology Reason for Consultation chest pain Requesting Provider: AMANDA MENDEZ NP Date/Time of Note DATE: 08/22/18 TIME: 20:31 Exam/Review of Systems Vital Signs Vitals Vital Signs Date Temp Pulse Resp B/P (MAP) Pulse Ox O2 O2 Flow FiO2 Time Delivery Rate 08/22/18 98.6 92 18 102/64 96 Room Air 20:03 (77) Intake and Output 08/21/18 08/21/18 08/22/18 1414:59 22:59 06:59 IntakeIntake Total 1940 ml 400 ml OutputOutput Total 1160 ml 400 ml BalanceBalance 780 ml 0 ml Exam Exam Review of Systems: CONSTITUTIONAL: No fevers, chills. PULMONARY: No sob CARDIOVASCULAR: No chest pain/palpitations GASTROINTESTINAL: No nausea/vomiting. GENITOURINARY: No hematuria/dysuria. MUSCULOSKELETAL: No myagias/arthalgias. PSYCHIATRIC: The patient denies depression. NEUROLOGIC: No weakness Constitutional: alert, oriented Psych: no complaints Head: normocephalic ENMT: mucosa pink and moist Neck: supple, jvd (9 cm water) Respiratory: clear to auscultation Cardiovascular: regular rate and rhythm Gastrointestinal: soft, non-tender Musculoskeletal: muscle tone (normal) Extremities: edema (none) Neurological: focal weakness (RLE) Labs Results 24hrs Laboratory Tests Test 08/22/18 07:38 08/22/18 11:41 08/22/18 17:05 Bedside Glucose 122 93 132 Medications Medications Current Medications Furosemide (Lasix) 20 mg BID DIURETICS PO Last administered on 08/22/18 17:49; Admin Dose 20 MG; Start 08/13/18 at 21:47 Spironolactone (Aldactone) 25 mg DAILY PO Last administered on 08/22/18 08:29; Admin Dose 25 MG; Start 08/13/18 at 21:47 Thiamine HCl (Vitamin B1) 100 mg DAILY PO Last administered on 08/22/18 08:29; Admin Dose 100 MG; Start 08/13/18 at 21:47 Diagnostic Test (Pha) (Accu-Chek) 1 ea 02 XX ; Start 08/13/18 at 21:47 Insulin Aspart (Novolog Insulin Pen) NOVOLOG *MILD* ALGORITHM WITH MEALS BEDTIME SC Last administered on 08/16/18 11:57; Admin Dose 1 UNIT; Start 08/13/18 at 21:47 Miscellaneous Information 1 ea NOTE XX ; Start 08/13/18 at 21:47 Aspirin (Aspirin) 81 mg DAILY PO Last administered on 08/22/18 08:30; Admin Dose 81 MG; Start 08/13/18 at 21:47 Metformin HCl (Glucophage) 500 mg WITH DINNER PO Last administered on 08/22/18 17:49; Admin Dose 500 MG; Start 08/13/18 at 21:47 Enoxaparin Sodium (Lovenox) 40 mg DAILY SC Last administered on 08/22/18 08:35; Admin Dose 40 MG; Start 08/13/18 at 21:47 Atorvastatin Calcium (Lipitor) 80 mg HS PO Last administered on 08/21/18 20:27; Admin Dose 80 MG; Start 08/13/18 at 22:02 Sacubitril/ Valsartan (Entresto 24 Mg-26 Mg) 1 tab BID PO Last administered on 08/22/18 08:29; Admin Dose 1 TAB; Start 08/13/18 at 22:11 Miscellaneous Information 1 ea NOTE XX ; Start 08/13/18 at 23:00 Glucose (Glutose) 15 gm Q15M PRN PO DECREASED GLUCOSE; Start 08/13/18 at 23:00 Glucose (Glutose) 22.5 gm Q15M PRN PO DECREASED GLUCOSE; Start 08/13/18 at 23:00 Dextrose (D50w Syringe) 25 ml Q15M PRN IV DECREASED GLUCOSE; Start 08/13/18 at 23:00 Dextrose (D50w Syringe) 50 ml Q15M PRN IV DECREASED GLUCOSE; Start 08/13/18 at 23:00 Glucagon (Glucagen) 1 mg Q15M PRN IM DECREASED GLUCOSE; Start 08/13/18 at 23:00 Glucose (Glutose) 15 gm Q15M PRN BUCCAL DECREASED GLUCOSE; Start 08/13/18 at 23:00 Docusate Sodium (Colace) 100 mg BID PO Last administered on 08/22/18at 08:29; Admin Dose 100 MG; Start 08/14/18 at 09:00 Senna (Senokot) 1 tab HS PO Last administered on 08/21/18at 20:26; Admin Dose 1 TAB; Start 08/14/18 at 21:00 Acetaminophen (Tylenol Tab) 650 mg Q4H PRN PO MILD PAIN(1-3)OR ELEVATED TEMP Last administered on 08/15/18at 22:32; Admin Dose 650 MG; Start 08/14/18 at 01:00 Bisacodyl (Dulcolax Supp) 10 mg DAILY PRN [place] CONSTIPATION; Start 08/14/18 at 01:00 Magnesium Hydroxide (Milk Of Mag) 30 ml BID PRN PO CONSTIPATION; Start 08/14/18 at 01:00 Lactulose (Enulose) 20 gm DAILY PRN PO CONSTIPATION; Start 08/14/18 at 02:00 Nitroglycerin (Nitroglycerin (Sl Tab) 0.4 Mg) 1 tab Q5M PRN SL ANGINA Last administered on 08/14/18at 14:33; Admin Dose 1 TAB; Start 08/14/18 at 14:30 Carvedilol (Coreg) 3.125 mg BID PO Last administered on 08/22/18 08:30; Admin Dose 3.125 MG; Start 08/16/18 at 21:00 Ranolazine (Ranexa) 500 mg Q12 PO Last administered on 08/22/18at 08:29; Admin Dose 500 MG; Start 08/16/18 at 21:00 AGUSTIN DONG Aug 22, 2018 20:32
[2018-08-22 20:41] VITALS: BP 102/64; PULSE 92; RESP 18
[2018-08-23] MEDS: ACCU-CHEK XX SCH (02:00)
[2018-08-23 02:54] VITALS: BP 111/70; PULSE 70; RESP 20
[2018-08-23] MEDS: FUROSEMIDE 20 MG TAB PO SCH ×2 (06:44→17:52)
[2018-08-23 07:00] VITALS: BP 112/66; PULSE 64; RESP 18
[2018-08-23] MEDS: INSULIN ASPART [NOVOLOG] 3 ML PEN SC SCH ×3 (07:35→17:35)
[2018-08-23] MEDS: THIAMINE 100 MG TAB PO SCH (09:00)
[2018-08-23] MEDS: DOCUSATE SODIUM 100 MG CAP PO SCH (09:41)
[2018-08-23] MEDS: SPIRONOLACTONE 25 MG TAB PO SCH (09:42)
[2018-08-23] MEDS: RANOLAZINE (SR) 500 MG TAB PO SCH (09:43)
[2018-08-23] MEDS: SACUBITRIL/VALSARTAN (24mg-26mg) TABLET PO SCH (09:43)
[2018-08-23] MEDS: ENOXAPARIN 40 MG/0.4 ML SYG SC SCH (09:45)
[2018-08-23] MEDS: ASPIRIN 81 MG TAB PO SCH (11:17)
[2018-08-23 14:00] VITALS: BP 113/77; PULSE 65; RESP 18
--- NOTE | 2018-08-23 14:11 | PN ---
Date/Time of Note Date/Time of Note DATE: 08/23/18 TIME: 14:10 Assessment/Plan VTE Prophylaxis Risk score (from Nsg)>0 risk: 3 SCD applied (from Nsg): Yes Pharmacological prophylaxis: LMWH Lines/Catheters IV Catheter Type (from Nrsg): Saline Lock Urinary Cath still in place: No Assessment/Plan Hospital Course SUBJECTIVE: Patient is for discharge today. OBJECTIVE: Vital signs-see below PHYSICAL EXAM: Constitutional: Well-developed, adequately built, lying in bed comfortably. Psych: nl mood/affect, no complaints Head: atraumatic, normocephalic Eyes: nl conjunctiva, nl sclera ENMT: mucosa pink and moist, nl external ears & nose Neck: non-tender, supple Respiratory: clear to auscultation, normal air movement Cardiovascular: nl pulses, regular rate and rhythm Gastrointestinal: non-tender, soft, bowel sounds active in all 4 quadrants. Musculoskeletal/extremities: nl extremities to inspection, motor strength equal bilaterally, no focal deficit. Normal pulses,no cyanosis, no edema. Neurological: Alert oriented 3,nl speech, nl strength Skin: nl turgor ASSESSMENT/PLAN: 1.Acute CVA -Continue aspirin/statin. -Keep normotensive blood pressure goals. 2. CHF, systolic with LVEF 20-25% -on coreg, aldactone, lasix,Nitrate, and entresto 3. Cardiomyopathy -Treatment as outlined in #3.Imdur added yesterday. 4. HTN, controlled -Continue antihypertensive 5. Dyslipidemia - on lipitor 6. DMII - on metformin and ISS 7. Alcohol use/possible substance abuse. -SW assistance . DVT prophylaxis: lovenox Agree with discharge plan with continuation of current medications. Patient was seen in collaboration with . Results 24hrs Laboratory Tests Test 08/22/18 17:05 08/22/18 20:21 08/23/18 03:01 08/23/18 07:52 Bedside Glucose 132 295 H 142 116 Test 08/23/18 11:48 Bedside Glucose 100 Exam/Review of Systems Exam Vitals Vital Signs Date Temp Pulse Resp B/P (MAP) Pulse Ox O2 O2 Flow FiO2 Time Delivery Rate 08/23/18 98.5 64 18 112/66 94 Room Air 07:00 (81) Intake and Output 08/22/18 08/22/18 08/23/18 1515:00 23:00 07:00 IntakeIntake Total 1200 ml 300 ml OutputOutput Total 800 ml 1050 ml BalanceBalance 400 ml -750 ml Results Results 24hrs Laboratory Tests Test 08/22/18 17:05 08/22/18 20:21 08/23/18 03:01 08/23/18 07:52 Bedside Glucose 132 295 H 142 116 Test 08/23/18 11:48 Bedside Glucose 100 Medications Medication Current Medications Furosemide (Lasix) 20 mg BID DIURETICS PO Last administered on 08/23/18 06:44; Admin Dose 20 MG; Start 08/13/18 at 21:47 Spironolactone (Aldactone) 25 mg DAILY PO Last administered on 08/23/18 09:42; Admin Dose 25 MG; Start 08/13/18 at 21:47 Thiamine HCl (Vitamin B1) 100 mg DAILY PO Last administered on 08/22/18 08:29; Admin Dose 100 MG; Start 08/13/18 at 21:47 Diagnostic Test (Pha) (Accu-Chek) 1 ea 02 XX ; Start 08/13/18 at 21:47 Insulin Aspart (Novolog Insulin Pen) NOVOLOG *MILD* ALGORITHM WITH MEALS BEDTIME SC Last administered on 08/22/18 20:41; Admin Dose 3 UNIT; Start 08/13/18 at 21:47 Miscellaneous Information 1 ea NOTE XX ; Start 08/13/18 at 21:47 Aspirin (Aspirin) 81 mg DAILY PO Last administered on 08/23/18 11:17; Admin Dose 81 MG; Start 08/13/18 at 21:47 Metformin HCl (Glucophage) 500 mg WITH DINNER PO Last administered on 08/22/18 17:49; Admin Dose 500 MG; Start 08/13/18 at 21:47 Enoxaparin Sodium (Lovenox) 40 mg DAILY SC Last administered on 08/23/18 09:45; Admin Dose 40 MG; Start 08/13/18 at 21:47 Atorvastatin Calcium (Lipitor) 80 mg HS PO Last administered on 08/22/18 20:22; Admin Dose 80 MG; Start 08/13/18 at 22:02 Sacubitril/ Valsartan (Entresto 24 Mg-26 Mg) 1 tab BID PO Last administered on 08/23/18 09:43; Admin Dose 1 TAB; Start 08/13/18 at 22:11 Miscellaneous Information 1 ea NOTE XX ; Start 08/13/18 at 23:00 Glucose (Glutose) 15 gm Q15M PRN PO DECREASED GLUCOSE; Start 08/13/18 at 23:00 Glucose (Glutose) 22.5 gm Q15M PRN PO DECREASED GLUCOSE; Start 08/13/18 at 23:00 Dextrose (D50w Syringe) 25 ml Q15M PRN IV DECREASED GLUCOSE; Start 08/13/18 at 23:00 Dextrose (D50w Syringe) 50 ml Q15M PRN IV DECREASED GLUCOSE; Start 08/13/18 at 23:00 Glucagon (Glucagen) 1 mg Q15M PRN IM DECREASED GLUCOSE; Start 08/13/18 at 23:00 Glucose (Glutose) 15 gm Q15M PRN BUCCAL DECREASED GLUCOSE; Start 08/13/18 at 23:00 Docusate Sodium (Colace) 100 mg BID PO Last administered on 08/23/18at 09:41; Admin Dose 100 MG; Start 08/14/18 at 09:00 Senna (Senokot) 1 tab HS PO Last administered on 08/22/18at 20:22; Admin Dose 1 TAB; Start 08/14/18 at 21:00 Acetaminophen (Tylenol Tab) 650 mg Q4H PRN PO MILD PAIN(1-3)OR ELEVATED TEMP Last administered on 08/15/18at 22:32; Admin Dose 650 MG; Start 08/14/18 at 01:00 Bisacodyl (Dulcolax Supp) 10 mg DAILY PRN [place] CONSTIPATION; Start 08/14/18 at 01:00 Magnesium Hydroxide (Milk Of Mag) 30 ml BID PRN PO CONSTIPATION; Start 08/14/18 at 01:00 Lactulose (Enulose) 20 gm DAILY PRN PO CONSTIPATION; Start 08/14/18 at 02:00 Nitroglycerin (Nitroglycerin (Sl Tab) 0.4 Mg) 1 tab Q5M PRN SL ANGINA Last administered on 08/14/18at 14:33; Admin Dose 1 TAB; Start 08/14/18 at 14:30 Carvedilol (Coreg) 3.125 mg BID PO Last administered on 08/23/18at 09:42; Admin Dose 3.125 MG; Start 4/5/19 at 21:00 Ranolazine (Ranexa) 500 mg Q12 PO Last administered on 08/23/18at 09:43; Admin Dose 500 MG; Start 08/16/18 at 21:00 AMANDA MENDEZ NP Aug 23, 2018 14:11
[2018-08-23] MEDS: metFORMIN 500 MG TAB PO SCH (17:52)
--- NOTE | 2018-08-23 18:23 | CONS ---
Assessment/Plan Assessment/Plan Hospital Course (Demo Recall) IMPRESSION: 1. Cardiomyopathy approximately 20% to 25% by echo 07/30. 2. Congestive heart failure, systolic, acute on chronic. 3. Hypertension, under reasonable control.- no sig hypotension with d/c of isordil 4. Dyslipidemia. 5. History of myocardial infarction. 6. Acute cerebrovascular accident with right upper and lower extremity weakness, paralysis.-significant improvement in RUE 7. Chest pain-acute onset today with inprovement after nitro. Neg trop x 3 since chest pain episode. NO recurrence on ranexa 8. Abnl ECG-with deep TWI across precordium in setting of acute CVA likely cerebral T waves. Had cardiac CTA 06/13/18 with no sig epicardial CAD and calcium score of 0. A strong independent marker of low liklihood of CV events over next 1-2 years. Recc; -Continue coreg/entresto which have been well tolerated since d/c of isordil -Continue lasix and aldactone and follow volume status closely -continue ranexa with resolved chest pain -Continue statin -PT/OT Consultation Date/Type/Reason Admit Date/Time Aug 13, 2018 at 18:49 Initial Consult Date 08/13/18 Type of Consult Cardiology Reason for Consultation chest pain Requesting Provider: AMANDA MENDEZ NP Date/Time of Note DATE: 08/23/18 TIME: 18:22 Exam/Review of Systems Vital Signs Vitals Vital Signs Date Temp Pulse Resp B/P (MAP) Pulse Ox O2 O2 Flow FiO2 Time Delivery Rate 08/23/18 98.1 65 18 113/77 97 Room Air 14:00 (89) Intake and Output 08/22/18 08/22/18 08/23/18 1515:00 23:00 07:00 IntakeIntake Total 1200 ml 300 ml OutputOutput Total 800 ml 1050 ml BalanceBalance 400 ml -750 ml Exam Exam Review of Systems: CONSTITUTIONAL: No fevers, chills. PULMONARY: No sob CARDIOVASCULAR: No chest pain/palpitations GASTROINTESTINAL: No nausea/vomiting. GENITOURINARY: No hematuria/dysuria. MUSCULOSKELETAL: No myagias/arthalgias. PSYCHIATRIC: The patient denies depression. NEUROLOGIC: No weakness Constitutional: alert Psych: no complaints Head: normocephalic ENMT: mucosa pink and moist Neck: supple, jvd (9 cm water) Respiratory: diminished breath sounds Cardiovascular: regular rate and rhythm Gastrointestinal: soft, non-tender Musculoskeletal: muscle tone (normaql) Extremities: edema Labs Results 24hrs Laboratory Tests Test 08/22/18 20:21 08/23/18 03:01 08/23/18 07:52 08/23/18 11:48 Bedside Glucose 295 H 142 116 100 Test 08/23/18 17:26 Bedside Glucose 107 Medications Medications Current Medications Furosemide (Lasix) 20 mg BID DIURETICS PO Last administered on 08/23/18 17:52; Admin Dose 20 MG; Start 08/13/18 at 21:47 Spironolactone (Aldactone) 25 mg DAILY PO Last administered on 08/23/18 09:42; Admin Dose 25 MG; Start 08/13/18 at 21:47 Thiamine HCl (Vitamin B1) 100 mg DAILY PO Last administered on 08/22/18 08:29; Admin Dose 100 MG; Start 08/13/18 at 21:47 Diagnostic Test (Pha) (Accu-Chek) 1 ea 02 XX ; Start 08/13/18 at 21:47 Insulin Aspart (Novolog Insulin Pen) NOVOLOG *MILD* ALGORITHM WITH MEALS BEDTIME SC Last administered on 08/22/18 20:41; Admin Dose 3 UNIT; Start 08/13/18 at 21:47 Miscellaneous Information 1 ea NOTE XX ; Start 08/13/18 at 21:47 Aspirin (Aspirin) 81 mg DAILY PO Last administered on 08/23/18 11:17; Admin Dose 81 MG; Start 08/13/18 at 21:47 Metformin HCl (Glucophage) 500 mg WITH DINNER PO Last administered on 08/23/18 17:52; Admin Dose 500 MG; Start 08/13/18 at 21:47 Enoxaparin Sodium (Lovenox) 40 mg DAILY SC Last administered on 08/23/18 09:45; Admin Dose 40 MG; Start 08/13/18 at 21:47 Atorvastatin Calcium (Lipitor) 80 mg HS PO Last administered on 08/22/18 20:22; Admin Dose 80 MG; Start 08/13/18 at 22:02 Sacubitril/ Valsartan (Entresto 24 Mg-26 Mg) 1 tab BID PO Last administered on 4/12/19at 09:43; Admin Dose 1 TAB; Start 08/13/18 at 22:11 Miscellaneous Information 1 ea NOTE XX ; Start 08/13/18 at 23:00 Glucose (Glutose) 15 gm Q15M PRN PO DECREASED GLUCOSE; Start 08/13/18 at 23:00 Glucose (Glutose) 22.5 gm Q15M PRN PO DECREASED GLUCOSE; Start 08/13/18 at 23:00 Dextrose (D50w Syringe) 25 ml Q15M PRN IV DECREASED GLUCOSE; Start 08/13/18 at 23:00 Dextrose (D50w Syringe) 50 ml Q15M PRN IV DECREASED GLUCOSE; Start 08/13/18 at 23:00 Glucagon (Glucagen) 1 mg Q15M PRN IM DECREASED GLUCOSE; Start 08/13/18 at 23:00 Glucose (Glutose) 15 gm Q15M PRN BUCCAL DECREASED GLUCOSE; Start 08/13/18 at 23:00 Docusate Sodium (Colace) 100 mg BID PO Last administered on 08/23/18 09:41; Admin Dose 100 MG; Start 08/14/18 at 09:00 Senna (Senokot) 1 tab HS PO Last administered on 08/22/18 20:22; Admin Dose 1 TAB; Start 08/14/18 at 21:00 Acetaminophen (Tylenol Tab) 650 mg Q4H PRN PO MILD PAIN(1-3)OR ELEVATED TEMP Last administered on 08/15/18 22:32; Admin Dose 650 MG; Start 08/14/18 at 01:00 Bisacodyl (Dulcolax Supp) 10 mg DAILY PRN [place] CONSTIPATION; Start 08/14/18 at 01:00 Magnesium Hydroxide (Milk Of Mag) 30 ml BID PRN PO CONSTIPATION; Start 08/14/18 at 01:00 Lactulose (Enulose) 20 gm DAILY PRN PO CONSTIPATION; Start 08/14/18 at 02:00 Nitroglycerin (Nitroglycerin (Sl Tab) 0.4 Mg) 1 tab Q5M PRN [place] ANGINA Last administered on 08/14/18at 14:33; Admin Dose 1 TAB; Start 08/14/18 at 14:30 Carvedilol (Coreg) 3.125 mg BID PO Last administered on 08/23/18 09:42; Admin Dose 3.125 MG; Start 08/16/18 at 21:00 Ranolazine (Ranexa) 500 mg Q12 PO Last administered on 08/23/18at 09:43; Admin Dose 500 MG; Start 08/16/18 at 21:00 AGUSTIN DONG Aug 23, 2018 18:23
--- NOTE | 2018-08-24 11:00 | DS ---
Date/Time of Note Date/Time of Note DATE: 08/24/18 TIME: 10:57 Discharge Summary Admission/Discharge Info Admit Date/Time Aug 13, 2018 at 18:49 Discharge Date/Time Aug 23, 2018 at 19:00 Discharge Diagnosis 1. Left PHILIPPE infarct CVA with right-sided weakness and aphasia. 2. Hyperlipidemia. 3. Hypertension. 4. Prediabetes. 5. Cardiomyopathy 5. Improvements in self-care, mobility and cognition. Patient Condition: Good Hospital Course The patient was admitted for comprehensive interdisciplinary rehabilitation and made steady functional gains from a Max level to a min/sba level for self care tasks and mobility including Wheelchair mobility and ambulating few steps. Despite excellent functional gains, family reporting they are unable to provide necessary assistance at home. Patient is being discharged to lower level of care for cintinued therapies. Home Meds Active Scripts Insulin Aspart* (Novolog Insulin Pen*) 100 Unit/Ml Soln, 0 UNIT SC WITH MEALS BEDTIME for 30 Days Prov:COCO COCHRAN MD 08/13/18 Metformin* (Glucophage*) 500 Mg Tab, 500 MG PO WITH DINNER for 30 Days, TAB Prov:COCO COCHRAN MD 08/13/18 Aspirin (Aspirin) 81 Mg Chew, 81 MG PO DAILY for 30 Days, TAB Prov:COCO COCHRAN MD 08/13/18 Enoxaparin Sodium* (Enoxaparin Sodium*) 40 Mg/0.4 Ml Syringe, 40 MG SC DAILY for 10 Days Prov:COCO COCHRAN MD 08/13/18 Reported Medications Thiamine* (Vitamin B-1*) 100 Mg Tablet, 100 MG PO DAILY, TAB 08/06/18 Furosemide* (Furosemide*) 20 Mg Tablet, 20 MG PO BID, #30 TAB 08/06/18 Spironolactone* (Aldactone*) 25 Mg Tablet, 25 MG PO DAILY, #30 TAB 08/06/18 Carvedilol* (Carvedilol*) 6.25 Mg Tablet, 6.25 MG PO BID, #60 TAB 08/06/18 Atorvastatin Calcium* (Atorvastatin Calcium*) 20 Mg Tablet, 20 MG PO QHS, #30 TAB 08/06/18 Sacubitril/Valsartan (Entresto 24 mg-26 mg Tablet) 1 Each Tablet, 1 EACH PO BID, TAB 08/06/18 Primary Care Provider Yovany Medina MD Pending Labs Laboratory Tests Test 08/23/18 11:48 08/23/18 17:26 Bedside Glucose 100 mg/dL (70-220) 107 mg/dL (70-220) NICOLE BILLINGS MD Aug 24, 2018 11:00
== END 2018-08-23 19:00 | DRG 56 ==
LOC: VRC 18:49
PROVIDERS: ADMIT Physical Medicine & Rehabilitation; ATTEND Internal Medicine Pulmonary Disease
PROC: F07Z5ZZ Bed Mobility Treatment (ICD-10-PCS; principal; 2018-08-13)
PROC: F08Z2ZZ Grooming/Personal Hygiene Treatment (ICD-10-PCS; 2018-08-13)
PROC: F06Z6ZZ Communicative/Cognitive Integration Skills Treatment (ICD-10-PCS; 2018-08-13)
DX: I69.351 Hemiplegia and hemiparesis following cerebral infarction affecting right dominant side (principal); I63.9 Cerebral infarction, unspecified; I50.23 Acute on chronic systolic (congestive) heart failure; I42.9 Cardiomyopathy, unspecified; I69.320 Aphasia following cerebral infarction; I11.0 Hypertensive heart disease with heart failure; E11.9 Type 2 diabetes mellitus without complications; E78.5 Hyperlipidemia, unspecified; R07.89 Other chest pain; Z72.89 Other problems related to lifestyle; I25.2 Old myocardial infarction; Z79.82 Long term (current) use of aspirin; F10.10 Alcohol abuse, uncomplicated; R94.31 Abnormal electrocardiogram [ECG] [EKG]; I50.84 End stage heart failure; Z79.4 Long term (current) use of insulin
CPT/HCPCS: 80053; 80307; 81003; 82550; 82553; 82962; 83880; 84484; 85025; 87081; 87086; 92507; 92523; 93005; 97110; 97112; 97116; 97163; 97167; 97530; 97535; 97542; J1650; J1815

== ENCOUNTER 2018-12-30 14:37 | Inpatient (IN) | payer OTHER ==
[~2018-12-30] VITALS: Ht 170.2 cm; Wt 86.2 kg
[~2018-12-30 14:37] MED LIST changes: +LEVE-5 PO; +TRAM50TA2 PO
[2018-12-30] MEDS ORDERED: DOCUSATE SODIUM 100 MG CAP PO PRN (17:30)
[2018-12-30] MEDS ORDERED: ACETAMINOPHEN 325 MG TAB PO PRN (17:30)
[2018-12-30] MEDS ORDERED: MAGNESIUM HYDROXIDE 30ML CUP PO PRN (17:30)
[2018-12-30] MEDS ORDERED: NACL 0.9% 3 ML SYG IV SCH (17:30)
[2018-12-30] MEDS ORDERED: ONDANSETRON 4 MG INJ IV PRN (17:30)
[2018-12-30] MEDS ORDERED: IOHEXOL 100 ML ONE (17:33)
[2018-12-30] MEDS ORDERED: SOD CHLORIDE 0.9% 100 ML ONE (17:33)
[2018-12-30] MEDS ORDERED: LORAZEPAM 2 MG INJ IV ONE (18:00)
[2018-12-30] MEDS ORDERED: LORAZEPAM 2 MG INJ IV PRN (18:00)
[2018-12-30] MEDS ORDERED: GLUCAGON 1 MG INJ IM PRN (18:30)
[2018-12-30] MEDS ORDERED: GLUCOSE GEL 15 GRAM TUBE BUCCAL PRN (18:30)
[2018-12-30] MEDS ORDERED: GLUCOSE GEL 15 GRAM TUBE PO PRN ×2 (18:30)
[2018-12-30] MEDS ORDERED: DEXTROSE 50% 50 ML SYRINGE IV PRN ×2 (18:30)
[2018-12-30] MEDS: HYDROCODONE/APAP (5/325) TAB PO PRN (19:36)
[2018-12-30] MEDS ORDERED: ATORVASTATIN 20 MG TAB PO SCH (21:00)
[2018-12-30] MEDS: INSULIN ASPART [NOVOLOG] 3 ML PEN SC SCH (21:00)
[2018-12-30] MEDS: SACUBITRIL/VALSARTAN (24mg-26mg) TABLET PO SCH (23:08)
[2018-12-30] MEDS: FUROSEMIDE 20 MG TAB PO SCH (23:22)
[2018-12-31] VITALS (7 sets, daily range): BP systolic 115–153; BP diastolic 58–103; PULSE 70–116; RESP 18–20; Ht 170.2 cm; Wt 86.2 kg
[2018-12-31] MEDS: SPIRONOLACTONE 25 MG TAB PO SCH (09:41)
[2018-12-31] MEDS: FISH OIL 1,000 MG CAP PO SCH ×2 (09:42→20:30)
[2018-12-31] MEDS: THIAMINE 100 MG TAB PO SCH (09:42)
[2018-12-31] MEDS: FUROSEMIDE 20 MG TAB PO SCH ×2 (09:42→20:30)
[2018-12-31] MEDS: SACUBITRIL/VALSARTAN (24mg-26mg) TABLET PO SCH ×2 (09:43→20:29)
[2018-12-31] MEDS: ASPIRIN 81 MG TAB PO SCH (09:43)
[2018-12-31] MEDS: INSULIN ASPART [NOVOLOG] 3 ML PEN SC SCH ×4 (09:53→20:31)
[2018-12-31] MEDS: LEVETIRACETAM 500 MG TAB PO SCH ×2 (10:30→20:31)
[2018-12-31] MEDS: LEVETIRACETAM 1000 MG (PMX) 100 ML IVPB STA ×2 (11:26→11:46)
[2018-12-31] MEDS: HYDROCODONE/APAP (5/325) TAB PO PRN (11:45)
[2018-12-31] MEDS: HEPARIN 5,000 UNIT/1 ML VIAL SC SCH ×2 (16:41→22:55)
[2018-12-31] MEDS: ATORVASTATIN 20 MG TAB PO SCH (20:31)
[2019-01-01 04:53] VITALS: BP 121/80; PULSE 84; RESP 18
[2019-01-01] MEDS: HEPARIN 5,000 UNIT/1 ML VIAL SC SCH ×3 (06:18→21:08)
[2019-01-01] MEDS: HYDROCODONE/APAP (5/325) TAB PO PRN (06:19)
[2019-01-01] MEDS: INSULIN ASPART [NOVOLOG] 3 ML PEN SC SCH ×4 (08:01→21:00)
[2019-01-01 08:08] VITALS: BP 120/92; PULSE 83; RESP 18
[2019-01-01] MEDS: LEVETIRACETAM 500 MG TAB PO SCH (08:15)
[2019-01-01] MEDS: THIAMINE 100 MG TAB PO SCH (08:16)
[2019-01-01] MEDS: SACUBITRIL/VALSARTAN (24mg-26mg) TABLET PO SCH ×2 (08:16→20:58)
[2019-01-01] MEDS: SPIRONOLACTONE 25 MG TAB PO SCH (08:16)
[2019-01-01] MEDS: ASPIRIN 81 MG TAB PO SCH (08:16)
[2019-01-01] MEDS: FISH OIL 1,000 MG CAP PO SCH (08:16)
[2019-01-01] MEDS: FUROSEMIDE 20 MG TAB PO SCH ×2 (08:17→20:58)
[2019-01-01] MEDS: morphine 2 MG INJ IV PRN ×2 (08:18→14:24)
[2019-01-01 11:48] VITALS: BP 110/69; PULSE 82; RESP 18
[2019-01-01 15:28] VITALS: BP 108/74; PULSE 75; RESP 20
[2019-01-01 20:00] VITALS: BP 120/80; PULSE 72; RESP 18
[2019-01-01] MEDS: ATORVASTATIN 20 MG TAB PO SCH (20:57)
[2019-01-02 00:20] VITALS: BP 120/65; PULSE 73; RESP 18
[2019-01-02 04:40] VITALS: BP 113/72; PULSE 73; RESP 18
[2019-01-02] MEDS: HEPARIN 5,000 UNIT/1 ML VIAL SC SCH ×3 (05:30→22:27)
[2019-01-02 07:14] VITALS: BP 123/77; PULSE 78; RESP 18
[2019-01-02] MEDS: INSULIN ASPART [NOVOLOG] 3 ML PEN SC SCH ×4 (07:59→21:13)
[2019-01-02] MEDS: SPIRONOLACTONE 25 MG TAB PO SCH (08:39)
[2019-01-02] MEDS: SACUBITRIL/VALSARTAN (24mg-26mg) TABLET PO SCH ×2 (08:39→20:52)
[2019-01-02] MEDS: THIAMINE 100 MG TAB PO SCH (08:39)
[2019-01-02] MEDS: ASPIRIN 81 MG TAB PO SCH (08:40)
[2019-01-02] MEDS: FUROSEMIDE 20 MG TAB PO SCH ×2 (08:40→20:58)
[2019-01-02] MEDS: HYDROCODONE/APAP (5/325) TAB PO PRN (10:08)
[2019-01-02 15:43] VITALS: BP 110/69; PULSE 77; RESP 18
[2019-01-02 20:00] VITALS: BP 121/78; PULSE 86; RESP 18
[2019-01-02] MEDS: ATORVASTATIN 20 MG TAB PO SCH (20:57)
[2019-01-02 23:26] VITALS: BP 99/60; PULSE 82; RESP 20
[2019-01-03] VITALS (23 sets, daily range): BP systolic 101–146; BP diastolic 75–92; PULSE 72–98; RESP 16–20
[2019-01-03] MEDS: INSULIN ASPART [NOVOLOG] 3 ML PEN SC SCH ×4 (08:00→20:20)
[2019-01-03] MEDS ORDERED: CEFAZOLIN 1 GM/50 ML (PMX) 50 ML IVPB ONE (08:00)
[2019-01-03] MEDS: SACUBITRIL/VALSARTAN (24mg-26mg) TABLET PO SCH ×2 (09:00→20:10)
[2019-01-03] MEDS ORDERED: POLYMYXIN/BACITRACIN 1L IRRIG ONE (09:50)
[2019-01-03] MEDS ORDERED: SOD CHLORIDE 0.9% 500 ML ONE (10:25)
[2019-01-03] MEDS ORDERED: IODIXANOL LOCM 50 ML BTL ONE (10:25)
[2019-01-03] MEDS ORDERED: LIDOCAINE 1%/EPI (1:100,000) (MDV) 20 ML ONE (10:25)
[2019-01-03] MEDS ORDERED: CEFAZOLIN 2 GM/50 ML (PMX) 50 ML IVPB ONE (10:26)
[2019-01-03] MEDS ORDERED: MIDAZOLAM 1 MG/ML 2 ML INJ ONE (11:17)
[2019-01-03] MEDS ORDERED: PROPOFOL 20 ML ONE (11:18)
[2019-01-03] MEDS ORDERED: FENTAnyl 50 MCG/ML VIAL ONE (11:18)
[2019-01-03] MEDS ORDERED: hydrALAzine 20 MG INJ IV PRN (12:30)
[2019-01-03] MEDS ORDERED: MIDAZOLAM 1 MG/ML 2 ML INJ IV PRN (12:30)
[2019-01-03] MEDS ORDERED: DIPHENHYDRAMINE 50 MG INJ IV PRN (12:30)
[2019-01-03] MEDS ORDERED: ONDANSETRON 4 MG INJ IV PRN (12:30)
[2019-01-03] MEDS ORDERED: MEPERIDINE 25 MG INJ IV PRN (12:30)
[2019-01-03] MEDS ORDERED: METOCLOPRAMIDE 10 MG INJ IV PRN (12:30)
[2019-01-03] MEDS ORDERED: FENTAnyl 50 MCG/ML VIAL IV PRN ×3 (12:30)
[2019-01-03] MEDS ORDERED: EPHEDrine 25 MG/5 ML SYG IV PRN (12:30)
[2019-01-03] MEDS ORDERED: LABETALOL HCL 20MG INJ IV PRN (12:30)
[2019-01-03] MEDS ORDERED: morphine 2 MG INJ IV PRN (13:00)
[2019-01-03] MEDS ORDERED: HYDROCODONE/APAP (5/325) TAB PO PRN (13:00)
[2019-01-03] MEDS ORDERED: CEFAZOLIN 1 GM/50 ML (PMX) 50 ML IVPB SCH (14:00)
[2019-01-03] MEDS: SPIRONOLACTONE 25 MG TAB PO SCH (15:45)
[2019-01-03] MEDS: LEVETIRACETAM 500 MG TAB PO SCH ×2 (15:46→20:10)
[2019-01-03] MEDS: THIAMINE 100 MG TAB PO SCH (15:47)
[2019-01-03] MEDS: FUROSEMIDE 20 MG TAB PO SCH ×2 (15:47→20:15)
[2019-01-03] MEDS: morphine 2 MG INJ IV PRN ×2 (17:21→22:23)
[2019-01-03] MEDS: CEFAZOLIN 1 GM/50 ML (PMX) 50 ML IVPB SCH (20:07)
[2019-01-03] MEDS: ATORVASTATIN 20 MG TAB PO SCH (20:14)
[2019-01-04] MEDS: CEFAZOLIN 1 GM/50 ML (PMX) 50 ML IVPB SCH ×2 (02:44→14:25)
[2019-01-04 04:00] VITALS: BP 131/89; PULSE 84
[2019-01-04 07:22] VITALS: BP 125/77; PULSE 88; RESP 18
[2019-01-04] MEDS ORDERED: MAGNESIUM SULFATE 2 GM/50 ML 50 ML IVPB ONE (07:30)
[2019-01-04] MEDS: INSULIN ASPART [NOVOLOG] 3 ML PEN SC SCH ×2 (08:01→12:00)
[2019-01-04] MEDS ORDERED: FISH OIL 1,000 MG CAP PO SCH (09:00)
[2019-01-04] MEDS: SPIRONOLACTONE 25 MG TAB PO SCH (10:44)
[2019-01-04] MEDS: THIAMINE 100 MG TAB PO SCH (10:45)
[2019-01-04] MEDS: LEVETIRACETAM 500 MG TAB PO SCH (10:45)
[2019-01-04] MEDS: SACUBITRIL/VALSARTAN (24mg-26mg) TABLET PO SCH (10:45)
[2019-01-04] MEDS: FUROSEMIDE 20 MG TAB PO SCH (10:46)
[2019-01-04 11:26] VITALS: BP 128/92; PULSE 83; RESP 18
== END 2019-01-04 15:00 | disposition home or self-care (01) | DRG 265 ==
LOC: E/R 14:37 → 6WM 16:52 → OBSVTOIN 12-31 09:47 → 6WM 01-03 15:00
PROVIDERS: ADMIT Internal Medicine; ATTEND Internal Medicine
PROC: 02HK3KZ Insertion of Defibrillator Lead into Right Ventricle, Percutaneous Approach (ICD-10-PCS; principal; 2019-01-03 11:00)
DX: I42.9 Cardiomyopathy, unspecified (principal); G45.9 Transient cerebral ischemic attack, unspecified; R55 Syncope and collapse; S01.01XA Laceration without foreign body of scalp, initial encounter; W19.XXXA Unspecified fall, initial encounter; I16.0 Hypertensive urgency; E11.9 Type 2 diabetes mellitus without complications; E78.5 Hyperlipidemia, unspecified; E78.1 Pure hyperglyceridemia; Z86.73 Personal history of transient ischemic attack (TIA), and cerebral infarction without residual deficits; Y92.9 Unspecified place or not applicable; Z91.81 History of falling
CPT/HCPCS: 33249; 36415; 70450; 70496; 70498; 70551; 71045; 80048; 80061; 82550; 82553; 82962; 83036; 83735; 83880; 84443; 84484; 85025; 85610; 93005; 95819; 97110; 97116; 97161; 97167; 97530; G0378; C1722; C1777; J0690; J1644; J1815; J1953; J2060; J2250; J2270; J3010; J3475; J7040; Q9967